=== PATIENT | male | born 1950 | race Caucasian/White ===

== ENCOUNTER 2018-04-01 16:19 | Outpatient (REF) | payer MEDICARE, MEDICAID, SELFPAY ==
[2018-04-01 21:27] LABS: ALT 103 U/L (12-78); AST 114 U/L (15-37); Albumin 3.7 g/dL (3.4-5.0); Alkaline Phosphatase 84 U/L (46-116); BUN 15 mg/dL (7-18); Bilirubin, Total 0.7 mg/dL (0.2-1.0); CREATININE 0.84 mg/dL (0.70-1.30); Calcium 8.6 mg/dL (8.5-10.1); Chloride 105 mmol/L (98-107); Glucose 100 mg/dL (70-100); Potassium 4.2 mmol/L (3.5-5.1); Sodium 144 mmol/L (136-145); Total Protein 6.7 g/dL (6.4-8.2)
[2018-04-03 08:49] LABS: PSA, Screening 3.6 ng/ml (0-4.5)
== END 2018-04-01 16:20 ==
LOC: NCHCN 16:19
PROVIDERS: PCP Nurse Practitioner Family; Visit Provider Nurse Practitioner Family
DX: R13.10 Dysphagia, unspecified (principal); E78.5 Hyperlipidemia, unspecified; G25.0 Essential tremor; F41.8 Other specified anxiety disorders; J98.4 Other disorders of lung; N20.0 Calculus of kidney; G62.9 Polyneuropathy, unspecified; Z12.5 Encounter for screening for malignant neoplasm of prostate; Z80.42 Family history of malignant neoplasm of prostate
CPT/HCPCS: 80053; 84153

== ENCOUNTER 2018-05-07 15:44 | Outpatient (REF) | payer MEDICARE, MEDICAID, SELFPAY ==
[2018-05-07 20:40] LABS: ALT 41 U/L (12-78); AST 26 U/L (15-37)
== END 2018-05-07 16:04 ==
LOC: NCHCN 15:44
PROVIDERS: PCP Nurse Practitioner Family; Visit Provider Nurse Practitioner Family
DX: R74.0 Nonspecific elevation of levels of transaminase and lactic acid dehydrogenase [LDH] (principal)
CPT/HCPCS: 84450; 84460

== ENCOUNTER → 2018-05-28 14:33 | Outpatient (BNVA) | payer MEDICARE, MEDICAID, SELFPAY | PROVIDERS: Visit Provider Psychiatry & Neurology Neurology | DX: G40.909 Epilepsy, unspecified, not intractable, without status epilepticus (principal); S06.9X9S Unspecified intracranial injury with loss of consciousness of unspecified duration, sequela; X58.XXXD Exposure to other specified factors, subsequent encounter; G25.0 Essential tremor; G62.1 Alcoholic polyneuropathy | CPT/HCPCS: 99214 ==

== ENCOUNTER 2018-05-29 14:36 | Outpatient (CLI) | payer MEDICARE, MEDICAID, SELFPAY ==
[2018-05-29 16:01] LABS: Hemoglobin A1C 5.5 % (4.5-6.2)
[2018-05-29 16:13] LABS: ESR 10 MM/HR (1-20)
[2018-05-29 16:38] LABS: TSH (W/Ref FT4) 1.68 uIU/mL (0.358-3.74); Vitamin B12 407 pg/mL (193-986)
[2018-05-31 11:32] LABS: Albumin 65.4 % (55.8-66.1); Total Protein 6.1 g/dl (6.3-8.2)
== END 2018-05-29 14:56 ==
PROVIDERS: PCP Nurse Practitioner Family; Visit Provider Psychiatry & Neurology Neurology
DX: R73.9 Hyperglycemia, unspecified (principal); G25.0 Essential tremor; G62.1 Alcoholic polyneuropathy
CPT/HCPCS: 36415; 84166; 85652; 82607; 83036; 84165; 84443

== ENCOUNTER 2018-06-25 15:39 | Outpatient (REF) | payer MEDICARE, MEDICAID, SELFPAY ==
[2018-06-25 20:55] LABS: ALT 36 U/L (12-78); AST 30 U/L (15-37); Anion Gap 9.5 mmol/L (3-11); BUN 22 mg/dL (7-18); CO2 29.5 mmol/L (21.0-32.0); CREATININE 1.21 mg/dL (0.70-1.30); Calcium 9.1 mg/dL (8.5-10.1); Chloride 103 mmol/L (98-107); Estimated GFR 59.82 (mL/min/1.73m2); Glucose 89 mg/dL (70-100); Potassium 4.1 mmol/L (3.5-5.1); Sodium 142 mmol/L (136-145)
== END 2018-06-25 15:59 ==
LOC: NCHCN 15:39
PROVIDERS: PCP Nurse Practitioner Family; Visit Provider Nurse Practitioner Family
DX: R74.0 Nonspecific elevation of levels of transaminase and lactic acid dehydrogenase [LDH] (principal); Z51.81 Encounter for therapeutic drug level monitoring
CPT/HCPCS: 80048; 84450; 84460

== ENCOUNTER 2018-08-27 13:16 | Outpatient (REF) | payer MEDICARE, MEDICAID, SELFPAY ==
[2018-08-27 14:12] LABS: ALT 73 U/L (12-78); AST 77 U/L (15-37); Albumin 3.6 g/dL (3.4-5.0); Alkaline Phosphatase 93 U/L (46-116); Anion Gap 8.7 mmol/L (3-11); BUN 19 mg/dL (7-18); Bilirubin, Total 0.5 mg/dL (0.2-1.0); CO2 31.3 mmol/L (21.0-32.0); CREATININE 1.08 mg/dL (0.70-1.30); Calcium 9.3 mg/dL (8.5-10.1); Chloride 104 mmol/L (98-107); Cholesterol 212 mg/dL (50-200); Glucose 102 mg/dL (70-100); HDL Cholesterol 92 mg/dL (40-60); LDL CHOLESTEROL 98 mg/dL (<100); Potassium 5.1 mmol/L (3.5-5.1); Sodium 144 mmol/L (136-145); Total Protein 6.9 g/dL (6.4-8.2); Triglyceride 80 mg/dL (30-150)
== END 2018-08-27 13:36 ==
LOC: NCHCN 13:16
PROVIDERS: PCP Nurse Practitioner Family; Visit Provider Nurse Practitioner Family
DX: E78.5 Hyperlipidemia, unspecified (principal)
CPT/HCPCS: 80053; 80061; 83721

== ENCOUNTER → 2018-09-02 12:56 | Outpatient (BNVA) | payer MEDICARE, SELFPAY | PROVIDERS: PCP Nurse Practitioner Family; Visit Provider Psychiatry & Neurology Neurology | DX: R73.9 Hyperglycemia, unspecified (principal); G62.1 Alcoholic polyneuropathy; G25.0 Essential tremor; G40.909 Epilepsy, unspecified, not intractable, without status epilepticus | CPT/HCPCS: 99214 ==

== ENCOUNTER 2018-10-03 16:31 | Outpatient (REF) | payer MEDICARE, MEDICAID, SELFPAY ==
[2018-10-03 21:59] LABS: ALT 113 U/L (12-78); AST 102 U/L (15-37)
[2018-10-04 10:02] LABS: CREATININE 1.19 mg/dL (0.70-1.30)
[2018-10-07 12:51] LABS: Hepatitis C Ab w Rflx HCV PCR Negative (NEGAT)
[2018-10-08 11:47] LABS: Hepatitis A Antibody IgM Negative (NEGAT); Hepatitis B Core Antibody Negative (NEGAT); Hepatitis B surface Ag Negative (NEGAT); Hepatitis C Ab w Rflx HCV PCR Negative (NEGAT)
== END 2018-10-03 16:51 ==
LOC: NCHCN 16:31
PROVIDERS: PCP Nurse Practitioner Family; Visit Provider Nurse Practitioner Family
DX: R74.0 Nonspecific elevation of levels of transaminase and lactic acid dehydrogenase [LDH] (principal); Z13.89 Encounter for screening for other disorder; J98.4 Other disorders of lung; G62.9 Polyneuropathy, unspecified; K00.9 Disorder of tooth development, unspecified; J30.9 Allergic rhinitis, unspecified; E78.5 Hyperlipidemia, unspecified; G89.29 Other chronic pain; Z11.59 Encounter for screening for other viral diseases
CPT/HCPCS: 86704; 86709; 86803; 87340; 82565; 84450; 84460

== ENCOUNTER 2018-10-10 00:28 | Outpatient (CLI) | payer MEDICARE, SELFPAY ==
[2018-10-10] MEDS: Omnipaque 350 MG/ML 100 ML BTL IJ (13:10)
--- NOTE | 2018-10-10 13:10 | DI.CT_ITS ---
SYMPTOMS/DIAGNOSIS: PULMONARY NODULE, J98.4 CT SCAN OF THE CHEST: Comparison is 07/06/17. The thyroid gland is grossly unremarkable. The thoracic aorta is intact and normal caliber. Mild atherosclerosis is present. The heart size is within normal limits. No significant pericardial effusion is seen. Coronary artery calcifications are present. No significant thoracic adenopathy is appreciated. No pleural effusion or pneumothorax is identified. Mild emphysematous changes are seen in the lungs. No focal consolidating infiltrates are seen. There are no pulmonary nodules visualized. The area seen on the prior examination may represent a vasculature. The tracheobronchial tree appears unremarkable. Degenerative changes are seen in the spine. IMPRESSION: 1. No pulmonary nodules. 2. Mild emphysematous changes in the lungs. 3. No acute pulmonary process.
[2018-10-10] MEDS: Normal Saline Flush 10 ML SYR IVP (13:11)
== END 2018-10-10 00:48 ==
PROVIDERS: PCP Nurse Practitioner Family; Visit Provider Nurse Practitioner Family
DX: J98.4 Other disorders of lung (principal); R91.1 Solitary pulmonary nodule
CPT/HCPCS: 71260; J3490

== ENCOUNTER 2018-12-31 13:20 | Outpatient (REF) | payer MEDICARE, SELFPAY ==
[2018-12-31 22:38] LABS: ALT 62 U/L (12-78); AST 43 U/L (15-37); Albumin 4.2 g/dL (3.4-5.0); Alkaline Phosphatase 76 U/L (46-116); Bilirubin, Direct 0.13 mg/dL (0.00-0.20); Bilirubin, Total 0.5 mg/dL (0.2-1.0); Total Protein 7.4 g/dL (6.4-8.2)
[2019-01-02 10:06] LABS: PSA, Screening 3.2 ng/ml (0-4.5)
== END 2018-12-31 13:40 ==
LOC: NCHCN 13:20
PROVIDERS: PCP Nurse Practitioner Family; Visit Provider Nurse Practitioner Family
DX: R74.0 Nonspecific elevation of levels of transaminase and lactic acid dehydrogenase [LDH] (principal); E78.5 Hyperlipidemia, unspecified; Z12.5 Encounter for screening for malignant neoplasm of prostate; Z80.42 Family history of malignant neoplasm of prostate; G25.0 Essential tremor; G62.9 Polyneuropathy, unspecified
CPT/HCPCS: 80076; 84153

== ENCOUNTER 2019-02-13 15:22 | Outpatient (REF) | payer MEDICARE, SELFPAY ==
--- NOTE | 2019-02-13 10:30 | SKI_PTH ---
PATIENT: Roderick Fernandez LOC: [facility] U#:[id number] AGE/SX: 69/M ROOM: RE02/13/[address]: Giuliana Monzon : 1950 BED: DIS: 02/13/2019 SPEC #: [id number] RECD: 02/14/19 12:43 STATUS: JOANNE REQ #: [id number] TON: 02/13/19 10:[address]: Giuliana Monzon DEPT: Surgical Specimen RECD BY: Annika Cloud ENTERED: 02/14/19 12:44 SP TYPE: DOROTHY AGUILERA DR: Nicolette Harris Tissues: 1 - SKIN BIOPSY(SHAVE/PUNCH) Procedures: SKIN LEVEL 4 Comments: [id number]
== END 2019-02-13 15:42 ==
LOC: NCHCN 15:22
PROVIDERS: PCP Nurse Practitioner Family; Visit Provider Nurse Practitioner Family
DX: L81.4 Other melanin hyperpigmentation (principal)
CPT/HCPCS: 88305

== ENCOUNTER 2019-09-25 02:52 | Outpatient (CLI) | payer MEDICARE, SELFPAY ==
--- NOTE | 2019-09-25 10:05 | PFT_ITS ---
PULMONARY FUNCTION TEST REPORT DATE OF SERVICE: September 25, 2019 REQUESTING PROVIDER: Nicolette Harris N.P. Spirometry shows mild obstructive airways disease with no significant bronchodilator response. Lung volumes show mild restriction. Diffusion capacity severely reduced, even when corrected to alveolar volume. Airways resistance normal. IMPRESSION: Mild obstructive airways disease with no significant bronchodilator response. This is combined with underlying mild restrictive lung disease. These two together result in severe diffusion defect. Clinical correlation and further workup for both entities is recommended. WONG/maria esther D/
[2019-09-25] MEDS: Albuterol HFA 18 GM 200 PUFF INH IH (10:52)
[2019-09-25] MEDS: Inhaler, Assist Device 1 EACH MC (10:52)
== END 2019-09-25 03:12 ==
PROVIDERS: PCP Nurse Practitioner Family; Visit Provider Nurse Practitioner Family
DX: J98.8 Other specified respiratory disorders (principal); J98.4 Other disorders of lung; Z87.891 Personal history of nicotine dependence; R06.02 Shortness of breath; R06.09 Other forms of dyspnea
CPT/HCPCS: 94060; 94726; 94729

== ENCOUNTER 2019-10-03 13:38 | Inpatient (IN) | payer MEDICARE, SELFPAY ==
[2019-10-03] VITALS (32 sets, daily range): BP systolic 116–158; BP diastolic 67–105; PULSE 72–153; RESP 12–25; TEMP 36.3–37.1; O2SAT 94–100
--- NOTE | 2019-10-03 13:47 | W.ED.GENAD ---
Discharge Plan Disposition Patient Disposition: [facility] INPATIENT Condition: Fair Discharge Details Chief Complaint: SOB Clinical Impression: Transaminitis, Dyspnea on exertion Admit Date/Time: 10/03/19 16:04 Admit Provider: Kaleb Medina Attending Provider: Kaleb Medina Primary Care Provider: Nicolette Harris ED Provider: Leslie Starr Discharge Data Discharge Date/Time-TO BE ENTERED AT DEPARTURE: 10/03/19 17:00 Medical Decision Making Patient is a pleasant 69-year-old male presenting today with chief complaint of shortness of breath. Past medical history significant for TBI, migraines, alcohol abuse, hyperlipidemia, CKD, anxiety, depression, chronic pain, pressure medic epilepsy, essential tremor, alcoholic peripheral neuropathy. He states that for the past 2 weeks he is noted increased shortness of breath particularly with exertion. States that even going up a flight of stairs can make him very winded and that he feels his heart pounding. He denies any chest pain. No recent travel. No personal familial history of clot or bleeding disorder. He denies any nausea, vomiting. He does report that he is lost a few pounds over the past week as he has had a diminished appetite. He denies any personal history of cancer but reports that his brother was diagnosed with prostate cancer. He reports that he has been obtaining his routine screening without any evidence showing concern for cancer. Patient discussed his current issues with his primary care provider and there was concern for PE and he was directed to the ED. patient reports that he quit smoking approximately 2 years ago but smoked from the age of 17. On exam, patient appears chronically unwell. He is cachectic, pale. Normal cardiac exam at this time. No lower extremity edema or calf tenderness. I do agree with primary care is concern for possible PE as the patient was notably tachycardic in the 140s when he first arrived. This did downtrend quickly with cessation of movement. His oxygen has been maintained at 100% on room air. Also consider possible neoplasm given the patient's long smoking history and current appearance. Plan for imaging of his chest. Patient had PFT testing on 09/25/2019. At that time spirometry showed mild obstructive airway disease with no significant bronchodilator response. Lung volumes showed mild restriction. Diffusing capacity severely reduced, we were corrected with alveolar volume. Airways resistance normal in appearance. Overall impression from food service tray attendant was mild obstructive airway disease with no significant bronchodilator response. This is combined with underlying mild restrictive lung disease. He has 2 together result in severe diffusion defect. Clinical correlation and further work-up for both entities is recommended. Labs reviewed. No leukocytosis. D-dimer is within age-adjusted normal. His gap is elevated at 19.6, BUN of 20, creatinine 1.4. His AST is 377 with an ALT of 242. Total bili 1.9. Initial troponin is less than 0.05. But patient has had some elevated liver enzymes historically, they have never been this high. He denies any history of hepatitis, have sent an acute hepatitis panel. With the patient's weight loss, smoking I am concerned for possible cancerous etiology and will change the imaging to include the abdomen with the notable transaminitis. CT was reviewed by radiologist with no acute findings. Patient was quite tachycardic, short of breath when he first came in he is got notable transaminitis as well as elevated anion gap. Patient is receiving 2L of fluids. Plan for admission. Acute hepatitis panel is pending. Will consult with hospitalist. Discussed case with Dr. Medina, he accepts patient to med/surg with plan for continued monitoring on tele, repeat troponin, further eval. HPI General Mode of arrival: ambulatory. Date/Time Provider Initiated Documentation: 10/03/19 13:47. Limitations to Documentation: no limitations. Information obtained by: patient and RN notes reviewed. History of Present Illness 69 year old M presents to the emergency department with the chief complaint of shortness of breath, described as moderate (exertional), Patient started experiencing this week(s) (2) and it has been constant (progressively worsening). Immobilization improves symptom(s), Movement worsens symptoms . Patient notes shortness of breath; denies chest pain, cough, diaphoresis, fever/chills, headaches, loss of appetite, nausea/vomiting, rash, syncope and weakness. Patient did receive the following treatments prior to arrival, none Related Data Home Medications Medication Instructions Recorded Confirmed gabapentin 100 mg PO TID tab-cap 01/27/16 10/03/19 lorazepam [Ativan] 1 mg PO Q 6 HRS PRN tab-cap 01/27/16 10/03/19 mirtazapine 15 mg PO HS tab-cap 01/27/16 10/03/19 aspirin [Aspirin Low-Strength] 81 mg PO DAILY 03/27/16 10/03/19 cholecalciferol (vitamin D3) 6,000 unit PO DAILY 06/12/16 10/03/19 omega-3 fatty acids [Fish Oil] 3,000 mg PO DAILY 06/12/16 10/03/19 vitamin B complex [B 1 ea PO DAILY 06/12/16 10/03/19 Complex-Vitamin B12] calcium carbonate [Calcium] 1 - 2 cap PO HS 04/04/17 10/03/19 propranolol 60 mg PO DAILY #90 tab-cap 06/19/17 10/03/19 Previous Rx's Medication Instructions Recorded propranolol 60 mg PO DAILY #90 tab-cap 06/19/17 Allergies Allergy/AdvReac Type Severity Reaction Status Date / Time acetaminophen [From Vicodin] AdvReac Intermediate SEVERE Unverified 05/28/18 14:56 CONSTIPATION hydrocodone bitartrate AdvReac Intermediate SEVERE Unverified 05/28/18 14:56 [From Vicodin] CONSTIPATION SEAFOOD Allergy Unknown Uncoded 10/03/19 13:52 Review of Systems Constitutional Constitutional: Reports as per HPI, Denies chills, Denies fever(s), Denies headache(s), Denies lethargy and Denies poor appetite Eyes Eyes: Denies change in vision ENT Ears, Nose, Mouth, and Throat: Denies dizziness and Denies headache(s) Cardiovascular Cardiovascular: Reports as per HPI, Denies chest pain, Denies chest pain at rest, Denies diaphoresis, Denies syncope, Reports rapid heart rate (when SOB with exertion), Denies pedal edema, Denies edema, Reports lightheadedness (when SOB), Denies radiating jaw, neck or arm pain, Denies palpitations, Reports dyspnea, Reports dyspnea on exertion and Denies orthopnea Respiratory Respiratory: Reports as per HPI, Denies chest congestion, Denies cough, Denies pain on inspiration, Denies pain with cough, Reports dyspnea, Reports dyspnea on exertion and Denies wheezing Gastrointestinal Gastrointestinal: Reports as per HPI, Denies abdominal pain, Denies diarrhea, Denies nausea and Denies vomiting Genitourinary Genitourinary: Denies system reviewed and no additional complaints, except as docu (denies change in urinary habits) Musculoskeletal Musculoskeletal: Reports as per HPI and Denies back pain Integumentary/Breasts Skin/Breast: Reports as per HPI and Denies rash Neurologic Neurologic: Reports as per HPI, Denies dizziness, Denies syncope and Denies headache(s) Endocrine Endocrine: Denies palpitations Allergic/Immunologic Allergic/Immunologic: Denies wheezing [facility] Medical History (Updated 10/04/19 @ 09:06 by PARKER Mays) Alcohol abuse (Resolved) sober 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) Anxiety and depression (Chronic) Calculus of left kidney (Resolved 03/20/17) Chronic kidney disease, stage 3 (Chronic) Chronic pain syndrome (Chronic) COPD (chronic obstructive pulmonary disease) (Chronic) Essential tremor (Chronic 04/10/16) Gross hematuria (Resolved 03/20/17) Hyperlipidemia (Chronic) Left ureteral stone (Resolved 03/27/17) Migraine headache without aura (Chronic) 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) Scoliosis (Chronic) Seizure disorder (Resolved) TBI (traumatic brain injury) (Chronic) Remote, multiple Umbilical hernia without obstruction or gangrene (Chronic) Vitamin D deficiency (Chronic) Surgical History Colonoscopy - MAC (05/19/16) Inguinal hernia (Acute) Family History Mother TIA (transient ischemic attack) Father Parkinson disease Stroke Social History (Updated 10/03/19 @ 18:19 by Kaleb Medina) Smoking/Tobacco Use Status: Current every day Alcohol Intake: current Alcohol Intake frequency: holidays/special occasions only Alcohol type: wine Drug use: Never Substance use type: does not use Household members: none Housing: apartment Do you feel safe at home: Yes Do you feel safe in your relationship?: Yes Additional Social history: Lives alone in second story apartment in [place], has a cat Currently working part-time at [employer] in [place] through [email or web address]. History of smoking, quit June 2018. No vaping. No other drug use including marijuana. Exam Const General: cooperative, not healthy appearing, comfortable, no acute distress, well developed and ill appearing acutely (pale, tachypnic) Nutritional Appearance: well nourished and cachectic Orientation: alert, awake and oriented x3 HENMT Head: normal to inspection Ears: hearing grossly normal bilaterally Mouth: moist mucous membranes Chest Chest: normal inspection of the chest, normal palpation of entire chest wall and no crepitus Resp Effort & Inspection: abnormal respiratory effort, not able to speak in complete sentences, no audible wheezes, no cough, labored, nasal flaring, no pursed lip breathing, no segmental paradox chest wall movement, no stridor, tachypneic, no tracheal deviation, no tripod positioning and uses accessory muscles Auscultation: clear to auscultation bilaterally, no rales, no rhonchi and no wheezes Cardio Rate: tachycardic Rhythm: regular rhythm Heart Sounds: S1 normal and S2 normal GI Inspection: normal to inspection, no edema and non-distended Palpation: soft, no hepatosplenomegaly, not firm, no guarding, not rigid and nontender Auscultation: normal bowel sounds Back/Spine/Pelvis Back: no CVA tenderness Thoracic/Lumbar Spine: thoracic and lumbar spine normal to inspection Skin General skin exam: no rashes or lesions noted Trauma: no lacerations or abrasions Neuro General: alert, awake and oriented x3 Cognition: normal cognition Speech: speech normal Gait: normal gait Extrem General: normal to inspection, normal capillary refill, no pedal edema, no calf tenderness and normal gait Psych Appearance: grossly normal and well kempt Mental Status: mental status grossly normal Speech and Movement: speech and movement normal
[2019-10-03] MEDS: Normal Saline 1,000 ML 1000 ML IV ×2 (13:59→15:25)
[2019-10-03 14:05] LABS: Abs Immature Grans 0.01 k/cumm (0.0-0.09); Absolute Basophil Count 0.04 k/cumm (0.0-0.2); Absolute Eosinophil Count 0.04 k/cumm (0.0-0.7); Absolute Lymphocyte Count 1.59 k/cumm (1.2-3.4); Absolute Monocyte Count 0.77 k/cumm (0.11-0.7); Basophils % 0.6; Eosinophils % 0.6; HCT 43.5 % (40.0-50.0); HGB 14.9 g/dL (13.5-17.5); Immature Grans % 0.2 %; Lymphocytes % 23.9; Mean Corp. HGB Concentration 34.3 g/dL (32.0-36.0); Mean Corpuscular Hemoglobin 38.5 pg (27.0-33.0); Mean Corpuscular Volume 112.4 fL (80-95); Monocytes % 11.6; Neutrophils % 63.1; Platelet Count 148 x1000/uL (130-400); RBC 3.87 m/cumm (4.50-6.00); RBC Distribution Width 13.4 % (11.8-14.1); White Blood Cell Count 6.65 k/cumm (4.4-10.8)
[2019-10-03 14:24] LABS: INR 1.1 (0.9-1.1); PTT Activated 24.1 sec (21.0-31.4); Prothrombin Time 11.4 sec (9.3-11.0)
[2019-10-03 14:39] LABS: D-Dimer 645 ng/mlFEU (<500)
[2019-10-03 14:42] LABS: ALT 242 U/L (16-63); AST 377 U/L (15-37); Albumin 3.8 g/dL (3.4-5.0); Alkaline Phosphatase 113 U/L (46-116); Anion Gap 19.6 mmol/L (3-11); BUN 20 mg/dL (7-18); Bilirubin, Total 1.9 mg/dL (0.2-1.0); CO2 21.4 mmol/L (21.0-32.0); CREATININE 1.41 mg/dL (0.70-1.30); Calcium 8.6 mg/dL (8.5-10.1); Chloride 98 mmol/L (98-107); Estimated GFR 49.99 (mL/min/1.73m2); Glucose 131 mg/dL (74-106); Magnesium 1.5 mg/dL (1.8-2.4); Sodium 139 mmol/L (136-145); TSH (W/Ref FT4) 1.26 uIU/mL (0.36-3.74)
[2019-10-03 14:44] LABS: Troponin I < 0.05 ng/Ml (<0.06)
--- NOTE | 2019-10-03 14:45 | DI.CT_ITS ---
EXAM: CT CHEST PE ABD PELVIS W CLINICAL HISTORY: SOB, TRANSAMINITIS. TECHNIQUE: Imaging Protocol: Axial computed tomography images with coronal and sagittal reformatted images were created and reviewed CONTRAST MATERIAL: Intravenous: Omnipaque 350 Contrast volume:61 mL Oral: No COMPARISON: ABD/PELVIS WO W CONTRAST from 03/27/2017 FINDINGS: CHEST: Thyroid: Unremarkable as visualized. Tracheobronchial tree: Patent where visualized. Mediastinum and Florencia: No dominant adenopathy or fluid collection. Pulmonary parenchyma: Bilateral apical scarring. Dependent atelectasis. No focal consolidating infi ltrates. Pleura: No effusion or pneumothorax. Lymph nodes: Within normal limits. Aorta: Thoracic portion non-dilated. No evidence of dissection. Atherosclerosis. Heart: Mild cardiomegaly. Mild coronary artery calcification. No evidence of right heart dysfunctio n or significant pericardial effusion. Bones: Degenerative changes. Pulmonary arteries: No evidence of a pulmonary embolus. ABDOMEN: Liver: Diffuse fatty infiltration. Hepatomegaly. No measurable mass. Gallbladder and biliary tract: No radiodense calculus or dilation. Pancreas: Normal density, no abnormal calcifications or inflammatory process. Spleen: Normal. Kidneys: Normal size, contour and axis. Nonobstructing 3 mm stone in the midpole of the left kidney. No masses seen. Adrenal glands: No masses seen. Aorta: Abdominal portion non-dilated. Atherosclerosis. Lymph nodes: Within normal limits. PELVIS: Bladder: Symmetric distention, no gross wall thickening. Bowel: No obstruction or bowel wall thickening. Colonic diverticulosis. No evidence of acute diverti culitis. Normal appendix is identified. Peritoneal cavity: No ascites, collection or mesenteric inflammatory response. Bones: Degenerative changes. Reproductive organs: Within normal limits. IMPRESSION: 1. No evidence of pulmonary embolus, thoracic aortic dissection or aneurysm. 2. No acute abdominal or pelvic process. 3. Mild cardiomegaly. Mild coronary artery calcification. 4. Hepatomegaly and hepatic steatosis. 5. Colonic diverticulosis. No evidence of acute diverticulitis. 6. Left nephrolithiasis. No obstructive uropathy. 7. These findings were discussed with the Emergency Department on the date of the examination. Incidental findings DATA REPOSITORY: All CT scans at this facility are submitted to the National Radiology Data Registry (NRDR) Dose Index Registry (DIR) with the [employer] (ACR). RADIATION OPTIMIZATION: All CT scans at this facility use at least one of these dose optimization te chniques: automated exposure control; mA and/or kV adjustment per patient size (includes targeted exa ms where dose is matched to clinical indication); or iterative reconstruction.
[2019-10-03 14:47] LABS: Diff Comment RBC Morph Reviewed; Macrocytosis 2+
[2019-10-03] MEDS: Omnipaque 350 MG/ML 100 ML BTL IJ (15:15)
[2019-10-03 16:40] LABS: ETHANOL BLOOD 4.5 mg/dL (<3)
[2019-10-03 16:48] LABS: Troponin I < 0.05 ng/Ml (<0.06)
--- NOTE | 2019-10-03 17:00 | PDOC.ERCMIN ---
- If Service Date Differs Date of service: 10/03/19 Time of Service: 17:00 Care Management Initial Assess REASON FOR HOSPITALIZATION:: Shortness of breath. PAST MEDICAL HISTORY/PAST SURGICAL HISTORY:: Medical/Surgical History: TBI (traumatic brain injury), migraine headache without aura, alcohol abuse (sober), vitamin D deficiency, scoliosis, hyperlipidemia, chronic kidney disease, stage 3, anxiety and depression, chronic pain syndrome, post traumatic epilepsy, left ureteral stone, gross hematuria, essential tremor, calculus of left kidney, alcoholic peripheral neuropathy, and umbilical hernia without obtruction or gangrene. PREVIOUS FUNCTIONAL STATUS/SOCIAL/FAMILY SUPPORTS:: Roderick lives alone with his cat, Shaheed, in a second floor apartment in [place]. 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 When not at work, he enjoys reading, going to the library and restaurants, and hiking. Roderick drives and is independent with his ADLs, though shares that lately he has struggled with taking the trash out due to weakness. CURRENT FUNCTIONAL STATUS:: Roderick is lying in bed when CM meets with him. He is pleasant and talkative. He hopes he will only be in the hospital for a day or two as his cat is home alone. He provides CM with the name and phone number of a friend who might be able to go to his apartment to feed the cat (James - [phone]). CM will continue to follow. ADVANCE DIRECTIVES:: None on file, but Roderick says he has one and either his PCP or neurology has a copy of it. Has patient been provided with information about the portal?: No Did the patient sign up for the portal?: No CODE STATUS:: Full Code INSURANCE COVERAGE / FINANCIAL ISSUES:: Medicare. CURRENT HOME/COMMUNITY SERVICES/EQUIPMENT:: Roderick uses a cane to ambulate. He is currently receiving employment services through [employer]. He denies any other community or home services. PRIMARY CARE PHYSICIAN:: Nicolette Harris ([facility]) POTENTIAL DISCHARGE NEEDS:: Follow-up appointment with PCP. PATIENT/FAMILY EDUCATION NEEDS:: Discharge plan, limitations, follow-up plan of care including Ask Me Three and self-management. ANTICIPATED BARRIERS TO DISCHARGE:: None. TRANSPORTATION:: RCT coordinated by CM when ready. PLAN:: Roderick will be discharged home when medically cleared by provider. Anticipate no new services at time of discharge. CM will coordinate transport via [facility] when ready. CM will continue to follow.
--- NOTE | 2019-10-03 18:12 | HPE_ITS ---
Date of service: 10/03/19 Time of Service: 18:12 Assessment and Plan Assessment and plan (1) Dyspnea on exertion: Status: Acute Assessment and plan: This appears to be acute progression or exacerbation of a subacute to chronic problem. Fortunately he is not hypoxic, though he is quite dyspneic with exertion. Initial assessment emergency room with reassuring EKG and troponin not consistent with acute ischemia. Given his risk factors and associated symptoms, we should rule him out with at least one more troponin. Will monitor on telemetry. Cardiomegaly on CT scan and history of alcoholism do raise concern for CHF. I have added a BNP to the next labs, though he does not appear to be overtly fluid overloaded. CT is not consistent with a pulmonary embolus. He does have a recent diagnosis of COPD, as well as restrictive lung disease. I think is most likely this presentation is a manifestation of his chronic lung disease. I will try treating with bronchodilators and prednisone. Imaging and presentation not consistent with infectious pneumonia, though he is at risk for atypical pneumonias as well given his alcohol use disorder. (2) Alcohol abuse: Status: Resolved Assessment and plan: Patient describes moderate alcohol use, though at his age 2 drinks a day even would carry excessive risk. His labs with elevated transaminases, high MCV, low magnesium I will suggest alcohol abuse. His current alcohol level is not excessive. Will monitor for withdrawal. CIWA protocol ordered. He does agree that he should stop drinking altogether and plans to do this upon discharge. We can offer therapy and medical treatment upon discharge. (3) Post traumatic epilepsy: Status: Chronic Assessment and plan: Patient describes a history of posttraumatic epilepsy, but has not had seizures recently. He is maintained on gabapentin, which is appears to be for this and for neuropathy. We will continue his outpatient medications. (4) Chronic kidney disease, stage 3: Status: Chronic Assessment and plan: Patient's creatinine is slightly above his baseline. CT of the kidneys did not show uropathy. Bladder scan was 440, which is slightly elevated, and will get a post void and watch his urine output. He may benefit from tamsulosin. He does not appear to be acutely dehydrated. Will monitor and assess further if this does not improve. (5) Transaminitis: Status: Acute Assessment and plan: Patient does have a history of chronic elevation of LFTs have gone up and down. Acute hepatitis panel was ordered, though this has been negative within the past year. He is not have known ongoing risk factors. The overall picture is very consistent with alcoholic hepatitis. I am concerned with developing cirrhosis with the elevated bilirubin, which is new. His albumin is reassuring, though his platelets are borderline low. He should likely be assessed for cirrhosis with liver elastography as an outpatient. (6) COPD (chronic obstructive pulmonary disease): Status: Chronic Assessment and plan: As above we will try to treat his COPD to see if it improves his dyspnea on exertion. Start with short acting bronchodilators, if he has some benefit he could be started on long-acting. (7) DVT prophylaxis: Status: Acute Assessment and plan: Lovenox (8) Discharge planning issues: Status: Acute Assessment and plan: Patient stable on medical floor. He is full code. History of Present Illness History of Present Illness Chief Complaint: Dyspnea on exertion Narrative: 69-year-old gentleman with history of obstructive and restrictive lung disease and alcohol abuse currently moderated by history who is presenting with progressive shortness of breath on exertion. Patient has had shortness of breath for months to years, but has been getting much worse of the past few weeks. Does have PFTs which were done September 25, but has not been started on respiratory medication. He presented for follow-up for his shortness of breath to his primary child care center administrator today who noted his dyspnea and tachycardia and referred him to the emergency room or concern for pulmonary embolus. Patient states he is comfortable at rest, but even walking around gets dyspneic. He lives on the second floor and has a very difficult time getting up his stairs for the past few weeks. He describes severe shortness of breath by the time he gets to the top associated with nausea, diaphoresis, lightheadedness, and heart racing. He denies chest pain or pressure. The symptoms do improve after collapsing on a chair for 20 minutes at the top of the stairs. He denies any recent upper respiratory symptoms such as cough or sore throat, though he states he does have some chronic congestion. He denies any triggers that are new to explain his increased shortness of breath. He states his downstairs neighbors are not sick and he does not know of any ventilation issues in his home or problems with heating system. He has not changed his medications recently. Patient does admit he has had a problem with alcohol in the past, but states he drinks only 2 glasses of wine a night currently. Review of Systems Narrative: General: No fevers or chills. He has had a good appetite, but does describe a 6 pound weight loss over the past several months. No increase in his headaches recently. No vision changes. No vertigo or balance changes. No focal weakness or new numbness. He does have chronic peripheral neuropathy dated alcohol. No cough, hemoptysis, or sputum production. No lower extremity edema or orthopnea. Does get heartburn. No vomiting. No diarrhea or constipation. No blood in stool or melena. No dysuria or change in urine flow or hematuria. Does have a history of kidney stone. No new joint pain or swelling. No new rashes or open wounds. No mood changes. 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) Anxiety and depression (Chronic) Calculus of left kidney (Resolved 03/20/17) Chronic kidney disease, stage 3 (Chronic) Chronic pain syndrome (Chronic) Essential tremor (Chronic 04/10/16) Gross hematuria (Resolved 03/20/17) Hyperlipidemia (Chronic) Left ureteral stone (Resolved 03/27/17) Migraine headache without aura (Chronic) 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) Scoliosis (Chronic) Seizure disorder (Resolved) TBI (traumatic brain injury) (Chronic) Remote, multiple Umbilical hernia without obstruction or gangrene (Chronic) Vitamin D deficiency (Chronic) Surgical History Colonoscopy - MAC (05/19/16) Inguinal hernia (Acute) Family History Mother TIA (transient ischemic attack) Father Parkinson disease Stroke Social History (Updated 10/03/19 @ 18:19 by Kaleb Medina) Smoking/Tobacco Use Status: Current every day Alcohol Intake: current Alcohol Intake frequency: holidays/special occasions only Alcohol type: wine Drug use: Never Substance use type: does not use Household members: none Housing: apartment Do you feel safe at home: Yes Do you feel safe in your relationship?: Yes Additional Social history: Lives alone in second story apartment in [facility], has a cat Currently working part-time at [employer] in [place] through [employer]. History of smoking, quit June 2018. No vaping. No other drug use including marijuana. Meds Home Medications and Allergies Home Medications Medication Instructions Recorded Confirmed Type gabapentin 100 mg PO TID tab-cap 01/27/16 10/03/19 History lorazepam [Ativan] 1 mg PO Q 6 HRS PRN tab-cap 01/27/16 10/03/19 History mirtazapine 15 mg PO HS tab-cap 01/27/16 10/03/19 History aspirin [Aspirin Low-Strength] 81 mg PO DAILY 03/27/16 10/03/19 History cholecalciferol (vitamin D3) 6,000 unit PO DAILY 06/12/16 10/03/19 History omega-3 fatty acids [Fish Oil] 3,000 mg PO DAILY 06/12/16 10/03/19 History vitamin B complex [B 1 ea PO DAILY 06/12/16 10/03/19 History Complex-Vitamin B12] calcium carbonate [Calcium] 1 - 2 cap PO HS 04/04/17 10/03/19 History propranolol 60 mg PO DAILY #90 tab-cap 06/19/17 10/03/19 Rx Allergies Allergy/AdvReac Type Severity Reaction Status Date / Time acetaminophen [From Vicodin] AdvReac Intermediate SEVERE Unverified 05/28/18 14:56 CONSTIPATION hydrocodone bitartrate AdvReac Intermediate SEVERE Unverified 05/28/18 14:56 [From Vicodin] CONSTIPATION SEAFOOD Allergy Unknown Uncoded 10/03/19 13:52 Exam Narrative Exam Narrative: General: Alert and oriented x3, sitting up comfortably in bed speaking in full sentences. Thin and somewhat pale. HEENT: Atraumatic. Conjunctive are clear with no icterus. Pupils equal round reactive to light with extraocular motion intact. No rhinorrhea. Mucous membranes are moist with oropharynx benign. Neck is supple with no masses or lymphadenopathy or thyromegaly. Lungs: Mildly diffusely diminished, but no rales or wheezes. Cardiovascular: Regular rate and rhythm no murmurs gallops or rubs. Abdomen: Active bowel sounds, soft, nontender nondistended with no organomegaly or other masses. Extremities: No cyanosis clubbing or edema. Nontender to palpation in the legs. No joint redness or swelling Skin: Dry, warm, no rashes or open wounds noted. Neurologic: Cranial nerves II through XII intact. Grossly normal coordination, normal movement in 4 extremities. No tremor at rest. Normal tone. Psychiatric: Normal mood and affect. Normal thought process. Results CT of the chest abdomen pelvis: No evidence of pulmonary embolus, thoracic aortic dissection, or aneurysm. No acute abdominal pelvic process. Mild cardiomegaly. Mild coronary artery calcification. Hepatomegaly and hepatic stenosis.: Diverticulosis without diverticulitis. Left nephrolithiasis without hydronephrosis. EKG: Per emergency physician read, no acute ischemia. Labs Result diagrams: 10/03/19 13:49 10/03/19 13:49 Labs: Laboratory Results - last 24 hr 10/03/19 10/03/19 10/03/19 13:49 13:49 13:49 WBC 6.65 RBC 3.87 L Hgb 14.9 Hct 43.5 MCV 112.4 H MCH 38.5 H MCHC 34.3 RDW 13.4 Plt Count 148 MPV 11.0 Immature Gran % 0.2 Neutrophils % 63.1 Lymphocytes % 23.9 Monocytes % 11.6 Eosinophils % 0.6 Basophils % 0.6 Absolute Neutrophils 4.20 Absolute Lymphocytes 1.59 Absolute Monocytes 0.77 H Absolute Eosinophils 0.04 Absolute Basophils 0.04 Differential Comment Rbc morph reviewed RBC Morphology See below Macrocytosis 2+ PT 11.4 H INR 1.1 APTT 24.1 D-Dimer 645 H Sodium 139 Potassium 4.0 Chloride 98 Carbon Dioxide 21.4 Anion Gap 19.6 H BUN 20 H Creatinine 1.41 H Estimated GFR/1.73 m2 49.99 Glucose 131 H Calcium 8.6 Magnesium 1.5 L Total Bilirubin 1.9 H AST 377 H ALT 242 H Alkaline Phosphatase 113 Troponin I < 0.05 Total Protein 7.0 Albumin 3.8 TSH 1.26 Ethyl Alcohol 10/03/19 10/03/19 16:25 16:26 WBC RBC Hgb Hct MCV MCH MCHC RDW Plt Count MPV Immature Gran % Neutrophils % Lymphocytes % Monocytes % Eosinophils % Basophils % Absolute Neutrophils Absolute Lymphocytes Absolute Monocytes Absolute Eosinophils Absolute Basophils Differential Comment RBC Morphology Macrocytosis PT INR APTT D-Dimer Sodium Potassium Chloride Carbon Dioxide Anion Gap BUN Creatinine Estimated GFR/1.73 m2 Glucose Calcium Magnesium Total Bilirubin AST ALT Alkaline Phosphatase Troponin I < 0.05 Total Protein Albumin TSH Ethyl Alcohol 4.5 Last Vital Signs Temp 37.1 C 10/03/19 17:16 Pulse 103 H 10/03/19 17:16 Resp 20 10/03/19 17:16 BP 145/94 H 10/03/19 17:16 Pulse Ox 100 10/03/19 17:16
[2019-10-03] MEDS: predniSONE 20 MG TAB 60 MG PO (18:50)
[2019-10-03] MEDS: Normal Saline Flush 10 ML SYR IVP (18:51)
[2019-10-03] MEDS: MAGNESIUM SULFATE 2 GM/50 ML BAG IVPB (18:57)
[2019-10-03] MEDS: Gabapentin 100 MG CAP PO (19:27)
[2019-10-03] MEDS: Enoxaparin 40 MG/0.4 ML SYR SC (19:27)
[2019-10-03 21:22] LABS: Troponin I < 0.05 ng/Ml (<0.06)
[2019-10-03] MEDS: Mirtazapine 15 MG TAB PO (21:45)
[2019-10-04] VITALS (14 sets, daily range): BP systolic 91–144; BP diastolic 60–87; PULSE 63–176; RESP 1–18; TEMP 35.6–37.2; O2SAT 94–100
[2019-10-04 06:47] LABS: ALT 191 U/L (16-63); AST 258 U/L (15-37); Albumin 2.8 g/dL (3.4-5.0); Alkaline Phosphatase 85 U/L (46-116); Anion Gap 6.1 mmol/L (3-11); BUN 10 mg/dL (7-18); Bilirubin, Total 0.8 mg/dL (0.2-1.0); CO2 27.9 mmol/L (21.0-32.0); CREATININE 0.92 mg/dL (0.70-1.30); Calcium 8.2 mg/dL (8.5-10.1); Chloride 104 mmol/L (98-107); Glucose 228 mg/dL (74-106); Magnesium 1.9 mg/dL (1.8-2.4); NT-proBNP 1009 pg/mL (<300); Potassium 3.8 mmol/L (3.5-5.1); Sodium 138 mmol/L (136-145); Total Protein 5.2 g/dL (6.4-8.2)
[2019-10-04] MEDS: Pantoprazole 40 MG TABCR PO (08:07)
[2019-10-04] MEDS: predniSONE 20 MG TAB 60 MG PO (08:07)
[2019-10-04] MEDS: Vitamins B Comp w/C TAB 1 TAB PO (08:08)
[2019-10-04] MEDS: Folic Acid 1 MG TAB PO (08:08)
[2019-10-04] MEDS: Gabapentin 100 MG CAP PO ×3 (08:08→20:05)
[2019-10-04] MEDS: Multivitamin TAB 1 TAB PO (08:08)
[2019-10-04] MEDS: Aspirin 81 MG CHEW PO (08:08)
[2019-10-04] MEDS: Propranolol 60 MG CAPCR PO (08:08)
[2019-10-04] MEDS: Thiamine 100 MG TAB PO (08:09)
--- NOTE | 2019-10-04 10:28 | PHARADMIT ---
Addendum entered by Gina Marvin 10/05/19 11:45: Pharmacy Note Subjective pt being worked up for tachycardia, transaminitis Objective FS 93, CIWA 0, HR 67, K 3.4, AST and ALT levels going down Assessment mirtazepine stopped, KCL bolus given Plan monitor lytes, FS, HR and med changes Original Note: Admission Pharmacy Clinical Review dyspnea,transaminitis Code Status Full Code Current Weight 61.689 kg Renally Cleared and Narrow Therapeutic Index Meds crcl ~67 ml/min QTc Value / Action Taken 457 BP Control, Fever 100/68 afebrile Electrolytes reviewed ok DVT Prophylaxis enoxaparin Opiate Usage / Scheduled Bowel Regimen Ordered no/prn Plt/SCr for Heparin / Enoxaparin 148/0.92 INR for Warfarin 1.1 H/H stable, WBC/Bands 14.9/43.5 wbc 6.65 Antibiotic appropriateness na Cultures and Sensitivities na Surgical ABX d/c within 24 hr na DM control / Insulin Dosing glucose 228, SS insulin aspart started Heart Failure (Check EF%) (DEBORAH's, B-Block, Diuretics) na IV to PO Switch all meds PO Home Meds Reviewed Home Meds Not Ordered cholecalciferol (vitamin D3) 6,000 unit PO DAILY omega-3 fatty acids [Fish Oil] 3,000 mg PO DAILY calcium carbonate [Calcium] 1 - 2 cap PO HS Comments
[2019-10-04 11:42] LABS: Creatine Kinase 54 U/L (39-308)
[2019-10-04] MEDS: Insulin Aspart 300 UNITS/3 ML PEN SC ×3 (12:01→21:41)
--- NOTE | 2019-10-04 12:30 | W.PM.PROGNOT ---
Date of Service Date of service: 10/04/19 Time of Service: 12:30 Assessment and Plan Assessment and plan (1) Tachycardia with greater than 160 beats per minute: Status: Acute Assessment and plan: Appears to be the trigger to patient feeling short of breath, dizzy, nauseated ?SVT. ?Autonomic dysfunction. TSH ok, but will check FT4. Continue to monitor on tele. Check echo. Check orthostatics. Hydrate IV. Will need cardiology consult. May require titration of beta ashutosh. (2) COPD (chronic obstructive pulmonary disease): Status: Chronic Assessment and plan: Clinically, not in acute exacerbation. Avoid albuterol - I ordered xopenex prn + scheduled atrovent. (3) Transaminitis: Status: Acute Assessment and plan: Likely due to alcoholic liver disease - but the patient also has a h/o seizure d/o, and given no elevated in alk phos, rhabdomyolysis needs to be ruled out. Check CPK. (4) Dyspnea on exertion: Status: Acute Assessment and plan: Appears to be a part of the same phenomenon as tachycardia - could be a symptom of his tachycardia. If continues to have symptoms after resolution of tachycardia, would consider ischemic workup. I do not think that his COPD is in acute exacerbation, but we will continue a short burst of steroids. (5) Alcohol abuse: Status: Acute Assessment and plan: The patient has been drinking for about 6 months. He is interested in AA post-discharge and would like to talkto care management about resources. For now, continue MVI, thiamine; check B12, folate. Monitor on CIWA for aclcohol withdrawal. Hydrate IV. (6) Discharge planning issues: Status: Acute Assessment and plan: Full code. Continues to require hospitalization. (7) DVT prophylaxis: Status: Acute Assessment and plan: Lovenox SC Subjective Subjective Interval history since last seen: Mr Fernandez states that he feels off. He states his mood is off but also he generally has been feeling quite weak. Every time he tries to get up, his heart rate has been going up to 160's-180's on telemetry. The patient does feel it and gets dizzy, short of breath, gets palpitations. At home, if he tries to get up a flight of stairs, he feels nauseated. This has been going on for 2 months, but much worse in the last 2 weeks. No chest pain. Endorses a dry cough. Endorses wheezing on exertion. His last drink as on . He drank 3 glasses of wine. His CIWA scores have been between 1 and 5. Exam Narrative Exam Narrative: General: Very pleasant middle-aged male who looks clinically dry, A&Ox3, mildly tremulous (his baseline) HEENT: EOMI, dry MM Heart: RRR, no m/r/g Lungs: CTAB Abdomen: soft, nontender, nondistended Extremities: no e/c/c BLE's - skin dry. Objective Objective Clinical Data: Abnormal lab results 10/03/19 10/03/19 10/03/19 Range/Units 13:49 13:49 13:49 RBC 3.87 L (4.50-6.00) m/cumm MCV 112.4 H (80-95) fL MCH 38.5 H (27.0-33.0) pg Absolute Monocytes 0.77 H (0.11-0.7) k/cumm PT 11.4 H (9.3-11.0) sec D-Dimer 645 H (<500) ng/mlFEU Anion Gap 19.6 H (3-11) mmol/L BUN 20 H (7-18) mg/dL Creatinine 1.41 H (0.70-1.30) mg/dL Glucose 131 H (74-106) mg/dL Calcium (8.5-10.1) mg/dL Magnesium 1.5 L (1.8-2.4) mg/dL Total Bilirubin 1.9 H (0.2-1.0) mg/dL AST 377 H (15-37) U/L ALT 242 H (16-63) U/L NT-Pro-B Natriuret Pep (<300) pg/mL Total Protein (6.4-8.2) g/dL Albumin (3.4-5.0) g/dL 10/04/19 Range/Units 06:13 RBC (4.50-6.00) m/cumm MCV (80-95) fL MCH (27.0-33.0) pg Absolute Monocytes (0.11-0.7) k/cumm PT (9.3-11.0) sec D-Dimer (<500) ng/mlFEU Anion Gap (3-11) mmol/L BUN (7-18) mg/dL Creatinine (0.70-1.30) mg/dL Glucose 228 H D (74-106) mg/dL Calcium 8.2 L (8.5-10.1) mg/dL Magnesium (1.8-2.4) mg/dL Total Bilirubin (0.2-1.0) mg/dL AST 258 H (15-37) U/L ALT 191 H (16-63) U/L NT-Pro-B Natriuret Pep 1009 H (<300) pg/mL Total Protein 5.2 L (6.4-8.2) g/dL Albumin 2.8 L (3.4-5.0) g/dL Vital Signs Temperature 36.9 C 10/04/19 07:24 Temperature Source Tympanic 10/04/19 07:24 Pulse 174 H 10/04/19 08:45 Pulse Rhythm Regular 10/04/19 08:15 Pulse 80 10/03/19 16:30 Respiratory Rate 18 10/04/19 07:24 Respiratory Effort Non-Labored 10/04/19 08:15 Respiratory Depth Normal 10/04/19 08:15 Respiratory Pattern Normal 10/04/19 08:15 Blood Pressure 100/68 10/04/19 07:24 Blood Pressure Mean 91 10/03/19 16:16 Pulse Oximetry 95 10/04/19 08:21 Oxygen Delivery Method Room Air 10/04/19 08:21 Oxygen Flow Rate 0 10/04/19 08:21 Pain Level 4 10/04/19 07:24 Intake & Output 10/03/19 10/04/19 10/04/19 23:59 11:59 23:59 Intake Total 2670 / 2670 360 / 360 Output Total 875 / 875 1225 / 1225 Balance 1795 / 1795 -865 / -865 Weight 61.689 kg Intake: IV 2009 Oral 660 / 660 360 / 360 Output: Urine 875 / 875 1225 / 1225 Other: Urine Color Yellow Yellow Urine Appearance Clear Clear Urine Odor Normal Normal Comment [phone] in three different places. Pt voided 725 ml, and postvoid bladder scannced of 35 ml. Stool Size Moderate Stool Characteristics Soft Formed Voiding Methods Urinal Urinal Laboratory Results WBC 6.65 k/cumm (4.4-10.8) 10/03/19 13:49 RBC 3.87 m/cumm (4.50-6.00) L 10/03/19 13:49 Hgb 14.9 g/dL (13.5-17.5) 10/03/19 13:49 Hct 43.5 % (40.0-50.0) 10/03/19 13:49 MCV 112.4 fL (80-95) H 10/03/19 13:49 MCH 38.5 pg (27.0-33.0) H 10/03/19 13:49 MCHC 34.3 g/dL (32.0-36.0) 10/03/19 13:49 RDW 13.4 % (11.8-14.1) 10/03/19 13:49 Plt Count 148 x1000/uL (130-400) 10/03/19 13:49 MPV 11.0 fL (8.0-11.0) 10/03/19 13:49 Immature Gran % 0.2 % 10/03/19 13:49 Neutrophils % 63.1 10/03/19 13:49 Lymphocytes % 23.9 10/03/19 13:49 Monocytes % 11.6 10/03/19 13:49 Eosinophils % 0.6 10/03/19 13:49 Basophils % 0.6 10/03/19 13:49 Absolute Neutrophils 4.20 k/cumm (1.2-6.7) 10/03/19 13:49 Absolute Lymphocytes 1.59 k/cumm (1.2-3.4) 10/03/19 13:49 Absolute Monocytes 0.77 k/cumm (0.11-0.7) H 10/03/19 13:49 Absolute Eosinophils 0.04 k/cumm (0.0-0.7) 10/03/19 13:49 Absolute Basophils 0.04 k/cumm (0.0-0.2) 10/03/19 13:49 Differential Comment Rbc morph reviewed 10/03/19 13:49 RBC Morphology See below 10/03/19 13:49 Macrocytosis 2+ 10/03/19 13:49 PT 11.4 sec (9.3-11.0) H 10/03/19 13:49 INR 1.1 (0.9-1.1) 10/03/19 13:49 APTT 24.1 sec (21.0-31.4) 10/03/19 13:49 D-Dimer 645 ng/mlFEU (<500) H 10/03/19 13:49 Sodium 138 mmol/L (136-145) 10/04/19 06:13 Potassium 3.8 mmol/L (3.5-5.1) 10/04/19 06:13 Chloride 104 mmol/L (98-107) 10/04/19 06:13 Carbon Dioxide 27.9 mmol/L (21.0-32.0) 10/04/19 06:13 Anion Gap 6.1 mmol/L (3-11) 10/04/19 06:13 BUN 10 mg/dL (7-18) D 10/04/19 06:13 Creatinine 0.92 mg/dL (0.70-1.30) 10/04/19 06:13 Estimated GFR/1.73 m2 >= 60.00 (mL/min/1.73m2) 10/04/19 06:13 Glucose 228 mg/dL (74-106) H D 10/04/19 06:13 Calcium 8.2 mg/dL (8.5-10.1) L 10/04/19 06:13 Magnesium 1.9 mg/dL (1.8-2.4) 10/04/19 06:13 Total Bilirubin 0.8 mg/dL (0.2-1.0) 10/04/19 06:13 AST 258 U/L (15-37) H 10/04/19 06:13 ALT 191 U/L (16-63) H 10/04/19 06:13 Alkaline Phosphatase 85 U/L (46-116) 10/04/19 06:13 Creatine Kinase 54 U/L (39-308) 10/04/19 06:13 Troponin I < 0.05 ng/Ml (<0.06) 10/03/19 20:45 NT-Pro-B Natriuret Pep 1009 pg/mL (<300) H 10/04/19 06:13 Total Protein 5.2 g/dL (6.4-8.2) L 10/04/19 06:13 Albumin 2.8 g/dL (3.4-5.0) L 10/04/19 06:13 TSH 1.26 uIU/mL (0.36-3.74) 10/03/19 13:49 Ethyl Alcohol 4.5 mg/dL (<3) 10/03/19 16:26 EKG (at rest): NSR, HR 71, RBBB
[2019-10-04 12:58] LABS: FREE T4 1.03 ng/dL (0.76-1.46)
[2019-10-04] MEDS: Ipratropium 0.5 MG/2.5 ML UPD VIAL UPD ×2 (13:33→17:40)
[2019-10-04] MEDS: Normal Saline 1,000 ML 100 ML IV (14:12)
--- NOTE | 2019-10-04 14:41 | PDOC.CMPRO ---
Care Management Progress Note S/O: Roderick was lying in bed when CM greeted him. He reported he had already attended to having his cat at home fed, by his friend, and was thankful for the support. He shared no concerns at this time. CM continues to follow. A: 69 year old male admitted to [facility] 10/03/19 for Dyspnea, transaminitis P: Roderick will be discharged home when medically cleared by provider. Anticipate no new services at time of discharge. CM will coordinate transport via [facility] when ready, per MD. CM continues to follow.
[2019-10-04] MEDS: Enoxaparin 40 MG/0.4 ML SYR SC (20:05)
[2019-10-04] MEDS: Mirtazapine 15 MG TAB PO (21:41)
[2019-10-05] VITALS (17 sets, daily range): BP systolic 89–134; BP diastolic 53–86; PULSE 61–100; RESP 1–19; TEMP 36.5–37; O2SAT 94–99
[2019-10-05] MEDS: Ipratropium 0.5 MG/2.5 ML UPD VIAL UPD ×4 (00:15→23:59)
[2019-10-05] MEDS: Normal Saline 1,000 ML 100 ML IV ×3 (00:15→20:42)
[2019-10-05 06:49] LABS: Abs Immature Grans 0.02 k/cumm (0.0-0.09); Absolute Basophil Count 0.01 k/cumm (0.0-0.2); Absolute Eosinophil Count 0.01 k/cumm (0.0-0.7); Absolute Lymphocyte Count 1.53 k/cumm (1.2-3.4); Absolute Monocyte Count 0.68 k/cumm (0.11-0.7); Absolute Neutrophil Count 4.17 k/cumm (1.2-6.7); Basophils % 0.2; Eosinophils % 0.2; HCT 34.6 % (40.0-50.0); HGB 11.7 g/dL (13.5-17.5); Immature Grans % 0.3 %; Lymphocytes % 23.8; Mean Corp. HGB Concentration 33.8 g/dL (32.0-36.0); Mean Corpuscular Volume 112.3 fL (80-95); Mean Platelet Volume 11.2 fL (8.0-11.0); Monocytes % 10.6; Neutrophils % 64.9; Platelet Count 114 x1000/uL (130-400); RBC 3.08 m/cumm (4.50-6.00); RBC Distribution Width 12.9 % (11.8-14.1); White Blood Cell Count 6.42 k/cumm (4.4-10.8)
[2019-10-05 07:01] LABS: Hemoglobin A1C 5.2 % (3.8-5.6)
[2019-10-05 07:05] LABS: ALT 151 U/L (16-63); AST 143 U/L (15-37); Albumin 2.7 g/dL (3.4-5.0); Alkaline Phosphatase 72 U/L (46-116); Anion Gap 7.7 mmol/L (3-11); BUN 7 mg/dL (7-18); Bilirubin, Direct 0.37 mg/dL (0.00-0.20); Bilirubin, Total 0.8 mg/dL (0.2-1.0); CO2 28.3 mmol/L (21.0-32.0); CREATININE 0.98 mg/dL (0.70-1.30); Chloride 109 mmol/L (98-107); Glucose 97 mg/dL (74-106); Potassium 3.4 mmol/L (3.5-5.1); Sodium 145 mmol/L (136-145)
[2019-10-05] MEDS: Vitamins B Comp w/C TAB 1 TAB PO (08:24)
[2019-10-05] MEDS: predniSONE 20 MG TAB 60 MG PO (08:24)
[2019-10-05] MEDS: Multivitamin TAB 1 TAB PO (08:24)
[2019-10-05] MEDS: Thiamine 100 MG TAB PO (08:24)
[2019-10-05] MEDS: Propranolol 60 MG CAPCR PO (08:24)
[2019-10-05] MEDS: Pantoprazole 40 MG TABCR PO (08:24)
[2019-10-05] MEDS: Folic Acid 1 MG TAB PO (08:25)
[2019-10-05] MEDS: Gabapentin 100 MG CAP PO ×3 (08:25→20:41)
[2019-10-05] MEDS: Aspirin 81 MG CHEW PO (08:25)
[2019-10-05 08:33] LABS: Folate 5.4 ng/mL (8.6-20.0); Magnesium 1.4 mg/dL (1.8-2.4); Vitamin B12 428 pg/mL (193-986)
[2019-10-05] MEDS: Normal Saline 1,000 ML 1000 ML IV (10:11)
[2019-10-05] MEDS: Magnesium Chloride 64 MG TABCR PO ×2 (10:12→20:42)
[2019-10-05] MEDS: Potassium Chloride 20 MEQ TABCR 40 MEQ PO (10:12)
[2019-10-05] MEDS: MAGNESIUM SULFATE 4 GM/100 ML BAG IVPB (10:21)
--- NOTE | 2019-10-05 13:33 | W.PM.PROGNOT ---
Date of Service Date of service: 10/05/19 Time of Service: 13:33 Assessment and Plan Assessment and plan (1) Tachycardia with greater than 160 beats per minute: Status: Resolved Assessment and plan: SVT in setting of orthostasis, dehydration, therapy with remeron, possible autonomic dysfunction due to EtOH. No further episodes since initiation of IVF. Continue to monitor on tele. Await echo. Continue to monitor orthostatics. Continue IV fluids. Await cardiology consult. Will not change dose of propranolol at this time. (2) COPD (chronic obstructive pulmonary disease): Status: Chronic Assessment and plan: Clinically, not in acute exacerbation. Start to taper prednisone. I am not sure it is truly helping. Continue xopenex prn + scheduled atrovent. (3) Transaminitis: Status: Acute Assessment and plan: Likely due to alcoholic liver disease. No true alcoholic hepatitis. Follow up as outpatient. (4) Dyspnea on exertion: Status: Acute Assessment and plan: Likel symptomatic SVT. COPD does not appear to be in acute exacerbation. Will finish a short steroid taper. Continue inhalers. Await echo. Will need ischemic workup - could be done as outpatient. (5) Alcohol abuse: Status: Acute Assessment and plan: CIWA scores of 0-1. The patient has been drinking for about 6 months. He is interested in AA post-discharge and would like to talkto care management about resources. For now, continue MVI, thiamine. Initiate B12 and folic acid repletion as both are low. Monitor on CIWA for aclcohol withdrawal. Hydrate IV. (6) Discharge planning issues: Status: Acute Assessment and plan: Full code. Possible discharge home tomorrow vs in 24 hours (7) DVT prophylaxis: Status: Acute Assessment and plan: Lovenox SC Subjective Subjective Interval history since last seen: Mr Fernandez states he feels a little bit weary. He did not get as short of breath today - but he did feel a little short of breath trying to get up from the toilet. He thinks that the inhalers are helping. He feels more capacity to take a deep breath today. He does not have inhalers at home. Denies dizziness, chest pain, nausea, palpitations. No episodes of SVT since 10 am yesterday. Orthostatic. States he only takes mirtazapine occasionally at home. Exam Narrative Exam Narrative: General: Very pleasant middle-aged male who looks more perky today, A&Ox3, tremor is less visible today HEENT: EOMI, MMM Heart: RRR, no m/r/g Lungs: CTAB Abdomen: soft, nontender, nondistended Extremities: no e/c/c BLE's - skin dry. Trace pedal pulse LLE, +1 pedal pulse RLE. Objective Objective Clinical Data: Abnormal lab results 10/05/19 10/05/19 10/05/19 Range/Units 06:20 06:20 06:20 RBC 3.08 L (4.50-6.00) m/cumm Hgb 11.7 L D (13.5-17.5) g/dL Hct 34.6 L D (40.0-50.0) % MCV 112.3 H (80-95) fL MCH 38.0 H (27.0-33.0) pg Plt Count 114 L (130-400) x1000/uL MPV 11.2 H (8.0-11.0) fL Potassium 3.4 L (3.5-5.1) mmol/L Chloride 109 H (98-107) mmol/L Calcium 8.0 L (8.5-10.1) mg/dL Magnesium 1.4 L (1.8-2.4) mg/dL Conjugated Bilirubin 0.37 H (0.00-0.20) mg/dL AST 143 H (15-37) U/L ALT 151 H (16-63) U/L Total Protein 5.0 L (6.4-8.2) g/dL Albumin 2.7 L (3.4-5.0) g/dL Folate 5.4 L (8.6-20.0) ng/mL Vital Signs Temperature 36.5 C 10/05/19 11:37 Temperature Source Tympanic 10/05/19 11:37 Pulse 67 10/05/19 11:37 Pulse Rhythm Regular 10/05/19 08:28 Pulse 80 10/03/19 16:30 Respiratory Rate 19 10/05/19 11:37 Respiratory Effort Non-Labored 10/05/19 08:28 Respiratory Depth Normal 10/05/19 08:28 Respiratory Pattern Normal 10/05/19 08:28 Blood Pressure 115/73 10/05/19 11:37 Blood Pressure Mean 91 10/03/19 16:16 Pulse Oximetry 97 10/05/19 11:37 Oxygen Delivery Method Room Air 10/05/19 11:37 Oxygen Flow Rate 0 10/05/19 11:37 Pain Level 0 10/05/19 11:37 Intake & Output 10/04/19 10/05/19 10/05/19 23:59 11:59 23:59 Intake Total 480 / 1570 3300 / 3300 Output Total 1450 / 2975 900 / 1500 600 / 1500 Balance -970 / -1405 2400 / 1800 -600 / 1800 Weight 59.2 kg Intake: IV 3000 / 3000 Oral 480 / 1570 300 / 300 Output: Urine 1450 / 2975 900 / 1500 600 / 1500 Other: Urine Color Straw Light Swetha Urine Appearance Clear Clear Urine Odor Normal Normal Comment bright yellow Stool Size Moderate Voiding Methods Toilet Urinal Urinal Laboratory Results WBC 6.42 k/cumm (4.4-10.8) 10/05/19 06:20 RBC 3.08 m/cumm (4.50-6.00) L 10/05/19 06:20 Hgb 11.7 g/dL (13.5-17.5) L D 10/05/19 06:20 Hct 34.6 % (40.0-50.0) L D 10/05/19 06:20 MCV 112.3 fL (80-95) H 10/05/19 06:20 MCH 38.0 pg (27.0-33.0) H 10/05/19 06:20 MCHC 33.8 g/dL (32.0-36.0) 10/05/19 06:20 RDW 12.9 % (11.8-14.1) 10/05/19 06:20 Plt Count 114 x1000/uL (130-400) L 10/05/19 06:20 MPV 11.2 fL (8.0-11.0) H 10/05/19 06:20 Immature Gran % 0.3 % 10/05/19 06:20 Neutrophils % 64.9 10/05/19 06:20 Lymphocytes % 23.8 10/05/19 06:20 Monocytes % 10.6 10/05/19 06:20 Eosinophils % 0.2 10/05/19 06:20 Basophils % 0.2 10/05/19 06:20 Absolute Neutrophils 4.17 k/cumm (1.2-6.7) 10/05/19 06:20 Absolute Lymphocytes 1.53 k/cumm (1.2-3.4) 10/05/19 06:20 Absolute Monocytes 0.68 k/cumm (0.11-0.7) 10/05/19 06:20 Absolute Eosinophils 0.01 k/cumm (0.0-0.7) 10/05/19 06:20 Absolute Basophils 0.01 k/cumm (0.0-0.2) 10/05/19 06:20 Differential Comment Rbc morph reviewed 10/03/19 13:49 RBC Morphology See below 10/03/19 13:49 Macrocytosis 2+ 10/03/19 13:49 PT 11.4 sec (9.3-11.0) H 10/03/19 13:49 INR 1.1 (0.9-1.1) 10/03/19 13:49 APTT 24.1 sec (21.0-31.4) 10/03/19 13:49 D-Dimer 645 ng/mlFEU (<500) H 10/03/19 13:49 Sodium 145 mmol/L (136-145) 10/05/19 06:20 Potassium 3.4 mmol/L (3.5-5.1) L 10/05/19 06:20 Chloride 109 mmol/L (98-107) H 10/05/19 06:20 Carbon Dioxide 28.3 mmol/L (21.0-32.0) 10/05/19 06:20 Anion Gap 7.7 mmol/L (3-11) 10/05/19 06:20 BUN 7 mg/dL (7-18) 10/05/19 06:20 Creatinine 0.98 mg/dL (0.70-1.30) 10/05/19 06:20 Estimated GFR/1.73 m2 >= 60.00 (mL/min/1.73m2) 10/05/19 06:20 Glucose 97 mg/dL (74-106) D 10/05/19 06:20 Hemoglobin A1c 5.2 % (3.8-5.6) 10/05/19 06:20 Calcium 8.0 mg/dL (8.5-10.1) L 10/05/19 06:20 Magnesium 1.4 mg/dL (1.8-2.4) L 10/05/19 06:20 Total Bilirubin 0.8 mg/dL (0.2-1.0) 10/05/19 06:20 Conjugated Bilirubin 0.37 mg/dL (0.00-0.20) H 10/05/19 06:20 AST 143 U/L (15-37) H 10/05/19 06:20 ALT 151 U/L (16-63) H 10/05/19 06:20 Alkaline Phosphatase 72 U/L (46-116) 10/05/19 06:20 Creatine Kinase 54 U/L (39-308) 10/04/19 06:13 Troponin I < 0.05 ng/Ml (<0.06) 10/03/19 20:45 NT-Pro-B Natriuret Pep 1009 pg/mL (<300) H 10/04/19 06:13 Total Protein 5.0 g/dL (6.4-8.2) L 10/05/19 06:20 Albumin 2.7 g/dL (3.4-5.0) L 10/05/19 06:20 Vitamin B12 428 pg/mL (193-986) 10/05/19 06:20 Folate 5.4 ng/mL (8.6-20.0) L 10/05/19 06:20 TSH 1.26 uIU/mL (0.36-3.74) 10/03/19 13:49 Free T4 1.03 ng/dL (0.76-1.46) 10/04/19 06:13 Ethyl Alcohol 4.5 mg/dL (<3) 10/03/19 16:26
[2019-10-05] MEDS: Cyanocobalamin 1000 MCG/ML VIAL IM/SC (14:19)
[2019-10-05] MEDS: Insulin Aspart 300 UNITS/3 ML PEN SC (17:47)
--- NOTE | 2019-10-05 19:05 | PDOC.CMPRO ---
- If Service Date Differs Date of service: 10/05/19 Time of Service: 19:05 Care Management Progress Note S/O: Roderick was sitting up in bed when CM met with him. He reported that he was feeling better today, and that per MD, he will stay tonight for more testing tomorrow. He is scheduled for an echo and Cardio has been consulted. He expressed concern regarding his insurance, as he reported that he no longer has KHARI, and has trouble affording his prescriptions. CM will send a referral to [facility] for these concerns. CM will continue to follow. A: 69 year old male admitted to [facility] 10/03/19 for Dyspnea, transaminitis P: Roderick will be discharged home when medically cleared by provider. Anticipate no new services at time of discharge. CM will coordinate transport via [facility] when ready, per MD. CM continues to follow.
[2019-10-05] MEDS: Enoxaparin 40 MG/0.4 ML SYR SC (20:41)
[2019-10-06] VITALS (15 sets, daily range): BP systolic 85–153; BP diastolic 58–86; PULSE 63–84; RESP 1–21; TEMP 36.5–37; O2SAT 93–99
[2019-10-06] MEDS: Ipratropium 0.5 MG/2.5 ML UPD VIAL UPD ×4 (05:57→23:30)
[2019-10-06] MEDS: Normal Saline 1,000 ML 100 ML IV ×2 (05:57→20:32)
[2019-10-06 06:45] LABS: Anion Gap 7.1 mmol/L (3-11); BUN 8 mg/dL (7-18); CO2 28.9 mmol/L (21.0-32.0); CREATININE 0.89 mg/dL (0.70-1.30); Calcium 7.8 mg/dL (8.5-10.1); Chloride 108 mmol/L (98-107); Glucose 92 mg/dL (74-106); Magnesium 1.8 mg/dL (1.8-2.4); Potassium 3.1 mmol/L (3.5-5.1); Sodium 144 mmol/L (136-145)
--- NOTE | 2019-10-06 07:30 | DI.US_ITS ---
APPROVED REPORT EXAM: Comprehensive 2D, Doppler, and color-flow Echocardiogram Patient Location: In-Patient Governor Assembler: Cleo Pollard RDCS (AE) Rhythm: NSR Indications: SVT vs. sinus tach with exertion Echo Enhancing Agent Comments: Normal LV chamber size and wall thickness No chamber enlargement No clinically significa t valvular disease Conclusion Normal left ventricular wall thickness and chamber size Estimated ejection fraction 60 to 65%. Wall motion is normal No chamber enlargement No clinically significant structural valvular disease Wall motion Left Ventricle The left ventricle is normal size. The left ventricular systolic function is normal. There is normal left ventricular wall thickness. There is normal LV segmental wall motion. The left ventricular diast olic function is normal. LVEF is estimated to be 60-65% Right Ventricle The right ventricle is normal size. The right ventricular systolic function appears normal. Atria The left atrium size is normal. The right atrium size is normal. Aortic Valve Aortic valve is trileaflet. There is no aortic valvular stenosis. Mild aortic regurgitation. Mitral Valve Mitral valve leaflets are mildly thickened. Mitral valve leaflets appear myxomatous. Trace to mild mi tral regurgitation. Tricuspid Valve The tricuspid valve leaflets are mildly thickened , but open well. There is mild tricuspid regurgitat ion. . Pulmonic Valve The pulmonary valve is normal in structure. There is trace physiologic pulmonic valvular regurgitatio n. Great Vessels The aortic root is top normal in size. The IVC appears small. Pericardium There is no pericardial effusion. 2D Dimensions IVSD d PLAX 0.87 cm M: 0.6-1.2 LV Vol A2C d MOD 37.2 mL LVPW d PLAX 0.76 cm M: 0.6 - 1.2 LV Vol A4C d MOD 69.3 mL LVID d PLAX 4.16 cm M: 4.2 - 5.8 LA vol/ BSA A2C s A-L 26.5 mL/m2 LVDs 2.90 cm M: 2.5 - 4.0 LA vol/ BSA A4C s A-L 25.7 mL/m2 Ao Root d 3.48 cm M: 3.1 - 3.7 LA Vol/ BSA Biplane s A-L 26.7 mL/m2 RVID Base (AP4) 3.49 cm (M/F) 2.5-4.1 LA Area A4C s MOD 15.84 cm2 RA Area A4C 17.24 cm2 LA Area A2C s MOD 15.75 cm2 RA Vol/ BSA A4C s A-L 29.3 mL/m2 LV EF A4C MOD 67.0 % Ao Asc Diam d 3.35 cm M: 2.6 - 3.4 LV EF A2C MOD 64.0 % LV EF Teichholz 57.0 % LV EF Biplane MOD 66.5 % LVEF (Barrios's) 66.47 % M: 52 - 72 LV Volume 41.78 mL M: 62 - 150 LV Volume Index 23.87 mL/m2 M: 34 - 74 LV Vol Biplane MOD 53.2 mL FS 29.55 % M-Mode TAPSE 1.71 cm (M/F) <1.7 LV Diastology MV E' medial 0.073 (>0.07 m/s) E/A Ratio 1.2 LV E/e MED 7.95 (<14) MV E Vmax 0.58 (0.4-1.3 m/s) MV E' lateral 0.081 (>0.1 m/s) MV A Vmax 0.50 (0.4-1.3 m/s) LV E/e LAT 7.15 (<14) MV E/A Ratio 1.08 MV E/E' medial 7.96 MV E/E' lateral 7.16 Aortic Valve LVOT Area 3.23 cm2 AoV Area Vmax 2.31 cm2 LVOT Vmax 0.74 m/s AoV Area/ BSA (Vmax) 1.31 cm2/m2 LVOT Mean Khris. 0.49 m/s LEISA Mean Khris. 2.05 cm2 LVOT Peak Grad 2.2 mmHg LEISA Mean Khris. Index 1.17 cm2/m2 LVOT Mean Grad 1.1 mmHg LVOT VTI 0.131 m LVOT Diam s 2.00 cm (M/F) 1.5-2.5 AoV Vmax 1.04 (0.5-1.3 m/s) Velocity Ratio 0.71 AoV Mean Khris. 0.77 m/s AoV Peak Grad 4.3 mmHg LVOT SV 42.47 mL AoV Mean Grad 2.6 (<5 mmHg) AoV VTI 0.219 (0.18-0.25 m) AoV Area VTI 1.94 (2.5-4.5 cm2) AoV Area/ BSA (VTI) 1.10 cm/m2 Mitral Valve MV DT 215 (160-240 msec) MV PHT 62 msec MV Area PHT 3.54 cm2 Pulmonary Valve PV Vmax 0.63 (0.5-1.5 m/s) RVOT Peak Gr. 0.82 mmHg PV Peak Grad 1.6 mmHg RVOT Mean Gr. 0.45 mmHg PV Mean Grad 1.2 mmHg RVOT VTI 0.105 m PV VTI 0.139 m RVOT Vmax 0.45 m/s SD ED Velocity 1.41 m/s SD ED Grad 7.9 mmHg Tricuspid Valve TR Peak Grad 25.1 mmHg TR Vmax 2.51 m/s
[2019-10-06] MEDS: Propranolol 60 MG CAPCR PO (09:09)
[2019-10-06] MEDS: predniSONE 20 MG TAB 40 MG PO (09:10)
[2019-10-06] MEDS: Vitamins B Comp w/C TAB 1 TAB PO (09:10)
[2019-10-06] MEDS: Thiamine 100 MG TAB PO (09:10)
[2019-10-06] MEDS: Magnesium Chloride 64 MG TABCR PO ×2 (09:10→20:32)
[2019-10-06] MEDS: Multivitamin TAB 1 TAB PO (09:11)
[2019-10-06] MEDS: Pantoprazole 40 MG TABCR PO (09:11)
[2019-10-06] MEDS: Folic Acid 1 MG TAB PO (09:11)
[2019-10-06] MEDS: Cyanocobalamin 500 MCG TAB 1000 MCG PO (09:11)
[2019-10-06] MEDS: Gabapentin 100 MG CAP PO ×3 (09:11→20:32)
[2019-10-06] MEDS: Aspirin 81 MG CHEW PO (09:11)
--- NOTE | 2019-10-06 10:04 | W.INDIABCONS ---
Date of service: 10/06/19 Time of Service: 10:04 Diabetes Inpatient Consult DESCRIPTION/ASSESSMENT: Appreciate diabetes consult for Mr. Fernandez who is hospitalized with COPD. During this hospitalization he has had some hyperglycemia requiring insulin correction at the sensitive level. He is on Prednisone here now at 40mg. A1c 5.3 indicting steroid induced hyperglycemia. BMI 18 INTERVENTION: No suggested intervention at this time. He will be seen by RDN for weight concern. PLAN: Will follow blood sugars and follow up if indicated. Time Spent in Nutritional Counseling and Treatment: 0 minutes face to face
[2019-10-06] MEDS: Normal Saline 1,000 ML 1000 ML IV (10:21)
[2019-10-06] MEDS: Potassium Chloride 20 MEQ TABCR 40 MEQ PO (10:21)
--- NOTE | 2019-10-06 10:25 | CHAPLAIN ---
Roderick was sitting up in a chair when I visited with him. He is [employer] and connected to the [facility] in [place]. 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 and [place], and was retired from the job in [place]. Roderick said he was raised [employer]regation and then found himself drawn to Eastern religions, especially [employer] Restorationism as a teenager. He said he is feeling better. A friend is caring for his cat, and Roderick seemed relieved about that.
[2019-10-06] MEDS: Levalbuterol 1.25 MG/3 ML UPD VIAL UPD (11:19)
[2019-10-06 11:38] LABS: Hepatitis A Antibody IgM Negative (Negative); Hepatitis B Core Antibody Negative (Negative); Hepatitis B surface Ag Negative (Negative); Hepatitis C Ab w Rflx HCV PCR Negative (Negative)
--- NOTE | 2019-10-06 13:22 | W.NUTCONSULT ---
Date of service: 10/06/19 Time of Service: 13:22 Nutritional Consult ASSESSMENT: 69 year old male admitted with COPD. PMH: transaminitis, ETOH abuse. Met with Roderick today and he reports that he has lost 15 lbs in last month (-11% weight ) along with progressive weakness. UBW: 144 lbs. He reports no change in eating habits, blood sugars well controlled (recent A1C= 5.2%) no difficulty with digestion/dentition. He does report that he has been having more difficulty eating due to his COPD and that he only eats twice daily. Diet recall indicates that he is not meeting nutrient needs at this time . Suspect weight loss due to eating <75% of nutrient and energy needs in last month, along with chronic illness (COPD). Estimated Needs: 2065 kcal (35 kcal/kg), 70 g protein (1.2 g pro/kg), 2L free fluid. Diet Recall: 1400 kcal, 45 g protein = meeting 67% of nutrient and protein needs. Vitamins/minerals being repleted. DM consult by CDE pending. NUTRITIONAL DIAGNOSIS: Moderate Malnutrition as evidenced by 11% weight loss in last 30 days, BMI <19 and inadequate energy intake for > 1 month per ADA/ASPEN clinical guidelines for diagnosis of malnutrition. INTERVENTION: Educated Roderick on need and ways to increase energy intake to regain his weight to baseline, he is not willing to eat breakfast at this time but he is willing to drink Ensure BID. Two meals daily, plus 2 ensure daily will meet 100% nutrient needs for regain weight to baseline. Recommended that when he discharged home that he should include ensure BID. MONITORING AND EVALUATION: weight, labs, po intake Time Spent in Nutritional Counseling and Treatment: 20 min spent face to face
[2019-10-06] MEDS: Fludrocortisone 0.1 MG TAB PO (15:06)
--- NOTE | 2019-10-06 15:51 | CMPROGNOTE_ITS ---
- If Service Date Differs Date of service: 10/06/19 Time of Service: 15:51 Care Management Progress Note S/O: Roderick was sitting up in a chair when CM met with him. He reported that he was feeling better. Roderick had an Echocardiogram today and will have a stress test tomorrow. He expressed concern regarding his insurance, as he reported that he no longer has KHARI, and has trouble affording his prescriptions. 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 CM sent a referral to [facility] and provided Roderick with a brochure outlining their contact information and hours. A: Roderick is a 69 year old male admitted to [facility] 10/03/19 for Dyspnea, transaminitis P: Roderick will be discharged home when medically cleared by provider. Anticipate no new services at time of discharge. CM will coordinate transport via [facility] when ready. CM will continue to follow and support patient and his discharge planning needs. .
--- NOTE | 2019-10-06 15:57 | W.PM.PROGNOT ---
Date of Service Date of service: 10/06/19 Time of Service: 15:57 Assessment and Plan Assessment and plan (1) Tachycardia with greater than 160 beats per minute: Status: Resolved Assessment and plan: SVT in setting of orthostasis, dehydration, therapy with remeron, possible autonomic dysfunction due to EtOH. Resolved with IVF. Continue current dose of beta ashutosh and monitoring on tele. (2) Orthostatic hypotension: Status: Acute Assessment and plan: On IVF but remains orthostatic. Remeron d/c'ed. Started on florinef today - reassess tomorrow. (3) COPD (chronic obstructive pulmonary disease): Status: Chronic Assessment and plan: Clinically, not in acute exacerbation. Continue steroid taper. Would benefit from pulmonary rehab as outpatient - arranging referral. (4) Transaminitis: Status: Acute Assessment and plan: Likely due to alcoholic liver disease. No true alcoholic hepatitis. Follow up as outpatient. (5) Dyspnea on exertion: Status: Acute Assessment and plan: Likel symptomatic SVT but also deconditioned and has severe COPD. Refer to pulmonary rehab on discharge. Will finish a short steroid taper. Continue inhalers. Ischemic w/u as outpatient. Echo ok. (6) Alcohol abuse: Status: Acute Assessment and plan: CIWA scores of 0-1. Not actively withdrawing. The patient has been drinking for about 6 months. He is interested in AA post-discharge and would like to talkto care management about resources. For now, continue MVI, thiamine, B12 and folic acid repletion as both are low. Monitor on CIWA for aclcohol withdrawal. Hydrate IV. (7) Dysphagia: Status: Acute Assessment and plan: Obtain swallow eval (8) Discharge planning issues: Status: Acute Assessment and plan: Full code. Plan for discharge home tomorrow (9) DVT prophylaxis: Status: Acute Assessment and plan: Lovenox SC Subjective Subjective Interval history since last seen: Mr Fernandez is feeling better today, though he got very short of breath walking in the hallway. He denies dizziness, chest pain, palpitations, nausea. Nursing observed patient having difficulty swallowing thin liquids and solids and feels the patient would benefit from a swallow eval. No SVT overnight. Remains quite orthostatic. Exam Narrative Exam Narrative: General: Very pleasant middle-aged male, comfortably sitting in bed, no respiratory distress, A&Ox3, resting tremlor HEENT: EOMI, MMM Heart: RRR, no m/r/g Lungs: CTAB Abdomen: soft, nontender, nondistended Extremities: no e/c/c BLE's - skin dry. Trace pedal pulse LLE, +1 pedal pulse RLE. Objective Objective Clinical Data: Abnormal lab results 10/06/19 Range/Units 05:57 Potassium 3.1 L (3.5-5.1) mmol/L Chloride 108 H (98-107) mmol/L Calcium 7.8 L (8.5-10.1) mg/dL Vital Signs Temperature 36.6 C 10/06/19 14:45 Temperature Source Tympanic 10/06/19 14:45 Pulse 70 10/06/19 14:45 Pulse Rhythm Regular 10/06/19 15:18 Pulse 74 10/05/19 13:41 Respiratory Rate 21 10/06/19 14:45 Respiratory Effort Non-Labored 10/06/19 15:18 Respiratory Depth Normal 10/06/19 15:18 Respiratory Pattern Normal 10/06/19 15:18 Blood Pressure 131/86 10/06/19 14:45 Blood Pressure Mean 91 10/03/19 16:16 Pulse Oximetry 97 10/06/19 14:45 Oxygen Delivery Method Room Air 10/06/19 14:45 Oxygen Flow Rate 0 10/06/19 14:45 Pain Level 0 10/06/19 14:45 Intake & Output 10/05/19 10/06/19 10/06/19 23:59 11:59 23:59 Intake Total 1480 / 4780 2165 / 2525 360 / 2525 Output Total 1800 / 2700 134 / 0 73 / 0 Balance -320 / 0 825 / 455 -370 / 455 Weight 59.3 kg Intake: IV 1140 / 4140 1925 / 1925 Oral 340 / 640 240 / 600 360 / 600 Output: Urine 1800 / 2700 134 / 0 730 / 2069 Other: Urine Color Yellow Yellow Pale Yellow Urine Appearance Clear Clear Clear Urine Odor Normal None None Comment bright yellow Stool Characteristics Soft Formed Voiding Methods Urinal Urinal Urinal Laboratory Results WBC 6.42 k/cumm (4.4-10.8) 10/05/19 06:20 RBC 3.08 m/cumm (4.50-6.00) L 10/05/19 06:20 Hgb 11.7 g/dL (13.5-17.5) L D 10/05/19 06:20 Hct 34.6 % (40.0-50.0) L D 10/05/19 06:20 MCV 112.3 fL (80-95) H 10/05/19 06:20 MCH 38.0 pg (27.0-33.0) H 10/05/19 06:20 MCHC 33.8 g/dL (32.0-36.0) 10/05/19 06:20 RDW 12.9 % (11.8-14.1) 10/05/19 06:20 Plt Count 114 x1000/uL (130-400) L 10/05/19 06:20 MPV 11.2 fL (8.0-11.0) H 10/05/19 06:20 Immature Gran % 0.3 % 10/05/19 06:20 Neutrophils % 64.9 10/05/19 06:20 Lymphocytes % 23.8 10/05/19 06:20 Monocytes % 10.6 10/05/19 06:20 Eosinophils % 0.2 10/05/19 06:20 Basophils % 0.2 10/05/19 06:20 Absolute Neutrophils 4.17 k/cumm (1.2-6.7) 10/05/19 06:20 Absolute Lymphocytes 1.53 k/cumm (1.2-3.4) 10/05/19 06:20 Absolute Monocytes 0.68 k/cumm (0.11-0.7) 10/05/19 06:20 Absolute Eosinophils 0.01 k/cumm (0.0-0.7) 10/05/19 06:20 Absolute Basophils 0.01 k/cumm (0.0-0.2) 10/05/19 06:20 Differential Comment Rbc morph reviewed 10/03/19 13:49 RBC Morphology See below 10/03/19 13:49 Macrocytosis 2+ 10/03/19 13:49 PT 11.4 sec (9.3-11.0) H 10/03/19 13:49 INR 1.1 (0.9-1.1) 10/03/19 13:49 APTT 24.1 sec (21.0-31.4) 10/03/19 13:49 D-Dimer 645 ng/mlFEU (<500) H 10/03/19 13:49 Sodium 144 mmol/L (136-145) 10/06/19 05:57 Potassium 3.1 mmol/L (3.5-5.1) L 10/06/19 05:57 Chloride 108 mmol/L (98-107) H 10/06/19 05:57 Carbon Dioxide 28.9 mmol/L (21.0-32.0) 10/06/19 05:57 Anion Gap 7.1 mmol/L (3-11) 10/06/19 05:57 BUN 8 mg/dL (7-18) 10/06/19 05:57 Creatinine 0.89 mg/dL (0.70-1.30) 10/06/19 05:57 Estimated GFR/1.73 m2 >= 60.00 (mL/min/1.73m2) 10/06/19 05:57 Glucose 92 mg/dL (74-106) 10/06/19 05:57 Hemoglobin A1c 5.2 % (3.8-5.6) 10/05/19 06:20 Calcium 7.8 mg/dL (8.5-10.1) L 10/06/19 05:57 Magnesium 1.8 mg/dL (1.8-2.4) 10/06/19 05:57 Total Bilirubin 0.8 mg/dL (0.2-1.0) 10/05/19 06:20 Conjugated Bilirubin 0.37 mg/dL (0.00-0.20) H 10/05/19 06:20 AST 143 U/L (15-37) H 10/05/19 06:20 ALT 151 U/L (16-63) H 10/05/19 06:20 Alkaline Phosphatase 72 U/L (46-116) 10/05/19 06:20 Creatine Kinase 54 U/L (39-308) 10/04/19 06:13 Troponin I < 0.05 ng/Ml (<0.06) 10/03/19 20:45 NT-Pro-B Natriuret Pep 1009 pg/mL (<300) H 10/04/19 06:13 Total Protein 5.0 g/dL (6.4-8.2) L 10/05/19 06:20 Albumin 2.7 g/dL (3.4-5.0) L 10/05/19 06:20 Vitamin B12 428 pg/mL (193-986) 10/05/19 06:20 Folate 5.4 ng/mL (8.6-20.0) L 10/05/19 06:20 TSH 1.26 uIU/mL (0.36-3.74) 10/03/19 13:49 Free T4 1.03 ng/dL (0.76-1.46) 10/04/19 06:13 Ethyl Alcohol 4.5 mg/dL (<3) 10/03/19 16:26
--- NOTE | 2019-10-06 17:16 | NUR.NOTE ---
Nursing Note: I had a conversation with Pamela from Speech this afternoon regarding patient and his risk. She had two areas that she wanted me to look at with dinner this evening. One , she wanted to be sure he was not desatting with dinner. I put an ear probe on the patient and monitored him while eating, the lowest he dropped with eating was 93% on room air. She also was concerned that he may be slouching forward while eating. This was found to be a [problem. Patient was given encouragement to sit back, and a pillow was placed be hind patient so as he could sit up straight while eating, this was found to be good and he was able to maintain good posture while eating.
[2019-10-06] MEDS: Enoxaparin 40 MG/0.4 ML SYR SC (20:32)
[2019-10-06] MEDS: Insulin Aspart 300 UNITS/3 ML PEN SC (21:08)
[2019-10-07] VITALS (16 sets, daily range): BP systolic 91–150; BP diastolic 62–85; PULSE 60–101; RESP 1–20; TEMP 36.3–37.3; O2SAT 93–100
[2019-10-07] MEDS: Ipratropium 0.5 MG/2.5 ML UPD VIAL UPD ×3 (05:52→17:52)
[2019-10-07] MEDS: Normal Saline 1,000 ML 100 ML IV ×2 (05:52→21:01)
[2019-10-07 07:41] LABS: BUN 10 mg/dL (7-18); CREATININE 0.87 mg/dL (0.70-1.30); Calcium 8.8 mg/dL (8.5-10.1); Chloride 105 mmol/L (98-107); Glucose 88 mg/dL (74-106); Magnesium 1.3 mg/dL (1.8-2.4); Sodium 143 mmol/L (136-145)
[2019-10-07 07:49] LABS: Potassium 2.9 mmol/L (3.5-5.1)
[2019-10-07 08:08] LABS: Calculated LDL 124 mg/dL (<100); Cholesterol 194 mg/dL (<200); HDL Cholesterol 46 mg/dL (40-60); Triglyceride 122 mg/dL (<150)
[2019-10-07] MEDS: MAGNESIUM SULFATE 4 GM/100 ML BAG IVPB (08:45)
[2019-10-07] MEDS: Magnesium Chloride 64 MG TABCR 128 MG PO ×2 (08:46→21:00)
[2019-10-07] MEDS: Vitamins B Comp w/C TAB 1 TAB PO (08:46)
[2019-10-07] MEDS: Potassium Chloride 20 MEQ TABCR 40 MEQ PO ×3 (08:46→21:01)
[2019-10-07] MEDS: Propranolol 60 MG CAPCR PO (08:46)
[2019-10-07] MEDS: Aspirin 81 MG CHEW PO (08:47)
[2019-10-07] MEDS: predniSONE 20 MG TAB 40 MG PO (08:47)
[2019-10-07] MEDS: Cyanocobalamin 500 MCG TAB 1000 MCG PO (08:47)
[2019-10-07] MEDS: Pantoprazole 40 MG TABCR PO (08:47)
[2019-10-07] MEDS: Fludrocortisone 0.1 MG TAB PO (08:48)
[2019-10-07] MEDS: Multivitamin TAB 1 TAB PO (08:48)
[2019-10-07] MEDS: Folic Acid 1 MG TAB PO (08:48)
[2019-10-07] MEDS: Thiamine 100 MG TAB PO (08:48)
[2019-10-07] MEDS: Gabapentin 100 MG CAP PO ×3 (08:48→21:00)
--- NOTE | 2019-10-07 10:04 | EVALE_ITS ---
Date of service: 10/07/19 Time of Service: 09:45 Speech Therapy Evaluation Note: Speech-Language/Swallowing Pathology Clinical Dysphagia Evaluation Medical Diagnosis: Orthostatis hypotension, COPD Therapy Diagnosis: Oral Dysphagia Current Level of Care: Medical Subjective: Pt was sitting up in the chair upon arrival and appeared well. He was pleasant and cooperative and demonstrated excellent insight into his current condition. Pertinent Medical/Swallowing History & Previous Level of Function: Per MD H & P: C Complaint: Dyspnea on exertion Narrative: 69-year-old gentleman with history of obstructive and restrictive lung disease and alcohol abuse currently moderated by history who is presenting with progressive shortness of breath on exertion. Patient has had shortness of breath for months to years, but has been getting much worse of the past few weeks. Does have PFTs which were done September 25, but has not been started on respiratory medication. He presented for follow-up for his shortness of breath to his primary intensive care nurse today who noted his dyspnea and tachycardia and referred him to the emergency room or concern for pulmonary embolus. Patient states he is comfortable at rest, but even walking around gets dyspneic. He lives on the second floor and has a very difficult time getting up his stairs for the past few weeks. He describes severe shortness of breath by the time he gets to the top associated with nausea, diaphoresis, lightheadedness, and heart racing. He denies chest pain or pressure. The symptoms do improve after collapsing on a chair for 20 minutes at the top of the stairs. He denies any recent upper respiratory symptoms such as cough or sore throat, though he states he does have some chronic congestion. He denies any triggers that are new to explain his increased shortness of breath. He states his downstairs neighbors are not sick and he does not know of any ventilation issues in his home or problems with heating system. He has not changed his medications recently. Patient does admit he has had a problem with alcohol in the past, but states he drinks only 2 glasses of wine a night currently. Pt does report a distant h/o dysphagia to this COMMERCIAL FINANCE ANALYST and states he has been seen for a swallow evaluation and instructed in small bites, slowing down. He reports he eats a regular texture diet but does avoid some hard foods due to dentition. Pt stating, This is not a new problem and I am fine. 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 He eats a regular texture diet and thin liquids at home. Precautions: Aspiration Barriers to Learning: None. Pt is alert and attention is WFL. Respiratory Function: Pt with h/o COPD. No SOB noted during evaluation today. 02 sats 99% throughout on room air. Supplemental Oxygen: None needed. Posture/Positioning: WFL up in regular chair. Pt instructed to continue to ensure proper/upright positioning during meals. ORAL MECHANISM EXAMINATION Dentition: Pt has upper and lower natural teeth, many missing. Oral Hygiene: WFL Oral Structures: WFL with the exception of dentition. Oral Function: WFL, mild lingual mandibular tremors. No functional impact on eating/swallowing noted. Strength: WFL Range of Motion: WFL Coordination: WFL Consistencies Tested: Thin via cup and straw, puree, mechanical soft, regular texture Self-Feeding/Level of Assistance: Pt independent with self feeding. No difficulties manipulating utensils or cups. Oral Phase: WFL. Pt verbalizing and demonstrating safe and appropriate eating behaviors including small bites, pacing rate of intake, thorough mastication, alternating liquids and solids every few bites of food, refraining from talking while eating. Pharyngeal Phase: WFL. Able to palpate hyo-larygneal elevation/excursion. Vocal quality clear post swallows. No pharyngeal residue suspected. Airway protections appears adequate. No overt s/s aspiration or other s/s pharyngeal dysphagia suspected at this time. Esophageal Phase: No concerns reported or documented. Medication Administration: Whole with water. Pt states he avoids taking too many medication at once. Pt/Caregiver/Staff Education: Results of swallow evaluation and recommendations. Assessment: Pt is a 69 year old male admitted to [facility] for increasing SOB and concern for possible PE which was negative. Pt was referred for a swallow evaluation to assess for dysphagia. Results of todays evaluation indicated oral and pharyngeal functioning WFL. Pt able to verbalize safe swallow strategies that he was previously instructed in. Pt was educated regarding normal versus abnormal swallow function and was instructed to f/u with his PCP if future concerns develop. At this time, no further COMMERCIAL FINANCE ANALYST services are indicated. Rehab Potential: N/A Short-Term Goals: N/A Long-Term Goals: N/A Pt Goal: To go home PLAN Discharge Plan: Discharge from COMMERCIAL FINANCE ANALYST services at this time. SWALLOWING RECOMMENDATIONS Solids: Regular Texture Liquids: Thin liquids Medication Administration: Whole. 2-3 pills at a time only. Level of Assistance/Supervision: Set up Strategies/Adaptations/AE: Small bites, pace rate of intake, complete mastication before swallowing, complete swallows in between bites, alternate liquids every few bites, refrain from talking while eating, out of bed to chair for all meals, upright 30 min post meals, check mouth at end of meal. Charge Code: Clinical Swallow Evaluation Time In: 9:45 AM Time Out: 10:35 AM Total Time: 50 minutes
--- NOTE | 2019-10-07 11:05 | IN_ITS ---
Date of service: 10/07/19 Time of Service: 11:05 PT Notes Visit Reasons: DYSPNEA, TRANSAMINITIS Physical Therapy Inpatient Initial Evaluation Date: 10/07/2019 Referring Doctor: Amber Blunt M.D. PT Orders: PT CONSULT: limited ability Precautions: Fall. Standard. Activity as tolerated. Patient Profile/Admitting Diagnosis: Pt is a 69-year-old male, with a history of COPD and TBI, that presented to the ER on 10/03/2019 for shortness of breath. He was admitted to the hospital with diagnoses of dyspnea on exertion, transaminitis, orthostatic hypotension, and dysphagia. 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 States there are about 14 steps to get to the second floor. Equipment Owned/DME: wooden cane Subjective: Pt reports that he has noticed that he often becomes short of breath when using the stairs to get to his second floor home. He does not have oxygen at home. Objective: General Observation: Telemonitor in place. IV line in RUE. Mental Status: alert and oriented Pain: 0/10 Vitals: SpO2 100% on room air at rest ROM: Right Upper Extremity: Shoulder Flexion WFL. Shoulder abduction WFL. Elbow flexion WFL. Wrist flexion WFL. Opening and closing of hand WFL. Left Upper Extremity: Shoulder Flexion WFL. Shoulder abduction WFL. Elbow flexion WFL. Wrist flexion WFL. Opening and closing of hand WFL. Right Lower Extremity: Hip flexion WFL. Hip abduction WFL. Knee flexion WFL. Ankle dorsiflexion WFL. Ankle plantarflexion WFL. Left Lower Extremity: Hip flexion WFL. Hip abduction WFL. Knee flexion WFL. Ankle dorsiflexion WFL. Ankle plantarflexion WFL. Strength: Right Upper Extremity: Shoulder flexors 5/5. Shoulder abductors 4+/5. Elbow flexors 5/5. Elbow extensors 5/5. Keyboard Instrument Tuner strong. Left Upper Extremity: Shoulder flexors 5/5. Shoulder abductors 4+/5. Elbow flexors 5/5. Elbow extensors 5/5. Keyboard Instrument Tuner strong. Right Lower Extremity: Hip flexors 4/5. Hip abductors 5/5. Knee flexors 4+/5. Knee extensors 4+/5. Ankle dorsiflexors 5/5. Ankle plantarflexors 5/5. Left Lower Extremity: Hip flexors 4/5. Hip abductors 5/5. Knee flexors 4+/5. Knee extensors 4+/5. Ankle dorsiflexors 5/5. Ankle plantarflexors 5/5. Sensation: Intact as to pain and pressure on bilateral lower extremities. Bed Mobility/Transfers: Rolling independent Supine to sit independent Sit to supine independent Sit to stand SBA Stand to sit SBA Bed to chair SBA Chair to bed SBA Gait: Pt was able to ambulate 30 feet + 120 feet x 2 + 30 feet, full weightbearing, initially using IV pole for assistance ambulating and used single-point cane for last 100 feet of ambulation. Supervision provided by PT and PT student. Reciprocal gait pattern with decreased step length and height. Wide base of support. SpO2 dropped to 83% on RA, and remained above 90% on 2 L/min via NC. Stairs: Pt was able to ascend and descend 6-inch steps x 14 and 3-inch steps x 21 with bilateral upper extremity support. No complaints of shortness of breath. SpO2 ranged from 89-96% on 2 L/min of O2 via nasal cannula. Supervision provided by PT and PT student. Balance: Static Sitting: Normal Dynamic Sitting: Normal Static Standing: Good Dynamic Standing: Fair Two-minute step test: 143 steps indicating inability to ambulate at a community ambulator pace. Four Stage Balance Test: Able to maintain narrow base of support and semi-tandem stance for greater than 10 seconds without lateral sway. He was able to maintain tandem stance without upper extremity support. Special Tests: Mobility Limitations Standardized Measure [facility] 6 clicks Basic Mobility Inpatient Short Form: Raw Score: 23 CMS Score: 11% deficit Informed Consent/Education: Patient instructed in purpose of PT consult and plan of care. Educated the patient on pacing and rest breaks when ambulating greater distances and negotiating stairs to conserve energy. Assessment: Pt is a 69-year-old male, with a history of COPD, that presented to the ER on 10/03/2019 for shortness of breath. He was admitted to the hospital with diagnoses of dyspnea on exertion, transaminitis, orthostatic hypotension, and dysphagia. Pt presented to physical therapy with impairment level findings and functional limitations as listed below. AM-PAC raw score of 23 with 11% deficit. He demonstrates decreased endurance and respiratory function through two minute walk test results indicating inability to ambulate the pace of a community ambulating individual and desaturation to 83% with ambulation on room air. He presents as an increased fall risk as demonstrated by inability to maintain four stage balance test and unsteady gait without use of an assistive device. Pt would continue to benefit from skilled physical therapy at this time. Patient presents with clinical signs and symptoms consistent with current/admitting diagnoses that have resulted to mobility limitations, gait instability, and generalized weakness as demonstrated by the following impairment level findings: 1. Decreased strength to B LE major muscle groups 2. Impaired standing balance 3. Impaired activity tolerance 4. Impaired respiratory function Impairments are contributing to the following functional limitations: 1. Dependent bed mobility skills 2. Increased dependence with transfers 3. Inability to safely ambulate without assistive device and physical assistance 4. Increase completion time for mobility ADL performance 5. Increased fall risk Patient is assessed as a [id number] moderate complexity based on the following: History: Pt presented to physical therapy with impairment level findings and functional limitations as listed below. AM-PAC raw score of 23 with 11% deficit. Examination: Demonstrable impairment in strength, balance, and range of motion with underlying impairments and functional limitations as documented above Presentation: Evolving Decision Makin moderate complexity Goals: Goals X1 week 1. Sit-Stand independent 2. Stand-Sit independent 3. Bed-Chair independent 4. Chair-Bed independent 5. Independent gait on level surface with use of least restrictive device for at least 300 feet without report of pain nor dyspnea 6. Independent with home exercise program 7. Good static and dynamic standing balance/tolerance Plan of Care/Treatment Plan: 1-2x/day, 7 days/week x 1 week. Plan of care has been reviewed with the MANAGER CREDIT RISK providing the service under Physical Therapy direction. Initiate Physical Therapy intervention for strengthening, bed mobility, transfers, gait, stairs, balance training, use of assistive device. DISCHARGE RECOMMENDATIONS: Discharge to home with home health physical therapy for improved smooth transition to home. Patient will benefit from the use of a single point cane for all mobility ADL performance. TREATMENT CODE/TIME: 57579 x 30 minutes, 70438 x10 beginning at 11:09 A.M. Thank you very much for this referral. Tommie Carbajal, SPT Doctor of Physical Therapy Student [facility] Supervision provided by Marie Nicole PT, DPT, CLT [facility] [place], [place]
[2019-10-07] MEDS: Levalbuterol 1.25 MG/3 ML UPD VIAL UPD (13:10)
--- NOTE | 2019-10-07 15:37 | PT.INTREAT ---
Date of service: 10/07/19 Time of Service: 15:37 PT Notes Visit Reasons: DYSPNEA, TRANSAMINITIS 10/07/2019 SUBJECTIVE: Pt states he feels pretty good with no pain complaints. No complaints of SOB throughout treatment. OBJECTIVE: Seated in chair. Agreeable to PT treatment. RT present during treatment. TRANSFERS Sit to stand: I Stand to sit: I GAIT Device: SPC Weight bearing: Full Assist: S Distance: 400' Deviation: on room air Vitals: See RT note for details. Pt remains in the high 90's with his Sa02 without complaints of SOB. ASSESSMENT: Tolerates level gait without LOB or fatigue. He has good techniques using the SPC and he has one at home. PLAN: Continue per POC. Treatment time: Leatha Lockhart PTA
[2019-10-07] MEDS: Insulin Aspart 300 UNITS/3 ML PEN SC ×2 (16:52→21:01)
--- NOTE | 2019-10-07 17:25 | PDOC.CMPRO ---
- If Service Date Differs Date of service: 10/07/19 Time of Service: 17:25 Care Management Progress Note S/O: Roderick was sitting up in a chair when CM met with him. He has been working with physical therapy and is improving with ambulation. Roderick expressed disappointment with not being able to go home today. He stated that he misses his cat and he is getting concerned about finances. He states he has no money. Roderick has been given information about [facility] and plans to follow up upon discharge. A: Roderick is a 69 year old male admitted to [facility] 10/03/19 for Dyspnea, transaminitis P: Roderick will be discharged home when medically cleared by provider. Anticipate he will reach out for additional community supports. CM will coordinate transport via [facility] when ready. CM will continue to follow and support patient and his discharge planning needs. .
--- NOTE | 2019-10-07 17:44 | W.PM.PROGNOT ---
Date of Service Date of service: 10/07/19 Time of Service: 16:15 Assessment and Plan Assessment and plan (1) Tachycardia with greater than 160 beats per minute: Status: Resolved Assessment and plan: SVT in setting of orthostasis, dehydration, therapy with remeron, possible autonomic dysfunction due to EtOH. Resolved with IVF. Continue current dose of beta ashutosh and monitoring on tele. On discharge, would benefit from a 30 day event monitor. (2) Orthostatic hypotension: Status: Acute Assessment and plan: On florinef and IVF. Less orthostatic today. Feels better. On IVF but remains orthostatic. Remeron d/c'ed. At this point, even if remains orthostatic at this level, I think he is safe for discharge home. (3) COPD (chronic obstructive pulmonary disease): Status: Chronic Assessment and plan: Clinically, not in acute exacerbation. Continue steroid taper. Would benefit from pulmonary rehab as outpatient - referral completed. (4) Transaminitis: Status: Acute Assessment and plan: Likely due to alcoholic liver disease. No true alcoholic hepatitis. Follow up as outpatient. (5) Dyspnea on exertion: Status: Acute Assessment and plan: Likel symptomatic SVT but also deconditioned and has severe COPD. Refer to pulmonary rehab on discharge. Will finish a short steroid taper. Continue inhalers. Ischemic w/u as outpatient. Echo ok. (6) Alcohol abuse: Status: Acute Assessment and plan: Monitored on CIWA. Not actively withdrawing. The patient has been drinking for about 6 months. He is interested in AA post-discharge and would like to talkto care management about resources. For now, continue MVI, thiamine, B12 and folic acid repletion as both are low. Monitor on CIWA for aclcohol withdrawal. Hydrate IV. (7) Dysphagia: Status: Acute Assessment and plan: Evaluated by speech therapy. Recommended regular solids with thin liquids and swallowing strategies. (8) Hypokalemia: Status: Acute Assessment and plan: Replete (9) Hypomagnesemia: Status: Acute Assessment and plan: Replete (10) Discharge planning issues: Status: Acute Assessment and plan: Full code. Plan for discharge home tomorrow (11) DVT prophylaxis: Status: Acute Assessment and plan: Lovenox SC Subjective Subjective Interval history since last seen: Mr Fernandez feels much better today. His endurance with exercise has improved. No SVT. No dizziness, chest pain, and his shortness of breath is getting better. No n/v. Exam Narrative Exam Narrative: General: Very pleasant middle-aged male, comfortably sitting in bed, no respiratory distress, A&Ox3, resting tremor, looks overall better HEENT: EOMI, MMM Heart: RRR, no m/r/g Lungs: CTAB Abdomen: soft, nontender, nondistended Extremities: no e/c/c BLE's - skin dry. Trace pedal pulse LLE, +1 pedal pulse RLE. Objective Objective Clinical Data: Abnormal lab results 10/07/19 Range/Units 06:45 Potassium 2.9 L* (3.5-5.1) mmol/L Magnesium 1.3 L (1.8-2.4) mg/dL LDL Cholesterol, Calc 124 H (<100) mg/dL Vital Signs Temperature 36.3 C L 10/07/19 16:09 Temperature Source Tympanic 10/07/19 16:09 Pulse 60 10/07/19 16:09 Pulse Rhythm Regular 10/07/19 17:06 Pulse 74 10/05/19 13:41 Respiratory Rate 18 10/07/19 16:09 Respiratory Effort Non-Labored 10/07/19 17:06 Respiratory Depth Normal 10/07/19 17:06 Respiratory Pattern Normal 10/07/19 17:06 Blood Pressure 104/69 10/07/19 16:09 Blood Pressure Mean 91 10/03/19 16:16 Pulse Oximetry 99 10/07/19 16:09 Oxygen Delivery Method Room Air 10/07/19 16:09 Oxygen Flow Rate 0 10/07/19 16:09 Pain Level 0 10/07/19 16:09 Intake & Output 10/06/19 10/07/19 10/07/19 23:59 11:59 23:59 Intake Total 1840 / 4005 1053.333 / 1503.333 450 / 1503.333 Output Total 1430 / 2770 1700 / 1700 Balance 410 / 1235 -646.667 / -196.667 450 / -196.667 Weight 60 kg Intake: IV 1000 / 2925 933.333 / 933.333 Oral 840 / 1080 120 / 570 450 / 570 Output: Urine 1430 / 2770 1700 / 1700 Other: Urine Color Pale Yellow Urine Appearance Clear Clear Clear Urine Odor None Normal Voiding Methods Urinal Urinal Laboratory Results WBC 6.42 k/cumm (4.4-10.8) 10/05/19 06:20 RBC 3.08 m/cumm (4.50-6.00) L 10/05/19 06:20 Hgb 11.7 g/dL (13.5-17.5) L D 10/05/19 06:20 Hct 34.6 % (40.0-50.0) L D 10/05/19 06:20 MCV 112.3 fL (80-95) H 10/05/19 06:20 MCH 38.0 pg (27.0-33.0) H 10/05/19 06:20 MCHC 33.8 g/dL (32.0-36.0) 10/05/19 06:20 RDW 12.9 % (11.8-14.1) 10/05/19 06:20 Plt Count 114 x1000/uL (130-400) L 10/05/19 06:20 MPV 11.2 fL (8.0-11.0) H 10/05/19 06:20 Immature Gran % 0.3 % 10/05/19 06:20 Neutrophils % 64.9 10/05/19 06:20 Lymphocytes % 23.8 10/05/19 06:20 Monocytes % 10.6 10/05/19 06:20 Eosinophils % 0.2 10/05/19 06:20 Basophils % 0.2 10/05/19 06:20 Absolute Neutrophils 4.17 k/cumm (1.2-6.7) 10/05/19 06:20 Absolute Lymphocytes 1.53 k/cumm (1.2-3.4) 10/05/19 06:20 Absolute Monocytes 0.68 k/cumm (0.11-0.7) 10/05/19 06:20 Absolute Eosinophils 0.01 k/cumm (0.0-0.7) 10/05/19 06:20 Absolute Basophils 0.01 k/cumm (0.0-0.2) 10/05/19 06:20 Differential Comment Rbc morph reviewed 10/03/19 13:49 RBC Morphology See below 10/03/19 13:49 Macrocytosis 2+ 10/03/19 13:49 PT 11.4 sec (9.3-11.0) H 10/03/19 13:49 INR 1.1 (0.9-1.1) 10/03/19 13:49 APTT 24.1 sec (21.0-31.4) 10/03/19 13:49 D-Dimer 645 ng/mlFEU (<500) H 10/03/19 13:49 Sodium 143 mmol/L (136-145) 10/07/19 06:45 Potassium 2.9 mmol/L (3.5-5.1) L* 10/07/19 06:45 Chloride 105 mmol/L (98-107) 10/07/19 06:45 Carbon Dioxide 28.0 mmol/L (21.0-32.0) 10/07/19 06:45 Anion Gap 10.0 mmol/L (3-11) 10/07/19 06:45 BUN 10 mg/dL (7-18) 10/07/19 06:45 Creatinine 0.87 mg/dL (0.70-1.30) 10/07/19 06:45 Estimated GFR/1.73 m2 >= 60.00 (mL/min/1.73m2) 10/07/19 06:45 Glucose 88 mg/dL (74-106) 10/07/19 06:45 Hemoglobin A1c 5.2 % (3.8-5.6) 10/05/19 06:20 Calcium 8.8 mg/dL (8.5-10.1) 10/07/19 06:45 Magnesium 1.3 mg/dL (1.8-2.4) L 10/07/19 06:45 Total Bilirubin 0.8 mg/dL (0.2-1.0) 10/05/19 06:20 Conjugated Bilirubin 0.37 mg/dL (0.00-0.20) H 10/05/19 06:20 AST 143 U/L (15-37) H 10/05/19 06:20 ALT 151 U/L (16-63) H 10/05/19 06:20 Alkaline Phosphatase 72 U/L (46-116) 10/05/19 06:20 Creatine Kinase 54 U/L (39-308) 10/04/19 06:13 Troponin I < 0.05 ng/Ml (<0.06) 10/03/19 20:45 NT-Pro-B Natriuret Pep 1009 pg/mL (<300) H 10/04/19 06:13 Total Protein 5.0 g/dL (6.4-8.2) L 10/05/19 06:20 Albumin 2.7 g/dL (3.4-5.0) L 10/05/19 06:20 Triglycerides 122 mg/dL (<150) 10/07/19 06:45 Total Cholesterol 194 mg/dL (<200) 10/07/19 06:45 LDL Cholesterol, Calc 124 mg/dL (<100) H 10/07/19 06:45 HDL Cholesterol 46 mg/dL (40-60) 10/07/19 06:45 Vitamin B12 428 pg/mL (193-986) 10/05/19 06:20 Folate 5.4 ng/mL (8.6-20.0) L 10/05/19 06:20 TSH 1.26 uIU/mL (0.36-3.74) 10/03/19 13:49 Free T4 1.03 ng/dL (0.76-1.46) 10/04/19 06:13 Ethyl Alcohol 4.5 mg/dL (<3) 10/03/19 16:26 Hepatitis A IgM Ab Negative (Negative) 10/03/19 13:49 Hep Bs Antigen Negative (Negative) 10/03/19 13:49 Hep B Core Total Ab Negative (Negative) 10/03/19 13:49 Hepatitis C Antibody Negative (Negative) 10/03/19 13:49
[2019-10-07] MEDS: Enoxaparin 40 MG/0.4 ML SYR SC (21:00)
[2019-10-08] VITALS (7 sets, daily range): BP systolic 117–129; BP diastolic 76–86; PULSE 61–98; RESP 1–22; TEMP 36.7–36.9; O2SAT 96–99
[2019-10-08] MEDS: Ipratropium 0.5 MG/2.5 ML UPD VIAL UPD ×2 (06:38→12:54)
[2019-10-08 07:59] LABS: HCT 32.6 % (40.0-50.0); HGB 10.9 g/dL (13.5-17.5); Mean Corp. HGB Concentration 33.4 g/dL (32.0-36.0); Mean Corpuscular Hemoglobin 37.5 pg (27.0-33.0); Mean Platelet Volume 11.4 fL (8.0-11.0); Platelet Count 132 x1000/uL (130-400); RBC 2.91 m/cumm (4.50-6.00); RBC Distribution Width 13.2 % (11.8-14.1); White Blood Cell Count 5.87 k/cumm (4.4-10.8)
[2019-10-08 08:15] LABS: Anion Gap 8.2 mmol/L (3-11); BUN 13 mg/dL (7-18); CO2 25.8 mmol/L (21.0-32.0); CREATININE 0.98 mg/dL (0.70-1.30); Calcium 8.2 mg/dL (8.5-10.1); Chloride 110 mmol/L (98-107); Glucose 93 mg/dL (74-106); Magnesium 1.6 mg/dL (1.8-2.4); Potassium 3.8 mmol/L (3.5-5.1); Sodium 144 mmol/L (136-145)
[2019-10-08] MEDS: Cyanocobalamin 500 MCG TAB 1000 MCG PO (09:31)
[2019-10-08] MEDS: Pantoprazole 40 MG TABCR PO (09:32)
[2019-10-08] MEDS: predniSONE 20 MG TAB PO (09:32)
[2019-10-08] MEDS: Folic Acid 1 MG TAB PO (09:32)
[2019-10-08] MEDS: Aspirin 81 MG CHEW PO (09:32)
[2019-10-08] MEDS: Multivitamin TAB 1 TAB PO (09:32)
[2019-10-08] MEDS: Thiamine 100 MG TAB PO (09:33)
[2019-10-08] MEDS: Fludrocortisone 0.1 MG TAB PO (09:33)
[2019-10-08] MEDS: Magnesium Chloride 64 MG TABCR 128 MG PO (09:33)
[2019-10-08] MEDS: Vitamins B Comp w/C TAB 1 TAB PO (09:34)
[2019-10-08] MEDS: Propranolol 60 MG CAPCR PO (09:34)
[2019-10-08] MEDS: Gabapentin 100 MG CAP PO ×2 (09:34→13:22)
[2019-10-08] MEDS: MAGNESIUM SULFATE 4 GM/100 ML BAG IVPB (10:45)
--- NOTE | 2019-10-08 12:07 | PT.INTREAT ---
Date of service: 10/08/19 Time of Service: 12:08 PT Notes Visit Reasons: DYSPNEA, TRANSAMINITIS 10/08/2019 SUBJECTIVE: Roderick stating he is doing well today. He feels good when he is up and moving around. He is hopeful to go home today. OBJECTIVE: Pt seated in his chair. Agreeable to PT treatment. TRANSFERS Sit to stand: I Stand to sit: I GAIT Device: SPC Weight bearing: Full Assist: S Distance: 250'+400' Deviation: Room air STAIRS: Clinic stairs up and back 6x with 1-2 rails, Supervision only. VITALS: RA throughout 98% rest, 96% with exertion. ASSESSMENT: Pt completes all activities today without being SOB. He manages well utilizing SPC. No LOB or difficulty completing stairs. PLAN: Continue per POC. Treatment time: 20' [id number] Leatha Lockhart, RADHA
--- NOTE | 2019-10-08 14:32 | DSE_ITS ---
Date of service: 10/08/19 Time of Service: 14:33 DS: Diagnosis Discharge Diagnosis (1) Tachycardia with greater than 160 beats per minute: Status: Resolved (2) Orthostatic hypotension: Status: Acute (3) COPD (chronic obstructive pulmonary disease): Status: Chronic (4) Transaminitis: Status: Acute Asessment and Plan: Alcoholic liver disease (5) Dyspnea on exertion: Status: Acute (6) Alcohol abuse: Status: Acute (7) Dysphagia: Status: Chronic (8) Hypokalemia: Status: Acute (9) Hypomagnesemia: Status: Acute (10) B12 deficiency: Status: Acute (11) Folic acid deficiency: Status: Acute (12) Autonomic dysfunction: Status: Acute Discharge Plan Disposition Patient Disposition: HOME Condition: Improving Discharge Details Chief Complaint: SOB Clinical Impression: Transaminitis, Dyspnea on exertion Reason For Visit: DYSPNEA, TRANSAMINITIS Admit Date/Time: 10/05/19 08:45 Admit Provider: Kaleb Medina Attending Provider: Kaleb Medina Primary Care Provider: Nicolette Harris ED [facility] Hospital Course: Mr Fernandez is a 69 year old male with PMHx of COPD, not oxygen dependent, as well as h/o seizure d/o post TBI, alcohol abuse with peripheral neuropathy and essential tremor on propranolol, who was admitted to [facility] hospitalist service on 10/03/2019 after presenting complaining of shortness of breath on exertion. The patient was found to repeatedly go into SVT vs sinus tachycardia with HR up to 180's with just getting up from the bed. This resolved with aggressive IV hydration and continuation of outpatient dose of propranolol. The patient was found to be quite orthostatic, however, and for this reason his mirtazapine was stopped. He remained orthostatic and symptomatic with aggressive IV hydration and was initiated on florinef with significant improvement of symptoms. He worked with PT and his exercise capacity improved to the point of being able to return home on 10/08/2019. Importantly, he would benefit from a cardiac event recorder on discharge. He is instructed to drink plenty of water every day. His electrolytes (K, magnesium) had to be repeatedly repleted intravenously and orally and will need to be monitored as outpatient. He was seen by cardiology who agreed with above treatment for his SVT vs sinus tachycardia. He may benefit from a stress test as outpatient. Finally, his COPD may have been a contributor to his shortness of breath, though he was not in clear acute exacerbation on this admission. He finished a steroid taper while here. He would benefit from outpatient pulmonary rehab, to which he was referred prior to discharge. He did not withdraw from alcohol on this admission. He will follow up with AA on discharge as he is interested in staying quit. He is medically ready for discharge home today. Care for patient as well as completion of his discharge summary on day of discharge took 45 minutes. Home Meds and New Rx's Prescriptions: New multivitamin [Multiple Vitamins] Tablet 1 tab PO DAILY Qty: 30 RF: 0 folic acid 1 mg Tablet 1 mg PO DAILY Qty: 30 RF: 0 fludrocortisone 0.1 mg Tablet 0.1 mg PO DAILY Qty: 30 RF: 0 magnesium chloride [Mag 64] 64 mg Tablet,Delayed Release (Dr/Ec) 128 mg PO BID Qty: 120 RF: 0 thiamine mononitrate (vit B1) [Vitamin B-1 (mononitrate)] 100 mg Tablet 100 mg PO DAILY Qty: 30 RF: 0 cyanocobalamin (vitamin B-12) 1,000 mcg capsule 1,000 mcg PO DAILY Qty: 30 RF: 0 levalbuterol tartrate [Xopenex HFA] 45 mcg/actuation HFA aerosol inhaler 2 inh IH Q6H PRN PRN (Reason: shortness of breath or wheezing) Qty: 15 RF: 0 Continued gabapentin 100 MG capsule 100 mg PO TID RF: 0 lorazepam [Ativan] 1 MG tablet 1 mg PO Q 6 HRS PRNRF: 0 vitamin B complex [B Complex-Vitamin B12] 1 EACH tablet 1 ea PO DAILY RF: 0 Fish Oil 500 MG capsule 3,000 mg PO DAILY RF: 0 cholecalciferol (vitamin D3) 2,000 UNIT tablet 6,000 unit PO DAILY RF: 0 propranolol 60 MG capsule,extended release 24 hr 60 mg PO DAILY Qty: 90 RF: 3 aspirin [Aspirin Low-Strength] 81 MG tablet,chewable 81 mg PO DAILY RF: 0 calcium carbonate [Calcium 500] 500 MG tablet 1 - 2 cap PO HS RF: 0 Discontinued mirtazapine 15 MG tablet,disintegrating 15 mg PO HS RF: 0 Discharge Instructions Instructions: Fludrocortisone Acetate (By mouth), Supraventricular Tachycardia (DC), Dehydration (DC), COPD (Chronic Obstructive Pulmonary Disease) (DC), Hypotension (DC) Additional Instructions: Return to the hospital with any fever, bleeding, chest pain, or shortness of breath. Follow up with your PCP in 1-2 weeks. Stand Alone Forms: Nursing Discharge Form Referrals: Nicolette Harris [Primary Care Provider] - 10/17/19 11:20 am Activity:: Activity as Tolerated Equipment/Supplies:: cardiac event recorder Diet:: As Tolerated Discharge Orders Discharge Orders: Discharge Order (Routine); Ordered 10/08/19 Ordered By: Amber Blunt Other Ambulatory Orders: Cardiac Event Recorder (Outpt) (ONCE) Timeframe: 20191009 Facility: [facility] - Location: Respiratory Therapy Ordered By: Amber Blunt DS: Summary Status at Discharge Functional status at discharge: independent ambulation Overall status at discharge: patient is back to baseline Mental Status: mental status grossly normal Speech and Movement: speech and movement normal Mood: congruent mood Affect: normal affect Exam Narrative Exam Narrative: General: Very pleasant middle-aged male, comfortably sitting in bed, no respiratory distress, A&Ox3, resting tremor, looks overall better HEENT: EOMI, MMM Heart: RRR, no m/r/g Lungs: CTAB Abdomen: soft, nontender, nondistended Extremities: no e/c/c BLE's - skin dry. Trace pedal pulse LLE, +1 pedal pulse RLE. Psych Mental Status: mental status grossly normal Speech and Movement: speech and movement normal Mood: congruent mood Affect: normal affect DS: Data Vitals/I&O Vitals and I&O: Vital Signs Temperature 36.7 C 10/08/19 11:08 Temperature Source Tympanic 10/08/19 11:08 Pulse 64 10/08/19 12:54 Pulse Rhythm Regular 10/08/19 11:01 Pulse 74 10/05/19 13:41 Respiratory Rate 16 10/08/19 12:54 Respiratory Effort Non-Labored 10/08/19 11:01 Respiratory Depth Normal 10/08/19 11:01 Respiratory Pattern Normal 10/08/19 11:01 Blood Pressure 117/79 10/08/19 11:08 Blood Pressure Mean 91 10/03/19 16:16 Pulse Oximetry 99 10/08/19 12:54 Oxygen Delivery Method Room Air 10/08/19 12:54 Oxygen Flow Rate 0 10/08/19 12:54 Pain Level 0 10/08/19 11:08 Intake & Output 10/07/19 10/08/19 10/08/19 23:59 11:59 23:59 Intake Total 1930 / 2983.333 720 / 960 240 / 960 Output Total 600 / 2300 1800 / 1800 Balance 1330 / 683.333 -1080 / -840 240 / -840 Weight 60.9 kg Intake: IV 1000 / 1933.333 0 / 0 Oral 930 / 1050 720 / 960 240 / 960 Output: Urine 600 / 2300 1800 / 1800 Other: Urine Color Yellow Yellow Urine Appearance Clear Clear Urine Odor None Normal Stool Size Large Stool Characteristics Soft Formed Voiding Methods Urinal Toilet Data Completed and Pending Completed studies during hospitalization [Text1]: CTA chest/abdomen/pelvis 10/03/2019: 1. No evidence of pulmonary embolus, thoracic aortic dissection or aneurysm. 2. No acute abdominal or pelvic process. 3. Mild cardiomegaly. Mild coronary artery calcification. 4. Hepatomegaly and hepatic steatosis. 5. Colonic diverticulosis. No evidence of acute diverticulitis. 6. Left nephrolithiasis. No obstructive uropathy. Echo 10/06/2019: Normal left ventricular wall thickness and chamber size Estimated ejection fraction 60 to 65%. Wall motion is normal No chamber enlargement No clinically significant structural valvular disease Labs on day of discharge: Labs from last 24 hours 10/08/19 10/08/19 06:55 06:55 WBC 5.87 RBC 2.91 L Hgb 10.9 L Hct 32.6 L MCV 112.0 H MCH 37.5 H MCHC 33.4 RDW 13.2 Plt Count 132 MPV 11.4 H Sodium 144 Potassium 3.8 D Chloride 110 H Carbon Dioxide 25.8 Anion Gap 8.2 BUN 13 Creatinine 0.98 Estimated GFR/1.73 m2 >= 60.00 Glucose 93 Calcium 8.2 L Magnesium 1.6 L [facility] Medical History (Updated 10/08/19 @ 14:48 by Amber Blunt MD) Alcohol abuse (Acute) sober 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) Anxiety and depression (Chronic) Calculus of left kidney (Resolved 03/20/17) Chronic kidney disease, stage 3 (Chronic) Chronic pain syndrome (Chronic) COPD (chronic obstructive pulmonary disease) (Chronic) Essential tremor (Chronic 04/10/16) Gross hematuria (Resolved 03/20/17) Hyperlipidemia (Chronic) Left ureteral stone (Resolved 03/27/17) Migraine headache without aura (Chronic) 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) Scoliosis (Chronic) Seizure disorder (Resolved) TBI (traumatic brain injury) (Chronic) Remote, multiple Umbilical hernia without obstruction or gangrene (Chronic) Vitamin D deficiency (Chronic) Surgical History Colonoscopy - MAC (05/19/16) Inguinal hernia (Acute) Family History Mother TIA (transient ischemic attack) Father Parkinson disease Stroke Social History (Updated 10/03/19 @ 18:19 by Kaleb Medina) Smoking/Tobacco Use Status: Current every day Alcohol Intake: current Alcohol Intake frequency: holidays/special occasions only Alcohol type: wine Drug use: Never Substance use type: does not use Household members: none Housing: apartment Do you feel safe at home: Yes Do you feel safe in your relationship?: Yes Additional Social history: Lives alone in second story apartment in [place], has a cat Currently working part-time at [employer] in [place] through [employer]. History of smoking, quit June 2018. No vaping. No other drug use including marijuana.
--- NOTE | 2019-10-08 19:15 | PDOC.CMDIS ---
- If Service Date Differs Date of service: 10/08/19 Time of Service: 19:15 LACE Index Scoring Tool - Questions: Length of Stay (in days): 4 - 6 Acuity (Admit via E.D.?): Yes E.D. Visits: 1 - Answers: Total Score: 8 Risk of Readmission: Low Risk Care Management Discharge Reason for Hospitalization: Shortness of breath. Discharge Plan: Roderick is being discharged home today he will follow up with his primary care at [facility] on 10/17/19. [facility] will follow up over the phone with patient to confirm he was able to obtain the medication after discharge. Roderick will not need any additional servcies at time of discharge. Patient/Family Education Needs: Discharged education, limitations and follow up plan of care including ask me three and self management. Services Needed at Discharge: Transportation
--- NOTE | 2019-10-09 09:36 | PT.INDS ---
Date of service: 10/09/19 Time of Service: 09:36 PT Notes Visit Reasons: DYSPNEA, TRANSAMINITIS Inpatient Physical Therapy Discharge Summary Dates: 10/09/2019 Dates of Service: 10/07/2019 through 10/09/2019 This is a clinical summary of care provided on the duration of dates listed above. No charge was made in the completion of this documentation. Referring Doctor: mAber Blunt M.D. PT Orders: PT CONSULT: limited ability Precautions: Fall. Standard. Activity as tolerated. Patient Profile/Admitting Diagnosis: Pt is a 69-year-old male, with a history of COPD and TBI, that presented to the ER on 10/03/2019 for shortness of breath. He was admitted to the hospital with diagnoses of dyspnea on exertion, transaminitis, orthostatic hypotension, and dysphagia. 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 States there are about 14 steps to get to the second floor. Equipment Owned/DME: wooden cane Subjective: NT. See LOGISTICS PLANNING ENGINEER notes on 10/08/2019 Objective: General Observation: NT. See LOGISTICS PLANNING ENGINEER notes on 10/08/2019 Mental Status:NT. See LOGISTICS PLANNING ENGINEER notes on 10/08/2019 Pain: NT. See LOGISTICS PLANNING ENGINEER notes on 10/08/2019. Vitals: NT. See most recent LOGISTICS PLANNING ENGINEER notes. ROM: Right Upper Extremity: Shoulder Flexion WFL. Shoulder abduction WFL. Elbow flexion WFL. Wrist flexion WFL. Opening and closing of hand WFL. Left Upper Extremity: Shoulder Flexion WFL. Shoulder abduction WFL. Elbow flexion WFL. Wrist flexion WFL. Opening and closing of hand WFL. Right Lower Extremity: Hip flexion WFL. Hip abduction WFL. Knee flexion WFL. Ankle dorsiflexion WFL. Ankle plantarflexion WFL. Left Lower Extremity: Hip flexion WFL. Hip abduction WFL. Knee flexion WFL. Ankle dorsiflexion WFL. Ankle plantarflexion WFL. Strength: Right Upper Extremity: Shoulder flexors 5/5. Shoulder abductors 4+/5. Elbow flexors 5/5. Elbow extensors 5/5. Meter Tester Primary strong. Left Upper Extremity: Shoulder flexors 5/5. Shoulder abductors 4+/5. Elbow flexors 5/5. Elbow extensors 5/5. Meter Tester Primary strong. Right Lower Extremity: Hip flexors 4/5. Hip abductors 5/5. Knee flexors 4+/5. Knee extensors 4+/5. Ankle dorsiflexors 5/5. Ankle plantarflexors 5/5. Left Lower Extremity: Hip flexors 4/5. Hip abductors 5/5. Knee flexors 4+/5. Knee extensors 4+/5. Ankle dorsiflexors 5/5. Ankle plantarflexors 5/5. Sensation: Intact as to pain and pressure on bilateral lower extremities. Bed Mobility/Transfers: Rolling independent Supine to sit independent Sit to supine independent Sit to stand independent Stand to sit independent Bed to chair independent Chair to bed independent Gait: Pt was able to ambulate to 50 feet +400 feet on room air, full weight bearing. Reciprocal gait pattern with decreased step length and height. Wide base of support. Stairs: Pt was able to ascend and descend 6-inch steps x 12 and 3-inch steps x 18 with bilateral upper extremity support. 96% on RA, no SOB. Balance: Static Sitting: Normal Dynamic Sitting: Normal Static Standing: Normal Dynamic Standing: Good Assessment: Pt is a 69-year-old male, with a history of COPD, that presented to the ER on 10/03/2019 for shortness of breath. He was admitted to the hospital with diagnoses of dyspnea on exertion, transaminitis, orthostatic hypotension, and dysphagia. Pt presented to physical therapy with impairment level findings and functional limitations as listed below. AM-PAC raw score of 23 with 11% deficit. He demonstrates decreased endurance and respiratory function through two minute walk test results indicating inability to ambulate the pace of a community ambulating individual and desaturation to 83% with ambulation on room air. He presents as an increased fall risk as demonstrated by inability to maintain four stage balance test and unsteady gait without use of an assistive device. Patient demonstrated significant improvement during this episode of care. Goals: Goals X1 week 1. Sit-Stand independent MET 2. Stand-Sit independent MET 3. Bed-Chair independent MET 4. Chair-Bed independent MET 5. Independent gait on level surface with use of least restrictive device for at least 300 feet without report of pain nor dyspnea NOT MET 6. Independent with home exercise program MET 7. Good static and dynamic standing balance/tolerance MET DISCHARGE RECOMMENDATIONS: Discharge to home with home health physical therapy for improved smooth transition to home. TREATMENT CODE/TIME: NC. Thank you very much for this referral. Marie Nicole PT, DPT, CLT [facility] [place], [place]
--- NOTE | 2019-11-17 08:59 | W.CARDEVENT ---
Date of service: 11/17/19 Time of Service: 08:59 Cardiac Event Recorder Cardiac Event Note: This was a 30-day event monitor reportedly ordered for indication of tachycardia. Predominant rhythm was sinus with occasional atrial premature beats and sinus arrhythmia. There were no significant ventricular dysrhythmias. There was no supraventricular tachycardia or atrial fibrillation. There were no pauses or significant bradycardia
== END 2019-10-08 16:45 | disposition home or self-care (01) | DRG 310 ==
LOC: ER 16:45 → MS 17:07
PROVIDERS: Admitting Provider Family Medicine; Emergency Provider Physician Assistant; PCP Nurse Practitioner Family; Visit Provider Internal Medicine
DX: R00.0 Tachycardia, unspecified (principal); R06.09 Other forms of dyspnea; R74.0 Nonspecific elevation of levels of transaminase and lactic acid dehydrogenase [LDH]; I95.1 Orthostatic hypotension; J44.9 Chronic obstructive pulmonary disease, unspecified; J98.8 Other specified respiratory disorders; K70.9 Alcoholic liver disease, unspecified; F10.20 Alcohol dependence, uncomplicated; N18.3 Chronic kidney disease, stage 3 (moderate); R13.10 Dysphagia, unspecified; E87.6 Hypokalemia; E83.42 Hypomagnesemia; E53.8 Deficiency of other specified B group vitamins; Z73.89 Other problems related to life management difficulty; G31.2 Degeneration of nervous system due to alcohol; G62.1 Alcoholic polyneuropathy; G25.0 Essential tremor; G40.909 Epilepsy, unspecified, not intractable, without status epilepticus; Z87.820 Personal history of traumatic brain injury; I08.3 Combined rheumatic disorders of mitral, aortic and tricuspid valves; Z71.3 Dietary counseling and surveillance
CPT/HCPCS: 36415; 71275; 74177; 80048; 80053; 80061; 80076; 82550; 85027; 86704; 86709; 86803; 87340; 92610; 93005; 93270; 93306; 94618; 96360; 96361; 97162; 97530; 99219; 99232; 99239; 99285; J1650; 80320; 82607; 82746; 83036; 83735; 83880; 84439; 84443; 84484; 85025; 85379; 85610; 85730; 93010; 94640; 99225; G0378; J3420; J3475; J3490; J7512; J7614; J7644

== ENCOUNTER → 2019-10-06 07:48 | Outpatient (BNVA) | payer MEDICARE, SELFPAY | PROVIDERS: PCP Nurse Practitioner Family; Referring Provider Nurse Practitioner Family; Visit Provider Internal Medicine Cardiovascular Disease | DX: R69 Illness, unspecified (principal) | CPT/HCPCS: 99202 ==

== ENCOUNTER 2019-10-13 17:36 | Outpatient (RCR) | payer MEDICARE, SELFPAY | END 2019-10-18 23:59 | disposition home or self-care (01) | LOC: PRC 17:36 | PROVIDERS: PCP Nurse Practitioner Family; Visit Provider Family Medicine | DX: Z51.89 Encounter for other specified aftercare (principal) ==

== ENCOUNTER 2019-10-14 02:02 | Outpatient (CLI) | payer MEDICARE, SELFPAY ==
--- NOTE | 2019-10-14 | DI.CTLCSR_ITS ---
EXAM: CT CHEST LUNG CANCER SCREEN CLINICAL HISTORY: FORMER SMOKER, Z87.891, EMPHYSEMA, J43.9 TECHNIQUE: Chest CT was performed utilizing low-dose lung cancer screening protocol. COMPARISON: CT chest w from 10/10/2018 FINDINGS: Images obtained through the upper abdomen show unremarkable appearance of visualized portions of live r, spleen, pancreas, adrenals, and kidneys. No mediastinal or hilar adenopathy. No pleural effusion seen. Note is made of coronary artery calci fication. Tracheobronchial tree appears intact. Mild central lobular emphysematous changes noted. Mild bilate ral apical subpleural scarring noted, unchanged from prior CT of 10/10/2018. Tiny calcified pulmonary nodules are present bilaterally. No noncalcified pulmonary nodule seen. IMPRESSION: Negative low-dose lung cancer screening CT. Category 1, continue annual screening with LDCT in 12 mo nths. Lung RADS Cat 1 - Negative: No nodules and definitely benign nodules
== END 2019-10-14 02:22 ==
PROVIDERS: PCP Nurse Practitioner Family; Visit Provider Nurse Practitioner Family
DX: Z12.2 Encounter for screening for malignant neoplasm of respiratory organs (principal); Z87.891 Personal history of nicotine dependence; J43.9 Emphysema, unspecified; R91.8 Other nonspecific abnormal finding of lung field
CPT/HCPCS: G0297

== ENCOUNTER 2019-10-15 10:44 | Outpatient (CLI) | payer MEDICARE, SELFPAY ==
[2019-10-15 11:44] LABS: Anion Gap 9.1 mmol/L (3-11); BUN 10 mg/dL (7-18); CO2 26.9 mmol/L (21.0-32.0); CREATININE 0.86 mg/dL (0.70-1.30); Calcium 8.9 mg/dL (8.5-10.1); Chloride 110 mmol/L (98-107); Glucose 118 mg/dL (74-106); Magnesium 1.9 mg/dL (1.8-2.4); Potassium 3.9 mmol/L (3.5-5.1); Sodium 146 mmol/L (136-145)
== END 2019-10-15 11:04 ==
PROVIDERS: PCP Nurse Practitioner Family; Visit Provider Internal Medicine
DX: E83.42 Hypomagnesemia (principal); E87.6 Hypokalemia
CPT/HCPCS: 36415; 80048; 83735

== ENCOUNTER → 2019-11-04 08:18 | Outpatient (BNVA) | payer MEDICARE, SELFPAY | PROVIDERS: PCP Nurse Practitioner Family; Referring Provider Nurse Practitioner Family; Visit Provider Psychiatry & Neurology Neurology | DX: G25.0 Essential tremor (principal); G40.909 Epilepsy, unspecified, not intractable, without status epilepticus; S06.9X9S Unspecified intracranial injury with loss of consciousness of unspecified duration, sequela; G62.1 Alcoholic polyneuropathy; I10 Essential (primary) hypertension | CPT/HCPCS: 99442 ==

== ENCOUNTER 2019-11-13 09:57 | Outpatient (REF) | payer MEDICARE, SELFPAY ==
[2019-11-13 21:04] LABS: Anion Gap 6.6 mmol/L (3-11); BUN 11 mg/dL (7-18); CO2 31.4 mmol/L (21.0-32.0); CREATININE 1.06 mg/dL (0.70-1.30); Calcium 9.9 mg/dL (8.5-10.1); Chloride 107 mmol/L (98-107); Glucose 104 mg/dL (74-106); Magnesium 1.9 mg/dL (1.8-2.4); Potassium 4.7 mmol/L (3.5-5.1); Sodium 145 mmol/L (136-145)
== END 2019-11-13 10:17 ==
LOC: NCHCN 09:57
PROVIDERS: PCP Nurse Practitioner Family; Visit Provider Internal Medicine
DX: N18.3 Chronic kidney disease, stage 3 (moderate) (principal); R74.0 Nonspecific elevation of levels of transaminase and lactic acid dehydrogenase [LDH]; R53.83 Other fatigue; I95.1 Orthostatic hypotension; J44.9 Chronic obstructive pulmonary disease, unspecified; Z86.79 Personal history of other diseases of the circulatory system; R56.9 Unspecified convulsions
CPT/HCPCS: 80048; 82533; 82024; 83735

== ENCOUNTER 2019-11-14 11:12 | Outpatient (CLI) | payer MEDICARE, SELFPAY ==
[2019-11-17 15:08] LABS: Adrenocorticotropic Hormone, P 27 pg/mL
== END 2019-11-14 11:32 ==
PROVIDERS: Internal Medicine; PCP Nurse Practitioner Family; Visit Provider Nurse Practitioner Family
DX: N18.3 Chronic kidney disease, stage 3 (moderate) (principal); R53.83 Other fatigue; R74.0 Nonspecific elevation of levels of transaminase and lactic acid dehydrogenase [LDH]; I95.1 Orthostatic hypotension; J44.9 Chronic obstructive pulmonary disease, unspecified
CPT/HCPCS: 36415; 82024

== ENCOUNTER 2019-11-17 08:59 | Outpatient (CLI) | payer MEDICARE, SELFPAY | END 2019-11-17 09:19 | PROVIDERS: PCP Nurse Practitioner Family; Visit Provider Internal Medicine Cardiovascular Disease | DX: R00.0 Tachycardia, unspecified (principal); I49.1 Atrial premature depolarization | CPT/HCPCS: 93228 ==

== ENCOUNTER 2020-01-06 14:03 | Outpatient (REF) | payer MEDICARE, SELFPAY ==
[2020-01-06 20:45] LABS: ALT 30 U/L (16-63); AST 19 U/L (15-37); Albumin 3.8 g/dL (3.4-5.0); Alkaline Phosphatase 74 U/L (46-116); Anion Gap 7.1 mmol/L (3-11); BUN 11 mg/dL (7-18); Bilirubin, Total 0.5 mg/dL (0.2-1.0); CO2 30.9 mmol/L (21.0-32.0); CREATININE 1.04 mg/dL (0.70-1.30); Calcium 9.7 mg/dL (8.5-10.1); Calculated LDL 216 mg/dL (<100); Chloride 102 mmol/L (98-107); Cholesterol 291 mg/dL (<200); Glucose 94 mg/dL (74-106); HDL Cholesterol 53 mg/dL (40-60); Magnesium 1.6 mg/dL (1.8-2.4); Potassium 3.9 mmol/L (3.5-5.1); Sodium 140 mmol/L (136-145); Total Protein 6.3 g/dL (6.4-8.2); Triglyceride 113 mg/dL (<150); Vitamin B12 673 pg/mL (193-986)
[2020-01-08 10:26] LABS: PSA, Screening 1.4 ng/mL (0.0-4.5)
== END 2020-01-06 14:23 ==
LOC: NCHCN 14:03
PROVIDERS: PCP Nurse Practitioner Family; Visit Provider Nurse Practitioner Family
DX: R60.0 Localized edema (principal); I95.1 Orthostatic hypotension; J45.40 Moderate persistent asthma, uncomplicated; R74.0 Nonspecific elevation of levels of transaminase and lactic acid dehydrogenase [LDH]; G89.29 Other chronic pain; N18.3 Chronic kidney disease, stage 3 (moderate); J98.4 Other disorders of lung; K30 Functional dyspepsia; Z12.5 Encounter for screening for malignant neoplasm of prostate; E78.89 Other lipoprotein metabolism disorders
CPT/HCPCS: 80053; 80061; 84153; 82607; 83735

== ENCOUNTER 2020-01-14 01:17 | Outpatient (CLI) | payer MEDICARE, SELFPAY ==
--- NOTE | 2020-01-14 08:25 | DI.US_ITS ---
EXAM: US ABDOMEN CLINICAL HISTORY: ELEVATED TRANSAMINASES, R74.0 TECHNIQUE: Ultrasound performed using standard protocol. COMPARISON: CT CT CHEST PE ABD PELVIS W from 10/03/2019 FINDINGS: The liver is mildly enlarged and shows increased echogenicity consistent with fatty infiltration. S evere fatty infiltration was observed on previous CT. No focal liver lesions or biliary dilatation i s seen. The gallbladder is unremarkable, without evidence of stones or wall thickening. The pancrea s, spleen and right kidney are unremarkable. There is question of a tiny stone seen at the upper aaron e the left kidney. This is visible on the previous CT. There is no evidence of hydronephrosis. The re is no ascites. The aorta is normal in diameter. IMPRESSION: Mild fatty infiltration of the liver. DATA REPOSITORY:
== END 2020-01-14 01:37 ==
PROVIDERS: PCP Nurse Practitioner Family; Visit Provider Nurse Practitioner Family
DX: R74.0 Nonspecific elevation of levels of transaminase and lactic acid dehydrogenase [LDH] (principal); K76.0 Fatty (change of) liver, not elsewhere classified; R16.0 Hepatomegaly, not elsewhere classified
CPT/HCPCS: 76700

== ENCOUNTER 2020-02-17 14:58 | Outpatient (REF) | payer MEDICARE, SELFPAY ==
[2020-02-17 20:57] LABS: HCT 43.5 % (40.0-50.0); HGB 14.7 g/dL (13.5-17.5); Mean Corp. HGB Concentration 33.8 g/dL (32.0-36.0); Mean Corpuscular Hemoglobin 31.4 pg (27.0-33.0); Mean Corpuscular Volume 92.9 fL (80-95); Mean Platelet Volume 12.9 fL (8.0-11.0); Platelet Count 195 x1000/uL (130-400); RBC 4.68 m/cumm (4.50-6.00); RBC Distribution Width 13.2 % (11.8-14.1); White Blood Cell Count 7.99 k/cumm (4.4-10.8)
[2020-02-17 21:16] LABS: ALT 28 U/L (16-63); AST 20 U/L (15-37); Albumin 3.9 g/dL (3.4-5.0); Alkaline Phosphatase 71 U/L (46-116); Anion Gap 8.9 mmol/L (3-11); BUN 12 mg/dL (7-18); Bilirubin, Total 0.4 mg/dL (0.2-1.0); CO2 28.1 mmol/L (21.0-32.0); CREATININE 0.99 mg/dL (0.70-1.30); Calcium 9.7 mg/dL (8.5-10.1); Chloride 104 mmol/L (98-107); Glucose 93 mg/dL (74-106); Magnesium 1.9 mg/dL (1.8-2.4); Potassium 4.1 mmol/L (3.5-5.1); Sodium 141 mmol/L (136-145); Total Protein 6.6 g/dL (6.4-8.2)
[2020-02-19 09:16] LABS: HBs Antibody, Quant 5.7 mIU/mL (See Note); Hepatitis B Surface Ab Negative (See Note)
[2020-02-19 09:25] LABS: Hepatitis B Surface Ag Negative (Negative)
[2020-02-19 10:14] LABS: Hepatitis C Ab w Rflx HCV PCR Negative (Negative)
[2020-02-19 10:30] LABS: Hep A Total Ab w Rflx IgM Positive (Negative)
[2020-02-21 06:38] LABS: Hep A Antibody IgM Negative (Negative)
== END 2020-02-17 15:18 ==
LOC: NCHCN 14:58
PROVIDERS: PCP Nurse Practitioner Family; Visit Provider Nurse Practitioner Family
DX: K76.0 Fatty (change of) liver, not elsewhere classified (principal); R74.0 Nonspecific elevation of levels of transaminase and lactic acid dehydrogenase [LDH]; E83.42 Hypomagnesemia; N18.3 Chronic kidney disease, stage 3 (moderate); R60.0 Localized edema; I95.1 Orthostatic hypotension; J43.9 Emphysema, unspecified; K30 Functional dyspepsia; Z11.59 Encounter for screening for other viral diseases; Z01.84 Encounter for antibody response examination
CPT/HCPCS: 80053; 85027; 86706; 86709; 86803; 87340; 83735; 86704

== ENCOUNTER 2020-03-12 10:18 | Emergency (ER) | payer MEDICARE, SELFPAY ==
[2020-03-12 10:23] VITALS: BP 139/107; PULSE 70; RESP 18; TEMP 36.7; O2SAT 99
--- NOTE | 2020-03-12 10:23 | ED.GENADUL_ITS ---
Discharge Plan Disposition Patient Disposition: HOME Condition: Improving Discharge Details Chief Complaint: Cellulitis Clinical Impression: Cellulitis of hand, right Primary Care Provider: Nicolette Harris ED Provider: Leandro Perez Home Meds and New Rx's Prescriptions: Continued propranolol 60 mg capsule,extended release 24 hr 60 mg PO DAILY Qty: 90 RF: 3 gabapentin 100 MG capsule 100 mg PO TID RF: 0 lorazepam [Ativan] 1 MG tablet 1 mg PO Q 6 HRS PRNRF: 0 vitamin B complex [B Complex-Vitamin B12] 1 EACH tablet 1 ea PO DAILY RF: 0 Fish Oil 500 MG capsule 3,000 mg PO DAILY RF: 0 cholecalciferol (vitamin D3) 2,000 UNIT tablet 6,000 unit PO DAILY RF: 0 aspirin [Aspirin Low-Strength] 81 MG tablet,chewable 81 mg PO DAILY RF: 0 multivitamin [Multiple Vitamins] Tablet 1 tab PO DAILY Qty: 30 RF: 0 folic acid 1 mg Tablet 1 mg PO DAILY Qty: 30 RF: 0 fludrocortisone 0.1 mg Tablet 0.1 mg PO DAILY Qty: 30 RF: 0 magnesium chloride [Mag 64] 64 mg Tablet,Delayed Release (Dr/Ec) 128 mg PO BID Qty: 120 RF: 0 thiamine mononitrate (vit B1) [Vitamin B-1 (mononitrate)] 100 mg Tablet 100 mg PO DAILY Qty: 30 RF: 0 cyanocobalamin (vitamin B-12) 1,000 mcg capsule 1,000 mcg PO DAILY Qty: 30 RF: 0 levalbuterol tartrate [Xopenex HFA] 45 mcg/actuation HFA aerosol inhaler 2 inh IH Q6H PRN PRN (Reason: shortness of breath or wheezing) Qty: 15 RF: 0 calcium carbonate [Calcium 500] 500 MG tablet 1 - 2 cap PO HS RF: 0 azithromycin 250 mg Tablet 250 mg PO DIRECTED RF: 0 amoxicillin-pot clavulanate 875-125 mg Tablet 875 tab PO DAILY RF: 0 Discharge Instructions Instructions: Cellulitis (ED) Additional Instructions: Please continue your previously prescribed antibiotics. The next dose of Augmentin will be this evening. Elevate the hand above the level of the heart as much as possible, using the sling as needed for comfort. May continue to apply cool compress to area to reduce swelling. We will ask care management to arrange an outpatient follow-up for you in primary care clinic in approximate 1 week's time. Return to the ER for increasing redness, swelling, systemic chills or a fever, or any other acute concern. Medical Decision Making 70-year-old male referred from clinic. Scratched by domestic cat on right hand Sunday. Noticed developing erythema and pain, started on azithromycin and Augmentin Sunday. Concern for minimal progress and referred today. He is afebrile but slightly hypertensive. He has a history of hypertension, a history of 40+ years of smoking but quit 2 years ago. Labs obtained with white blood cell count 10, hematocrit 38, platelets 170. Chemistries reassuring. CRP is 9.5. At approximately 6 hours from last dose of Augmentin, patient was given dose of Unasyn. Do not appreciate that he has significant lymphadenitis and therefore do not feel this is true cat scratch disease but rather cat scratch/bite related cellulitis. We will have the patient continue to elevate and he is given a sling to use for comfort. He will finish the previously prescribed azithromycin and continue the entire course of Augmentin. Discussed with him anticipated further 2 to 3 days before significant improvement. He is to return if it is worse or develops a fever. We will ask transitions rn care coordinator to arrange an outpatient follow-up in primary care clinic for him in approximate 1 week's time. Lab Data Lab results reviewed: Yes I reviewed the patient's lab results. Labs: Laboratory Results - last 24 hr 03/12/20 03/12/20 10:45 10:45 WBC 10.18 RBC 4.10 L Hgb 13.0 L Hct 38.5 L MCV 93.9 MCH 31.7 MCHC 33.8 RDW 13.4 Plt Count 170 MPV 11.3 H Immature Gran % 0.3 Neutrophils % 67.7 Lymphocytes % 19.1 Monocytes % 8.9 Eosinophils % 3.7 Basophils % 0.3 Absolute Neutrophils 6.89 H Absolute Lymphocytes 1.94 Absolute Monocytes 0.91 H Absolute Eosinophils 0.38 Absolute Basophils 0.03 Sodium 140 Potassium 3.9 Chloride 105 Carbon Dioxide 25.8 Anion Gap 9.2 BUN 16 Creatinine 1.07 Estimated GFR/1.73 m2 >= 60.00 Glucose 107 H Calcium 9.0 C-Reactive Protein 9.58 H HPI General Mode of arrival: ambulatory . Date/Time Provider Initiated Documentation: 03/12/20 10:21 . Limitations to Documentation: no limitations . Information obtained by: patient . History of Present Illness 70 year old M presents to the emergency department with the chief complaint of R hand pain and swelling after had bite, described as moderate, Quality is described as dull and constant, and is localized to the right and upper extremity. Patient started experiencing this day(s) and it has been constant. No relieving factors improve symptom(s), No exacerbating factors reported . Patient notes denies fever/chills. Patient did receive the following treatments prior to arrival, other (on abx) Related Data Home Medications Medication Instructions Recorded Confirmed gabapentin 100 mg PO TID tab-cap 01/27/16 03/12/20 lorazepam [Ativan] 1 mg PO Q 6 HRS PRN tab-cap 01/27/16 03/12/20 aspirin [Aspirin Low-Strength] 81 mg PO DAILY 03/27/16 03/12/20 Fish Oil 3,000 mg PO DAILY 06/12/16 03/12/20 cholecalciferol (vitamin D3) 6,000 unit PO DAILY 06/12/16 03/12/20 vitamin B complex [B 1 ea PO DAILY 06/12/16 03/12/20 Complex-Vitamin B12] calcium carbonate [Calcium 500] 1 - 2 cap PO HS 04/04/17 03/12/20 cyanocobalamin (vitamin B-12) 1,000 mcg PO DAILY #30 cap 10/08/19 03/12/20 fludrocortisone 0.1 mg PO DAILY #30 tab 10/08/19 03/12/20 folic acid 1 mg PO DAILY #30 tab 10/08/19 03/12/20 levalbuterol tartrate [Xopenex HFA] 2 inh IH Q6H PRN PRN #15 gm 10/08/19 03/12/20 magnesium chloride [Mag 64] 128 mg PO BID #120 tab 10/08/19 03/12/20 multivitamin [Multiple Vitamins] 1 tab PO DAILY #30 tab 10/08/19 03/12/20 thiamine mononitrate (vit B1) 100 mg PO DAILY #30 tab 10/08/19 03/12/20 [Vitamin B-1 (mononitrate)] propranolol 60 mg capsule,24 60 mg PO DAILY #90 tab-cap 11/04/19 03/12/20 hr,extended release amoxicillin-pot clavulanate 875 tab PO DAILY 03/12/20 03/12/20 azithromycin 250 mg PO DIRECTED 03/12/20 03/12/20 Previous Rx's Medication Instructions Recorded cyanocobalamin (vitamin B-12) 1,000 mcg PO DAILY #30 cap 10/08/19 fludrocortisone 0.1 mg PO DAILY #30 tab 10/08/19 folic acid 1 mg PO DAILY #30 tab 10/08/19 levalbuterol tartrate [Xopenex HFA] 2 inh IH Q6H PRN PRN #15 gm 10/08/19 magnesium chloride [Mag 64] 128 mg PO BID #120 tab 10/08/19 multivitamin [Multiple Vitamins] 1 tab PO DAILY #30 tab 10/08/19 thiamine mononitrate (vit B1) 100 mg PO DAILY #30 tab 10/08/19 [Vitamin B-1 (mononitrate)] propranolol 60 mg capsule,24 60 mg PO DAILY #90 tab-cap 11/04/19 hr,extended release Allergies Allergy/AdvReac Type Severity Reaction Status Date / Time clams Allergy Unknown Unverified 03/12/20 10:28 mussels Allergy Unknown Unverified 03/12/20 10:28 acetaminophen [From Vicodin] AdvReac Intermediate SEVERE Unverified 03/12/20 10:28 CONSTIPATION hydrocodone bitartrate AdvReac Intermediate SEVERE Unverified 03/12/20 10:28 [From Vicodin] CONSTIPATION SEAFOOD Allergy Unknown Uncoded 03/12/20 10:28 General SOMMER: 3 Review of Systems Narrative: 6 systems reviewed and otherwise negative [facility] Medical History Alcohol abuse (Acute) sober 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) Anxiety and depression (Chronic) Calculus of left kidney (Resolved 03/20/17) Chronic kidney disease, stage 3 (Chronic) Chronic pain syndrome (Chronic) COPD (chronic obstructive pulmonary disease) (Chronic) Essential tremor (Chronic 04/10/16) Gross hematuria (Resolved 03/20/17) Hyperlipidemia (Chronic) Left ureteral stone (Resolved 03/27/17) Migraine headache without aura (Chronic) 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) Scoliosis (Chronic) Seizure disorder (Resolved) TBI (traumatic brain injury) (Chronic) Remote, multiple Umbilical hernia without obstruction or gangrene (Chronic) Vitamin D deficiency (Chronic) Family History Mother TIA (transient ischemic attack) Father Parkinson disease Stroke Social History Smoking/Tobacco Use Status: Former Tobacco Use Alcohol Intake: current Alcohol Intake frequency: holidays/special occasions only Alcohol type: wine Drug use: Never Substance use type: does not use Household members: none Housing: apartment Do you feel safe at home: Yes Do you feel safe in your relationship?: Yes Additional Social history: Lives alone in second story apartment in [facility], has a cat Currently working part-time at [employer] in [place] through [employer]. History of smoking, quit June 2018. No vaping. No other drug use including marijuana. Exam Narrative Exam Narrative: GEN: awake, alert, oriented 3. Pleasant, well groomed, interactive. HEAD: Normocephalic, atraumatic ENT: Mucous membranes moist, oropharynx unremarkable, External ear exam unremarkable EYES: PERRL, EOMI NECK: Full ROM, no SOLOMON, no menigismus CHEST/RESP: Nontender, clear to auscultation bilateral, no wheeze/rhonchi/rales CARDIOVASCULAR: RRR, no murmur appreciated on my exam. 2+ Rad pulse bilateral ABDOMEN: Soft, nontender, no mass. +Bowel sounds EXT: Full ROM, the right hand is edematous with overlying erythema. Is tender to the touch but he has full range of motion both active and passive in flexion and extension. Sensation intact. Capillary fill less than 2 seconds. Neuro: Grossly normal neurologic exam, conversant, interactive. Psych: Speech fluent, thoughts congruent, affect normal Course Lab/Test Results Lab/Test Results: 03/12/20 10:21 Blood Blood Culture - Pending 03/12/20 10:21 Blood Blood Culture - Pending
[2020-03-12 11:03] LABS: Abs Immature Grans 0.03 k/cumm (0.0-0.09); Absolute Basophil Count 0.03 k/cumm (0.0-0.2); Absolute Eosinophil Count 0.38 k/cumm (0.0-0.7); Absolute Lymphocyte Count 1.94 k/cumm (1.2-3.4); Absolute Monocyte Count 0.91 k/cumm (0.11-0.7); Absolute Neutrophil Count 6.89 k/cumm (1.2-6.7); Basophils % 0.3; Eosinophils % 3.7; HCT 38.5 % (40.0-50.0); Immature Grans % 0.3 %; Lymphocytes % 19.1; Mean Corp. HGB Concentration 33.8 g/dL (32.0-36.0); Mean Corpuscular Hemoglobin 31.7 pg (27.0-33.0); Mean Corpuscular Volume 93.9 fL (80-95); Mean Platelet Volume 11.3 fL (8.0-11.0); Monocytes % 8.9; Neutrophils % 67.7; Platelet Count 170 x1000/uL (130-400); RBC Distribution Width 13.4 % (11.8-14.1); White Blood Cell Count 10.18 k/cumm (4.4-10.8)
[2020-03-12 11:11] LABS: Anion Gap 9.2 mmol/L (3-11); BUN 16 mg/dL (7-18); C-Reactive Protein 9.58 mg/dL (0.0-0.3); CO2 25.8 mmol/L (21.0-32.0); CREATININE 1.07 mg/dL (0.70-1.30); Chloride 105 mmol/L (98-107); Glucose 107 mg/dL (74-106); Potassium 3.9 mmol/L (3.5-5.1); Sodium 140 mmol/L (136-145)
--- NOTE | 2020-03-12 11:14 | DI.RAD_ITS ---
EXAM: XR HAND RT COMPLETE CLINICAL HISTORY: swelling, pain after cat bite. TECHNIQUE: 2D digital imaging was performed. COMPARISON: No exams were available for comparison FINDINGS: BONES: No acute fracture is present. No bony destructive lesion is seen. JOINTS: No dislocation present. SOFT TISSUE: Normal. No radiopaque foreign body. IMPRESSION: Unremarkable radiographs of the right hand. DATA REPOSITORY: RADIATION DOSE DELIVERED:
--- NOTE | 2020-03-12 12:12 | NUR.NOTE ---
Nursing Note: Referral sent to PCP to FU
[2020-03-12] MEDS: AMPICILLIN/SULBACTAM 1.5 GM in Normal Saline 50 ML IVPB (12:13)
[2020-03-12 12:35] VITALS: BP 119/63; PULSE 60; RESP 19; TEMP 36.6; O2SAT 97
== END 2020-03-12 12:57 | disposition home or self-care (01) ==
PROVIDERS: Emergency Provider Emergency Medicine; PCP Nurse Practitioner Family
DX: S60.511A Abrasion of right hand, initial encounter (principal); L03.113 Cellulitis of right upper limb; W55.03XA Scratched by cat, initial encounter; I12.9 Hypertensive chronic kidney disease with stage 1 through stage 4 chronic kidney disease, or unspecified chronic kidney disease; N18.3 Chronic kidney disease, stage 3 (moderate)
CPT/HCPCS: 36415; 80048; 87040; 96365; 99284; 73130; 85025; 86140; J0295; L3650

== ENCOUNTER 2020-03-24 13:12 | Outpatient (CLI) | payer MEDICARE, SELFPAY ==
--- NOTE | 2020-03-24 13:21 | DI.RAD_ITS ---
EXAM: XR SHOULDER LT COMPLETE 2+V CLINICAL HISTORY: left shoulderpain TECHNIQUE: COMPARISON: CR XR SHOULDER RT COMPLETE 2+V from 03/24/2020 FINDINGS: Two views were obtained. There appears to be mild narrowing of cartilaginous joint space of glenohum eral joint. Mild marginal osteophyte formation of the glenoid noted. Probable mild hypertrophic changes of the AC joint noted as well. No other significant findings. IMPRESSION: Mild DJD glenohumeral and acromioclavicular joints
--- NOTE | 2020-03-24 13:22 | DI.RAD_ITS ---
EXAM: XR SHOULDER RT COMPLETE 2+V CLINICAL HISTORY: right shoulder pain TECHNIQUE: COMPARISON: No exams were available for comparison FINDINGS: Two views were obtained. There are mild hypertrophic degenerative changes at the acromioclavicular j oint. There appears to be mild narrowing of the cartilaginous joint space of the glenohumeral joint with slight marginal osteophyte formation of the glenoid. No other significant bony or softTissue ab normality seen. IMPRESSION: Mild degenerative changes of acromioclavicular and glenohumeral joints.
== END 2020-03-24 13:32 ==
PROVIDERS: PCP Nurse Practitioner Family; Referring Provider Nurse Practitioner Family; Visit Provider Student in an Organized Health Care Education/Training Program
DX: M19.011 Primary osteoarthritis, right shoulder (principal); M25.511 Pain in right shoulder; M25.512 Pain in left shoulder; M19.012 Primary osteoarthritis, left shoulder; M75.41 Impingement syndrome of right shoulder; M75.42 Impingement syndrome of left shoulder; M75.51 Bursitis of right shoulder; M75.52 Bursitis of left shoulder; M75.22 Bicipital tendinitis, left shoulder; J44.9 Chronic obstructive pulmonary disease, unspecified; Z87.891 Personal history of nicotine dependence
CPT/HCPCS: 99204; 99215; 73030

== ENCOUNTER → 2020-05-06 09:58 | Outpatient (BNVA) | payer MEDICARE, SELFPAY | PROVIDERS: PCP Nurse Practitioner Family; Referring Provider Nurse Practitioner Family; Visit Provider Psychiatry & Neurology Neurology | DX: G40.909 Epilepsy, unspecified, not intractable, without status epilepticus (principal); S06.9X9S Unspecified intracranial injury with loss of consciousness of unspecified duration, sequela; G25.0 Essential tremor; G62.1 Alcoholic polyneuropathy; I10 Essential (primary) hypertension; R41.3 Other amnesia; J44.9 Chronic obstructive pulmonary disease, unspecified | CPT/HCPCS: 99214 ==

== ENCOUNTER 2020-08-06 19:14 | Outpatient (REF) | payer MEDICARE, SELFPAY ==
[2020-08-06 22:24] LABS: Calculated LDL 119 mg/dL (<100); Cholesterol 215 mg/dL (<200); HDL Cholesterol 76 mg/dL (40-60); Magnesium 1.9 mg/dL (1.8-2.4); Triglyceride 100 mg/dL (<150)
[2020-08-09 17:51] LABS: COVID-19 RT-PCR UVMMC Result Negative (Negative)
== END 2020-08-06 19:34 ==
LOC: NCHCN 19:14
PROVIDERS: PCP Nurse Practitioner Family; Visit Provider Nurse Practitioner Family
DX: E83.42 Hypomagnesemia (principal); E78.5 Hyperlipidemia, unspecified; F41.8 Other specified anxiety disorders; G62.9 Polyneuropathy, unspecified; K76.0 Fatty (change of) liver, not elsewhere classified; Z11.59 Encounter for screening for other viral diseases
CPT/HCPCS: 80061; U0003; 83036; 83735

== ENCOUNTER 2020-09-27 14:45 | Outpatient (REF) | payer OTHER, SELFPAY ==
[2020-09-27 22:24] LABS: ALT 180 U/L (16-63); AST 154 U/L (15-37); Alkaline Phosphatase 88 U/L (46-116); Anion Gap 9.8 mmol/L (3-11); BUN 13 mg/dL (7-18); Bilirubin, Total 0.7 mg/dL (0.2-1.0); CO2 30.2 mmol/L (21.0-32.0); CREATININE 0.9 mg/dL (0.70-1.30); Calcium 9.8 mg/dL (8.5-10.1); Calculated LDL 89 mg/dL (<100); Chloride 105 mmol/L (98-107); Cholesterol 198 mg/dL (<200); Glucose 103 mg/dL (74-106); HDL Cholesterol 98 mg/dL (40-60); Potassium 5.1 mmol/L (3.5-5.1); Sodium 145 mmol/L (136-145); Triglyceride 55 mg/dL (<150)
== END 2020-09-27 14:46 | disposition home or self-care (01) ==
LOC: NCHCN 14:45
PROVIDERS: PCP Nurse Practitioner Family; Visit Provider Nurse Practitioner Family
DX: E83.42 Hypomagnesemia (principal); E78.5 Hyperlipidemia, unspecified; Z00.00 Encounter for general adult medical examination without abnormal findings
CPT/HCPCS: 80053; 80061

== ENCOUNTER 2020-10-18 01:52 | Outpatient (CLI) | payer OTHER, SELFPAY ==
--- NOTE | 2020-10-18 12:53 | DI.CTLCSR_ITS ---
EXAM: CT CHEST LUNG CANCER SCREEN CLINICAL HISTORY: SCREENING FOR LUNG CA,FORMER SMOKER, Z87.891,PULMONARY NODULE, J98.4 TECHNIQUE: Imaging Protocol: Axial computed tomography images with coronal and sagittal reformatted images were created and reviewed COMPARISON: CT CT CHEST LUNG CANCER SCREEN from 10/14/2019 FINDINGS: Tracheobronchial tree: Patent where visualized. Pulmonary parenchyma: No consolidation or dominant measurable mass. Mild centrilobular emphysematous changes. There are findings of prior granulomatous disease. Lung Nodules: No noncalcified pulmonary nodules. Mediastinum and Florencia: No dominant adenopathy or fluid collection. Pleura: No effusion or pneumothorax. Mild pleural scarring bilaterally. Heart: The heart is not dilated. Coronary artery calcifications are present. No pericardial effusion . Aorta: Thoracic aorta non-dilated.Atherosclerosis. Upper abdomen: There is diffuse decreased attenuation of the liver consistent with fatty infiltratio n. Soft Tissues: Bilateral gynecomastia. Bones: Within normal limits. IMPRESSION: No pulmonary nodules. Lung RADS Cat 1 - Negative: No nodules and definitely benign nodules Lung-RADS 1.0 CATEGORIES: Category 0 - Prior chest CT exam(s) being located for comparison. Category 1 - Annual screening in 12 months. No nodules or definitely benign nodules. Category 2 - Annual screening in 12 months. Benign appearance. Nodules with low likelihood of becomin g active cancer. Category 3 - 6-month follow-up. Probably benign. Short-term follow-up suggested. Nodules with low lik elihood of becoming active cancer. Category 4A - 3-month follow-up and CT/PET if >8 mm in size. Suspicious finding. Findings which requi re additional testing. Category 4B - Findings which require additional testing and tissue sampling. Suspicious finding. C Added to Any of the Above - History of prior lung cancer screening. S Added to Any of the Above - Significant unexpected other finding. RADIATION DOSE DELIVERED: 82.74mGy.cm Total DLP 82.74mGy.cm Total DLP 1.84mGy CTDIvol DATA REPOSITORY: All CT scans at this facility are submitted to the National Radiology Data Registry (NRDR) Dose Index Registry (DIR) with the [employer] ([employer]). RADIATION OPTIMIZATION: All CT scans at this facility use at least one of these dose optimization te chniques: automated exposure control; mA and/or kV adjustment per patient size (includes targeted exa ms where dose is matched to clinical indication); or iterative reconstruction.
== END 2020-10-18 02:12 ==
PROVIDERS: PCP Nurse Practitioner Family; Visit Provider Nurse Practitioner Family
DX: Z87.891 Personal history of nicotine dependence (principal)
CPT/HCPCS: 71271

== ENCOUNTER → 2020-11-04 11:30 | Outpatient (BNVA) | payer OTHER, SELFPAY | PROVIDERS: PCP Nurse Practitioner Family; Visit Provider Psychiatry & Neurology Neurology | DX: G25.0 Essential tremor (principal); G40.909 Epilepsy, unspecified, not intractable, without status epilepticus; S06.9X9S Unspecified intracranial injury with loss of consciousness of unspecified duration, sequela; G62.1 Alcoholic polyneuropathy; R41.3 Other amnesia | CPT/HCPCS: 99214 ==

== ENCOUNTER 2020-12-27 15:47 | Outpatient (REF) | payer OTHER, SELFPAY ==
[2020-12-27 21:39] LABS: ALT 307 U/L (16-63); AST 319 U/L (15-37); Albumin 3.8 g/dL (3.4-5.0); Alkaline Phosphatase 89 U/L (46-116); BUN 14 mg/dL (7-18); Bilirubin, Total 1.2 mg/dL (0.2-1.0); CREATININE 0.9 mg/dL (0.70-1.30); Calcium 9.3 mg/dL (8.5-10.1); Calculated LDL 131 mg/dL (<100); Chloride 103 mmol/L (98-107); Cholesterol 209 mg/dL (<200); Glucose 95 mg/dL (74-106); HDL Cholesterol 64 mg/dL (40-60); Potassium 4.2 mmol/L (3.5-5.1); Sodium 142 mmol/L (136-145); Total Protein 6.4 g/dL (6.4-8.2); Triglyceride 72 mg/dL (<150); Vitamin B12 1504 pg/mL (193-986)
[2020-12-28 17:50] LABS: PSA, Screening 3.9 ng/mL (0.0-4.5)
== END 2020-12-27 15:48 | disposition home or self-care (01) ==
LOC: NCHCN 15:47
PROVIDERS: PCP Nurse Practitioner Family; Visit Provider Nurse Practitioner Family
DX: E83.42 Hypomagnesemia (principal); R60.0 Localized edema; J43.9 Emphysema, unspecified; K76.0 Fatty (change of) liver, not elsewhere classified; G25.0 Essential tremor; K30 Functional dyspepsia; Z12.5 Encounter for screening for malignant neoplasm of prostate; Z86.39 Personal history of other endocrine, nutritional and metabolic disease
CPT/HCPCS: 80053; 80061; 84153; 82607; 83735

== ENCOUNTER 2021-04-18 15:51 | Inpatient (IN) | payer OTHER, SELFPAY ==
[2021-04-18] VITALS (49 sets, daily range): BP systolic 86–131; BP diastolic 53–94; PULSE 91–110; RESP 14–30; TEMP 35.5–37.8; O2SAT 93–97
[2021-04-18 16:21] LABS: Abs Immature Grans 1.13 10^3/uL (0.0-0.06); HCT 38.9 % (40.0-50.0); HGB 13.4 g/dL (13.5-17.5); MCHC 34.4 % (32.0-36.0); MCV 104.6 fL (80-95); MPV 12.1 fL (8.0-11.0); Nucleated RBC 0 %; RBC 3.72 10^6/uL (4.36-5.78); RDW 13.9 % (11.8-14.1); RDW-SD 54.1 fL; WBC 16.43 10^3/uL (4.4-10.8)
[2021-04-18] MEDS: Lactated Ringers 500 ML 1000 ML IV (16:24)
[2021-04-18 16:25] LABS: Lactate 3.5 mmol/L (0.6-1.4)
[2021-04-18 16:32] LABS: Source Nasal/Nares
[2021-04-18 16:39] LABS: Platelet Count 101 10^3/uL (130-400)
[2021-04-18 16:40] LABS: Absolute Lymphocyte Count 0.66 10^3/uL (1.2-3.4); Absolute Monocyte Count 0.66 10^3/uL (0.1-0.8); Absolute Neutrophil Count 14.95 10^3/uL (1.2-6.7); Bands % 7; Diff Comment Manual Differential; Macrocytosis 1+; Metamyelocytes % 1; Polychromasia Present
[2021-04-18 16:49] LABS: ALT 139 U/L (16-63); AST 330 U/L (15-37); Albumin 3.4 g/dL (3.4-5.0); Alkaline Phosphatase 77 U/L (46-116); Anion Gap 12.6 mmol/L (3-11); BUN 29 mg/dL (7-18); Bilirubin, Total 1.5 mg/dL (0.2-1.0); CO2 22.4 mmol/L (21.0-32.0); CREATININE 1.6 mg/dL (0.70-1.30); Chloride 100 mmol/L (98-107); Estimated GFR 42.95 (mL/min/1.73m2); Glucose 127 mg/dL (74-106); Potassium 4.3 mmol/L (3.5-5.1); Sodium 135 mmol/L (136-145); Total Protein 6.9 g/dL (6.4-8.2)
--- NOTE | 2021-04-18 17:00 | DI.RAD_ITS ---
Exam(s) XR WRIST RT COMPLETE EXAM: XR WRIST RT COMPLETE CLINICAL HISTORY: pain. TECHNIQUE: 2D digital imaging was performed. COMPARISON: No exams were available for comparison FINDINGS: BONES: No acute fracture is present. No bony destructive lesion is seen. JOINTS: The carpal bones are normally aligned. SOFT TISSUE: There is soft tissue swelling on the dorsum of the wrist. IMPRESSION: 1. No acute fracture or dislocation. 2. Soft tissue swelling on the dorsum of the wrist. DATA REPOSITORY: RADIATION DOSE DELIVERED:
--- NOTE | 2021-04-18 17:00 | DI.RAD_ITS ---
Exam(s) XR PORTABLE CHEST AP EXAM: XR PORTABLE CHEST AP CLINICAL HISTORY: fever TECHNIQUE: 2D digital imaging was performed. COMPARISON: CT CT CHEST LUNG CANCER SCREEN from 10/18/[address] CHEST LUNG CANCER SCREEN from 10/18/2020 FINDINGS: MEDIASTINUM: Normal. HEART: Normal. PULMONARY VASCULATURE: Normal. LUNGS: The lungs appear hyperinflated which can be seen with underlying COPD. No focal consolidating infiltrates. PLEURAL SPACE: No pleural effusion or pneumothorax. BONE:Within normal limits for the patient's age. OTHER FINDINGS:Normal. IMPRESSION: No acute pulmonary findings. DATA REPOSITORY: RADIATION DOSE DELIVERED:
--- NOTE | 2021-04-18 17:09 | ED.GENADUL_ITS ---
Discharge Plan Disposition Patient Disposition: [facility]IENT Condition: Improving Discharge Details Clinical Impression: Sepsis, Cat scratch of hand Admit Date/Time: 04/18/21 19:22 Admit Provider: Priyank Killian Attending Provider: Priyank Killian Primary Care Provider: Nicolette Harris ED Provider: Kt Ruiz Discharge Data Discharge Date/Time-TO BE ENTERED AT DEPARTURE: 04/18/21 20:30 Medical Decision Making 1716??71-year-old male with multiple medical problems here with generalized weakness progressive over the past couple days, recent chills, febrile per EMS, tachycardic and hypotensive. Patient has erythema of the dorsal right hand and forearm with a small area of fluctuance dorsal hand. Patient has had recent cat scratch to right hand and forearm. Consider cat scratch disease although I do not appreciate any significant lymphadenopathy it may be early in course. I am worried of potential for neurologic involvement given confusion and generalized weakness. Patient is septic. I will give 2 L of crystalloid and reassess. Plan to initiate treatment with rifampin PO and doxycycline IV to cover Bartonella henselae with potential neurologic involvement. Symptoms may also be related to fever and sepsis secondary to typical cellulitis. I will initiate treatment for typical cellulitis with cefazolin 2 g IV. Initial labs reviewed and lactate is significantly elevated at 3.5 with leukocytosis of 16,000. Patient also has elevated LFTs which appear to be elevated in the past. I will send acute hepatitis panel. Consider other etiologies for sepsis including urinary source and pneumonia. Will obtain urinalysis and chest x-ray. 1821 --I attempted incision and drainage of fluctuant area dorsal right hand. Small 2 mm incision made and was able to express significant amount of serosanguineous fluid. No purulent drainage. Consider lymph node? Patient reassessed after IV fluid hydration and is now hemodynamically stable. Patient appropriate for medical floor. Plan to admit for continued IV ant ibiotics. I spoke with Dr. Killian, discussed ED presentation course including diagnostics, who will admit the patient. HPI General Mode of arrival: EMS . Date/Time Provider Initiated Documentation: 04/18/21 16:08 . Limitations to Documentation: no limitations . Information obtained by: patient and EMS . HPI Narrative: 71-year-old male with multiple medical problems including history of COPD, hypercholesterolemia, renal stone, seizure disorder, chronic kidney disease, anxiety, depression, presents with chief complaint of weakness. Patient notes generalized weakness affecting his lower extremities and upper extremities that started a couple days ago and has persisted and progressed without modifiers. Weakness is severe. Constant. Patient notes he has had some intermittent chills at night over the past couple days. He also notes some redness and swelling right wrist and forearm. Patient notes cat shots including rabies are up-to-date. He states that he was scratched by his indoor pet cat on his right forearm about a week ago. Patient denies cough. Denies abdominal pain. Denies headache or neck stiffness. Denies urinary symptoms. EMS notes that patient was febrile with temp of 102. Patient states he has been scratched by his cat in the remote past and had similar infection of the forearm that required antibiotic treatment. Patient states that infection resolved with treatment. Related Data Home Medications Medication Instructions Recorded Confirmed aspirin [Aspirin Low-Strength] 81 mg PO DAILY 03/27/16 05/01/21 Fish Oil 3,000 mg PO DAILY 06/12/16 05/01/21 cholecalciferol (vitamin D3) 6,000 unit PO DAILY 06/12/16 05/01/21 vitamin B complex [B 1 ea PO DAILY 06/12/16 05/01/21 Complex-Vitamin B12] calcium carbonate [Calcium 500] 1 - 2 cap PO HS 04/04/17 05/01/21 cyanocobalamin (vitamin B-12) 1,000 mcg PO DAILY #30 cap 10/08/19 05/01/21 levalbuterol tartrate [Xopenex HFA] 2 inh IH Q6H PRN PRN #15 gm 10/08/19 05/01/21 multivitamin [Multiple Vitamins] 1 tab PO DAILY #30 tab 10/08/19 05/01/21 gabapentin 100 mg capsule 300 mg PO TID tab-cap 03/24/20 05/01/21 melatonin 3 mg capsule 3 mg PO HS PRN 11/04/20 05/01/21 propranolol 60 mg capsule,24 60 mg PO DAILY #90 tab-cap 11/04/20 05/01/21 hr,extended release magnesium chloride [Mag 64] 128 mg PO DAILY 04/18/21 05/01/21 omeprazole 20 mg PO QPM 04/18/21 05/01/21 Incruse Ellipta 1 inh INHALATION DAILY 04/19/21 05/01/21 amoxicillin-pot clavulanate 1 tab PO BID #20 tab 04/24/21 05/01/21 [Augmentin] Previous Rx's Medication Instructions Recorded cyanocobalamin (vitamin B-12) 1,000 mcg PO DAILY #30 cap 10/08/19 levalbuterol tartrate [Xopenex HFA] 2 inh IH Q6H PRN PRN #15 gm 10/08/19 multivitamin [Multiple Vitamins] 1 tab PO DAILY #30 tab 10/08/19 propranolol 60 mg capsule,24 60 mg PO DAILY #90 tab-cap 11/04/20 hr,extended release amoxicillin-pot clavulanate 1 tab PO BID #20 tab 04/24/21 [Augmentin] Allergies Allergy/AdvReac Type Severity Reaction Status Date / Time clams Allergy Unknown Verified 04/27/21 13:59 mussels Allergy Unknown Verified 04/27/21 13:59 acetaminophen [From Vicodin] AdvReac Intermediate SEVERE Verified 04/27/21 13:59 CONSTIPATION hydrocodone bitartrate AdvReac Intermediate SEVERE Verified 04/27/21 13:59 [From Vicodin] CONSTIPATION SEAFOOD Allergy Unknown Uncoded 04/27/21 13:59 General Stated Complaint: Fever SOMMER: 2 Review of Systems All systems reviewed & are unremarkable except as noted in HPI and below Constitutional Constitutional: Reports as per HPI Gastrointestinal Gastrointestinal: Denies abdominal pain [facility] Medical History (Updated 05/01/21 @ 20:36 by PARKER Lara) Alcohol abuse sober 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 (04/10/16) Anxiety and depression Calculus of left kidney (03/20/17) Chronic kidney disease, stage 3 Chronic pain syndrome COPD (chronic obstructive pulmonary disease) Essential tremor (04/10/16) Gross hematuria (03/20/17) Hyperlipidemia Left ureteral stone (03/27/17) Migraine headache without aura 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) Scoliosis Seizure disorder TBI (traumatic brain injury) Remote, multiple Umbilical hernia without obstruction or gangrene Vitamin D deficiency Surgical History Colonoscopy - MAC (05/19/16) Inguinal hernia Family History Mother TIA (transient ischemic attack) Father Parkinson disease Stroke Social History Smoking/Tobacco Use Status: Former Tobacco Use Smoking risk assessment performed?: Yes Alcohol Intake: current Alcohol Intake frequency: holidays/special occasions only Alcohol type: wine Drug use: Never Substance use type: does not use Household members: none Housing: apartment Pets and animals: Yes Pets and animals: cat(s) Current gender identity: male Do you feel safe at home: Yes Do you feel safe in your relationship?: Yes Additional Social history: Lives alone in second story apartment in [place], has a cat Currently working part-time at [employer] in [place] through [employer]. History of smoking, quit June 2018. No vaping. No other drug use including marijuana. Exam Const General: cooperative and no acute distress HENMT Head: normocephalic and atraumatic Mouth: moist mucous membranes Eyes Conjunctivae: normal conjunctivae Sclera: normal sclerae Neck Neck: trachea midline and supple Resp Auscultation: clear to auscultation bilaterally, no rales, no rhonchi and no wheezes Cardio Rate: tachycardic Rhythm: regular rhythm Heart Sounds: no murmurs GI Palpation: soft, not firm, no guarding, no masses, not rigid and nontender Skin General skin exam: fluctuance (Mild dorsal hand) Rashes: rashes noted (Erythema right forearm and dorsal wrist and hand) Neuro General: patient alert, patient awake, patient oriented x3 and tone normal Extrem General: no edema Other: No axillary lymphadenopathy Psych Appearance: grossly normal Mental Status: mental status grossly normal Speech and Movement: speech and movement normal Course Vital Signs Vital signs: Vital Signs Temperature 37.1 C 04/18/21 16:00 Pulse 105 H 04/18/21 16:00 Respiratory Rate 19 04/18/21 16:00 Blood Pressure 89/61 L 04/18/21 16:00 Pulse Oximetry 94 04/18/21 16:00 Temperature 37.1 C 04/18/21 16:00 Temperature Source Oral 04/18/21 16:00 Pulse 98 H 04/18/21 17:00 Pulse 97 H 04/18/21 17:01 Respiratory Rate 25 H 04/18/21 17:01 Respiratory Effort Non-Labored 04/18/21 16:07 Blood Pressure 103/65 04/18/21 17:00 Blood Pressure Mean 73 04/18/21 17:00 Blood Pressure Position Sitting 04/18/21 16:00 Pulse Oximetry 94 04/18/21 16:00 Oxygen Delivery Method Room Air 04/18/21 16:00 Oxygen Flow Rate 0 04/18/21 16:00 Pain Level 0 04/18/21 16:00 Lab/Test Results Lab/Test Results: 04/18/21 16:20 Blood Blood Culture - Pending 04/18/21 16:00 Blood Blood Culture - Pending Laboratory Tests Range/Units 04/18/21 04/18/21 04/18/21 16:00 16:00 16:00 WBC (4.4-10.8) 10^3/uL 16.43 H RBC (4.36-5.78) 10^6/uL 3.72 L Hgb (13.5-17.5) g/dL 13.4 L Hct (40.0-50.0) % 38.9 L MCV (80-95) fL 104.6 H MCH (27.0-33.0) pg 36.0 H MCHC (32.0-36.0) % 34.4 RDW (11.8-14.1) % 13.9 Plt Count (130-400) 10^3/uL 101 L MPV (8.0-11.0) fL 12.1 H Immature Gran % See Differential Neutrophils % 84.0 Band Neutrophils % 7 Lymphocytes % 4.0 Monocytes % 4.0 Eosinophils % 0.0 Basophils % 0.0 Metamyelocytes % 1 Nucleated RBC % % 0 Absolute Neutrophils (1.2-6.7) 10^3/uL 14.95 H Absolute Lymphocytes (1.2-3.4) 10^3/uL 0.66 L Absolute Monocytes (0.1-0.8) 10^3/uL 0.66 Absolute Eosinophils (0.0-0.7) 10^3/uL 0.00 Absolute Basophils (0.0-0.2) 10^3/uL 0.00 RBC Morphology See Below Polychromasia Present Macrocytosis 1+ VBG Lactate (0.6-1.4) mmol/L 3.5 H* Sodium (136-145) mmol/L 135 L Potassium (3.5-5.1) mmol/L 4.3 Chloride (98-107) mmol/L 100 Carbon Dioxide (21.0-32.0) mmol/L 22.4 Anion Gap (3-11) mmol/L 12.6 H BUN (7-18) mg/dL 29 H Creatinine (0.70-1.30) mg/dL 1.6 H Estimated GFR/1.73 m2 (mL/min/1.73m2) 42.95 Glucose (74-106) mg/dL 127 H Calcium (8.5-10.1) mg/dL 9.0 Total Bilirubin (0.2-1.0) mg/dL 1.5 H AST (15-37) U/L 330 H ALT (16-63) U/L 139 H Alkaline Phosphatase (46-116) U/L 77 Total Protein (6.4-8.2) g/dL 6.9 Albumin (3.4-5.0) g/dL 3.4 COVID-19 Source Range/Units 04/18/21 16:22 WBC (4.4-10.8) 10^3/uL RBC (4.36-5.78) 10^6/uL Hgb (13.5-17.5) g/dL Hct (40.0-50.0) % MCV (80-95) fL MCH (27.0-33.0) pg MCHC (32.0-36.0) % RDW (11.8-14.1) % Plt Count (130-400) 10^3/uL MPV (8.0-11.0) fL Immature Gran % Neutrophils % Band Neutrophils % Lymphocytes % Monocytes % Eosinophils % Basophils % Metamyelocytes % Nucleated RBC % % Absolute Neutrophils (1.2-6.7) 10^3/uL Absolute Lymphocytes (1.2-3.4) 10^3/uL Absolute Monocytes (0.1-0.8) 10^3/uL Absolute Eosinophils (0.0-0.7) 10^3/uL Absolute Basophils (0.0-0.2) 10^3/uL RBC Morphology Polychromasia Macrocytosis VBG Lactate (0.6-1.4) mmol/L Sodium (136-145) mmol/L Potassium (3.5-5.1) mmol/L Chloride (98-107) mmol/L Carbon Dioxide (21.0-32.0) mmol/L Anion Gap (3-11) mmol/L BUN (7-18) mg/dL Creatinine (0.70-1.30) mg/dL Estimated GFR/1.73 m2 (mL/min/1.73m2) Glucose (74-106) mg/dL Calcium (8.5-10.1) mg/dL Total Bilirubin (0.2-1.0) mg/dL AST (15-37) U/L ALT (16-63) U/L Alkaline Phosphatase (46-116) U/L Total Protein (6.4-8.2) g/dL Albumin (3.4-5.0) g/dL COVID-19 Source Nasal/Nares Procedures Abscess I/D Site: Hand Side (if applicable): Right Local Anesthetic: Lidocaine 1% and With Epi Amount of anesthesia used (mL): 2 Technique: Incised with #11 Blade Amount of fluid expressed (mL): 1 Irrigation: Yes Packing used?: None Complications: Other (none)
[2021-04-18] MEDS: ceFAZolin 2 GM/50 ML BAG IVPB (17:20)
[2021-04-18 17:23] LABS: COVID-19 PCR Negative (Negative)
[2021-04-18] MEDS: Lactated Ringers 1,000 ML 1000 ML IV (17:23)
[2021-04-18] MEDS: rifAMPin 300 MG CAP PO (17:23)
--- NOTE | 2021-04-18 17:42 | DI.VRAD_ITS ---
PROCEDURE INFORMATION: Exam: XR Right Wrist Exam date and time: 04/18/2021 5:07 PM Age: 71 years old Clinical indication: Pain; Wrist; Right TECHNIQUE: Imaging protocol: XR Right wrist. Views: 3 or more views. COMPARISON: No relevant prior studies available. FINDINGS: Bones/joints: There is no evidence of acute fracture. There is no evidence of joint malalignment or dislocation. Old fracture of the 5th metacarpal. Soft tissues: There are no soft tissue masses or fluid collections. Dorsal soft tissue swelling. IMPRESSION: 1. No evidence of acute fracture. 2. No evidence of acute dislocation. 3. Dorsal soft tissue swelling. Dictated and Authenticated by: German Lira MD. Ordering:SANAM Meraz MD
--- NOTE | 2021-04-18 17:45 | DI.VRAD_ITS ---
PROCEDURE INFORMATION: Exam: XR Chest Exam date and time: 04/18/2021 5:07 PM Age: 71 years old Clinical indication: Fever TECHNIQUE: Imaging protocol: XR of the chest. Views: 1 view. COMPARISON: CT CHEST LUNG CANCER SCREEN 10/18/2020 12:51 PM FINDINGS: Lungs: The lungs are hyperinflated, consistent with underlying small airways disease. Atelectatic changes noted within both lung bases. Pleural spaces: Unremarkable. No pleural effusion. No pneumothorax. Heart/Mediastinum: Unremarkable. No cardiomegaly. Bones/joints: The thoracic spine demonstrates mild degenerative changes at multiple levels. IMPRESSION: 1. The lungs are hyperinflated, consistent with underlying small airways disease. 2. Atelectatic changes noted within both lung bases. Dictated and Authenticated by: German Lira MD. Ordering:SANAM Meraz MD
[2021-04-18] MEDS: DOXYCYCLINE 100 MG in Normal Saline 100 ML IVPB (17:53)
--- NOTE | 2021-04-18 18:57 | W.PM.HP.N ---
Date of service: 04/18/21 Time of Service: 18:58 Assessment and Plan Assessment and plan (1) Infected hand: Status: Acute Assessment and plan: Infection. Unclear if this is simple cellulitis with constitutional symptoms or atypical cat scratch disease. Agree with plan to treat for both, with Azithromycin/Rifampin and additional coverage with Ancef. Also unclear if the weakness and gait disturbance is a nonspecific manifestation of infection or some atypical REGULATORY LEAD manifestation of cat scratch illness (I think this is not likely but at present cannot be entirely excluded. Consideration was given to possible LP but after review with ER it was felt we could follow clinically at this point since patient appeared to be improving with simple hydration). Also possible has an element of alcoholic cerebellar ataxia but we will need to see whether this resolves. 1. ID: continue abx as above 2. Alcohol: CIWA, banana bag, trend TAs 3. Thrombocytopenia: EtOH vs infection. Trend 4. Azotemia: trend, IVF 5. Gait: PT History of Present Illness History of Present Illness Chief Complaint: weakness Narrative: 71 male with h/o alcohol abuse, here with 1-2 days of generalized weakness, arthralgias and feverish. Coming on after cat scratch on right hand. Per ER EMS noted fever. Here in ER initial findings of note for hypotension (80s/sys) and tachycardia (low 100s); after 2 L IVF BP stabilized 110s. No fever.Patient also was initially somewhat confused but states that has resolved and he is now at baseline. Other findings of note for resting tremor -- has dx of essential tremor -- white count 16, TAs 100-300 (approx baseline), platelet 110,. Pustular type swelling noted dorsum right hand, I&D yielded small amount serous-sanguinous fluid, no pus. COVID negative. Patient given doses Zithromax, Rifampin and Ancef and admitted for further management. Patient states he has been drinking 2-3 glasses of wine recently. 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) Scoliosis Seizure disorder TBI (traumatic brain injury) Remote, multiple Umbilical hernia without obstruction or gangrene Vitamin D deficiency Surgical History Colonoscopy - MAC (05/19/16) Inguinal hernia Family History Mother TIA (transient ischemic attack) Father Parkinson disease Stroke Social History Smoking/Tobacco Use Status: Former Tobacco Use Smoking risk assessment performed?: Yes Alcohol Intake: current Alcohol Intake frequency: holidays/special occasions only Alcohol type: wine Drug use: Never Substance use type: does not use Household members: none Housing: apartment Pets and animals: Yes Pets and animals: cat(s) Current gender identity: male Do you feel safe at home: Yes Do you feel safe in your relationship?: Yes Additional Social history: Lives alone in second story apartment in [place], has a cat Currently working part-time at [employer], operated by [employer] in [place] through [employer]. History of smoking, quit June 2018. No vaping. No other drug use including marijuana. Meds Allergies and Home Medications Allergies Allergy/AdvReac Type Severity Reaction Status Date / Time clams Allergy Unknown Verified 04/18/21 16:04 mussels Allergy Unknown Verified 04/18/21 16:04 acetaminophen [From Vicodin] AdvReac Intermediate SEVERE Verified 04/18/21 16:04 CONSTIPATION hydrocodone bitartrate AdvReac Intermediate SEVERE Verified 04/18/21 16:04 [From Vicodin] CONSTIPATION SEAFOOD Allergy Unknown Uncoded 04/18/21 16:04 Home Medications Medication Instructions Recorded Confirmed Type lorazepam [Ativan] 1 mg PO Q 6 HRS PRN tab-cap 01/27/16 04/18/21 History aspirin [Aspirin Low-Strength] 81 mg PO DAILY 03/27/16 04/18/21 History Fish Oil 3,000 mg PO DAILY 06/12/16 04/18/21 History cholecalciferol (vitamin D3) 6,000 unit PO DAILY 06/12/16 04/18/21 History vitamin B complex [B 1 ea PO DAILY 06/12/16 04/18/21 History Complex-Vitamin B12] calcium carbonate [Calcium 500] 1 - 2 cap PO HS 04/04/17 04/18/21 History cyanocobalamin (vitamin B-12) 1,000 mcg PO DAILY #30 cap 10/08/19 04/18/21 Rx levalbuterol tartrate [Xopenex HFA] 2 inh IH Q6H PRN PRN #15 gm 10/08/19 04/18/21 Rx multivitamin [Multiple Vitamins] 1 tab PO DAILY #30 tab 10/08/19 04/18/21 Rx gabapentin 100 mg capsule 300 mg PO TID tab-cap 03/24/20 04/18/21 History melatonin 3 mg capsule 3 mg PO HS PRN 11/04/20 04/18/21 History propranolol 60 mg capsule,24 60 mg PO DAILY #90 tab-cap 11/04/20 04/18/21 Rx hr,extended release magnesium chloride [Mag 64] 128 mg PO DAILY 04/18/21 04/18/21 History omeprazole 20 mg PO QPM 04/18/21 04/18/21 History Exam Narrative Exam Narrative: 117/76, 91, 37.1, 24, 94% RA. HEENT atraumatic; neck supple; lungs fine basilar rales; heart RRR w/o MRG; abdomen soft and NT w/o HSM; extremiteis w/o pedal edema, RUE shows recent I&D incision over ssoft swelling dorsum hand and faint erythema and warmth extending up forearm to elbow; no lympadenopathy; neuro Ox3, lucid, resting tremor, strength 5/5, resting tremore UEs, FTN c/w resting tremor, no dysmetria per se, HTS WNL, gait very unsteady trying to stand, Romberg negative Results Labs Result diagrams: 04/18/21 16:00 04/18/21 16:00 Labs: Laboratory Results - last 24 hr 04/18/21 04/18/21 04/18/21 16:00 16:00 16:00 WBC 16.43 H RBC 3.72 L Hgb 13.4 L Hct 38.9 L MCV 104.6 H MCH 36.0 H MCHC 34.4 RDW 13.9 Plt Count 101 L MPV 12.1 H Immature Gran % See Differential Neutrophils % 84.0 Band Neutrophils % 7 Lymphocytes % 4.0 Monocytes % 4.0 Eosinophils % 0.0 Basophils % 0.0 Metamyelocytes % 1 Nucleated RBC % 0 Absolute Neutrophils 14.95 H Absolute Lymphocytes 0.66 L Absolute Monocytes 0.66 Absolute Eosinophils 0.00 Absolute Basophils 0.00 RBC Morphology See Below Polychromasia Present Macrocytosis 1+ VBG Lactate 3.5 H* Sodium 135 L Potassium 4.3 Chloride 100 Carbon Dioxide 22.4 Anion Gap 12.6 H BUN 29 H Creatinine 1.6 H Estimated GFR/1.73 m2 42.95 Glucose 127 H Calcium 9.0 Total Bilirubin 1.5 H AST 330 H ALT 139 H Alkaline Phosphatase 77 Total Protein 6.9 Albumin 3.4 COVID-19 Source SARS-CoV-2 (PCR) 04/18/21 16:22 WBC RBC Hgb Hct MCV MCH MCHC RDW Plt Count MPV Immature Gran % Neutrophils % Band Neutrophils % Lymphocytes % Monocytes % Eosinophils % Basophils % Metamyelocytes % Nucleated RBC % Absolute Neutrophils Absolute Lymphocytes Absolute Monocytes Absolute Eosinophils Absolute Basophils RBC Morphology Polychromasia Macrocytosis VBG Lactate Sodium Potassium Chloride Carbon Dioxide Anion Gap BUN Creatinine Estimated GFR/1.73 m2 Glucose Calcium Total Bilirubin AST ALT Alkaline Phosphatase Total Protein Albumin COVID-19 Source Nasal/Nares SARS-CoV-2 (PCR) Negative Last Vital Signs Temp 37.1 C 04/18/21 16:00 Pulse 92 H 04/18/21 18:00 Resp 24 04/18/21 18:10 BP 117/76 04/18/21 18:00 Pulse Ox 94 04/18/21 16:00
[2021-04-18 20:35] LABS: Bilirubin Negative (Negative); Blood Moderate (Negative); Clarity Clear (Clear); Glucose Negative (Negative); Ketones 15 mg/dL (Negative); Leukocyte Esterase Trace (Negative); Nitrite Negative (Negative); Specific Gravity 1.015 (1.005-1.025); Urobilinogen 0.2 EU/dL (Up TO 0.2)
[2021-04-18 20:42] LABS: Epithelial Cells Few HPF (Negative)
[2021-04-18 20:43] LABS: Bacteria Moderate HPF (Negative); C & S Indicated? Yes; Casts Negative LPF (Negative); Crystals Negative HPF (Negative); Mucus Negative (Negative)
[2021-04-18] MEDS: Omeprazole 20 MG CAPCR PO (22:21)
[2021-04-18] MEDS: Gabapentin 100 MG CAP 300 MG PO (22:21)
[2021-04-18] MEDS: Ibuprofen 400 MG TAB PO (22:21)
[2021-04-18] MEDS: Rifaximin 550 MG TAB 275 MG PO (22:22)
[2021-04-18] MEDS: MAGNESIUM SULFATE 8.12 MEQ, MULTIVITAMIN 10 ML, THIAMINE 100 MG, FOLIC ACID 1 MG in Nor... 168.867 MG IV (22:23)
[2021-04-18] MEDS: LORazepam 1 MG TAB PO/SL (22:30)
[2021-04-19] MEDS: Normal Saline 1,000 ML 80 ML IV ×2 (02:30→18:08)
[2021-04-19 07:30] LABS: HCT 33.2 % (40.0-50.0); HGB 11.1 g/dL (13.5-17.5); MCH 35.7 pg (27.0-33.0); MCHC 33.4 % (32.0-36.0); MCV 106.8 fL (80-95); MPV 12.3 fL (8.0-11.0); RDW 14.1 % (11.8-14.1); RDW-SD 55.1 fL
[2021-04-19] MEDS: Rifaximin 550 MG TAB 275 MG PO ×2 (07:36→20:15)
[2021-04-19] MEDS: Gabapentin 100 MG CAP 300 MG PO ×3 (07:37→20:15)
[2021-04-19] MEDS: Cyanocobalamin 500 MCG TAB 1000 MCG PO (07:49)
[2021-04-19] MEDS: Aspirin 81 MG CHEW PO (07:49)
[2021-04-19] MEDS: Multivitamin TAB 1 TAB PO (07:49)
[2021-04-19] MEDS: Vitamins B Comp w/C TAB 1 TAB PO (07:49)
[2021-04-19] MEDS: Azithromycin 250 MG TAB PO (07:49)
[2021-04-19] MEDS: Magnesium Chloride 64 MG TABCR 128 MG PO (07:49)
[2021-04-19 07:51] LABS: Platelet Count 77 10^3/uL (130-400); RBC 3.11 10^6/uL (4.36-5.78)
[2021-04-19] MEDS: Propranolol 60 MG CAPCR PO (09:18)
[2021-04-19] MEDS: Ibuprofen 400 MG TAB PO (09:18)
[2021-04-19 09:23] LABS: ALT 98 U/L (16-63); AST 200 U/L (15-37); Anion Gap 10.9 mmol/L (3-11); BUN 19 mg/dL (7-18); CO2 24.1 mmol/L (21.0-32.0); Calcium 8.1 mg/dL (8.5-10.1); Chloride 107 mmol/L (98-107); Glucose 189 mg/dL (74-106); Potassium 3.4 mmol/L (3.5-5.1); Sodium 142 mmol/L (136-145)
[2021-04-19 09:24] LABS: CREATININE 1.1 mg/dL (0.70-1.30)
[2021-04-19 09:39] LABS: Lactate 2.3 mmol/L (0.6-1.4)
[2021-04-19] MEDS: ceFAZolin 1 GM/50 ML BAG IVPB ×2 (10:42→18:00)
[2021-04-19 11:18] LABS: C-Reactive Protein > 25.00 mg/dL (0.0-0.3)
[2021-04-19 11:45] LABS: Procalcitonin 20.9 ng/mL
--- NOTE | 2021-04-19 11:57 | INITIAL_ITS ---
- If Service Date Differs Date of service: 04/19/21 Time of Service: 11:57 Care Management Initial Assess REASON FOR HOSPITALIZATION:: Hand Infection PAST MEDICAL HISTORY/PAST SURGICAL HISTORY:: Medical History. Alcohol abuse. sober. Alcoholic peripheral neuropathy. Alcoholic peripheral neuropathy (04/10/16). Anxiety and depression. Calculus of left kidney (03/20/17). Chronic kidney disease, stage 3. Chronic pain syndrome. COPD (chronic obstruct gus pulmonary disease). Essential tremor (04/10/16). Gross hematuria (03/20/17). Hyperlipidemia. Left ureteral stone (03/27/17). Migraine headache without aura. 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 Scoliosis. Seizure disorder. TBI (traumatic brain injury). Remote, multiple. Umbilical hernia without obstruction or gangrene. Vitamin D deficiency. Surgical History. Colonoscopy - MAC (05/19/16). Inguinal hernia PREVIOUS FUNCTIONAL STATUS/SOCIAL/FAMILY SUPPORTS:: Roderick lives in an apartment on the second floor in [place]. 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 He is independent at baseline. CURRENT FUNCTIONAL STATUS:: Roderick was sitting up in his chair when CM met with him. He reported that he is feeling ok today, and per MD, he will remain until his blood cultures are returned. He is currently on IV abx, awaiting sensitivities to determine his antibiotic course. He has an Ortho consult pending. He expressed concern with the cost of this visit. CM verified that he has MCR, a commercial replacement policy, as well as 100% financial assistance. CM will continue to follow. ADVANCE DIRECTIVES:: None on file. CM will offer forms. Has patient been provided with info about the portal/API?: Yes Did the patient sign up for the portal?: Yes CODE STATUS:: Full Code INSURANCE COVERAGE / FINANCIAL ISSUES:: MCR/ [employer] (MCR replacement)/ [employer] 100% CURRENT HOME/COMMUNITY SERVICES/EQUIPMENT:: No known services. Roderick has a wooden cane that he uses for ambulation. PRIMARY CARE PHYSICIAN:: Nicolette Harris POTENTIAL DISCHARGE NEEDS:: Evaluations for further needs, follow up appointments. PATIENT/FAMILY EDUCATION NEEDS:: Review discharge instructions regarding activity levels and medications, discussion of self care needs including ask me three. ANTICIPATED BARRIERS TO DISCHARGE:: None identified. TRANSPORTATION:: Via private vehicle by a friend. PLAN:: Anticipate Roderick will return home when medically cleared. He will be transported home via private vehicle by family vs RCT. He will follow up with his PCP and discharge plan of care. CM will continue to follow.
[2021-04-19 13:03] LABS: Lactate 1.4 mmol/L (0.6-1.4)
--- NOTE | 2021-04-19 13:46 | CHAPLAIN ---
Roderick was up in his chair when I visited. He was pleasant and easily engaged in a conversation. He is [employer], and has worked at the [employer], [employer] [facility] in [place] in the past, as well as at [employer] in [place], [place] and [employer]. His friend, Janet Rand, the events administrative assistant of [employer], will be in to visit Roderick this afternoon. They have been friends for several years, and worked together at different [employer].
[2021-04-19 14:26] LABS: Magnesium 2.1 mg/dL (1.8-2.4)
[2021-04-19] MEDS: Potassium Chloride 20 MEQ TABCR 40 MEQ PO (14:54)
[2021-04-19 15:40] VITALS: BP 119/78; PULSE 77; RESP 17; TEMP 36.9; O2SAT 98
--- NOTE | 2021-04-19 18:02 | W.PM.PROGNOT ---
Date of Service Date of service: 04/19/21 Time of Service: 18:02 Assessment and Plan Assessment and plan (1) Sepsis: Status: Acute Assessment and plan: Due to infected hand. Await blood cultures. Continue empiric rifampin/azithromycin for possible cat scratch as well as cefazolin for cellulitis of R hand. Consult orthopedics (not available until tomorrow morning). Monitor procalcitonin, CRP. Ok to d/c IVF. (2) Cat scratch of hand: Status: Acute Assessment and plan: As above (3) Cellulitis of hand, right: Status: Acute Assessment and plan: As above (4) Toxic metabolic encephalopathy: Status: Resolved Assessment and plan: LIkely due to above, and more pronounced due to h/o TBI. Await blood cultures. Mental status normalized. (5) Alcohol abuse: Status: Chronic Assessment and plan: monitor for alcohol withdrawal. Provide vitamins. (6) DVT prophylaxis: Status: Acute Assessment and plan: TEDS/SCDS. Hold chemical DVT ppx due to possibilty of OR tomorrow (7) Discharge planning issues: Status: Acute Assessment and plan: Full code Continues to require hospitalization Subjective Subjective Interval history since last seen: Mr Fernandez states he feels a little bit better. He is not as wobbly and is thinking more clearly. He had questions about medications he received here which I answered which were very appropriate. He states he does not have any numbness or tingling in his hand. He does not have full range of motion in his wrist. He does think he is getting a little bit better. He states this has happened to him before and he ended up being a patient in the hospital for two weeks. He is not sure if he had bacteremia at that time. Exam Narrative Exam Narrative: General: Very pleasant elderly male who appears slightly tremulous, A&Ox3, asks appropriate questions HEENT: EOMI, MMM Heart: RRR, no m/r/g Lungs: CTAB Abdomen: soft, nontender, nondistended Extremities: dorsal surface of R hand/wrist dressed - c/d/i; there does still appear to be some edema in the hand/wrist. There is no obvious erythema. Able to move all fingers. Sensation intact. Able to palpate pulse. Decreased wrist flexion. Objective Last Vital Signs Temp 36.9 C 04/19/21 15:40 Pulse 77 08/31/21 15:40 Resp 17 04/19/21 15:40 BP 119/78 04/19/21 15:40 Pulse Ox 98 04/19/21 15:40 Laboratory Results - last 24 hr 04/18/21 04/19/21 04/19/21 20:20 06:49 06:49 WBC 8.50 D RBC 3.11 L Hgb 11.1 L D Hct 33.2 L MCV 106.8 H MCH 35.7 H MCHC 33.4 RDW 14.1 Plt Count 77 L MPV 12.3 H VBG Lactate Sodium Cancelled Potassium Cancelled Chloride Cancelled Carbon Dioxide Cancelled Anion Gap Cancelled BUN Cancelled Creatinine Cancelled Estimated GFR/1.73 m2 Cancelled Glucose Cancelled Calcium Cancelled Magnesium AST Cancelled ALT Cancelled C-Reactive Protein Procalcitonin Urine Color Yellow Urine Clarity Clear Urine pH 6.0 Ur Specific [place] 1.015 Urine Protein Negative Urine Ketones 15 H Urine Blood Moderate H Urine Nitrite Negative Urine Bilirubin Negative Urine Urobilinogen 0.2 Ur Leukocyte Esterase Trace H Urine RBC 5-10 H Urine WBC 5-10 Ur Epithelial Cells Few Urine Crystals Negative Urine Bacteria Moderate Urine Casts Negative Urine Mucus Negative Ur Culture Indicated? Yes Urine Glucose Negative 04/19/21 04/19/21 04/19/21 08:56 09:30 09:30 WBC RBC Hgb Hct MCV MCH MCHC RDW Plt Count MPV VBG Lactate 2.3 H* Sodium 142 Potassium 3.4 L Chloride 107 Carbon Dioxide 24.1 Anion Gap 10.9 BUN 19 H D Creatinine 1.1 D Estimated GFR/1.73 m2 >= 60.00 Glucose 189 H Calcium 8.1 L Magnesium 2.1 AST 200 H ALT 98 H C-Reactive Protein Procalcitonin Urine Color Urine Clarity Urine pH Ur Specific [place] Urine Protein Urine Ketones Urine Blood Urine Nitrite Urine Bilirubin Urine Urobilinogen Ur Leukocyte Esterase Urine RBC Urine WBC Ur Epithelial Cells Urine Crystals Urine Bacteria Urine Casts Urine Mucus Ur Culture Indicated? Urine Glucose 04/19/21 04/19/21 04/19/21 09:51 09:51 12:45 WBC RBC Hgb Hct MCV MCH MCHC RDW Plt Count MPV VBG Lactate 1.4 Sodium Potassium Chloride Carbon Dioxide Anion Gap BUN Creatinine Estimated GFR/1.73 m2 Glucose Calcium Magnesium AST ALT C-Reactive Protein > 25.00 H Procalcitonin 20.9 Urine Color Urine Clarity Urine pH Ur Specific [place] Urine Protein Urine Ketones Urine Blood Urine Nitrite Urine Bilirubin Urine Urobilinogen Ur Leukocyte Esterase Urine RBC Urine WBC Ur Epithelial Cells Urine Crystals Urine Bacteria Urine Casts Urine Mucus Ur Culture Indicated? Urine Glucose
[2021-04-19] MEDS: Umeclidinium 7 CAP INHALER 1 CAP IH (18:36)
[2021-04-19 19:53] VITALS: BP 117/75; PULSE 84; RESP 20; TEMP 36.9; O2SAT 98
[2021-04-19 20:06] VITALS: BP 117/75; PULSE 84; RESP 20; TEMP 36.9; O2SAT 98
[2021-04-19] MEDS: Omeprazole 20 MG CAPCR PO (20:15)
[2021-04-19 23:42] VITALS: BP 139/78; PULSE 94; RESP 17; TEMP 38.7; O2SAT 94
[2021-04-20] VITALS (7 sets, daily range): BP systolic 117–139; BP diastolic 74–83; PULSE 70–77; RESP 16–17; TEMP 36.4–38.8; O2SAT 95–97
[2021-04-20] MEDS: Ibuprofen 400 MG TAB PO ×2 (00:04→19:53)
[2021-04-20] MEDS: Lactated Ringers 1,000 ML 125 ML IV ×2 (00:04→17:43)
[2021-04-20] MEDS: LORazepam 1 MG TAB PO/SL (00:06)
[2021-04-20] MEDS: ceFAZolin 1 GM/50 ML BAG IVPB ×3 (02:05→18:23)
[2021-04-20 07:23] LABS: Abs Immature Grans 0.05 10^3/uL (0.0-0.06); Absolute Basophil Count 0.02 10^3/uL (0.0-0.2); Absolute Eosinophil Count 0.08 10^3/uL (0.0-0.7); Absolute Lymphocyte Count 1.27 10^3/uL (1.2-3.4); Absolute Monocyte Count 0.67 10^3/uL (0.1-0.8); Absolute Neutrophil Count 4.93 10^3/uL (1.2-6.7); Basophils % 0.3; Eosinophils % 1.1; HCT 35.4 % (40.0-50.0); HGB 11.7 g/dL (13.5-17.5); Immature Grans % 0.7; Lymphocytes % 18.1; MCHC 33.1 % (32.0-36.0); MPV 12.3 fL (8.0-11.0); Monocytes % 9.5; Neutrophils % 70.3; Nucleated RBC 0 %; RBC 3.34 10^6/uL (4.36-5.78); RDW 13.5 % (11.8-14.1); RDW-SD 52.8 fL; WBC 7.02 10^3/uL (4.4-10.8)
[2021-04-20 07:37] LABS: Diff Comment Diff Reviewed; Macrocytosis 2+; Platelet Count 95 10^3/uL (130-400)
[2021-04-20 07:38] LABS: Polychromasia Present
[2021-04-20 07:42] LABS: Magnesium 1.7 mg/dL (1.8-2.4)
[2021-04-20 07:45] LABS: BUN 13 mg/dL (7-18); C-Reactive Protein 16.81 mg/dL (0.0-0.3); CREATININE 0.9 mg/dL (0.70-1.30); Calcium 8.2 mg/dL (8.5-10.1); Chloride 109 mmol/L (98-107); Glucose 99 mg/dL (74-106); Potassium 3.3 mmol/L (3.5-5.1); Sodium 143 mmol/L (136-145)
[2021-04-20] MEDS: Cyanocobalamin 500 MCG TAB 1000 MCG PO (07:48)
[2021-04-20] MEDS: Thiamine 100 MG TAB PO (07:48)
[2021-04-20] MEDS: Magnesium Chloride 64 MG TABCR 128 MG PO ×2 (07:49→19:37)
[2021-04-20] MEDS: Rifaximin 550 MG TAB 275 MG PO ×2 (07:49→19:44)
[2021-04-20] MEDS: Aspirin 81 MG CHEW PO (07:50)
[2021-04-20] MEDS: Multivitamin TAB 1 TAB PO (07:51)
[2021-04-20] MEDS: Azithromycin 250 MG TAB PO (07:51)
[2021-04-20] MEDS: Gabapentin 100 MG CAP 300 MG PO ×3 (07:51→19:36)
[2021-04-20] MEDS: Propranolol 60 MG CAPCR PO (07:51)
[2021-04-20] MEDS: Vitamins B Comp w/C TAB 1 TAB PO (07:51)
[2021-04-20] MEDS: Potassium Chloride 20 MEQ TABCR 40 MEQ PO (09:41)
--- NOTE | 2021-04-20 10:36 | CMPROGNOTE_ITS ---
- If Service Date Differs Date of service: 04/20/21 Time of Service: 10:36 Care Management Progress Note S/O: Roderick was sitting up in his bed when CM met with him. He reported that he is frustrated about not being able to eat or drink, while awaiting for the Ortho consult today. CM discussed this with him, stating that if a procedure needs to happen today, they may not be able to complete it if he was to eat or drink prior to the procedure. CM asked the RN CC if a time could be identified for this consult, as the patient reported that he may become increasingly agitated if he is not able to eat/drink. The Ortho consult happened shortly after, and per report, surgical intervention is not necessary at this time. Per report, he is responding to the antibiotic therapy. CM will continue to follow. A: Roderick is a 71 year old male admitted to [facility] on 04/18/21 with a hand infection. P: Anticipate Roderick will return home when medically cleared. He will be transported home via private vehicle by family vs [facility]. He will follow up with his PCP and discharge plan of care. CM will continue to follow.
[2021-04-20 11:45] LABS: Hepatitis A Antibody IgM Negative (Negative); Hepatitis B Core Antibody Negative (Negative); Hepatitis B surface Ag Negative (Negative); Hepatitis C Ab w Rflx HCV PCR Negative (Negative)
--- NOTE | 2021-04-20 12:42 | OCONE_ITS ---
Date of service: 04/20/21 History of Present Illness History of Present Illness Chief Complaint: R hand swelling Narrative: Roderick is a 71-year-old male who complains of pain and swelling in his right hand after a scratch that he sustained from his cat approximately 1 week ago. He came to the emergency room where he was treated for sepsis and other neurological issues, however he continues to have swelling and pain on the dorsum of his right hand. He also has an inability to fully extend his index and middle fingers. He states that this is not significantly improved since he started antibiotics. He denies significant erythema or streaking previously. Assessment and Plan Assessment and plan (1) Cat scratch of hand: Status: Acute Assessment and plan: Roderick a very superficial abrasion/scratch on his dorsum of the right hand which is not directly over the extensor tendons of his index or middle finger. The swelling appears to be diffuse and not contained in a cyst/abscess. There is also no erythema around the abrasion or streaking up his arm. It is unlikely that these tendons are compromised with this injury or the physical exam findings. Inflammatory markers are improving with antibiotic treatment. Likely, the function of his hand should improve as the swelling of his hand improves over time. The wound can be managed with general would care and no surgical intervention appears to be necessary at this time. 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) Scoliosis Seizure disorder TBI (traumatic brain injury) Remote, multiple Umbilical hernia without obstruction or gangrene Vitamin D deficiency Surgical History Colonoscopy - MAC (05/19/16) Inguinal hernia Family History Mother TIA (transient ischemic attack) Father Parkinson disease Stroke Social History Smoking/Tobacco Use Status: Former Tobacco Use Smoking risk assessment performed?: Yes Alcohol Intake: current Alcohol Intake frequency: holidays/special occasions only Alcohol type: wine Drug use: Never Substance use type: does not use Household members: none Housing: apartment Pets and animals: Yes Pets and animals: cat(s) Current gender identity: male Do you feel safe at home: Yes Do you feel safe in your relationship?: Yes Additional Social history: Lives alone in second story apartment in [place], has a cat Currently working part-time at [employer], [place], operated by [employer] in [place] through [employer]. History of smoking, quit June 2018. No vaping. No other drug use including marijuana. Exam Const General: cooperative and no acute distress Orientation: alert and awake Resp Effort & Inspection: normal respiratory effort Cardio Pulses: radial pulses present on the right Extrem Other: Exam of the right hand today shows that there is a very superficial abrasion on the dorsum of his right hand in the area of the fourth metacarpal. There is also swelling throughout the dorsum of the hand. The dorsum of the hand does not appear significantly painful to palpation. Passive range of motion of all of his fingers is full without significant pain. He is unable to demonstrate full extension of either his index or his middle fingers. Palpation of his flexor tendons at the wrist reveal that while he is trying to extend his index and middle fingers, his flexor tendons are vani. No erythema around the abrasion. No streaking up the arm. Radial pulses present. Active motion of the wrist is nonirritable. Results Last Vital Signs Temp 98.6 F 04/20/21 08:46 Pulse 70 04/20/21 08:46 Resp 17 04/20/21 08:46 BP 138/74 04/20/21 08:46 Pulse Ox 95 04/20/21 10:30 Labs Result diagrams: 04/20/21 06:27 04/20/21 06:27 Labs: Laboratory Results - last 24 hr 04/18/21 04/19/21 04/19/21 16:20 09:30 12:45 WBC RBC Hgb Hct MCV MCH MCHC RDW Plt Count MPV Immature Gran % Neutrophils % Lymphocytes % Monocytes % Eosinophils % Basophils % Nucleated RBC % Absolute Neutrophils Absolute Lymphocytes Absolute Monocytes Absolute Eosinophils Absolute Basophils RBC Morphology Polychromasia Macrocytosis VBG Lactate 1.4 Sodium Potassium Chloride Carbon Dioxide Anion Gap BUN Creatinine Estimated GFR/1.73 m2 Glucose Calcium Magnesium 2.1 C-Reactive Protein Hepatitis A IgM Ab Negative Hep Bs Antigen Negative Hep B Core Total Ab Negative Hepatitis C Antibody Negative 04/20/21 04/20/21 04/20/21 06:27 06:27 06:27 WBC 7.02 RBC 3.34 L Hgb 11.7 L Hct 35.4 L MCV 106.0 H MCH 35.0 H MCHC 33.1 RDW 13.5 Plt Count 95 L MPV 12.3 H Immature Gran % 0.7 Neutrophils % 70.3 Lymphocytes % 18.1 Monocytes % 9.5 Eosinophils % 1.1 Basophils % 0.3 Nucleated RBC % 0 Absolute Neutrophils 4.93 Absolute Lymphocytes 1.27 Absolute Monocytes 0.67 Absolute Eosinophils 0.08 Absolute Basophils 0.02 RBC Morphology See Below Polychromasia Present Macrocytosis 2+ VBG Lactate Sodium 143 Potassium 3.3 L Chloride 109 H Carbon Dioxide 25.0 Anion Gap 9.0 BUN 13 D Creatinine 0.9 Estimated GFR/1.73 m2 >= 60.00 Glucose 99 D Calcium 8.2 L Magnesium 1.7 L C-Reactive Protein 16.81 H Hepatitis A IgM Ab Hep Bs Antigen Hep B Core Total Ab Hepatitis C Antibody
--- NOTE | 2021-04-20 12:45 | PHA.REVIEW ---
Pharmacy Admission Review - Admission Clinical Review (Last Reviewed 04/18/21 @ 19:07 by Priyank Killian MD) Discharge planning issues (Acute) DVT prophylaxis (Acute) Cellulitis of hand, right (Acute) Infected hand (Acute) Sepsis (Acute) Cat scratch of hand (Acute) clams Allergy (Unknown, Verified 04/18/21 16:04) mussels Allergy (Unknown, Verified 04/18/21 16:04) acetaminophen [From Vicodin] Adverse Reaction (Intermediate, Verified 04/18/21 16:04) SEVERE CONSTIPATION hydrocodone bitartrate [From Vicodin] Adverse Reaction (Intermediate, Verified 04/18/21 16:04) SEVERE CONSTIPATION SEAFOOD Allergy (Unknown, Uncoded 04/18/21 16:04) Resuscitation Status Full Code Height 6 ft Weight 71.7 kg - Renal Dosing Renal Dosing: BUN 13 mg/dL (7-18) D 04/20/21 06:27 Creatinine 0.9 mg/dL (0.70-1.30) 04/20/21 06:27 Medications needing adjustments: Reviewed (Crcl ~77 mL/min current meds okay.) - Anticoagulation Anticoagulation: Hgb 11.7 g/dL (13.5-17.5) L 04/20/21 06:27 Hct 35.4 % (40.0-50.0) L 04/20/21 06:27 Plt Count 95 10^3/uL (130-400) L 04/20/21 06:27 Creatinine 0.9 mg/dL (0.70-1.30) 04/20/21 06:27 DVT Prophylaxis: Reviewed (low platelets, TEDs and SCDs ordered.) Therapeutic Anticoagulation: N/A - Opiate Usage Evaluate Pain Scale/Pains Meds: N/A - Relevant Labs Sodium 143 mmol/L (136-145) 04/20/21 06:27 Potassium 3.3 mmol/L (3.5-5.1) L 04/20/21 06:27 Chloride 109 mmol/L (98-107) H 04/20/21 06:27 Magnesium 1.7 mg/dL (1.8-2.4) L 04/20/21 06:27 C-Reactive Protein 16.81 mg/dL (0.0-0.3) H 04/20/21 06:27 Electrolytes, C-Reactive P, ESR: Reviewed (potassium and magnesium replacement ordered) - DM Control DM Control: Glucose 99 mg/dL (74-106) D 04/20/21 06:27 Insulin Dosing: N/A - Heart Failure/MS EF%, DEBORAH's, B-Blockers, Diuretics: N/A - BP Control BP Control: Blood Pressure 138/74 If elevated: N/A - Qtc Review If Elevated: N/A - IV to PO Switch IV Medications: Reviewed - Home Meds Home Med List reviewed: Reviewed (Propranolol may diminish the bronchodilatory effects of levalbuterol; recommended to avoid the use of non-selective betablockers with beta2-agonists.) Relevent Home Meds Not ordered & why?: calcium carbonate, cholecalciferol, fish oil, levalbuterol (PRN) - Current meds Current Medication Order Review: Reviewed - Comments Comments/Follow Ups: Watch VS, mag, K+, plts, for culture results and for med changes. Antibiotic Activity - Pharmacy Antibiotic Review Pharmacy Antibiotic Activity: C/S review (Blood and wound cultures no growth at 24 hours, urine culture growing gram positive mora. Cefazolin, rifampin, and azithromycin continue (day 3 starts this evening).)
[2021-04-20] MEDS: Umeclidinium 7 CAP INHALER 1 CAP IH (14:47)
--- NOTE | 2021-04-20 18:29 | W.PM.PROGNOT ---
Date of Service Date of service: 04/20/21 Time of Service: 18:29 Assessment and Plan Assessment and plan (1) Sepsis: Status: Acute Assessment and plan: Due to infected hand. Blood and wound cultures are negative. Continue empiric rifampin/azithromycin for possible cat scratch as well as cefazolin for cellulitis of R hand. No intervention planned by orthopedics at this time. Monitor procalcitonin, CRP. D/c IVF. C/s OT. (2) Cat scratch of hand: Status: Acute Assessment and plan: As above (3) Cellulitis of hand, right: Status: Acute Assessment and plan: As above (4) Toxic metabolic encephalopathy: Status: Resolved Assessment and plan: LIkely due to above, and more pronounced due to h/o TBI. Mental status normalized. (5) Alcohol abuse: Status: Chronic Assessment and plan: monitor for alcohol withdrawal. Provide vitamins. (6) DVT prophylaxis: Status: Acute Assessment and plan: TEDS/SCDS. Resume DVT ppx (7) Discharge planning issues: Status: Acute Assessment and plan: Full code Continues to require hospitalization C/s PT/OT Subjective Subjective Interval history since last seen: Mr Fernandez states that he is not sure his hand is getting better. Today he is noticing that his right 2nd and 3rd digits have been locking up when he tries to extend the fingers after flexion. He also complains of urinary and fecal urgency. This started since arrival to the hospital. Denies saddle anesthesia. States his entire back hurts, there is no focal tenderness, and he thinks it is from laying in the bed. He would like to walk with physical therapy. Denies dizziness, chest pain, shortness of breath, nausea. Last BM today - not constipated. Exam Narrative Exam Narrative: General: Very pleasant elderly male, tremulous, A&Ox3, very alert, again very much participates in guiding his care HEENT: EOMI, MMM Heart: RRR, no m/r/g Lungs: CTAB Abdomen: soft, nontender, nondistended Extremities: dorsal surface of R hand/wrist dressed - c/d/i; there unchanged edema and mild erytehma of the dorsum of the hand/wrist. Able to move all fingers, but digits 2 and 3 do get stuck on extension. Sensation intact. Able to palpate pulse. Decreased wrist flexion. Objective Last Vital Signs Temp 37.7 C H 04/20/21 15:46 Pulse 77 04/20/21 15:46 Resp 16 04/20/21 15:46 BP 139/83 04/20/21 15:46 Pulse Ox 97 04/20/21 15:46 Laboratory Results - last 24 hr 04/18/21 04/20/21 04/20/21 16:20 06:27 06:27 WBC RBC Hgb Hct MCV MCH MCHC RDW Plt Count MPV Immature Gran % Neutrophils % Lymphocytes % Monocytes % Eosinophils % Basophils % Nucleated RBC % Absolute Neutrophils Absolute Lymphocytes Absolute Monocytes Absolute Eosinophils Absolute Basophils RBC Morphology Polychromasia Macrocytosis Sodium 143 Potassium 3.3 L Chloride 109 H Carbon Dioxide 25.0 Anion Gap 9.0 BUN 13 D Creatinine 0.9 Estimated GFR/1.73 m2 >= 60.00 Glucose 99 D Calcium 8.2 L Magnesium 1.7 L C-Reactive Protein 16.81 H Hepatitis A IgM Ab Negative Hep Bs Antigen Negative Hep B Core Total Ab Negative Hepatitis C Antibody Negative 04/20/21 06:27 WBC 7.02 RBC 3.34 L Hgb 11.7 L Hct 35.4 L MCV 106.0 H MCH 35.0 H MCHC 33.1 RDW 13.5 Plt Count 95 L MPV 12.3 H Immature Gran % 0.7 Neutrophils % 70.3 Lymphocytes % 18.1 Monocytes % 9.5 Eosinophils % 1.1 Basophils % 0.3 Nucleated RBC % 0 Absolute Neutrophils 4.93 Absolute Lymphocytes 1.27 Absolute Monocytes 0.67 Absolute Eosinophils 0.08 Absolute Basophils 0.02 RBC Morphology See Below Polychromasia Present Macrocytosis 2+ Sodium Potassium Chloride Carbon Dioxide Anion Gap BUN Creatinine Estimated GFR/1.73 m2 Glucose Calcium Magnesium C-Reactive Protein Hepatitis A IgM Ab Hep Bs Antigen Hep B Core Total Ab Hepatitis C Antibody
[2021-04-20] MEDS: Omeprazole 20 MG CAPCR PO (19:38)
[2021-04-21] MEDS: ceFAZolin 1 GM/50 ML BAG IVPB ×2 (02:45→10:30)
[2021-04-21 06:54] LABS: Abs Immature Grans 0.11 10^3/uL (0.0-0.06); Absolute Basophil Count 0.05 10^3/uL (0.0-0.2); Absolute Eosinophil Count 0.19 10^3/uL (0.0-0.7); Absolute Lymphocyte Count 1.22 10^3/uL (1.2-3.4); Absolute Monocyte Count 0.89 10^3/uL (0.1-0.8); Absolute Neutrophil Count 4.38 10^3/uL (1.2-6.7); Basophils % 0.7; Eosinophils % 2.8; HGB 12.5 g/dL (13.5-17.5); Immature Grans % 1.6; Lymphocytes % 17.8; MCH 35.2 pg (27.0-33.0); MCHC 33.8 % (32.0-36.0); MCV 104.2 fL (80-95); MPV 11.8 fL (8.0-11.0); Neutrophils % 64.1; Nucleated RBC 0 %; Platelet Count 122 10^3/uL (130-400); RBC 3.55 10^6/uL (4.36-5.78); RDW 13.2 % (11.8-14.1); RDW-SD 51.4 fL; WBC 6.84 10^3/uL (4.4-10.8)
[2021-04-21 06:58] LABS: Magnesium 1.4 mg/dL (1.8-2.4)
[2021-04-21 06:59] LABS: Anion Gap 11.4 mmol/L (3-11); BUN 12 mg/dL (7-18); CO2 23.6 mmol/L (21.0-32.0); CREATININE 0.8 mg/dL (0.70-1.30); Calcium 8.5 mg/dL (8.5-10.1); Chloride 106 mmol/L (98-107); Glucose 100 mg/dL (74-106); Potassium 3.6 mmol/L (3.5-5.1); Sodium 141 mmol/L (136-145)
[2021-04-21] MEDS: Rifaximin 550 MG TAB 275 MG PO (07:54)
[2021-04-21] MEDS: Propranolol 60 MG CAPCR PO (07:54)
[2021-04-21] MEDS: Azithromycin 250 MG TAB PO (07:54)
[2021-04-21] MEDS: Vitamins B Comp w/C TAB 1 TAB PO (07:55)
[2021-04-21] MEDS: Cyanocobalamin 500 MCG TAB 1000 MCG PO (07:55)
[2021-04-21] MEDS: Multivitamin TAB 1 TAB PO (07:55)
[2021-04-21] MEDS: Magnesium Chloride 64 MG TABCR 128 MG PO ×2 (07:55→21:12)
[2021-04-21] MEDS: Thiamine 100 MG TAB PO (07:56)
[2021-04-21] MEDS: Gabapentin 100 MG CAP 300 MG PO ×3 (07:56→21:13)
[2021-04-21] MEDS: Aspirin 81 MG CHEW PO (07:56)
[2021-04-21] MEDS: Umeclidinium 7 CAP INHALER 1 CAP IH (08:49)
--- NOTE | 2021-04-21 09:06 | OT.INIE ---
Occupational Therapy Notes Inpatient Occupational Therapy Evaluation Date: 04/21/21 Referring Doctor:Amber Blunt MD OT Orders: Non urgent Precautions: Fall, standard, Full PATIENT PROFILE/ADMITTING DIAGNOSIS: Pt is a 71 year old male who was admitted through the ED for the following dx including alcohol abuse, cellulitis of (R) hand, toxic metabolic encephalopathy, sepsis, cat scratch to (R) hand, memory changes, tendinitis of long head of the biceps brachii (L) shoulder, rotator cuff tear, (B) shoulder bursitis, impingement syndrome of (B shoulders, orthostatic hypertension, autonomic dysfunctiona, dysphagia, tachycardia, COPD, alcoholic peripheral neuropathy. He was seen today for assessment of his ADLs/IADL routines and assessment of his (R) hand with limited mobility and use. 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 He states that prior to his cat scratch that he is (I) in his ADL/IADL routines. He lives in an apartment and notes that he works at the [employer] [place] in [facility]. SUBJECTIVE: Pt was sitting in bed when OT arrived, he is alert and oriented. 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 TOILETING NT EATING sitting in bed, needs (A) With opening packaging due to decreased functional use of his (R) hand, (I) with food to mouth with (L) UE. OT provided pt with exercises for his (R) hand to increase his digit control and overall functional use of his hand with his ADL/IADL routines. Written and illustrated handout provided and pt verbalized understanding to this. BALANCE: Static sitting Normal Dynamic Sitting Normal SPECIAL TESTS: Daily Activity Limitations Standardized Measure [facility] AM -PAC ?6 clicks? Daily Activity Inpatient Short Form: Raw score: 21 Standardized score: 44.27 CMS score: 32.79% INFORMED CONSENT/EDUCATION: Pt instructed in purpose of OT Consult and plan of care. ASSESSMENT: Patient is a 71-year-old male referred to occupational therapy services with diagnosis of alcohol abuse, cellulitis of (R) hand, toxic metabolic encephalopathy, sepsis, cat scratch to (R) hand, memory changes, tendinitis of long head of the biceps brachii (L) shoulder, rotator cuff tear, (B) shoulder bursitis, impingement syndrome of (B shoulders, orthostatic hypertension, autonomic dysfunctiona, dysphagia, tachycardia, COPD, alcoholic peripheral neuropathy. Patient presents with clinical signs and symptoms consistent with dx, as demonstrated by the following impairment level findings/functional limitations: Impairments in ADL/IADL and leisure activities, decreased (R) hand motion for gross and fine motor control, decreased strength, decreased digit ROM, decreased LE dressing, inability to hold heavy objects in (R) hand at this time. AMPAC score 21 Patient is assessed as a Moderate 71674 complexity based on the following: History: see above Examination: see functional activities as noted above Presentation: evolving Decision Making: AMPAC score 21, CMS 32.79% GOALS Goals x1 week 1. Transfers (I) 2. Dressing sitting in chair (I) 3. Bathing standing at sink (I) 4. Toileting on toilet (I) 5. Eating (I) PLAN OF CARE/TREATMENT PLAN: 1x/day, 5 days/ week x 1week Initiate Occupational Therapy Services for bathing, dressing, grooming, toileting, eating, transfer training. DISCHARGE RECOMMENDATIONS OT recommends outpatient services for his (R) hand for conservative restorative measures to increase his functional use of his (R) UE, HH OT for assessment of ADLs in the home setting. OT did not assess pts gait or functional mobility, pending PT consult if pt is unable to perform functional mobility pt may require short term stay at SNF. OT will continue to assess. TREATMENT TIME/MINUTES/CODES [id number], [id number], 25 minutes (08:25) Nell Britt OTR/[facility]
[2021-04-21 10:41] VITALS: BP 144/91; PULSE 83; RESP 14; TEMP 36.9; O2SAT 96
[2021-04-21] MEDS: MAGNESIUM SULFATE 4 GM/100 ML BAG IVPB (11:20)
[2021-04-21 15:25] VITALS: O2SAT 96
--- NOTE | 2021-04-21 16:05 | W.PM.PROGNOT ---
Date of Service Date of service: 04/21/21 Time of Service: 16:05 Assessment and Plan Assessment and plan (1) Sepsis: Status: Acute Assessment and plan: Due to infected hand in setting of a cat scratch. Blood and wound cultures are negative. Continue empiric rifampin/azithromycin for possible cat scratch as well as cefazolin for cellulitis of R hand. Consider imaging - discussing this with ortho. If no further intervention/imaging, would talk to ID. Continue OT. (2) Cat scratch of hand: Status: Acute Assessment and plan: As above (3) Cellulitis of hand, right: Status: Acute Assessment and plan: As above (4) Toxic metabolic encephalopathy: Status: Resolved Assessment and plan: LIkely due to above, and more pronounced due to h/o TBI. Mental status normalized. (5) Alcohol abuse: Status: Chronic Assessment and plan: monitor for alcohol withdrawal. Provide vitamins. (6) DVT prophylaxis: Status: Acute Assessment and plan: TEDS/SCDS. Resume DVT ppx (7) Discharge planning issues: Status: Acute Assessment and plan: Full code Continues to require hospitalization PT/OT on board Subjective Subjective Interval history since last seen: Feels overall better - no dizziness, chest pain, shortness of breath, nausea. However, the right hand's ROM and swelling are still not better, per patient. Exam Narrative Exam Narrative: General: Very pleasant elderly male, looks overall better than yesterday, A&Ox3 HEENT: EOMI, MMM Heart: RRR, no m/r/g Lungs: CTAB Abdomen: soft, nontender, nondistended Extremities: dorsal surface of R hand/wrist dressed - c/d/i; overall, I think there is slight improvement in the flexion of the wrist, but I do see persistent swelling on the dorsum of the hand; digits 2 and 3 lock up on extenson. Objective Last Vital Signs Temp 36.9 C 04/21/21 10:41 Pulse 83 04/21/21 10:41 Resp 14 04/21/21 10:41 BP 144/91 H 04/21/21 10:41 Pulse Ox 96 04/21/21 15:25 Laboratory Results - last 24 hr 04/21/21 04/21/21 04/21/21 06:30 06:30 06:30 WBC 6.84 RBC 3.55 L Hgb 12.5 L Hct 37.0 L MCV 104.2 H MCH 35.2 H MCHC 33.8 RDW 13.2 Plt Count 122 L MPV 11.8 H Immature Gran % 1.6 Neutrophils % 64.1 Lymphocytes % 17.8 Monocytes % 13.0 Eosinophils % 2.8 Basophils % 0.7 Nucleated RBC % 0 Absolute Neutrophils 4.38 Absolute Lymphocytes 1.22 Absolute Monocytes 0.89 H Absolute Eosinophils 0.19 Absolute Basophils 0.05 Sodium 141 Potassium 3.6 Chloride 106 Carbon Dioxide 23.6 Anion Gap 11.4 H BUN 12 Creatinine 0.8 Estimated GFR/1.73 m2 >= 60.00 Glucose 100 Calcium 8.5 Magnesium 1.4 L
[2021-04-21 16:52] VITALS: BP 119/81; PULSE 83; RESP 16; TEMP 36.7; O2SAT 98
[2021-04-21] MEDS: AMPICILLIN/SULBACTAM 3 GM in Normal Saline 100 ML IVPB (18:00)
[2021-04-21] MEDS: Omeprazole 20 MG CAPCR PO (21:13)
[2021-04-22 00:15] VITALS: BP 123/80; PULSE 97; RESP 18; TEMP 36.8; O2SAT 93
[2021-04-22] MEDS: AMPICILLIN/SULBACTAM 3 GM in Normal Saline 100 ML IVPB ×4 (00:48→18:23)
[2021-04-22 07:19] LABS: Anion Gap 8.1 mmol/L (3-11); BUN 17 mg/dL (7-18); C-Reactive Protein 6.57 mg/dL (0.0-0.3); CO2 25.9 mmol/L (21.0-32.0); CREATININE 1.1 mg/dL (0.70-1.30); Calcium 8.1 mg/dL (8.5-10.1); Chloride 108 mmol/L (98-107); Glucose 109 mg/dL (74-106); Potassium 3.6 mmol/L (3.5-5.1); Sodium 142 mmol/L (136-145)
[2021-04-22 07:32] VITALS: BP 139/89; PULSE 86; RESP 17; TEMP 37.2; O2SAT 94
[2021-04-22 07:45] LABS: Procalcitonin 4.3 ng/mL
[2021-04-22] MEDS: Umeclidinium 7 CAP INHALER 1 CAP IH (07:56)
[2021-04-22] MEDS: Vitamins B Comp w/C TAB 1 TAB PO (08:25)
[2021-04-22] MEDS: Aspirin 81 MG CHEW PO (08:25)
[2021-04-22] MEDS: Multivitamin TAB 1 TAB PO (08:26)
[2021-04-22] MEDS: Thiamine 100 MG TAB PO (08:26)
[2021-04-22] MEDS: Propranolol 60 MG CAPCR PO (08:26)
[2021-04-22] MEDS: Cyanocobalamin 500 MCG TAB 1000 MCG PO (08:26)
[2021-04-22] MEDS: Gabapentin 100 MG CAP 300 MG PO ×3 (08:26→19:56)
[2021-04-22] MEDS: Magnesium Chloride 64 MG TABCR 128 MG PO ×2 (08:26→19:56)
--- NOTE | 2021-04-22 09:13 | PT.INIE ---
Date of service: 04/22/21 Time of Service: 09:13 PT Notes Visit Reasons: Hand Infection Physical Therapy Inpatient Initial Evaluation Date: 04/22/2021 Referring Doctor: Amber Blunt M.D. PT Orders: PT CONSULT: Limited ability Precautions: Fall. Standard. Activity as tolerated. Patient Profile/Admitting Diagnosis: Roderick is a 71-year-old male, with a history of COPD and TBI who presented to the ED on 04/18/2021 for s generalized weakness, recent chills, and fever. Roderick is diagnosed with sepsis, cellulitis of right hand due to cat scratch, toxic metabolic encephalopathy, and EtOH abuse. 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 Independent with all aspects of ADLs prior to admission. Does not use any assistive device. Still drives. Equipment Owned/DME: Wooden cane Subjective: Roderick indicates that he and his cat likes to tussle a lot and he gets scratches here and there from it but no prevailing issues. However, last week's tussle resulted to his symptoms as his cat's paws may have not been clean. He fell on his knees on Sunday outside the [employer] and his friends drove him back to his home. However, they felt the need to call EMS as he was getting so weak. Today, he feels that the pain has started to decrease and his control over the muscles of his fingers are beginning to come back Objective: General Observation: Wound dressing over cat scratch on R hand. Areas of abrasion in B knees and elbow. Edema to R hand and forearm. Mental Status: Alert and oriented as to person, place, time, and purpose. Able to pay attention, focus, and respond appropriately. Pain: 4/10 in R hand with movement ROM: Right Upper Extremity: Shoulder Flexion WFL. Shoulder abduction WFL. Elbow flexion WFL. Wrist flexion WFL. lacks the last 25% of active wrist and finger extension. Left Upper Extremity: Shoulder Flexion WFL. Shoulder abduction WFL. Elbow flexion WFL. Wrist flexion WFL. Opening and closing of hand WFL. Right Lower Extremity: Hip flexion WFL. Hip abduction WFL. Knee flexion WFL. Ankle dorsiflexion WFL. Ankle plantarflexion WFL. Left Lower Extremity: Hip flexion WFL. Hip abduction WFL. Knee flexion WFL. Ankle dorsiflexion WFL. Ankle plantarflexion WFL. Strength: Right Upper Extremity: Shoulder flexors 5/5. Shoulder abductors 4+/5. Elbow flexors 5/5. Elbow extensors 5/5. Wrist extensors 3-/5. Finger extensors 3-/5. Crm Administrator weaker than L but remains functional. Left Upper Extremity: Shoulder flexors 5/5. Shoulder abductors 4+/5. Elbow flexors 5/5. Elbow extensors 5/5. Crm Administrator strong. Right Lower Extremity: Hip flexors 4/5. Hip abductors 4/5. Knee flexors 4+/5. Knee extensors 4/5. Ankle dorsiflexors 5/5. Ankle plantarflexors 5/5. Left Lower Extremity: Hip flexors 4/5. Hip abductors 4/5. Knee flexors 4+/5. Knee extensors 4/5. Ankle dorsiflexors 5/5. Ankle plantarflexors 5/5. Sensation: Intact as to pain and pressure on bilateral lower extremities. Bed Mobility/Transfers: Rolling independent Supine to sit independent Sit to supine independent Sit to stand independent Stand to sit independent Bed to chair independent Chair to bed independent Gait: Patient tolerated level surface ambulation of up to 500 feet using no assistive device with full weight bearing and supervision. Negative path deviation. No LOB. Mild shortness of breath activity. Alem typically slower than prior to admission Balance: Static Sitting: Normal Dynamic Sitting: Normal Static Standing: Normal Dynamic Standing: Fair Special Tests: Mobility Limitations Standardized Measure [facility] AM-PAC 6 clicks Basic Mobility Inpatient Short Form: Raw Score: 24 CMS Score: 0 % deficit Informed Consent/Education: Patient was instructed in purpose of PT consult and plan of care. Educated the patient on pacing and rest breaks when ambulating greater distances and negotiating stairs to conserve energy. Assessment: Roderick is a 71-year-old male, with a history of COPD and TBI who presented to the ED on 04/18/2021 for s generalized weakness, recent chills, and fever. Roderick is diagnosed with sepsis, cellulitis of right hand due to cat scratch, toxic metabolic encephalopathy, and EtOH abuse. Roderick is at near baseline with mobility ADL performance is willing to work with physical therapy to increase stability of gait and undergo progressive strengthening while on admission. Patient may benefit from manual lymphatic drainage to address persistent swelling in the right wrist and forearm once cleared by hospitalist. Patient presents with clinical signs and symptoms consistent with current/admitting diagnoses that have resulted to mobility limitations, gait instability, and generalized weakness as demonstrated by the following impairment level findings: 1. Decreased strength to right wrist extensors and IP extensors 2. Impaired standing balance 3. Impaired activity tolerance 4. Swelling in right hand and forearm Impairments are contributing to the following functional limitations: 1. Inability to safely ambulate without assistive device and physical assistance 2. Increase completion time for mobility ADL performance 3. Increased risk for skin injury and reinfection in right upper extremity Patient is assessed as a 02517 moderate complexity based on the following: History: Pt presented to physical therapy with impairment level findings and functional limitations as listed above Examination: Demonstrable impairment in strength, balance, and range of motion with underlying impairments and functional limitations as documented above Presentation: Evolving Decision Makin moderate complexity Goals: Goals X1 week 1. Independent gait on level surface with use of least restrictive device for at least 300 feet without report of pain nor dyspnea 2. Independent with home exercise program 3. Good static and dynamic standing balance/tolerance 4. Decreased L UE swelling with manual lymphatic drainage once cleared by hospitalist for said procedure Plan of Care/Treatment Plan: 1-2x/day, 7 days/week x 1 week. Plan of care has been reviewed with the PARKING METER COLLECTOR providing the service under Physical Therapy direction. Initiate Physical Therapy intervention for strengthening, bed mobility, transfers, gait, stairs, balance training, use of assistive device. DISCHARGE RECOMMENDATIONS: Discharge to home when medically cleared by hospitalist. May benefit from manual lymphatic drainage to as an outpatient to minimize persistent right UE swelling and prevent skin injury as well as reinfection. TREATMENT CODE/TIME: 82075 x 15 minutes, 84046 x 14 beginning at 9:13 A.M. Thank you for the opportunity to participate in the care of this patient. Marie Nicole PT, DPT, CLT [facility] [place], [place]
--- NOTE | 2021-04-22 09:56 | OTTR_ITS ---
Date of service: 04/22/21 Time of Service: 07:25 Occupational Therapy Notes Occupational Therapy Inpatient Treatment Note Date: 04/22/21 PRECAUTIONS: Fall, standard, Full SUBJECTIVE: Pt states that he is doing ok, he notes that his hand is sore but he thinks that the exercises are helping him. OBJECTIVE: PAIN:c/o pain in the dorsal hand. Manual Therapy [id number]: OT performed PROM to pts wrist and digits. 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 AP mobs performed to MP, IP, DIP joints. ASSESSMENT/PLAN: Continue to work with pt on his hand mobility including wrist and digits. TREATMENT CODES/TIME: 45965, 15 minutes (07:25) KEANU [facility]
[2021-04-22 10:03] VITALS: O2SAT 95
--- NOTE | 2021-04-22 10:28 | PDOC.CMPRO ---
- If Service Date Differs Date of service: 04/22/21 Time of Service: 10:28 Care Management Progress Note S/O: Roderick was sitting up in his chair when CM met with him. He reported that he was told that he would have an MRI, but he wasn't told when. CM discussed this with the MD, who reported that he is no longer going to have an MRI, based on the Ortho consult, and instead, his antibiotic was changed. Roderick asked CM for a pen and paper, which CM provided. Per report, Roderick will likely remain acute over the weekend. CM will continue to follow. A: Roderick is a 71 year old male admitted to [facility] on 04/18/21 with a hand infection. P: Anticipate Roderick will return home when medically cleared. He will be transported home via private vehicle by family vs [facility]. He will follow up with his PCP and discharge plan of care. CM will continue to follow.
[2021-04-22 15:42] VITALS: BP 117/79; PULSE 75; RESP 17; TEMP 36.7; O2SAT 98
--- NOTE | 2021-04-22 15:55 | PT.INTREAT ---
Date of service: 04/22/21 Time of Service: 10:40 PT Notes Visit Reasons: Hand Infection Inpatient Physical Therapy Treatment Note [facility] Date: 04/22/2021 PRECAUTIONS: Fall SUBJECTIVE: Roderick is pleasant and agreeable to participating in PT. He states that he is unsteady at baseline, and that he feels he is close to his baseline level of function. OBJECTIVE: PAIN: Patient c/o pain in R hand BED MOBILITY/TRANSFERS Sit-stand: I Stand-sit: I Bed-chair: I Chair-bed: I GAIT Assistive Device: No AD Weight bearing: Full Assist: S Distance: 300' Deviation: Wide LENNOX, decreased B knee flexion, shoes on THEREX: Patient was instructed in a static balance retraining program, as per flow sheet, which he tolerated well. STAIRS: Up/down 9x4 and 6x6 using B rails and a step-over pattern independently. ASSESSMENT: Patient demonstrates independence with transfers and short distance ambulation. He was able to tolerate the addition of neuro re-education activities. PLAN: Continue with global strengthening and conditioning for improved mobility and activity tolerance. TREATMENT CODE/TIME: 25 minutes; 57555 , 80616 (10:40)
--- NOTE | 2021-04-22 18:43 | PGE_ITS ---
Date of Service Date of service: 04/22/21 Time of Service: 18:43 Assessment and Plan Assessment and plan (1) Sepsis: Status: Acute Assessment and plan: Due to infected hand in setting of a cat scratch. Blood and wound cultures are negative. Case discussed with Dr Ariza of [facility] yesterday ([place]) who recommended initiation on unasyn in place of the triple antibiotics. Continue unasyn (day 2). Discussed case with Dr Griggs - no indication for repeat imaging. Continue OT. (2) Cat scratch of hand: Status: Acute Assessment and plan: As above (3) Cellulitis of hand, right: Status: Acute Assessment and plan: As above (4) Toxic metabolic encephalopathy: Status: Resolved Assessment and plan: Likely due to above, and more pronounced due to h/o TBI. Mental status normalized. (5) Alcohol abuse: Status: Chronic Assessment and plan: D/c CIWA - no evidence of alcohol withdrawal. Provide vitamins. (6) DVT prophylaxis: Status: Acute Assessment and plan: TEDS/SCDS. Resume DVT ppx (7) Discharge planning issues: Status: Acute Assessment and plan: Full code Continues to require hospitalization PT/OT on board Subjective Subjective Interval history since last seen: Mr Fernandez states he is feeling a little bit better. He is just getting impatient. He tried writing today and had difficulty. He has more mobility in his hand. He noticed less swelling, redness, and warmth over the wrist today. His 2nd and 3rd digits on the right hand are still getting stuck on extension and he cannot cross them. Overall, he feels better. He is working with PT and OT. He denies dizziness, chest pain, shortness of breath, nausea. Exam Narrative Exam Narrative: General: Very pleasant elderly male, looks better, A&Ox3 HEENT: EOMI, MMM Heart: RRR, no m/r/g Lungs: CTAB Abdomen: soft, nontender, nondistended Extremities: dorsal surface of R hand/wrist dressed - c/d/i; kess swelling/erythema/warmth over the wrist and hand. Better ROM of wrist and fingers. 2nd and 3rd digits still get suck on extension. Objective Last Vital Signs Temp 36.7 C 04/22/21 15:42 Pulse 75 04/22/21 15:42 Resp 17 04/22/21 15:42 BP 117/79 04/22/21 15:42 Pulse Ox 98 04/22/21 15:42 Laboratory Results - last 24 hr 04/22/21 04/22/21 04/22/21 06:30 06:30 06:30 Sodium 142 Potassium 3.6 Chloride 108 H Carbon Dioxide 25.9 Anion Gap 8.1 BUN 17 Creatinine 1.1 Estimated GFR/1.73 m2 >= 60.00 Glucose 109 H Calcium 8.1 L Magnesium 2.0 C-Reactive Protein 6.57 H Procalcitonin 4.3
[2021-04-22] MEDS: Omeprazole 20 MG CAPCR PO (19:56)
[2021-04-22] MEDS: Enoxaparin 40 MG/0.4 ML SYR SC (19:57)
[2021-04-22] MEDS: Normal Saline Flush 10 ML SYR IVP (19:57)
[2021-04-23 00:06] VITALS: BP 118/79; PULSE 75; RESP 18; TEMP 36.7; O2SAT 98
[2021-04-23] MEDS: AMPICILLIN/SULBACTAM 3 GM in Normal Saline 100 ML IVPB ×4 (00:36→17:58)
[2021-04-23] MEDS: Normal Saline Flush 10 ML SYR IVP ×3 (00:37→20:51)
[2021-04-23] MEDS: Normal Saline 500 ML 30 ML IV (06:45)
[2021-04-23 07:08] LABS: Abs Immature Grans 0.22 10^3/uL (0.0-0.06); Absolute Basophil Count 0.08 10^3/uL (0.0-0.2); Absolute Eosinophil Count 0.37 10^3/uL (0.0-0.7); Absolute Lymphocyte Count 1.34 10^3/uL (1.2-3.4); Absolute Monocyte Count 0.77 10^3/uL (0.1-0.8); Absolute Neutrophil Count 2.82 10^3/uL (1.2-6.7); Basophils % 1.4; Eosinophils % 6.6; HCT 36.5 % (40.0-50.0); HGB 12.4 g/dL (13.5-17.5); Immature Grans % 3.9; Lymphocytes % 23.9; MCV 106.1 fL (80-95); MPV 11.3 fL (8.0-11.0); Monocytes % 13.8; Neutrophils % 50.4; Nucleated RBC 0 %; Platelet Count 171 10^3/uL (130-400); RBC 3.44 10^6/uL (4.36-5.78); RDW 13.5 % (11.8-14.1); RDW-SD 53.7 fL
[2021-04-23 07:19] LABS: Anion Gap 5.9 mmol/L (3-11); BUN 16 mg/dL (7-18); C-Reactive Protein 3.44 mg/dL (0.0-0.3); CO2 26.1 mmol/L (21.0-32.0); CREATININE 0.8 mg/dL (0.70-1.30); Calcium 8.1 mg/dL (8.5-10.1); Chloride 111 mmol/L (98-107); Glucose 114 mg/dL (74-106); Potassium 3.8 mmol/L (3.5-5.1); Sodium 143 mmol/L (136-145)
[2021-04-23 07:35] VITALS: BP 129/78; PULSE 77; RESP 16; TEMP 36.9; O2SAT 95
[2021-04-23] MEDS: Gabapentin 100 MG CAP 300 MG PO ×3 (07:37→20:50)
[2021-04-23] MEDS: Thiamine 100 MG TAB PO (07:37)
[2021-04-23] MEDS: Magnesium Chloride 64 MG TABCR 128 MG PO ×2 (07:37→20:50)
[2021-04-23] MEDS: Vitamins B Comp w/C TAB 1 TAB PO (07:38)
[2021-04-23] MEDS: Cyanocobalamin 500 MCG TAB 1000 MCG PO (07:38)
[2021-04-23] MEDS: Propranolol 60 MG CAPCR PO (07:38)
[2021-04-23] MEDS: Multivitamin TAB 1 TAB PO (07:38)
[2021-04-23] MEDS: Aspirin 81 MG CHEW PO (07:38)
[2021-04-23] MEDS: Umeclidinium 7 CAP INHALER 1 CAP IH (08:59)
--- NOTE | 2021-04-23 10:30 | PT.INTREAT ---
Date of service: 04/23/21 Time of Service: 09:18 PT Notes Visit Reasons: Hand Infection Inpatient Physical Therapy Treatment Note [facility] Date: 04/23/2021 PRECAUTIONS: Activity as tolerated SUBJECTIVE: Roderick is pleasant and agreeable to participating in PT. He states that he has been transferring and ambulating within his room, well, OBJECTIVE: PAIN: No c/o pain BED MOBILITY/TRANSFERS Supine-sit: I Sit-supine: I Sit-stand: I Stand-sit: I Bed-chair: I Chair-bed: I GAIT Assistive Device:No AD Weight bearing: Full Assist: I Distance: 10 minutes Deviation: Wide LENNOX, decreased B knee flexion ASSESSMENT: Patient tolerated session well, demonstrating independence with ambulation. Following discussion with his primary nurse for today, Skylar, patient is cleared for independent ambulation without assistive device in the hallways. PLAN: Continue global conditioning, as needed. TREATMENT CODE/TIME: 13 minutes; 75612 (09:18)
[2021-04-23] MEDS: Ibuprofen 400 MG TAB PO (10:44)
--- NOTE | 2021-04-23 14:49 | PGE_ITS ---
Date of Service Date of service: 04/23/21 Time of Service: 14:49 Assessment and Plan Assessment and plan (1) Sepsis: Status: Acute Assessment and plan: Due to infected hand in setting of a cat scratch. Blood and wound cultures are negative. Case was discussed by Dr. Blunt with Dr Ariza of [facility] ([place]) on who recommended initiation on unasyn in place of the triple antibiotics. Continue unasyn (day 3). Dr. Blunt discussed case with Dr Griggs - no indication for repeat imaging. Continue OT. Qualifiers: Sepsis type: sepsis due to unspecified organism Sepsis acute organ dysfunction status: without acute organ dysfunction Qualified Code(s): A41.9 - Sepsis, unspecified organism (2) Cat scratch of hand: Status: Acute Assessment and plan: As above Qualifiers: Encounter type: initial encounter Laterality: right Qualified Code(s): S60.511A - Abrasion of right hand, initial encounter; W55.03XA - Scratched by cat, initial encounter (3) Cellulitis of hand, right: Status: Acute Assessment and plan: As above (4) Toxic metabolic encephalopathy: Status: Resolved Assessment and plan: Likely due to above, and more pronounced due to h/o TBI. Mental status normalized. (5) Alcohol abuse: Status: Chronic Assessment and plan: D/c CIWA - no evidence of alcohol withdrawal. Provide vitamins. (6) DVT prophylaxis: Status: Acute Assessment and plan: TEDS/SCDS. Resume DVT ppx (7) Discharge planning issues: Status: Acute Assessment and plan: Full code Continues to require hospitalization PT/OT on board Subjective Subjective Interval history since last seen: Patient has improved ROM of his right hand/wrist. He is afebrile and no pain. His blood cultures from the ER on 04/18 showed no growth. No additional cultures were taken on this admission. xray of the wrist was unremarkable w/ respect to the bones/wrist but showed soft tissue swelling. His inflammatory markers are improving ( WBC 5600, CRP 3.44). I will repeat his blood tests tomorrow. He remains on Unasyn but I think that he could be changed to Augmentin. I will keep the Unasyn going for one more day. He says that his symptoms began one week ago w/ redness and swelling of the right hand/wrist. I told him that he might go home tomorrow and he indicated that he preferred Sunday d/t ride arrangements. I informed him that the decision to treat as inpatient versus outpatient is based on whether or not he is improved enough to complete oral antibiotics as an outpatient. Exam Narrative Exam Narrative: Male patient sitting up in his chair watching a video on his tablet. Alert and oriented x 3 dorsum right hand w/ minimal area of induration (2 to 3 cm in size) and minimal pinkness; nontender to touch w/ normal ROM of his wrist Objective Last Vital Signs Temp 36.9 C 04/23/21 07:35 Pulse 77 04/23/21 07:35 Resp 16 04/23/21 07:35 BP 129/78 04/23/21 07:35 Pulse Ox 95 04/23/21 07:35 Laboratory Results - last 24 hr 04/23/21 04/23/21 06:30 06:30 WBC 5.60 RBC 3.44 L Hgb 12.4 L Hct 36.5 L MCV 106.1 H MCH 36.0 H MCHC 34.0 RDW 13.5 Plt Count 171 MPV 11.3 H Immature Gran % 3.9 Neutrophils % 50.4 Lymphocytes % 23.9 Monocytes % 13.8 Eosinophils % 6.6 Basophils % 1.4 Nucleated RBC % 0 Absolute Neutrophils 2.82 Absolute Lymphocytes 1.34 Absolute Monocytes 0.77 Absolute Eosinophils 0.37 Absolute Basophils 0.08 Sodium 143 Potassium 3.8 Chloride 111 H Carbon Dioxide 26.1 Anion Gap 5.9 BUN 16 Creatinine 0.8 Estimated GFR/1.73 m2 >= 60.00 Glucose 114 H Calcium 8.1 L C-Reactive Protein 3.44 H
[2021-04-23 15:39] VITALS: BP 131/85; PULSE 69; RESP 17; TEMP 36.6; O2SAT 98
[2021-04-23] MEDS: Omeprazole 20 MG CAPCR PO (20:50)
[2021-04-23] MEDS: Enoxaparin 40 MG/0.4 ML SYR SC (20:50)
[2021-04-23 23:15] VITALS: BP 141/94; PULSE 78; RESP 18; TEMP 36.8; O2SAT 96
[2021-04-24] MEDS: AMPICILLIN/SULBACTAM 3 GM in Normal Saline 100 ML IVPB ×3 (00:23→11:29)
[2021-04-24] MEDS: Normal Saline Flush 10 ML SYR IVP (05:49)
[2021-04-24 07:36] LABS: Absolute Basophil Count 0.07 10^3/uL (0.0-0.2); Absolute Lymphocyte Count 1.41 10^3/uL (1.2-3.4); Absolute Monocyte Count 0.66 10^3/uL (0.1-0.8); Absolute Neutrophil Count 2.59 10^3/uL (1.2-6.7); Basophils % 1.3; Eosinophils % 7.5; HCT 37.9 % (40.0-50.0); HGB 12.6 g/dL (13.5-17.5); Immature Grans % 3.8; Lymphocytes % 26.5; MCH 35.1 pg (27.0-33.0); MCHC 33.2 % (32.0-36.0); MCV 105.6 fL (80-95); MPV 11.4 fL (8.0-11.0); Monocytes % 12.4; Neutrophils % 48.5; Nucleated RBC 0 %; Platelet Count 218 10^3/uL (130-400); RBC 3.59 10^6/uL (4.36-5.78); RDW 13.5 % (11.8-14.1); RDW-SD 53.7 fL; WBC 5.33 10^3/uL (4.4-10.8)
[2021-04-24 07:48] LABS: C-Reactive Protein 2.49 mg/dL (0.0-0.3)
[2021-04-24] MEDS: Cyanocobalamin 500 MCG TAB 1000 MCG PO (08:19)
[2021-04-24] MEDS: Aspirin 81 MG CHEW PO (08:19)
[2021-04-24] MEDS: Gabapentin 100 MG CAP 300 MG PO ×2 (08:19→13:48)
[2021-04-24] MEDS: Vitamins B Comp w/C TAB 1 TAB PO (08:19)
[2021-04-24] MEDS: Thiamine 100 MG TAB PO (08:19)
[2021-04-24] MEDS: Multivitamin TAB 1 TAB PO (08:19)
[2021-04-24] MEDS: Propranolol 60 MG CAPCR PO (08:19)
[2021-04-24] MEDS: Magnesium Chloride 64 MG TABCR 128 MG PO (08:19)
[2021-04-24] MEDS: Umeclidinium 7 CAP INHALER 1 CAP IH (08:39)
[2021-04-24 08:46] VITALS: BP 129/82; PULSE 70; RESP 16; TEMP 36.9; O2SAT 93
[2021-04-24] MEDS: Ibuprofen 400 MG TAB PO (09:00)
[2021-04-24] MEDS: Normal Saline 500 ML 100 ML IV (11:28)
--- NOTE | 2021-04-24 13:00 | CMDISCH_ITS ---
- If Service Date Differs Date of service: 04/24/21 Time of Service: 13:00 LACE Index Scoring Tool - Questions: Length of Stay (in days): 4 - 6 Acuity (Admit via E.D.?): Yes Comorbidities: Chronic Pulmonary Disease, Liver or Renal Disease E.D. Visits: 1 - Answers: Total Score: 13 Risk of Readmission: High Risk Care Management Discharge Reason for Hospitalization: Hand Infection Discharge Plan: Roderick will return home with no new services. He will be t ransported home via RCT coordinated by CM. He will follow up with his PCP and discharge plan of care. Patient/Family Education Needs: Review discharge instructions regarding activity levels and medications, discussion of self care needs including ask me three.
--- NOTE | 2021-04-24 15:41 | PGE_ITS ---
Date of Service Date of service: 04/24/21 Time of Service: 15:41 Assessment and Plan Assessment and plan (1) Cat scratch of hand: Status: Acute Assessment and plan: improving. Patient was treated w/ Unasyn per Dr. Blunt's discussion w/ I.D. last week, however at this point patient has made sufficient recovery that he can complete antibiotic therapy as outpatient w/ Augmentin 875 mg bid x 10 days. Qualifiers: Encounter type: initial encounter Laterality: right Qualified Code(s): S60.511A - Abrasion of right hand, initial encounter; W55.03XA - Scratched by cat, initial encounter (2) Cellulitis of hand, right: Status: Acute Assessment and plan: As above (3) Alcohol abuse: Status: Chronic Assessment and plan: D/c CIWA - no evidence of alcohol withdrawal. Provide vitamins. (4) Discharge planning issues: Status: Resolved Assessment and plan: Full code discharge home today. has set up for ride at 5 pm w/ RCT Subjective Subjective Interval history since last seen: Patient is continues to do well. No fevers. No limitation in his ROM of his right wrist. No pain. His inflammatory markers continue to do well. WBC have normalized since 04/19 and his CRP is down to 2.49. He has had Unasyn since 04/21. He had two doses today. At this point he can go on Augmentin for another 10 days and this would complete a full two week course. He has a follow up w/ Dr. Harris in [facility] for Thursday 04/26. I explained to him to take Augmentin w/ a meal twice a day. To watch for severe diarrhea or nausea and vomiting but Augmentin is usually well tolerated w/ a meal. Exam Narrative Exam Narrative: Male patient sitting up in his chair watching a video on his tablet. Alert and oriented x 3 dorsum right hand w/ minimal area of induration (2 to 3 cm in size) and minimal pinkness; nontender to touch w/ normal ROM of his wrist Extrem Hand/finger images: 1. small residual area of pinkness, no induration no tenderness Objective Last Vital Signs Temp 36.9 C 04/24/21 08:46 Pulse 70 04/24/21 08:46 Resp 16 04/24/21 08:46 BP 129/82 04/24/21 08:46 Pulse Ox 93 04/24/21 08:46 Laboratory Results - last 24 hr 04/24/21 04/24/21 06:45 06:45 WBC 5.33 RBC 3.59 L Hgb 12.6 L Hct 37.9 L MCV 105.6 H MCH 35.1 H MCHC 33.2 RDW 13.5 Plt Count 218 MPV 11.4 H Immature Gran % 3.8 Neutrophils % 48.5 Lymphocytes % 26.5 Monocytes % 12.4 Eosinophils % 7.5 Basophils % 1.3 Nucleated RBC % 0 Absolute Neutrophils 2.59 Absolute Lymphocytes 1.41 Absolute Monocytes 0.66 Absolute Eosinophils 0.40 Absolute Basophils 0.07 C-Reactive Protein 2.49 H
[2021-04-24 15:47] VITALS: BP 153/89; PULSE 65; RESP 16; TEMP 37; O2SAT 99
--- NOTE | 2021-04-24 15:49 | W.PM.DS.N ---
Date of service: 04/24/21 Time of Service: 15:50 DS: Diagnosis Discharge Diagnosis (1) Sepsis: Status: Resolved (2) Toxic metabolic encephalopathy: Status: Resolved (3) Cat scratch of hand: Status: Acute (4) Cellulitis of hand, right: Status: Acute (5) Alcohol abuse: Status: Chronic (6) Discharge planning issues: Status: Resolved Asessment and Plan: discharge home w/ follow up w/ Dr. Harris next week on Thursday 04/26 Discharge Plan Disposition Patient Disposition: HOME Condition: Improving Discharge Details Reason For Visit: Hand Infection Admit Date/Time: 04/18/21 19:22 Admit Provider: Priyank Killian Attending Provider: Priyank Killian Primary Care Provider: Nicolette Harris Hospital Course Hospital Course: 71-year-old male with a history of alcohol abuse, and complaining of 1 to 2 days of generalized weakness, arthralgias, fevers. Reportedly had a recent cat scratch on his right hand. EMS noted him to have a fever. Temperature was not recorded in the hospital record. In the ER he was afebrile but mildly hypotensive with systolic pressure in the 80s and tachycardic heart rate in the low 100s. He was given 2 L IV fluids with stabilization of his blood pressure. He was mildly confused. White cell count was noted to be elevated at 16,000. He was noted to have pustular type swelling of the dorsum of his right hand. Incision drain was obtained and showed serosanguineous fluid but no pus. Nasopharyngeal swab for COVID-19 was negative. He was given a dose of Zithromax and rifampin and Ancef and admitted to the hospital for further treatment. He was monitored for alcohol withdrawal but never went through acute withdrawal.Orthopedic service was consulted because of the patient's complaints of his hand being stiff and unable to fully extend his hand open. Ortho felt that the skin infection over the dorsum was likely cellulitis and not involving the tendons of the right hand and that once the swelling of the soft tissues resolved he would regain function of his hand and they did not recommend any surgical debridement nor any exploration of the hand. The hospitalist consulted I.D. at [facility], who recommended dc ancef, azithromycin and rifampin and treating w/ Unasyn. The patient was on ancef, rifampin and azithromycin from admission 04/18 through 04/21 and was on Unasyn from 04/22 to 04/24. His swelling resolved and he had regained normal ROM of his right hand at the time of discharge. He will be sent home on 10 days of Augmentin. Home Meds and New Rx's Prescriptions: New amoxicillin-pot clavulanate [Augmentin] 875-125 mg tablet 1 tab PO BID Qty: 20 RF: 0 Continued melatonin 3 mg capsule 3 mg PO HS PRNRF: 0 propranolol 60 mg capsule,extended release 24 hr 60 mg PO DAILY Qty: 90 RF: 3 vitamin B complex [B Complex-Vitamin B12] 1 EACH tablet 1 ea PO DAILY RF: 0 Fish Oil 500 MG capsule 3,000 mg PO DAILY RF: 0 cholecalciferol (vitamin D3) 2,000 UNIT tablet 6,000 unit PO DAILY RF: 0 gabapentin 100 mg capsule 300 mg PO TID RF: 0 aspirin [Aspirin Low-Strength] 81 MG tablet,chewable 81 mg PO DAILY RF: 0 multivitamin [Multiple Vitamins] Tablet 1 tab PO DAILY Qty: 30 RF: 0 cyanocobalamin (vitamin B-12) 1,000 mcg capsule 1,000 mcg PO DAILY Qty: 30 RF: 0 levalbuterol tartrate [Xopenex HFA] 45 mcg/actuation HFA aerosol inhaler 2 inh IH Q6H PRN PRN (Reason: shortness of breath or wheezing) Qty: 15 RF: 0 omeprazole 20 mg capsule,delayed release(DR/EC) 20 mg PO QPM RF: 0 magnesium chloride [Mag 64] 64 mg tablet,delayed release (DR/EC) 128 mg PO DAILY RF: 0 Incruse Ellipta 62.5 mcg/actuation blister with device 1 inh INHALATION DAILY RF: 0 calcium carbonate [Calcium 500] 500 MG tablet 1 - 2 cap PO HS RF: 0 Discharge Instructions Instructions: Cellulitis (DC) Stand Alone Forms: Nursing Discharge Form Referrals: Nicolette Harris [Primary Care Provider] - 04/26/21 (keep your scheduled appointment) Stanton Griggs MD [ [facility] STAFF PHYSICIAN] - 04/27/21 2:00 pm Activity:: Activity as Tolerated Equipment/Supplies:: No Equipment Needed Diet:: Normal Diet Discharge Orders Discharge Orders: Discharge Order (Routine); Ordered 04/24/21 Ordered By: Laureano Ferguson Discharge Data Discharge Date/Time-TO BE ENTERED AT DEPARTURE: 04/24/21 17:11 DS: Summary Time Spent with Patient providing and/or coordinating discharge services: Less than 30 minutes Status at Discharge Functional status at discharge: independent ambulation Overall status at discharge: patient is progressing back to baseline Mental Status: mental status grossly normal Speech and Movement: speech and movement normal Mood: congruent mood Affect: normal affect Exam Narrative Exam Narrative: Male patient sitting up in his chair watching a video on his tablet. Alert and oriented x 3 dorsum right hand w/ minimal area of induration (2 to 3 cm in size) and minimal pinkness; nontender to touch w/ normal ROM of his wrist Psych Mental Status: mental status grossly normal Speech and Movement: speech and movement normal Mood: congruent mood Affect: normal affect DS: Data Vitals/I&O Vitals and I&O: Vital Signs Temperature 37 C 04/24/21 15:47 Temperature Source Tympanic 04/24/21 15:47 Pulse 65 04/24/21 15:47 Pulse Rhythm Regular 04/24/21 07:17 Pulse 105 H 04/18/21 20:20 Respiratory Rate 16 04/24/21 15:47 Respiratory Effort Non-Labored 04/24/21 07:17 Respiratory Depth Normal 04/24/21 07:17 Respiratory Pattern Normal 04/24/21 07:17 Blood Pressure 153/89 H 04/24/21 15:47 Blood Pressure Mean 78 04/18/21 20:19 Blood Pressure Position Sitting 04/18/21 16:00 Pulse Oximetry 99 04/24/21 15:47 Oxygen Delivery Method Room Air 04/24/21 15:47 Oxygen Flow Rate 0 04/24/21 15:47 Pain Level 0 04/24/21 15:47 Comment 04/24/21 11:04 Intake & Output 04/23/21 04/24/21 04/24/21 23:59 11:59 23:59 Intake Total 1075 / 2225.5 1046.167 / 1576.167 530 / 1576.167 Output Total 200 / 300 100 / 300 Balance 1075 / 1625.5 846.167 / 1276.167 430 / 1276.167 Intake: IV 285 / 495.5 366.167 / 416.167 50 / 416.167 Oral 790 / 1730 680 / 1160 480 / 1160 Output: Urine 200 / 300 100 / 300 Other: Urine Color Yellow Yellow Urine Appearance Clear Clear Urine Odor Normal Normal Comment Per pt. report, void x1 in the toilet. Per pt. report, void x1 in the toilet. Void x1 in the urinal. Voiding Methods Toilet Toilet Urinal Data Completed and Pending Labs on day of discharge: Labs from last 24 hours 04/24/21 04/24/21 06:45 06:45 WBC 5.33 RBC 3.59 L Hgb 12.6 L Hct 37.9 L MCV 105.6 H MCH 35.1 H MCHC 33.2 RDW 13.5 Plt Count 218 MPV 11.4 H Immature Gran % 3.8 Neutrophils % 48.5 Lymphocytes % 26.5 Monocytes % 12.4 Eosinophils % 7.5 Basophils % 1.3 Nucleated RBC % 0 Absolute Neutrophils 2.59 Absolute Lymphocytes 1.41 Absolute Monocytes 0.66 Absolute Eosinophils 0.40 Absolute Basophils 0.07 C-Reactive Protein 2.49 H [facility] Medical History Alcohol abuse sober 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 (04/10/16) Anxiety and depression Calculus of left kidney (03/20/17) Chronic kidney disease, stage 3 Chronic pain syndrome COPD (chronic obstructive pulmonary disease) Essential tremor (04/10/16) Gross hematuria (03/20/17) Hyperlipidemia Left ureteral stone (03/27/17) Migraine headache without aura 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) Scoliosis Seizure disorder TBI (traumatic brain injury) Remote, multiple Umbilical hernia without obstruction or gangrene Vitamin D deficiency Surgical History Colonoscopy - MAC (05/19/16) Inguinal hernia Family History Mother TIA (transient ischemic attack) Father Parkinson disease Stroke Social History Smoking/Tobacco Use Status: Former Tobacco Use Smoking risk assessment performed?: Yes Alcohol Intake: current Alcohol Intake frequency: holidays/special occasions only Alcohol type: wine Drug use: Never Substance use type: does not use Household members: none Housing: apartment Pets and animals: Yes Pets and animals: cat(s) Current gender identity: male Do you feel safe at home: Yes Do you feel safe in your relationship?: Yes Additional Social history: Lives alone in second story apartment in [place], has a cat Currently working part-time at [employer] in [place] through [employer]. History of smoking, quit June 2018. No vaping. No other drug use including marijuana.
--- NOTE | 2021-04-26 07:37 | OTDS_ITS ---
Date of service: 04/26/21 Time of Service: 07:37 Occupational Therapy Notes Occupational Therapy Inpatient Discharge Summary Date: 04/26/21 for 04/24/21 Discharge Dates of Service: 04/21/21-04/22/21 Referring Doctor:Amber Blunt MD OT Orders: Non urgent Precautions: Fall, standard, Full PATIENT PROFILE/ADMITTING DIAGNOSIS: Pt is a 71 year old male who was admitted through the ED for the following dx including alcohol abuse, cellulitis of (R) hand, toxic metabolic encephalopathy, sepsis, cat scratch to (R) hand, memory changes, tendinitis of long head of the biceps brachii (L) shoulder, rotator cuff tear, (B) shoulder bursitis, impingement syndrome of (B shoulders, orthostatic hypertension, autonomic dysfunctiona, dysphagia, tachycardia, COPD, alcoholic peripheral neuropathy. 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 He states that prior to his cat scratch that he is (I) in his ADL/IADL routines. He lives in an apartment and notes that he works at the [employer] in [facility]. SUBJECTIVE: NT OBJECTIVE: ROM: RUE AROM WFL L UE AROM WFL STRENGTH: RUE decreased seniour insight manager strength, otherwise 4-/5 throughout LUE 4/5 throughout FUNCTIONAL MOBILITY/ADLS: Transfers with FWW BATHING sitting in bed Bathing UE (I) face and (B) UE DRESSING (I) [facility] gown, min (A) donning (B) socks TOILETING (I) EATING sitting in bed, (I) With opening packaging due to decreased functional use of his (R) hand, (I) with food to mouth with (L) UE. OT provided pt with exercises for his (R) hand to increase his digit control and overall functional use of his hand with his ADL/IADL routines. Written and illustrated handout provided and pt verbalized understanding to this. Pt was consistent and compliant with his ROM and was able to regain full use of his (R) hand. BALANCE: Static sitting Normal Dynamic Sitting Normal ASSESSMENT: Patient is a 71-year-old male referred to occupational therapy services with diagnosis of alcohol abuse, cellulitis of (R) hand, toxic metabolic encephalopathy, sepsis, cat scratch to (R) hand, memory changes, tendinitis of long head of the biceps brachii (L) shoulder, rotator cuff tear, (B) shoulder bursitis, impingement syndrome of (B shoulders, orthostatic hypertension, autonomic dysfunctiona, dysphagia, tachycardia, COPD, alcoholic peripheral neuropathy. Pt was seen for 2 skilled OT sessions, he was able to re- gain functional use of his (R) hand and perform his ADLs/IADLs (I). He was compliant with his exercises and required vc throughout to not over do and becom e too sore. Pt was discharged home on 04/24/21. GOALS- Met 1. Transfers (I) 2. Dressing sitting in chair (I) 3. Bathing standing at sink (I) 4. Toileting on toilet (I) 5. Eating (I) PLAN OF CARE/TREATMENT PLAN: Discharge from skilled OT services. DISCHARGE RECOMMENDATIONS OT recommends outpatient services for his (R) hand for conservative restorative measures to increase his functional use of his (R) UE, HH OT for assessment of ADLs in the home setting. OT did not assess pts gait or functional mobility, pending PT consult if pt is unable to perform functional mobility pt may require short term stay at SNF. OT will continue to assess. TREATMENT TIME/MINUTES/CODES N/A Nell Britt OTR/L [facility]
--- NOTE | 2021-04-26 19:30 | PT.INDS ---
Date of service: 04/26/21 PT Notes Visit Reasons: Hand Infection Physical Therapy Inpatient Discharge Summary Date: 04/26/2021 Dates of Service: 04/22/2021 through 04/23/2021 This is a clinical summary of care provided for the duration of dates listed above. No charge was made in the completion of this documentation. Referring Doctor: Amber Blunt M.D. PT Orders: PT CONSULT: Limited ability Precautions: Fall. Standard. Activity as tolerated. Patient Profile/Admitting Diagnosis: Roderick is a 71-year-old male, with a history of COPD and TBI who presented to the ED on 04/18/2021 for s generalized weakness, recent chills, and fever. Roderick is diagnosed with sepsis, cellulitis of right hand due to cat scratch, toxic metabolic encephalopathy, and EtOH abuse. 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 Independent with all aspects of ADLs prior to admission. Does not use any assistive device. Still drives. Equipment Owned/DME: Wooden cane Subjective: NT. See most recent MOLD SWABBER notes. This week Objective: General Observation: NT. See most recent MOLD SWABBER notes. Mental Status: NT. See most recent MOLD SWABBER notes. Pain: NT. See most recent MOLD SWABBER notes. ROM: Right Upper Extremity: Shoulder Flexion WFL. Shoulder abduction WFL. Elbow flexion WFL. Wrist flexion WFL. lacks the last 25% of active wrist and finger extension. Left Upper Extremity: Shoulder Flexion WFL. Shoulder abduction WFL. Elbow flexion WFL. Wrist flexion WFL. Opening and closing of hand WFL. Right Lower Extremity: Hip flexion WFL. Hip abduction WFL. Knee flexion WFL. Ankle dorsiflexion WFL. Ankle plantarflexion WFL. Left Lower Extremity: Hip flexion WFL. Hip abduction WFL. Knee flexion WFL. Ankle dorsiflexion WFL. Ankle plantarflexion WFL. Strength: Right Upper Extremity: Shoulder flexors 5/5. Shoulder abductors 4+/5. Elbow flexors 5/5. Elbow extensors 5/5. Wrist extensors 3-/5. Finger extensors 3-/5. Marble Cleaner weaker than L but remains functional. Left Upper Extremity: Shoulder flexors 5/5. Shoulder abductors 4+/5. Elbow flexors 5/5. Elbow extensors 5/5. Marble Cleaner strong. Right Lower Extremity: Hip flexors 4/5. Hip abductors 4/5. Knee flexors 4+/5. Knee extensors 4/5. Ankle dorsiflexors 5/5. Ankle plantarflexors 5/5. Left Lower Extremity: Hip flexors 4/5. Hip abductors 4/5. Knee flexors 4+/5. Knee extensors 4/5. Ankle dorsiflexors 5/5. Ankle plantarflexors 5/5. Sensation: Intact as to pain and pressure on bilateral lower extremities. Bed Mobility/Transfers: Rolling independent Supine to sit independent Sit to supine independent Sit to stand independent Stand to sit independent Bed to chair independent Chair to bed independent Gait: Patient tolerated level surface ambulation of up to 500 feet using no assistive device with full weight bearing and supervision. Negative path deviation. No LOB. Mild shortness of breath activity. Alem typically slower than prior to admission Balance: Static Sitting: Normal Dynamic Sitting: Normal Static Standing: Normal Dynamic Standing: Fair Assessment: Patient has demonstrated improved functional mobility level during this episode of care. Goals: Goals X1 week 1. Independent gait on level surface with use of least restrictive device for at least 300 feet without report of pain nor dyspnea MET 2. Independent with home exercise program MET 3. Good static and dynamic standing balance/tolerance MET 4. Decreased L UE swelling with manual lymphatic drainage once cleared by hospitalist for said procedure MET DISCHARGE RECOMMENDATIONS: Discharge to home when medically cleared by hospitalist. May benefit from manual lymphatic drainage to as an outpatient to minimize persistent right UE swelling and prevent skin injury as well as reinfection. TREATMENT CODE/TIME: NC Thank you for the opportunity to participate in the care of this patient. Marie Nicole PT, DPT, CLT [facility] [place], [place]
== END 2021-04-24 17:11 | disposition home or self-care (01) | DRG 871 ==
LOC: ER 19:48 → MS 20:45
PROVIDERS: Internal Medicine; Admitting Provider General Practice; Emergency Provider Student in an Organized Health Care Education/Training Program; PCP Nurse Practitioner Family; Visit Provider General Practice
DX: A41.9 Sepsis, unspecified organism (principal); G92 Toxic encephalopathy; L03.113 Cellulitis of right upper limb; R56.1 Post traumatic seizures; Z20.822 Contact with and (suspected) exposure to COVID-19; G62.1 Alcoholic polyneuropathy; F10.11 Alcohol abuse, in remission; N18.30 Chronic kidney disease, stage 3 unspecified; F41.8 Other specified anxiety disorders; J44.9 Chronic obstructive pulmonary disease, unspecified; E78.5 Hyperlipidemia, unspecified; G25.0 Essential tremor; E55.9 Vitamin D deficiency, unspecified; Z87.820 Personal history of traumatic brain injury; Z87.891 Personal history of nicotine dependence; D69.6 Thrombocytopenia, unspecified; R79.89 Other specified abnormal findings of blood chemistry
CPT/HCPCS: 10060; 36415; 80048; 80053; 84145; 85027; 86704; 86709; 86803; 87040; 87340; 87635; 94640; 96361; 96365; 96367; 97140; 97162; 97166; 97530; 99222; 99285; J1650; 71045; 73110; 81003; 81015; 83605; 83735; 84450; 84460; 85025; 86140; 87070; 87086; 87205; 99231; 99232; 99233; 99238; J0295; J0690; J3475; J3490

== ENCOUNTER 2021-04-26 15:50 | Outpatient (REF) | payer OTHER, SELFPAY ==
[2021-04-26 20:58] LABS: ALT 260 U/L (16-63); AST 177 U/L (15-37); Albumin 3.5 g/dL (3.4-5.0); Alkaline Phosphatase 88 U/L (46-116); Anion Gap 7.8 mmol/L (3-11); BUN 21 mg/dL (7-18); Bilirubin, Total 0.7 mg/dL (0.2-1.0); CO2 28.2 mmol/L (21.0-32.0); CREATININE 1.1 mg/dL (0.70-1.30); Calcium 9.8 mg/dL (8.5-10.1); Chloride 105 mmol/L (98-107); Glucose 88 mg/dL (74-106); Sodium 141 mmol/L (136-145); Total Protein 6.7 g/dL (6.4-8.2)
== END 2021-04-26 15:51 | disposition home or self-care (01) ==
LOC: NCHCN 15:50
PROVIDERS: PCP Nurse Practitioner Family; Visit Provider Nurse Practitioner Family
DX: I10 Essential (primary) hypertension (principal); K76.0 Fatty (change of) liver, not elsewhere classified; R74.01 Elevation of levels of liver transaminase levels
CPT/HCPCS: 80053

== ENCOUNTER → 2021-04-27 13:52 | Outpatient (BNVA) | payer OTHER, SELFPAY | PROVIDERS: PCP Nurse Practitioner Family; Referring Provider Nurse Practitioner Family | DX: L03.113 Cellulitis of right upper limb (principal); G56.31 Lesion of radial nerve, right upper limb | CPT/HCPCS: 99213 ==

== ENCOUNTER → 2021-05-05 10:08 | Outpatient (BNVA) | payer OTHER, SELFPAY | PROVIDERS: PCP Nurse Practitioner Family; Visit Provider Psychiatry & Neurology Neurology | DX: G25.0 Essential tremor (principal); G56.31 Lesion of radial nerve, right upper limb; G40.909 Epilepsy, unspecified, not intractable, without status epilepticus; S06.9X9S Unspecified intracranial injury with loss of consciousness of unspecified duration, sequela; G62.1 Alcoholic polyneuropathy; R41.3 Other amnesia | CPT/HCPCS: 99215 ==

== ENCOUNTER → 2021-05-30 00:37 | Outpatient (CLI) | payer OTHER, SELFPAY ==
--- NOTE | 2021-05-30 | DI.US_ITS ---
Exam(s) US ABDOMEN EXAM: US ABDOMEN INDICATION: FATTY LIVER DISEASE,K76.0,ELEVATED TRANSAMINASES,R74.0 COMPARISON: CT CT CHEST PE ABD PELVIS W from 10/03/[address] CHEST PE ABD PELVIS W from 10/03/2019 US US ABDOMEN from 01/14/2020 TECHNIQUE: Ultrasound abdomen performed using standard protocol FINDINGS: Abdominal ultrasound was performed according to the usual protocol. The liver is at the upper limits of normal in size. There is increased echogenicity of the liver in a diffuse pattern consistent with hepatic steatosis. Prior CT of September 2019 did show hepatic stea tosis. There is no evidence of cholelithiasis or biliary dilatation. No gallbladder wall thickening or peric holecystic fluid collection. Portal venous flow is hepatopetal. Pancreas appears intact as visualized. Spleen is unremarkable in appearance with no focal lesion. Kidneys are normal in size and shape. No renal mass, hydronephrosis, or nephrolithiasis. Abdominal aorta and IVC are of normal diameter. IMPRESSION: Findings consistent with hepatic steatosis as previously noted on CT. No evidence of cholelithiasis.
== END ==
PROVIDERS: PCP Nurse Practitioner Family; Visit Provider Nurse Practitioner Family
DX: R74.01 Elevation of levels of liver transaminase levels (principal); K76.0 Fatty (change of) liver, not elsewhere classified
CPT/HCPCS: 76700

== ENCOUNTER → 2021-06-21 09:54 | Outpatient (BNVA) | payer OTHER, SELFPAY | PROVIDERS: PCP Nurse Practitioner Family; Referring Provider Nurse Practitioner Family; Visit Provider Psychiatry & Neurology Neurology | DX: G40.909 Epilepsy, unspecified, not intractable, without status epilepticus (principal); S06.9X9S Unspecified intracranial injury with loss of consciousness of unspecified duration, sequela; G62.1 Alcoholic polyneuropathy; R41.3 Other amnesia; G56.31 Lesion of radial nerve, right upper limb; G56.01 Carpal tunnel syndrome, right upper limb | CPT/HCPCS: 95885; 95909 ==

== ENCOUNTER 2021-08-22 12:35 | Outpatient (REF) | payer OTHER, SELFPAY ==
[2021-08-22 21:09] LABS: ALT 68 U/L (16-63); AST 48 U/L (15-37); Albumin 3.7 g/dL (3.4-5.0); Alkaline Phosphatase 73 U/L (46-116); Bilirubin, Total 0.5 mg/dL (0.2-1.0); Calculated LDL 163 mg/dL (<100); Cholesterol 244 mg/dL (<200); HDL Cholesterol 51 mg/dL (40-60); Total Protein 6.5 g/dL (6.4-8.2); Triglyceride 153 mg/dL (<150)
[2021-08-22 21:20] LABS: Bilirubin, Direct 0.1 mg/dL (0.0-0.2)
== END 2021-08-22 12:36 | disposition home or self-care (01) ==
LOC: NCHCN 12:35
PROVIDERS: PCP Nurse Practitioner Family; Visit Provider Nurse Practitioner Family
DX: E78.5 Hyperlipidemia, unspecified (principal); I10 Essential (primary) hypertension; R74.01 Elevation of levels of liver transaminase levels; E83.42 Hypomagnesemia; K76.0 Fatty (change of) liver, not elsewhere classified
CPT/HCPCS: 80061; 80076

== ENCOUNTER → 2021-10-31 12:59 | Outpatient (BNVA) | payer OTHER, SELFPAY | PROVIDERS: PCP Nurse Practitioner Family; Referring Provider Nurse Practitioner Family; Visit Provider Psychiatry & Neurology Neurology | DX: G40.89 Other seizures (principal); Z87.820 Personal history of traumatic brain injury; G25.0 Essential tremor; G62.1 Alcoholic polyneuropathy; R41.3 Other amnesia; G56.01 Carpal tunnel syndrome, right upper limb | CPT/HCPCS: 99214 ==

== ENCOUNTER → 2022-03-28 02:26 | Outpatient (CLI) | payer OTHER, SELFPAY ==
--- NOTE | 2022-03-28 08:45 | DI.US_ITS ---
Exam(s) US AAA SCREENING EXAM: US AAA SCREENING CLINICAL HISTORY: CARDIOVASCULAR SCREENING, Z13.6 COMPARISON: No exams were available for comparison FINDINGS: Abdominal Aorta: Proximal: 2.8 cm Mid: 2.0 cm Distal: 1.6 cm Iliacs: Right: 1.1 cm Left: 1.0 cm IMPRESSION: No evidence of abdominal aortic aneurysm. DATA REPOSITORY:
--- NOTE | 2022-03-28 09:15 | DI.CTLCSR_ITS ---
Exam(s) CT CHEST LUNG CANCER SCREEN EXAM: CT CHEST LUNG CANCER SCREEN CLINICAL HISTORY: FORMER SMOKER, Z87.891; EMPHYSEMA, J43.9; RESTRICIVE LUNG DISEASE,J45.40 TECHNIQUE: Imaging Protocol: Axial computed tomography images with coronal and sagittal reformatted images were created and reviewed. Low dose screening protocol. COMPARISON: CT CT CHEST LUNG CANCER SCREEN from 10/18/2020 CR,XR XR PORTABLE CHEST AP from 04/18/2021 FINDINGS: Tracheobronchial tree: No bronchiectasis or mucus plugging.. Mediastinum and Florencia: No dominant adenopathy or fluid collection. Pulmonary parenchyma: Mild bilateral apical scarring. No consolidation or dominant measurable mass. Mild emphysematous changes upper lobes.. Lung Nodules: Scattered tiny calcified nodules.. Pleura: Mild calcified pleural plaques lung apices, right greater than left. No effusion. No pneumot horax. Heart: The heart is not dilated. coronary artery calcifications are seen. Aorta: Thoracic aorta non-dilated. Mild calcification Upper abdomen: Non-obstructing stone upper pole left kidney. Bones: Unremarkable for age. Soft Tissues: Mild bilateral gynecomastia. IMPRESSION: No suspicious pulmonary nodules. Lung RADS Cat 1 - Negative: No nodules and definitely benign nodules Lung-RADS 1.0 CATEGORIES: Category 0 - Prior chest CT exam(s) being located for comparison. Category 1 - Annual screening in 12 months. No nodules or definitely benign nodules. Category 2 - Annual screening in 12 months. Benign appearance. Nodules with low likelihood of becomin g active cancer. Category 3 - 6-month follow-up. Probably benign. Short-term follow-up suggested. Nodules with low lik elihood of becoming active cancer. Category 4A - 3-month follow-up and CT/PET if >8 mm in size. Suspicious finding. Findings which requi re additional testing. Category 4B - Findings which require additional testing and tissue sampling. Category 4X - Category 3 or 4 nodules with additional features or imaging findings that increases the suspicion of malignancy. Modifier S- Potentially clinically significant findings (non lung cancer) RADIATION DOSE DELIVERED: 81.53mGy.cm Total DLP 1.84mGy CTDIvol DATA REPOSITORY: All CT scans at this facility are submitted to the National Radiology Data Registry (NRDR) Dose Index Registry (DIR) with the [employer] (ACR). RADIATION OPTIMIZATION: All CT scans at this facility use at least one of these dose optimization te chniques: automated exposure control; mA and/or kV adjustment per patient size (includes targeted exa ms where dose is matched to clinical indication); or iterative reconstruction.
== END ==
PROVIDERS: PCP Nurse Practitioner Family; Visit Provider Nurse Practitioner Family
DX: Z87.891 Personal history of nicotine dependence (principal); Z12.2 Encounter for screening for malignant neoplasm of respiratory organs
CPT/HCPCS: 71271; 76706

== ENCOUNTER 2022-06-26 12:34 | Outpatient (REF) | payer OTHER, SELFPAY ==
[2022-06-26 15:54] LABS: Abs Immature Grans 0.02 10^3/uL (0.0-0.06); Absolute Basophil Count 0.07 10^3/uL (0.0-0.2); Absolute Eosinophil Count 0.29 10^3/uL (0.0-0.7); Absolute Lymphocyte Count 1.21 10^3/uL (1.2-3.4); Absolute Monocyte Count 0.84 10^3/uL (0.1-0.8); Absolute Neutrophil Count 4.14 10^3/uL (1.2-6.7); Basophils % 1.1; Eosinophils % 4.4; HCT 45.8 % (40.0-50.0); HGB 15.5 g/dL (13.5-17.5); Immature Grans % 0.3; Lymphocytes % 18.4; MCHC 33.8 % (32.0-36.0); MCV 106 fL (80-95); MPV 12.8 fL (8.0-11.0); Monocytes % 12.8; Platelet Count 154 10^3/uL (130-400); RBC 4.31 10^6/uL (4.36-5.78); RDW 12.7 % (11.8-14.1); RDW-SD 50.2 fL; WBC 6.57 10^3/uL (4.4-10.8)
[2022-06-26 16:13] LABS: Hemoglobin A1C 5.5 % (<5.7)
[2022-06-26 17:02] LABS: Diff Comment RBC Morph Reviewed; Macrocytosis 1+
[2022-06-26 19:50] LABS: ALT 204 U/L (16-63); AST 184 U/L (15-37); Alkaline Phosphatase 100 U/L (46-116); Anion Gap 11.3 mmol/L (3-11); BUN 18 mg/dL (7-18); Bilirubin, Total 1.5 mg/dL (0.2-1.0); CO2 28.7 mmol/L (21.0-32.0); CREATININE 1.1 mg/dL (0.70-1.30); Calcium 9.8 mg/dL (8.5-10.1); Calculated LDL 140 mg/dL (<100); Chloride 105 mmol/L (98-107); Cholesterol 221 mg/dL (<200); Estimated GFR 71.77 (mL/min/1.73m2); Glucose 136 mg/dL (74-106); HDL Cholesterol 57 mg/dL (40-60); Magnesium 1.8 mg/dL (1.8-2.4); Potassium 5.2 mmol/L (3.5-5.1); Sodium 145 mmol/L (136-145); TSH (W/Ref FT4) 2.16 uIU/mL (0.36-3.74); Total Protein 6.9 g/dL (6.4-8.2); Triglyceride 123 mg/dL (<150); Vitamin B12 1216 pg/mL (193-986)
[2022-06-26 19:51] LABS: Folate > 20.0 ng/mL (8.6-20.0)
[2022-06-26 22:24] LABS: PSA, Screening 3.8 ng/mL (<=6.5)
== END 2022-06-26 12:35 | disposition home or self-care (01) ==
LOC: NCHCN 12:34
PROVIDERS: PCP Nurse Practitioner Family; Visit Provider Nurse Practitioner Family
DX: Z00.00 Encounter for general adult medical examination without abnormal findings (principal); I10 Essential (primary) hypertension; E55.9 Vitamin D deficiency, unspecified; R74.01 Elevation of levels of liver transaminase levels; E83.42 Hypomagnesemia; K76.0 Fatty (change of) liver, not elsewhere classified; E78.5 Hyperlipidemia, unspecified
CPT/HCPCS: 80053; 80061; 82306; 84153; 82607; 82746; 83036; 83735; 84443; 85025

== ENCOUNTER 2022-12-18 01:18 | Outpatient (CLI) | payer OTHER, SELFPAY ==
--- NOTE | 2022-12-18 | DI.US_ITS ---
Exam(s) US ABDOMEN LIMITED EXAM: US ABDOMEN LIMITED CLINICAL HISTORY: FATTY LIVER DISEASE,K76.0 TECHNIQUE: Ultrasound abdomen performed using standard protocol. COMPARISON: CT CT CHEST PE ABD PELVIS W from 10/03/2019 US US ABDOMEN from 05/30/2021 FINDINGS: ABDOMINAL AORTA AND IVC: Visualized portions normal caliber. PANCREAS: Normal where visualized. LIVER: There is fatty infiltration of the liver. The liver measures 22 cm long. Hepatopedal flow in the Portal Vein. GALLBLADDER:No evidence of cholelithiasis. No evidence of wall thickening. No pericholecystic fluid i dentified. BILIARY SYSTEM: Common bile duct measures < 7 mm. No intrahepatic biliary ductal dilation. GRUBER'S SIGN: Negative. KIDNEYS: Kidneys are symmetric in size. There is a 3 mm echogenic focus in the left kidney. This is consistent with nephrolithiasis. A stone was seen on the CT scan of the abdomen from 10/03/2019. No e vidence of hydronephrosis. No renal mass or cyst identified. SPLEEN: Not enlarged. ASCITES: None seen. IMPRESSION: 1. Fatty liver and hepatomegaly. 2. Left nephrolithiasis. No hydronephrosis. DATA REPOSITORY:
== END 2022-12-18 01:38 ==
LOC: DI 01:21
PROVIDERS: PCP Nurse Practitioner Family; Visit Provider Nurse Practitioner Family
DX: K76.0 Fatty (change of) liver, not elsewhere classified (principal); F10.10 Alcohol abuse, uncomplicated
CPT/HCPCS: 76705

== ENCOUNTER → 2022-12-19 10:04 | Outpatient (BNVA) | payer OTHER, SELFPAY | PROVIDERS: PCP Nurse Practitioner Family; Visit Provider Psychiatry & Neurology Neurology | DX: G40.909 Epilepsy, unspecified, not intractable, without status epilepticus (principal); Z87.820 Personal history of traumatic brain injury; G62.1 Alcoholic polyneuropathy; R41.3 Other amnesia; G56.31 Lesion of radial nerve, right upper limb; G56.01 Carpal tunnel syndrome, right upper limb | CPT/HCPCS: 99214 ==

== ENCOUNTER 2023-03-02 15:18 | Outpatient (REF) | payer OTHER, SELFPAY ==
[2023-03-02 21:51] LABS: Bilirubin Small (Negative); Blood Negative (Negative); Clarity Clear (Clear); Glucose Negative (Negative); Ketones 15 mg/dL (Negative); Leukocyte Esterase Negative (Negative); Nitrite Negative (Negative); pH 7.5 (5-8)
[2023-03-02 22:02] LABS: Bacteria Rare HPF (Negative); C & S Indicated? No; Casts Negative LPF (Negative); Crystals Negative HPF (Negative); Epithelial Cells Rare HPF (Negative); Mucus Trace (Negative); RBC Negative HPF (0-2); WBC Negative HPF (0-5)
== END 2023-03-02 15:19 | disposition home or self-care (01) ==
LOC: NCHCN 15:18
PROVIDERS: PCP Nurse Practitioner Family; Visit Provider Nurse Practitioner Family
DX: I10 Essential (primary) hypertension (principal); R82.998 Other abnormal findings in urine; N18.30 Chronic kidney disease, stage 3 unspecified
CPT/HCPCS: 81003; 81015

== ENCOUNTER 2023-03-08 02:35 | Outpatient (CLI) | payer OTHER, SELFPAY ==
[2023-03-08 11:46] LABS: Abs Immature Grans 0.02 10^3/uL (0.0-0.06); Absolute Basophil Count 0.07 10^3/uL (0.0-0.2); Absolute Eosinophil Count 0.22 10^3/uL (0.0-0.7); Absolute Lymphocyte Count 1.47 10^3/uL (1.2-3.4); Absolute Monocyte Count 0.56 10^3/uL (0.1-0.8); Absolute Neutrophil Count 5.39 10^3/uL (1.2-6.7); Basophils % 0.9; Eosinophils % 2.8; HCT 42.3 % (40.0-50.0); HGB 14.7 g/dL (13.5-17.5); Immature Grans % 0.3; MCHC 34.8 % (32.0-36.0); MCV 109 fL (80-95); MPV 11.7 fL (8.0-11.0); Monocytes % 7.2; Neutrophils % 69.8; Platelet Count 142 10^3/uL (130-400); RBC 3.87 10^6/uL (4.36-5.78); RDW 12.4 % (11.8-14.1); RDW-SD 49.9 fL; WBC 7.73 10^3/uL (4.4-10.8)
[2023-03-08 12:01] LABS: Bilirubin Small (Negative); Blood Negative (Negative); Clarity Clear (Clear); Glucose Negative (Negative); Ketones Negative (Negative); Leukocyte Esterase Negative (Negative); Nitrite Negative (Negative); Urobilinogen 0.2 mg/dL (Up to 0.2); pH 8.5 (5-8)
[2023-03-08 12:08] LABS: Diff Comment RBC Morph Reviewed; Macrocytosis 2+
[2023-03-08 12:17] LABS: Bacteria Negative HPF (Negative); C & S Indicated? No; Crystals Negative HPF (Negative); Epithelial Cells Rare HPF (Negative); Mucus Trace (Negative); RBC 0-2 HPF (0-2); WBC Negative HPF (0-5)
[2023-03-08 12:34] LABS: Iron 190 ug/dL (65-175); Total Iron Binding Capacity 225 ug/dL (250-450); Transferrin Sat 84 % (20-55)
[2023-03-08 12:56] LABS: ALT 107 U/L (16-63); AST 178 U/L (15-37); Albumin 3.4 g/dL (3.4-5.0); Alkaline Phosphatase 132 U/L (46-116); Anion Gap 8.3 mmol/L (3-11); BUN 9 mg/dL (7-18); Bilirubin, Total 1.2 mg/dL (0.2-1.0); CO2 29.7 mmol/L (21.0-32.0); CREATININE 0.9 mg/dL (0.70-1.30); Calcium 9.1 mg/dL (8.5-10.1); Calculated LDL 175 mg/dL (<100); Chloride 104 mmol/L (98-107); Cholesterol 239 mg/dL (<200); Estimated GFR 90.74 (mL/min/1.73m2); Glucose 124 mg/dL (74-106); HDL Cholesterol 39 mg/dL (40-60); Magnesium 1.5 mg/dL (1.8-2.4); Potassium 4.3 mmol/L (3.5-5.1); Sodium 142 mmol/L (136-145); Total Protein 6.9 g/dL (6.4-8.2); Triglyceride 127 mg/dL (<150); Vitamin B12 650 pg/mL (193-986)
[2023-03-08 13:00] LABS: Ferritin 1476 ng/mL (26-388); Folate > 20.0 ng/mL (8.6-20.0)
[2023-03-08 13:04] LABS: Vitamin D 25 Total 102.1 ng/mL (30-100)
[2023-03-08 20:52] LABS: PSA, Screening 2.8 ng/mL (<=6.5)
[2023-03-14 10:14] LABS: Thiamine (Vitamin B1), WB 296 nmol/L (70-180)
== END 2023-03-08 02:36 | disposition home or self-care (01) ==
LOC: LBO 02:35
PROVIDERS: PCP Nurse Practitioner Family; Visit Provider Nurse Practitioner Family
DX: I10 Essential (primary) hypertension (principal); K30 Functional dyspepsia; E55.9 Vitamin D deficiency, unspecified; K76.0 Fatty (change of) liver, not elsewhere classified; Z12.5 Encounter for screening for malignant neoplasm of prostate; Z80.42 Family history of malignant neoplasm of prostate; J43.9 Emphysema, unspecified; G25.9 Extrapyramidal and movement disorder, unspecified; R79.89 Other specified abnormal findings of blood chemistry; R82.998 Other abnormal findings in urine
CPT/HCPCS: 36415; 80053; 80061; 82306; 84153; 81003; 81015; 82607; 82728; 82746; 83540; 83550; 83735; 84425; 85025

== ENCOUNTER 2023-03-19 02:40 | Outpatient (CLI) | payer OTHER, SELFPAY ==
[2023-03-22 11:27] LABS: Result Summary NEGATIVE; Specimen WB Whole Blood
== END 2023-03-19 02:41 | disposition home or self-care (01) ==
PROVIDERS: PCP Nurse Practitioner Family; Visit Provider Nurse Practitioner Family
DX: D75.89 Other specified diseases of blood and blood-forming organs (principal); R78.89 Finding of other specified substances, not normally found in blood; K76.0 Fatty (change of) liver, not elsewhere classified; R74.01 Elevation of levels of liver transaminase levels; R79.89 Other specified abnormal findings of blood chemistry; Z83.2 Family history of diseases of the blood and blood-forming organs and certain disorders involving the immune mechanism; E83.118 Other hemochromatosis
CPT/HCPCS: 36415; 81256

== ENCOUNTER 2023-03-22 01:13 | Outpatient (CLI) | payer OTHER, SELFPAY ==
--- NOTE | 2023-03-22 | DI.US_ITS ---
Exam(s) US ABDOMEN EXAM: US ABDOMEN CLINICAL HISTORY: MACROCYTOSIS D75.89 ELEVATED FERRITIN R78.89 FATTY LIVER K76.0 R74.0 TECHNIQUE: Ultrasound abdomen performed using standard protocol. COMPARISON: CT CT CHEST PE ABD PELVIS W from 10/03/2019 US US ABDOMEN LIMITED from 12/18/2022 FINDINGS: LIVER: Enlarged. Measured at 23 cm in length. Increased echogenicity consistent with moderate hepat ic steatosis. No focal liver lesions are seen.. GALLBLADDER: No evidence of cholelithiasis. No evidence of wall thickening. No pericholecystic fluid identified. GRUBER'S SIGN: Negative. BILIARY SYSTEM: No intrahepatic or extrahepatic biliary ductal dilation. KIDNEYS: Kidneys are symmetric in size. A non obstructing calcification is again noted in the upper p ole of the left kidney, measured at 6 millimeters on today's exam. It was measured at 3 millimeters on the prior exam. The apparent increase in size likely due to measurement error. The size appears visually similar. No evidence of hydronephrosis. No renal mass or cyst identified. PANCREAS: Normal where visualized. SPLEEN: Not enlarged. ABDOMINAL AORTA AND IVC: Visualized portions normal caliber. ASCITES: None seen. IMPRESSION: Stable appearance of hepatic steatosis. No focal liver lesion or biliary dilatation. Stable left le ft upper pole renal calculus. DATA REPOSITORY:
== END 2023-03-22 01:33 ==
PROVIDERS: PCP Nurse Practitioner Family; Visit Provider Nurse Practitioner Family
DX: K76.0 Fatty (change of) liver, not elsewhere classified (principal)
CPT/HCPCS: 76700

== ENCOUNTER → 2023-04-03 00:57 | Outpatient (CLI) | payer OTHER, SELFPAY ==
--- NOTE | 2023-04-03 10:55 | DI.CTLCSR_ITS ---
Exam(s) CT CHEST LUNG CANCER SCREEN EXAM: CT CHEST LUNG CANCER SCREEN CLINICAL HISTORY: FORMER SMOKER, Z87.891 TECHNIQUE: Imaging Protocol: Axial computed tomography images with coronal and sagittal reformatted images were created and reviewed. Low dose screening protocol. COMPARISON: CT CT CHEST LUNG CANCER SCREEN from 03/28/2022 FINDINGS: Tracheobronchial tree: No bronchiectasis or mucus plugging.. Mediastinum and Florencia: No dominant adenopathy or fluid collection. Pulmonary parenchyma: No consolidation or dominant measurable mass. Mild emphysematous changes. Mild bilateral apical scarring Lung Nodules: No suspicious nodules. Scattered tiny calcified nodules. Pleura: No effusion. No pneumothorax. Calcified pleural plaques in the upper lobes. Heart: The heart is not dilated. Moderate coronary artery calcifications are seen. Aorta: Thoracic aorta non-dilated. Mild atherosclerotic changes. Upper abdomen: Non-obstructing stone upper pole left kidney. Bones: Unremarkable for age. Soft Tissues: Unremarkable. IMPRESSION: No suspicious pulmonary nodules. Lung RADS Cat 1 - Negative: No nodules and definitely benign nodules Lung-RADS 1.0 CATEGORIES: Category 0 - Prior chest CT exam(s) being located for comparison. Category 1 - Annual screening in 12 months. No nodules or definitely benign nodules. Category 2 - Annual screening in 12 months. Benign appearance. Nodules with low likelihood of becomin g active cancer. Category 3 - 6-month follow-up. Probably benign. Short-term follow-up suggested. Nodules with low lik elihood of becoming active cancer. Category 4A - 3-month follow-up and CT/PET if >8 mm in size. Suspicious finding. Findings which requi re additional testing. Category 4B - Findings which require additional testing and tissue sampling. Category 4X - Category 3 or 4 nodules with additional features or imaging findings that increases the suspicion of malignancy. Modifier S- Potentially clinically significant findings (non lung cancer) RADIATION DOSE DELIVERED: 78.13mGy.cm Total DLP DATA REPOSITORY: All CT scans at this facility are submitted to the National Radiology Data Registry (NRDR) Dose Index Registry (DIR) with the [employer] (ACR). RADIATION OPTIMIZATION: All CT scans at this facility use at least one of these dose optimization te chniques: automated exposure control; mA and/or kV adjustment per patient size (includes targeted exa ms where dose is matched to clinical indication); or iterative reconstruction.
== END ==
PROVIDERS: PCP Nurse Practitioner Family; Visit Provider Nurse Practitioner Family
DX: Z87.891 Personal history of nicotine dependence (principal); Z12.2 Encounter for screening for malignant neoplasm of respiratory organs
CPT/HCPCS: 71271

== ENCOUNTER 2023-06-04 17:00 | Outpatient (REF) | payer OTHER, SELFPAY ==
[2023-06-04 16:16] LABS: Abs Immature Grans 0.01 10^3/uL (0.0-0.06); Absolute Basophil Count 0.06 10^3/uL (0.0-0.2); Absolute Lymphocyte Count 1.62 10^3/uL (1.2-3.4); Absolute Monocyte Count 0.66 10^3/uL (0.1-0.8); Absolute Neutrophil Count 4.03 10^3/uL (1.2-6.7); Basophils % 0.9; HCT 45.8 % (40.0-50.0); HGB 15.2 g/dL (13.5-17.5); Immature Grans % 0.2; Lymphocytes % 24.6; MCHC 33.2 % (32.0-36.0); MCV 103 fL (80-95); MPV 12.4 fL (8.0-11.0); Neutrophils % 61.3; Platelet Count 140 10^3/uL (130-400); RBC 4.47 10^6/uL (4.36-5.78); RDW 14.1 % (11.8-14.1); RDW-SD 52.9 fL; WBC 6.58 10^3/uL (4.4-10.8)
[2023-06-04 16:22] LABS: Magnesium 1.9 mg/dL (1.8-2.4)
[2023-06-04 17:18] LABS: Vitamin D 25 Total 91.7 ng/mL (30-100)
== END 2023-06-04 17:01 | disposition home or self-care (01) ==
LOC: NCHCN 17:00
PROVIDERS: PCP Nurse Practitioner Family; Visit Provider Nurse Practitioner Family
DX: D75.89 Other specified diseases of blood and blood-forming organs (principal); K76.0 Fatty (change of) liver, not elsewhere classified; I10 Essential (primary) hypertension; E83.42 Hypomagnesemia; J44.9 Chronic obstructive pulmonary disease, unspecified; K30 Functional dyspepsia; J30.9 Allergic rhinitis, unspecified; F41.8 Other specified anxiety disorders
CPT/HCPCS: 82306; 83735; 85025

== ENCOUNTER 2023-11-17 19:02 | Inpatient (IN) | payer OTHER, SELFPAY ==
[2023-11-17] VITALS (32 sets, daily range): BP systolic 79–98; BP diastolic 56–73; PULSE 71–93; RESP 17–27; TEMP 36–36.8; O2SAT 88–100
--- NOTE | 2023-11-17 19:00 | DI.CT_ITS ---
Exam(s) CT HEAD WO EXAM: CT HEAD WO CLINICAL HISTORY: Fall, Confusion. TECHNIQUE: Imaging Protocol: Axial computed tomography images with coronal and sagittal reformatted images were created and reviewed COMPARISON: No exams were available for comparison FINDINGS: Ventricles and Extra axial spaces: Normal in size and morphology for the patient's age. Hemorrhage: None. Cerebral parenchyma: Areas of decreased attenuation in the white matter consistent with chronic micro vascular ischemic disease. No mass effect or evidence of an acute territorial infarct is seen. Midline shift: None. Brainstem/Cerebellum: Normal. Calvarium: Normal. Visualized Paranasal sinuses/Mastoids: Clear. Soft Tissues: Unremarkable. IMPRESSION: No acute intracranial process. RADIATION DOSE DELIVERED: Total DLP DATA REPOSITORY: All CT scans at this facility are submitted to the National Radiology Data Registry (NRDR) Dose Index Registry (DIR) with the [employer] (ACR). RADIATION OPTIMIZATION: All CT scans at this facility use at least one of these dose optimization te chniques: automated exposure control; mA and/or kV adjustment per patient size (includes targeted exa ms where dose is matched to clinical indication); or iterative reconstruction.
--- NOTE | 2023-11-17 19:00 | DI.CT_ITS ---
Exam(s) CT CHEST/ABD/PEL W EXAM: CT CHEST/ABD/PEL W CLINICAL HISTORY: Jaundiced, Fall, Abdominal distention TECHNIQUE: Imaging Protocol: Axial computed tomography images with coronal and sagittal reformatted images were created and reviewed CONTRAST MATERIAL: Intravenous: Omnipaque 350 contrast volume:100 mL Oral: No COMPARISON: CT CT CHEST PE ABD PELVIS W from 10/03/[address] CHEST LUNG CANCER SCREEN from 04/03/2023 FINDINGS: The examination is limited due to patient motion artifact. CHEST: Tracheobronchial tree: Patent where visualized. Pulmonary parenchyma: There are small bilateral pleural effusions and subjacent infiltrates. Biapica l scarring is present. Visualized thyroid gland: Unremarkable. Mediastinum and Florencia: No dominant adenopathy or fluid collection. The esophagus is unremarkable. Pleura: There are calcified pleural plaques. No pneumothorax. Heart: The heart is not dilated. Coronary artery calcification is present. No pericardial effusion. Pulmonary arteries: Due to the timing of the bolus, peripheral pulmonary artery evaluation is limited for pulmonary embolism. No large central pulmonary embolus is seen. Aorta: Thoracic aorta non-dilated. No evidence of dissection. Atherosclerotic calcification is prese nt. Lymph nodes: Within normal limits. Soft tissues: Unremarkable. Bones:Within normal limits for the patient's age. ABDOMEN: Liver: The liver has a nodular contour consistent with hepatic cirrhosis. There is heterogeneous enh ancement. The liver measures 22 cm long. There are varices seen in the upper abdomen with gastroeso phageal varices present. Portal, Superior Mesenteric, and Splenic Veins: Unremarkable. Gallbladder and Biliary Tract: The gallbladder is distended. There is sludge layering in the gallbla dder. No stones are seen. There is no extrahepatic biliary ductal dilatation. Pancreas: There is atrophy of the pancreas. No definite pancreatic mass is seen. Spleen: Normal. Adrenals: No masses seen. Kidneys: Normal size, contour and axis. Left nephrolithiasis. No obstructive uropathy. No masses se en. Abdominal Aorta: Abdominal portion non-dilated. Atherosclerotic calcification is present. Bowel: There is diverticulosis of the colon without evidence of acute diverticulitis. There is no ev idence of suspicious bowel wall thickening or obstruction. There is colonic wall thickening seen dif fusely which likely is secondary to chronic liver disease. There is fluid seen within the small jam l and colon which can be seen with a diarrheal illness. The stomach is incompletely distended limiti ng evaluation. There is no evidence of appendicitis. Peritoneal Cavity: There is a large amount of abdominal pelvic ascites. No free air. Lymph Nodes: Within normal limits. Bones: Within normal limits for the patient's age. Soft Tissues: There is a fat and fluid containing right inguinal hernia. PELVIS: Bladder: The urinary bladder is incompletely distended. No gross abnormalities identified. Reproductive Organs: Unremarkable as visualized. Lymph Nodes: Within normal limits. Bones: Within normal limits. IMPRESSION: 1. Small bilateral pleural effusions and subjacent infiltrates which may represent atelectasis or pne umonia. 2. Findings of cirrhosis and findings suggestive of portal venous hypertension. Varices, ascites and colonic wall thickening which are probably sequelae of chronic liver disease. 3. Gallbladder wall distension with with gallbladder sludge. No stones or biliary ductal dilatation. 4. Fluid seen throughout the bowel which can be seen with a diarrheal illness/enterocolitis. 5. There is heterogeneous enhancement of the liver. This may be due to hepatic cirrhosis. There are s everal small areas of hypodensity in the liver. MRI should be considered to exclude hepatic masses. N o definite pancreatic mass is seen on this examination. RADIATION DOSE DELIVERED: Total DLP DATA REPOSITORY: All CT scans at this facility are submitted to the National Radiology Data Registry (NRDR) Dose Index Registry (DIR) with the [employer] (ACR). RADIATION OPTIMIZATION: All CT scans at this facility use at least one of these dose optimization te chniques: automated exposure control; mA and/or kV adjustment per patient size (includes targeted exa ms where dose is matched to clinical indication); or iterative reconstruction.
--- NOTE | 2023-11-17 19:00 | RT.EKG_ITS ---
APPROVED REPORT Exam: Resting ECG Reason for Exam: Weakness Patient Location: E HR:75 bpm ECG Measurements Heart Rate 75 AXIS DE 144 P 46 QRSd 133 QRS 64 QT 431 T 13 QTc 483 Conclusion Sinus rhythm 75 RBBB
--- NOTE | 2023-11-17 19:10 | ED.GENADUL_ITS ---
Discharge Plan Disposition Patient Disposition: Admit to [facility] Condition: Stable Discharge Details Clinical Impression: Jaundice, Encephalopathy, hepatic Primary Care Provider: Nicolette Harris ED Provider: Daniela Zambrano Home Meds and New Rx's Prescriptions: No Action melatonin 3 mg capsule 3 mg PO HS PRN cholecalciferol (vitamin D3) 25 mcg (1,000 unit) capsule 25 mcg PO TID propranolol 60 mg capsule,extended release 24 hr 60 mg PO DAILY Qty: 90 3RF gabapentin 100 mg capsule 300 mg PO TID Fish Oil 500 mg capsule 1,000 mg PO .COMPLEX Rx Instructions: 1,000 mg PO three times a week; multivitamin [Multiple Vitamins] Tablet 1 tab PO DAILY Qty: 30 0RF levalbuterol tartrate [Xopenex HFA] 45 mcg/actuation HFA aerosol inhaler 2 inh IH Q6H PRN PRN (Reason: shortness of breath or wheezing) Qty: 15 0RF Hold Instructions: Home Medication placed on hold at Doctor's office omeprazole 20 mg capsule,delayed release(DR/EC) 20 mg PO QPM Mag 64 64 mg tablet,delayed release (DR/EC) 128 mg PO DAILY HPI General Mode of arrival: EMS . Date/Time Provider Initiated Documentation: 11/17/23 19:08 . Limitations to Documentation: altered mental status . Information obtained by: patient, EMS, RN notes reviewed and old records reviewed . HPI Narrative: 73-year-old male presents to the ER via EMS with chief complaint of fall, disorientation earlier today around 10:30 AM. Neighbors called 9 1 after patient fell. Patient reports that he remembers going to the grocery store and coming inside the front door and feeling that something was not right. He reports that he woke up on the floor. He does appear jaundiced, he does have a distended abdomen. He is a chronic alcoholic and endorses have a glass of wine earlier today. He is otherwise cachectic, awake and alert and conversive. He denies any pain at this time. Does have dry mucous membranes. No obvious significant signs of trauma noted. Related Data Home Medications Medication Instructions Recorded Confirmed levalbuterol tartrate 45 2 inh inhalation Q6H PRN PRN 10/08/19 11/17/23 mcg/actuation aerosol inhaler shortness of breath or wheezing (Xopenex HFA) #15 grams multivitamin (Multiple Vitamins 1 tab PO DAILY #30 tabs 10/08/19 11/17/23 tablet) gabapentin 100 mg capsule 300 mg PO TID 03/24/20 11/17/23 melatonin 3 mg capsule 3 mg PO HS PRN 11/04/20 11/17/23 magnesium chloride 64 mg 128 mg PO DAILY 04/18/21 11/17/23 (magnesium chloride) tablet,delayed release (Mag 64) omeprazole 20 mg capsule,delayed 20 mg PO QPM 04/18/21 11/17/23 release cholecalciferol (vitamin D3) 25 25 mcg PO TID 05/05/21 11/17/23 mcg (1,000 unit) capsule omega-3 fatty acids 500 mg capsule 1,000 mg PO .COMPLEX 05/05/21 11/17/23 (Fish Oil) propranolol 60 mg capsule,24 60 mg PO DAILY #90 tab-caps 12/19/22 11/17/23 hr,extended release Previous Rx's Medication Instructions Recorded levalbuterol tartrate 45 2 inh inhalation Q6H PRN PRN 10/08/19 mcg/actuation aerosol inhaler shortness of breath or wheezing (Xopenex HFA) #15 grams multivitamin (Multiple Vitamins 1 tab PO DAILY #30 tabs 10/08/19 tablet) propranolol 60 mg capsule,24 60 mg PO DAILY #90 tab-caps 12/19/22 hr,extended release Allergies Allergy/AdvReac Type Severity Reaction Status Date / Time clams Allergy Unknown Verified 12/19/22 10:09 mussels Allergy Unknown Verified 12/19/22 10:09 acetaminophen [From Vicodin] AdvReac Intermediate SEVERE Verified 12/19/22 10:09 CONSTIPATION hydrocodone bitartrate AdvReac Intermediate SEVERE Verified 12/19/22 10:09 [From Vicodin] CONSTIPATION SEAFOOD Allergy Unknown Uncoded 12/19/22 10:09 General SOMMER: 2 Review of Systems All systems reviewed & are unremarkable except as noted in HPI and below Constitutional Constitutional: Reports frequent falls, Reports lethargy and Reports weakness Gastrointestinal Gastrointestinal: Reports bloating Integumentary/Breasts Skin/Breast: Reports jaundice Neurologic Neurologic: Reports confusion, Reports frequent falls and Reports weakness Psychiatric Psychiatric: Reports confusion Exam Narrative Exam Narrative: Constitutional: Alert and oriented x3. Appears stated age. Thin body habitus. Patient jaundiced, appears chronically frail and ill. Disheveled Head: Normocephalic, no trauma. Eyes: Pupils PERRL, Red reflex noted, EOM's intact. Eyelids symmetrical without lesions, discharge, or swelling. ENT: Bilateral TM's WNL, External ear normal to inspection, no mastoid TTP, swelling, or erythema, Nasal turbinates WNL, no nasal discharge. Normal dentition, Posterior pharynx WNL, no exudate. Chest: RRR, Normal S1, S2, distal pulses intact. Resp: Lungs diminished to auscultation bilaterally, Abdomen: Distended, Musculoskeletal: Normal gait, 5/5 strength to all four extremities. Skin: No suspicious rashes or lesions. Capillary refill less than 2 sec. dry, jaundice. Neurologic: Cranial nerves II-XII intact. Alert and oriented x 3. Motor: No deficits noted. Sensory: Intact bilaterally all 4 extremities. Reflexes: DTR's intact bilaterally.. Hematologic/Lymphatic: No ecchymosis, no lymphadenopathy. Medical Decision Making 73-year-old male presents to the ER via EMS with chief complaint of fall, disorientation earlier today around 10:30 AM. Neighbors called 9 1 after patient fell. Patient reports that he remembers going to the grocery store and coming inside the front door and feeling that something was not right. He reports that he woke up on the floor. He does appear jaundiced, he does have a distended abdomen. He is a chronic alcoholic and endorses have a glass of wine earlier today. He is otherwise cachectic, awake and alert and conversive. He denies any pain at this time. Does have dry mucous membranes. No obvious significant signs of trauma noted. On exam patient does appear jaundiced, dry, acute on chronic illness with a distended abdomen. I do suspect alcoholic cirrhosis and possible sepsis. He does have a white count and elevated lactic acid. Patient has elevated white blood cell count of 17.67, lactate initially 3.7, sodium 135 potassium 3.4 BUN 24 creatinine 1.1, magnesium 1.7, bilirubin total 5.7 AST 194 ALT 93 alk phos 205 ammonia level 45 initial troponin within normal limits, albumin 2.5, urinalysis is pending at this time, ethyl alcohol level 61.5, hepatitis panel pending. Ammonia level 45 will consider giving lactulose. On patient reevaluation he is sitting up in bed on his phone, he is conversive and is requesting food, blood pressure is 95/55 which is appropriate for his body weight. Pending CT result. 2203: Spoke with Dr. Moura who agrees to accept patient for admission, he will put orders in. Patient transported up to the floor, This text was generated using [employer] dictation system, please disregard any oddities of phrase or misspellings. Medical Records Medical records reviewed: Yes I reviewed the patient's medical records. Imaging Data Radiologic Study: Imaging: CT Scan Radiologist's impression: Age: 73 years old Clinical indication: Other: Fall, confusion TECHNIQUE: Imaging protocol: Computed tomography of the head without contrast. COMPARISON: No relevant prior studies available. FINDINGS: Brain: There is mild age related parenchymal atrophy with prominence of the cortical sulci. Periventricular and deep white matter hypodensities are consistent with sequela of chronic microvascular ischemic disease. No midline shift or herniation. No acute intra cranial hemorrhage. Cerebral ventricles: No ventriculomegaly. Paranasal sinuses: Imaged paranasal sinuses appropriately aerated without air-fluid levels. Mastoid air cells: No mastoid effusion. Bones/joints: No displaced or depressed skull fracture. Soft tissues: No focal soft tissue abnormality. IMPRESSION: No acute intracranial finding. Thank you for allowing us to participate in the care of your patient. Dictated and Authenticated by: Dioni Giron MD Radiologic Study #2: Imaging: CT Scan Radiologist's impression: FINDINGS: Thyroid: Thyroid gland partially excluded from view but grossly unremarkable through its visualized portion. Lungs: Mild dependent atelectasis. Pleural spaces: Small bilateral pleural effusions. No pneumothorax. Heart: Normal-sized heart. Lymph nodes: No pathologically enlarged mediastinal or hilar lymph nodes. Vasculature: No thoracic aortic aneurysm or dissection. Exam not tailored to evaluate the pulmonary arterial vasculature. Within the limits of the exam, no large central pulmonary embolism demonstrated in the pulmonary trunk or main pulmonary arteries. Distal paraesophageal varices. Bones/joints: No acute fracture seen among the bones of the chest. Soft tissues: No gross soft tissue mass or fluid collection seen in the chest wall. IMPRESSION: 1. Small bilateral pleural effusions. BEST, JEIMY Preliminary Radiology Report Page 2 of 3 2. No acute visceral or bony injury seen in the chest. CT Chest Abd Pelvis IMPRESSION: 1. No acute visceral or bony injury seen in the abdomen or pelvis. 2. Cirrhotic liver morphology. 3. Moderate-large amount of ascites. 4. Marked gallbladder distension. Clinical correlation is recommended to assess the possibility of acute cholecystitis. No calcified gallstones. Common bile duct top-normal in caliber measuring 7 mm. 5. Extensive varices, as described, with a pparent portosystemic shunting to the left renal vein suggesting portal venous hypertension. 6. Extensive colonic wall thickening, as described. Colonic wall thickening is commonly seen in the setting of chronic liver disease as a result of mesenteric venous congestion and/or hyperproteinemia. Colitis, submucosal fatty deposition, and an artifactual appearance created by underdistention can also produce colonic wall thickening. 7. Fluid throughout the small bowel and colon suggesting diarrhea. Thank you for allowing us to participate in the care of your patient. Dictated and Authenticated by: Cheo Andino MD Lab Data Lab results reviewed: Yes I reviewed the patient's lab results. Labs: Laboratory Tests Range/Units 11/17/23 19:15 WBC (4.4-10.8) 10^3/uL 17.67 H RBC (4.36-5.78) 10^6/uL 3.73 L Hgb (13.5-17.5) g/dL 14.2 Hct (40.0-50.0) % 41.4 MCV (80-95) fL 111 H MCH (27.0-33.0) pg 38.1 H MCHC (32.0-36.0) % 34.3 RDW (11.8-14.1) % 13.5 Plt Count (130-400) 10^3/uL 233 MPV (8.0-11.0) fL 12.2 H Immature Gran % 0.0 Neutrophils % 82.0 Lymphocytes % 10.0 Monocytes % 7.0 Eosinophils % 1.0 Basophils % 0.0 Nucleated RBC % (0.0-0.3) % 0.0 Absolute Neutrophils (1.2-6.7) 10^3/uL 14.49 H Absolute Lymphocytes (1.2-3.4) 10^3/uL 1.77 Absolute Monocytes (0.1-0.8) 10^3/uL 1.24 H Absolute Eosinophils (0.0-0.7) 10^3/uL 0.18 Absolute Basophils (0.0-0.2) 10^3/uL 0.00 RBC Morphology See Below Macrocytosis 2+ VBG Lactate (0.6-1.4) mmol/L 3.7 H* Sodium (136-145) mmol/L 135 L Potassium (3.5-5.1) mmol/L 3.4 L Chloride (98-107) mmol/L 98 Carbon Dioxide (21.0-32.0) mmol/L 23.1 Anion Gap (3-11) mmol/L 13.9 H BUN (7-18) mg/dL 24 H Creatinine (0.70-1.30) mg/dL 1.1 Est GFR (CKD-EPI 2020) (mL/min/1.73m2) 71.32 Glucose (74-106) mg/dL 91 Calcium (8.5-10.1) mg/dL 8.4 L Magnesium (1.8-2.4) mg/dL 1.7 L Total Bilirubin (0.2-1.0) mg/dL 5.7 H AST (15-37) U/L 194 H ALT (16-63) U/L 93 H Alkaline Phosphatase (46-116) U/L 205 H Ammonia (11-32) umol/L 45 H Troponin I (< or =60) ng/L < 50 Total Protein (6.4-8.2) g/dL 6.2 L Albumin (3.4-5.0) g/dL 2.5 L Ethyl Alcohol (<10) mg/dL 61.5 H Quality:SDOH Health Related Social Needs: No Data to Display PFSH All Active Problems (Updated 11/17/23 @ 22:28 by Priyank Wood) Leukocytosis (leucocytosis) (Acute) Hyponatremia (Acute) Encephalopathy, hepatic (Acute) Jaundice (Acute) Carpal tunnel syndrome of right wrist (Acute) Right radial nerve palsy (Acute) Alcohol abuse (Chronic) Cellulitis of hand, right (Acute) Infected hand (Acute) Cat scratch of hand (Acute) Memory change (Acute) Tendinitis of long head of biceps brachii of left shoulder (Acute) Rotator cuff tear (Acute) Bilateral shoulder bursitis (Acute) Impingement syndrome of both shoulders (Acute) Orthostatic hypertension (Acute) Autonomic dysfunction (Acute) Folic acid deficiency (Acute) B12 deficiency (Acute) Hypomagnesemia (Acute) Hypokalemia (Acute) Dysphagia (Chronic) Orthostatic hypotension (Acute) Discharge planning issues (Acute) DVT prophylaxis (Acute) COPD (chronic obstructive pulmonary disease) (Chronic) Transaminitis (Acute) Dyspnea on exertion (Acute) TBI (traumatic brain injury) (Chronic) Remote, multiple Migraine headache without aura (Chronic) Alcohol abuse (Acute) sober Vitamin D deficiency (Chronic) Scoliosis (Chronic) Hyperlipidemia (Chronic) Chronic kidney disease, stage 3 (Chronic) Anxiety and depression (Chronic) Chronic pain syndrome (Chronic) 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) Essential tremor (Chronic 04/10/16) 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) Umbilical hernia without obstruction or gangrene (Chronic) Medical History (Updated 11/17/23 @ 22:28 by Priyank Wood) Seizure disorder Alcoholic peripheral neuropathy Surgical History Inguinal hernia Colonoscopy - MAC (05/19/16) Family History Mother TIA (transient ischemic attack) Father Parkinson disease Stroke Social History Smoking/Tobacco Use Status: Former Tobacco Use Smoking risk assessment performed?: Yes Alcohol Intake: current Alcohol Intake frequency: holidays/special occasions only Alcohol type: wine Drug use: Never Substance use type: does not use Household members: none Housing: apartment Pets and animals: Yes Pets and animals: cat(s) Current gender identity: male Do you feel safe at home: Yes Do you feel safe in your relationship?: Yes Additional Social history: Lives alone in second [address] apartment in [place], has a cat Currently working part-time at [employer] in [place] through [employer]. History of smoking, quit June 2018. No vaping. No other drug use including marijuana.
[2023-11-17 19:28] LABS: Lactate 3.7 mmol/L (0.6-1.4)
[2023-11-17 19:33] LABS: Abs Immature Grans 0.07 10^3/uL (0.0-0.06); HCT 41.4 % (40.0-50.0); HGB 14.2 g/dL (13.5-17.5); MCH 38.1 pg (27.0-33.0); MCHC 34.3 % (32.0-36.0); MCV 111 fL (80-95); MPV 12.2 fL (8.0-11.0); Platelet Count 233 10^3/uL (130-400); RBC 3.73 10^6/uL (4.36-5.78); RDW 13.5 % (11.8-14.1); RDW-SD 56.3 fL; WBC 17.67 10^3/uL (4.4-10.8)
[2023-11-17 19:41] LABS: Ammonia 45 umol/L (11-32)
[2023-11-17 19:45] LABS: Absolute Eosinophil Count 0.18 10^3/uL (0.0-0.7)
[2023-11-17 19:46] LABS: Absolute Lymphocyte Count 1.77 10^3/uL (1.2-3.4); Absolute Monocyte Count 1.24 10^3/uL (0.1-0.8); Absolute Neutrophil Count 14.49 10^3/uL (1.2-6.7)
[2023-11-17 19:47] LABS: Diff Comment Manual Differential; Macrocytosis 2+
[2023-11-17 19:50] LABS: ALT 93 U/L (16-63); AST 194 U/L (15-37); Albumin 2.5 g/dL (3.4-5.0); Alkaline Phosphatase 205 U/L (46-116); Anion Gap 13.9 mmol/L (3-11); BUN 24 mg/dL (7-18); Bilirubin, Total 5.7 mg/dL (0.2-1.0); CO2 23.1 mmol/L (21.0-32.0); CREATININE 1.1 mg/dL (0.70-1.30); Calcium 8.4 mg/dL (8.5-10.1); Chloride 98 mmol/L (98-107); ETHANOL BLOOD 61.5 mg/dL (<10); Estimated GFR 71.32 (mL/min/1.73m2); Glucose 91 mg/dL (74-106); Magnesium 1.7 mg/dL (1.8-2.4); Potassium 3.4 mmol/L (3.5-5.1); Sodium 135 mmol/L (136-145); Total Protein 6.2 g/dL (6.4-8.2); Troponin I < 50 ng/L (< or =60)
[2023-11-17] MEDS: MAGNESIUM SULFATE 1 GM/100 ML BAG IVPB (20:01)
[2023-11-17] MEDS: Normal Saline - Diluent 50 ML VIAL IJ (20:03)
[2023-11-17] MEDS: Omnipaque 350 MG/ML 100 ML BTL IJ (20:04)
[2023-11-17] MEDS: Normal Saline 500 ML IV (20:04)
[2023-11-17] MEDS: Normal Saline 1,000 ML 250 ML IV (20:29)
--- NOTE | 2023-11-17 21:03 | DI.VRAD_ITS ---
PROCEDURE INFORMATION: Exam: CT Head Without Contrast Exam date and time: 11/17/2023 8:10 PM Age: 73 years old Clinical indication: Other: Fall, confusion TECHNIQUE: Imaging protocol: Computed tomography of the head without contrast. COMPARISON: No relevant prior studies available. FINDINGS: Brain: There is mild age related parenchymal atrophy with prominence of the cortical sulci. Periventricular and deep white matter hypodensities are consistent with sequela of chronic microvascular ischemic disease. No midline shift or herniation. No acute intracranial hemorrhage. Cerebral ventricles: No ventriculomegaly. Paranasal sinuses: Imaged paranasal sinuses appropriately aerated without air-fluid levels. Mastoid air cells: No mastoid effusion. Bones/joints: No displaced or depressed skull fracture. Soft tissues: No focal soft tissue abnormality. IMPRESSION: No acute intracranial finding. Dictated and Authenticated by: Dioni Giron MD. Ordering:GABRIELA Suarez MD
--- NOTE | 2023-11-17 21:26 | DI.VRAD_ITS ---
PROCEDURE INFORMATION: Exam: CT Chest With Contrast; Diagnostic Exam date and time: 11/17/2023 8:14 PM Age: 73 years old Clinical indication: Other: Jaundiced, fall, abdominal distention TECHNIQUE: Imaging protocol: Diagnostic computed tomography of the chest with contrast. 3D rendering (Not supervised by radiologist): MIP and/or 3D reconstructed images were created by the technologist. Contrast material: OMNIPAQUE; Contrast volume: 100 ml; Contrast route: INTRAVENOUS (IV); COMPARISON: CT CHEST LUNG CANCER SCREEN 04/03/2023 10:53 AM FINDINGS: Thyroid: Thyroid gland partially excluded from view but grossly unremarkable through its visualized portion. Lungs: Mild dependent atelectasis. Pleural spaces: Small bilateral pleural effusions. No pneumothorax. Heart: Normal-sized heart. Lymph nodes: No pathologically enlarged mediastinal or hilar lymph nodes. Vasculature: No thoracic aortic aneurysm or dissection. Exam not tailored to evaluate the pulmonary arterial vasculature. Within the limits of the exam, no large central pulmonary embolism demonstrated in the pulmonary trunk or main pulmonary arteries. Distal paraesophageal varices. Bones/joints: No acute fracture seen among the bones of the chest. Soft tissues: No gross soft tissue mass or fluid collection seen in the chest wall. IMPRESSION: 1. Small bilateral pleural effusions. 2. No acute visceral or bony injury seen in the chest. PROCEDURE INFORMATION: Exam: CT Abdomen And Pelvis With Contrast Exam date and time: 11/17/2023 8:14 PM Age: 73 years old Clinical indication: Other: Jaundiced, fall, abdominal distention TECHNIQUE: Imaging protocol: Computed tomography of the abdomen and pelvis with contrast. 3D rendering (Not supervised by radiologist): MIP and/or 3D reconstructed images were created by the technologist. Contrast material: OMNIPAQUE; Contrast volume: 100 ml; Contrast route: INTRAVENOUS (IV); COMPARISON: CT CHEST LUNG CANCER SCREEN 04/03/2023 10:53 AM FINDINGS: Liver: Small liver. Nodular hepatic contour with an appearance characteristic of hepatic cirrhosis. Heterogeneous hepatic attenuation, nonspecific. Gallbladder and bile ducts: Marked gallbladder distension. No gallbladder wall thickening. No calcified gallstones. Common bile duct top-normal in caliber measuring 7 mm. No intrahepatic biliary dilatation. Pancreas: Mild atrophy of the pancreas. Spleen: Normal appearing spleen. Adrenal glands: Normal appearing adrenal glands. Kidneys and ureters: Normal appearing kidneys. No hydronephrosis. No obstructing ureteral stones. Stomach and bowel: No oral contrast. Stomach partially decompressed. No small bowel dilatation to suggest obstruction. Colon completely evacuated of formed fecal material. Fluid throughout the colon in keeping with diarrhea. Mural thickening through the cecum, ascending colon, distal transverse colon, and descending colon. No evidence of focal acute diverticulitis. Prominent of the perirectal veins suggesting hemorrhoids. Appendix: Appendix not identified, obscured if present. Correlation with surgical history recommended. Intraperitoneal space: Moderate-large amount of ascites. No free air. Vasculature: Normal caliber abdominal aorta. Diffuse engorgement of the mesenteric venous structures. Varices in the gastrohepatic ligament, adjacent to the distal esophagus, along the gastroepiploic arcade, and at the splenic hilum. Enlarged perirectal veins in keeping with hemorrhoids. Recanalization of the umbilical vein with associated varices subjacent to and within the abdominal wall. Apparent portosystemic shunting to the left renal vein. Elevated portal venous pressure/portal venous hypertension suggested. Lymph nodes: No pathologically enlarged mesenteric, retroperitoneal, or pelvic sidewall lymph nodes. Urinary bladder: Normal appearing urinary bladder. Reproductive: Normal-appearing prostate gland and seminal vesicles. Bones/joints: No acute fracture seen among the bones of the abdomen or pelvis. Soft tissues: Tiny fat and fluid containing ventral hernia at the umbilicus. Moderate-sized fat and fluid containing right inguinal region hernia. IMPRESSION: 1. No acute visceral or bony injury seen in the abdomen or pelvis. 2. Cirrhotic liver morphology. 3. Moderate-large amount of ascites. 4. Marked gallbladder distension. Clinical correlation is recommended to assess the possibility of acute cholecystitis. No calcified gallstones. Common bile duct top-normal in caliber measuring 7 mm. 5. Extensive varices, as described, with apparent portosystemic shunting to the left renal vein suggesting portal venous hypertension. 6. Extensive colonic wall thickening, as described. Colonic wall thickening is commonly seen in the setting of chronic liver disease as a result of mesenteric venous congestion and/or hyperproteinemia. Colitis, submucosal fatty deposition, and an artifactual appearance created by underdistention can also produce colonic wall thickening. 7. Fluid throughout the small bowel and colon suggesting diarrhea. Dictated and Authenticated by: Cheo Andino MD. Ordering:GABRIELA Suarez MD
[2023-11-17 21:50] LABS: Bilirubin Moderate (Negative); Blood Negative (Negative); Clarity Clear (Clear); Glucose Negative (Negative); Ketones 15 mg/dL (Negative); Leukocyte Esterase Negative (Negative); Nitrite Negative (Negative); pH 5.5 (5-8)
[2023-11-17 22:11] LABS: Lactate 2.7 mmol/L (0.6-1.4)
--- NOTE | 2023-11-17 22:15 | W.PM.HP.N ---
Date of service: 11/17/23 Time of Service: 22:15 Assessment and Plan Assessment and plan (1) Encephalopathy, hepatic: Start date: 11/17/23 Status: Acute Assessment and plan: This is a 73-year-old gentleman presenting with altered mental status drinking wine daily and having what appears to be chronic alcoholic cirrhosis with significant ascites. He has elevated ammonia level and will be started on lactulose. Further evaluation of his cirrhosis and increased pressures over his abdomen need to be evaluated during his hospital stay with patient to have ultrasound and possible paracentesis to evaluate for spontaneous peritonitis though patient does not appear toxic at this time. He did have a low blood pressure and this does raise a question of early sepsis syndrome especially with low blood pressure. He appears to be responding to IV fluids which will be bolused for blood pressure control. He is nontoxic-appearing. It appears he has no knowledge of his advanced cirrhosis with ascites. He was on propranolol but he states this is for blood pressure. (2) Alcoholic cirrhosis of liver with ascites: Status: Chronic Assessment and plan: Patient appears to have advanced disease with continued alcohol use. Advised cessation of alcohol. Further evaluation and follow-up with gastroenterology. Consider paracentesis with question of infection. (3) Alcohol abuse: Status: Chronic Assessment and plan: Daily alcohol use with wine though patient states she is drinking only several glasses. Watch for alcohol withdrawal. Patient will be placed on CIWA protocol with benzodiazepines. (4) Hypokalemia: Start date: 11/17/23 Status: Acute Assessment and plan: Repletion and follow-up labs adjusting supplement. (5) Hyponatremia: Start date: 11/17/23 Status: Acute Assessment and plan: IV normal saline for hypotension and for sodium replacement. This may be a consequence of chronic alcohol use. (6) Leukocytosis (leucocytosis): Start date: 11/17/23 Status: Acute Assessment and plan: Fairly significant increase in WBC at 18,000. Zosyn for now with consideration of paracentesis and further evaluation as indicated. Continue IV fluid resuscitation. Qualifiers: Leukocytosis type: other Qualified Code(s): D72.828 - Other elevated white blood cell count (7) Lactic acidosis: Start date: 11/17/23 Status: Acute Assessment and plan: Follow-up lab with IV fluid resuscitation. History of Present Illness History of Present Illness Chief Complaint: Altered mental with fall at home Narrative: This is a 73-year-old male patient lives alone and was returning from the grocery store when he had a fall with noted to be confused by the neighbors who called 911 after he fell at the entrance to his home. He remembers going to the grocery store and come inside the front door of his home feeling that something was not right. He woke up on the floor of his home and the neighbors did find down and confused prompting the 70 call for help. He does drink wine though with decreased amount from previous intake and has a distended abdomen which he states is a beer belly. He has knowledge of alcoholic cirrhosis or ascites though is on propranolol which he states is for blood pressure. In the ED the patient was evaluated and found to have elevated liver function test with elevated bilirubin and appeared jaundiced. He also had a significant increase in WBC and near 18,000 and elevated lactate at 3.7 with mild hyponatremia. He was without significantly elevated. His ammonia level was elevated and this may have been causing some of his confusion. He has no history of hepatic encephalopathy. He is not knowledgeable about his probable advanced liver disease by lab and imaging. As stated he does continue to drink wine daily. He has some mild abdominal discomfort and was significant ascites on imaging he was started on Zosyn though he did not appear to have spontaneous peritonitis. Further lab testing and possible paracentesis will be performed if available. Patient had no other complaints. He was more alert at the time I interviewed him. He is a full code. Review of Systems Narrative: 13 point review of systems positive for diarrhea 1 week ago which is stopped, otherwise unrevealing or stable. Patient denies any peripheral edema though his abdomen has been growing in size. [facility] All Active Problems (Updated 11/18/23 @ 10:32 by Priyank Wood) Alcoholic cirrhosis of liver with ascites (Chronic) Pulmonary infiltrates (Acute) Biliary sludge (Acute) Ascites (Acute) Alcoholic cirrhosis (Acute) Lactic acidosis (Acute) Leukocytosis (leucocytosis) (Acute) Hyponatremia (Acute) Encephalopathy, hepatic (Acute) Jaundice (Acute) Carpal tunnel syndrome of right wrist (Acute) Right radial nerve palsy (Acute) Alcohol abuse (Chronic) Cellulitis of hand, right (Acute) Infected hand (Acute) Cat scratch of hand (Acute) Memory change (Acute) Tendinitis of long head of biceps brachii of left shoulder (Acute) Rotator cuff tear (Acute) Bilateral shoulder bursitis (Acute) Impingement syndrome of both shoulders (Acute) Orthostatic hypertension (Acute) Autonomic dysfunction (Acute) Folic acid deficiency (Acute) B12 deficiency (Acute) Hypomagnesemia (Acute) Hypokalemia (Acute) Dysphagia (Chronic) Orthostatic hypotension (Acute) Discharge planning issues (Acute) DVT prophylaxis (Acute) COPD (chronic obstructive pulmonary disease) (Chronic) Transaminitis (Acute) Dyspnea on exertion (Acute) TBI (traumatic brain injury) (Chronic) Remote, multiple Migraine headache without aura (Chronic) Alcohol abuse (Acute) sober Vitamin D deficiency (Chronic) Scoliosis (Chronic) Hyperlipidemia (Chronic) Chronic kidney disease, stage 3 (Chronic) Anxiety and depression (Chronic) Chronic pain syndrome (Chronic) 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) Essential tremor (Chronic 04/10/16) 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) Umbilical hernia without obstruction or gangrene (Chronic) Medical History (Updated 11/18/23 @ 10:32 by Priyank Wood) Seizure disorder Alcoholic peripheral neuropathy Surgical History Inguinal hernia Colonoscopy - MAC (05/19/16) Family History Mother TIA (transient ischemic attack) Father Parkinson disease Stroke Social History Smoking/Tobacco Use Status: Former Tobacco Use Smoking risk assessment performed?: Yes Alcohol Intake: current Alcohol Intake frequency: holidays/special occasions only Alcohol type: wine Drug use: Never Substance use type: does not use Household members: none Housing: apartment Pets and animals: Yes Pets and animals: cat(s) Current gender identity: male Do you feel safe at home: Yes Do you feel safe in your relationship?: Yes Additional Social history: Lives alone in second story apartment in [place], has a cat Currently working part-time at [employer] in [place] through [employer]. History of smoking, quit June 2018. No vaping. No other drug use including marijuana. Meds Allergies and Home Medications Allergies Allergy/AdvReac Type Severity Reaction Status Date / Time clams Allergy Unknown Verified 12/19/22 10:09 mussels Allergy Unknown Verified 12/19/22 10:09 acetaminophen [From Vicodin] AdvReac Intermediate SEVERE Verified 12/19/22 10:09 CONSTIPATION hydrocodone bitartrate AdvReac Intermediate SEVERE Verified 12/19/22 10:09 [From Vicodin] CONSTIPATION SEAFOOD Allergy Unknown Uncoded 12/19/22 10:09 Home Medications Medication Instructions Recorded Confirmed Type levalbuterol tartrate 45 2 inh inhalation Q6H PRN PRN 10/08/19 11/17/23 Rx mcg/actuation aerosol inhaler shortness of breath or wheezing (Xopenex HFA) #15 grams multivitamin (Multiple Vitamins 1 tab PO DAILY #30 tabs 10/08/19 11/17/23 Rx tablet) gabapentin 100 mg capsule 300 mg PO TID 03/24/20 11/17/23 History melatonin 3 mg capsule 3 mg PO HS PRN 11/04/20 11/17/23 History magnesium chloride 64 mg 128 mg PO DAILY 04/18/21 11/17/23 History (magnesium chloride) tablet,delayed release (Mag 64) omeprazole 20 mg capsule,delayed 20 mg PO QPM 04/18/21 11/17/23 History release cholecalciferol (vitamin D3) 25 25 mcg PO TID 05/05/21 11/17/23 History mcg (1,000 unit) capsule omega-3 fatty acids 500 mg capsule 1,000 mg PO .COMPLEX 05/05/21 11/17/23 History (Fish Oil) propranolol 60 mg capsule,24 60 mg PO DAILY #90 tab-caps 12/19/22 11/17/23 Rx hr,extended release Exam Narrative Exam Narrative: General: Patient appears appropriate for age, very thin with a protuberant abdomen. He is in no acute distress. Alert and oriented x 3. HEENT: Normocephalic, eyes with icteric sclera, extraocular movement intact and pupils equal and react to light symmetrically. Oropharynx with slightly dry mucosa. Neck: Supple without JVD. Back: Normal posture without CVA tenderness. Lungs: Bronchovesicular breath sounds with fair aeration and no focalizing rales or rhonchi. No expiratory wheeze. Heart: Regular rhythm with occasional extrasystole, normal rate. No murmurs gallops appreciated. Abdomen: Protuberant with positive fluid wave, nontender with no guarding or rebound. No palpable hepatosplenomegaly. Bowel sounds positive all quadrants. Genitalia/rectal: Exam deferred. Extremities: No clubbing, cyanosis or pitting edema. Muscle wasting diffusely. Fair cap refill. Skin: Jaundice, warm and dry. Neuro: Cranial nerves II through XII gross intact, no focal motor deficits no tremor. Psych: Slightly euphoric affect, normal mood. No abnormal thought processes. Remote and recent memory grossly intact. Results Imaging Imaging Studies: Exam: CT Chest With Contrast; Diagnostic Exam date and time: 11/17/2023 8:14 PM Age: 73 years old Clinical indication: Other: Jaundiced, fall, abdominal distention COMPARISON: CT CHEST LUNG CANCER SCREEN 04/03/2023 10:53 AM FINDINGS: Thyroid: Thyroid gland partially excluded from view but grossly unremarkable through its visualized portion. Lungs: Mild dependent atelectasis. Pleural spaces: Small bilateral pleural effusions. No pneumothorax. Heart: Normal-sized heart. Lymph nodes: No pathologically enlarged mediastinal or hilar lymph nodes. Vasculature: No thoracic aortic aneurysm or dissection. Exam not tailored to evaluate the pulmonary arterial vasculature. Within the limits of the exam, no large central pulmonary embolism demonstrated in the pulmonary trunk or main pulmonary arteries. Distal paraesophageal varices. Bones/joints: No acute fracture seen among the bones of the chest. Soft tissues: No gross soft tissue mass or fluid collection seen in the chest wall. IMPRESSION: 1. Small bilateral pleural effusions. 2. No acute visceral or bony injury seen in the chest. PROCEDURE INFORMATION: Exam: CT Abdomen And Pelvis With Contrast Exam date and time: 11/17/2023 8:14 PM Age: 73 years old Clinical indication: Other: Jaundiced, fall, abdominal distention COMPARISON: CT CHEST LUNG CANCER SCREEN 04/03/2023 10:53 AM FINDINGS: Liver: Small liver. Nodular hepatic contour with an appearance characteristic of hepatic cirrhosis. Heterogeneous hepatic attenuation, nonspecific. Gallbladder and bile ducts: Marked gallbladder distension. No gallbladder wall thickening. No calcified gallstones. Common bile duct top-normal in caliber measuring 7 mm. No intrahepatic biliary dilatation. Pancreas: Mild atrophy of the pancreas. Spleen: Normal appearing spleen. Adrenal glands: Normal appearing adrenal glands. Kidneys and ureters: Normal appearing kidneys. No hydronephrosis. No obstructing ureteral stones. Stomach and bowel: No oral contrast. Stomach partially decompressed. No small bowel dilatation to suggest obstruction. Colon completely evacuated of formed fecal material. Fluid throughout the colon in keeping with diarrhea. Mural thickening through the cecum, ascending colon, distal transverse colon, and descending colon. No evidence of focal acute diverticulitis. Prominent of the perirectal veins suggesting hemorrhoids. Appendix: Appendix not identified, obscured if present. Correlation with surgical history recommended. Intraperitoneal space: Moderate-large amount of ascites. No free air. Vasculature: Normal caliber abdominal aorta. Diffuse engorgement of the mesenteric venous structures. Varices in the gastrohepatic ligament, adjacent to the distal esophagus, along the gastroepiploic arcade, and at the splenic hilum. Enlarged perirectal veins in keeping with hemorrhoids. Recanalization of the umbilical vein with associated varices subjacent to and within the abdominal wall. Apparent portosystemic shunting to the left renal vein. Elevated portal venous pressure/portal venous hypertension suggested. Lymph nodes: No pathologically enlarged mesenteric, retroperitoneal, or pelvic sidewall lymph nodes. Urinary bladder: Normal appearing urinary bladder. Reproductive: Normal-appearing prostate gland and seminal vesicles. Bones/joints: No acute fracture seen among the bones of the abdomen or pelvis. Soft tissues: Tiny fat and fluid containing ventral hernia at the umbilicus. Moderate-sized fat and fluid containing right inguinal region hernia. IMPRESSION: 1. No acute visceral or bony injury seen in the abdomen or pelvis. 2. Cirrhotic liver morphology. 3. Moderate-large amount of ascites. 4. Marked gallbladder distension. Clinical correlation is recommended to assess the possibility of acute cholecystitis. No calcified gallstones. Common bile duct top-normal in caliber measuring 7 mm. 5. Extensive varices, as described, with apparent portosystemic shunting to the left renal vein suggesting portal venous hypertension. 6. Extensive colonic wall thickening, as described. Colonic wall thickening is commonly seen in the setting of chronic liver disease as a result of mesenteric venous congestion and/or hyperproteinemia. Colitis, submucosal fatty deposition, and an artifactual appearance created by underdistention can also produce colonic wall thickening. 7. Fluid throughout the small bowel and colon suggesting diarrhea. Exam: CT Head Without Contrast Exam date and time: 11/17/2023 8:10 PM Age: 73 years old Clinical indication: Other: Fall, confusion COMPARISON: No relevant prior studies available. FINDINGS: Brain: There is mild age related parenchymal atrophy with prominence of the cortical sulci. Periventricular and deep white matter hypodensities are consistent with sequela of chronic microvascular ischemic disease. No midline shift or herniation. No acute intracranial hemorrhage. Cerebral ventricles: No ventriculomegaly. Paranasal sinuses: Imaged paranasal sinuses appropriately aerated without air-fluid levels. Mastoid air cells: No mastoid effusion. Bones/joints: No displaced or depressed skull fracture. Soft tissues: No focal soft tissue abnormality. IMPRESSION: No acute intracranial finding. Labs 11/18/23 06:40 11/18/23 06:40 Labs: Laboratory Results - last 24 hr 11/17/23 11/17/23 11/17/23 19:15 21:40 22:00 WBC 17.67 H RBC 3.73 L Hgb 14.2 Hct 41.4 MCV 111 H MCH 38.1 H MCHC 34.3 RDW 13.5 Plt Count 233 MPV 12.2 H Immature Gran % 0.0 Neutrophils % 82.0 Lymphocytes % 10.0 Monocytes % 7.0 Eosinophils % 1.0 Basophils % 0.0 Nucleated RBC % 0.0 Absolute Neutrophils 14.49 H Absolute Lymphocytes 1.77 Absolute Monocytes 1.24 H Absolute Eosinophils 0.18 Absolute Basophils 0.00 RBC Morphology See Below Macrocytosis 2+ VBG Lactate 3.7 H* 2.7 H* Sodium 135 L Potassium 3.4 L Chloride 98 Carbon Dioxide 23.1 Anion Gap 13.9 H BUN 24 H Creatinine 1.1 Est GFR (CKD-EPI 2020) 71.32 Glucose 91 Calcium 8.4 L Magnesium 1.7 L Total Bilirubin 5.7 H AST 194 H ALT 93 H Alkaline Phosphatase 205 H Ammonia 45 H Troponin I < 50 Total Protein 6.2 L Albumin 2.5 L Urine Color Dark Yellow Urine Clarity Clear Urine pH 5.5 Ur Specific Daphne 1.010 Urine Protein Negative Urine Ketones 15 H Urine Blood Negative Urine Nitrite Negative Urine Bilirubin Moderate H Urine Urobilinogen 4.0 H Ur Leukocyte Esterase Negative Urine Glucose Negative Ethyl Alcohol 61.5 H Last Vital Signs Temp 36.0 C L 11/17/23 19:06 Pulse 76 11/17/23 21:31 Resp 24 11/17/23 21:31 BP 84/62 L 11/17/23 21:31 Pulse Ox 93 11/17/23 21:31 PAWSS Have you Been Recently Intoxicated or Drunk Within the Last 30 days?: Yes Have you Ever Experienced Previous Episodes of Alcohol Withdrawal?: No Have you ever Experienced Withdrawal Seizures?: No Have you ever Experienced Delirium Tremens(DT)s?: No Have you ever undergone Alcohol Rehabilitation Treatment (i.e, inpt ot outpatient treatment programs)?: No Have you ever Experienced Blackouts?: Yes Have you ever Combined Alcohol with other Downers within the last 90 days?: No Have you ever Combined Alcohol with any other Substance of Abuse during the last 90 days?: No Positive Blood Alcohol level on Presentation? [PCS.BAL]: Yes Evidence of Increased Autonomic Activity (i.e. HR>120, tremor, sweating, agitation, nausea)?: No Result: 3 Time Spent Time spent with Patient: >75 minutes Time was spent: preparing to see the patient(eg.review tests), obtaining and/or reviewing separately otained hiistory, ordering medications,tests, procedures, referring, communicating with other health childcare aide, indepentently interpreting results, counseling the patient and care coordination
[2023-11-17 22:28] LABS: Troponin I < 50 ng/L (< or =60)
[2023-11-17] MEDS: Normal Saline 1,000 ML 125 ML IV (22:48)
[2023-11-17 22:50] LABS: INR 1.7 (0.9-1.1); Prothrombin Time 16.7 sec (9.1-11.1)
[2023-11-17] MEDS: Heparin 5,000 UNITS/ML VIAL 5000 UNITS SC (23:11)
[2023-11-17] MEDS: POTASSIUM CHLORIDE 20 MEQ/100 ML BAG 50 MEQ IVPB (23:12)
--- NOTE | 2023-11-17 23:26 | NUR.NOTE ---
REPORT CALLED TO MED [facility] AKASH NOW:
[2023-11-18] VITALS (11 sets, daily range): BP systolic 80–103; BP diastolic 52–74; PULSE 73–96; RESP 18–20; TEMP 36.4–37.3; O2SAT 87–93
[2023-11-18] MEDS: LORazepam 1 MG TAB PO/SL ×2 (01:41→11:15)
[2023-11-18] MEDS: PIPERACILLIN/TAZO 3.375 GM in Normal Saline 50 ML IVPB ×4 (01:41→20:38)
[2023-11-18] MEDS: Normal Saline 1,000 ML 125 ML IV (05:31)
[2023-11-18 07:36] LABS: HCT 34.7 % (40.0-50.0); HGB 12.2 g/dL (13.5-17.5); MCHC 35.2 % (32.0-36.0); MCV 108 fL (80-95); MPV 12.4 fL (8.0-11.0); Platelet Count 167 10^3/uL (130-400); RBC 3.21 10^6/uL (4.36-5.78); RDW 13.8 % (11.8-14.1); RDW-SD 55.2 fL
[2023-11-18 07:46] LABS: INR 1.7 (0.9-1.1); Prothrombin Time 16.3 sec (9.1-11.1)
[2023-11-18 07:55] LABS: PHOSPHORUS 3.3 mg/dL (2.6-4.7)
[2023-11-18 07:58] LABS: ALT 82 U/L (16-63); AST 161 U/L (15-37); Alkaline Phosphatase 167 U/L (46-116); BUN 19 mg/dL (7-18); Bilirubin, Total 4.5 mg/dL (0.2-1.0); CREATININE 0.9 mg/dL (0.70-1.30); Calcium 7.9 mg/dL (8.5-10.1); Chloride 103 mmol/L (98-107); Estimated GFR 90.74 (mL/min/1.73m2); Glucose 81 mg/dL (74-106); Magnesium 1.7 mg/dL (1.8-2.4); Potassium 3.8 mmol/L (3.5-5.1); Sodium 138 mmol/L (136-145); Total Protein 5.1 g/dL (6.4-8.2)
[2023-11-18 08:10] LABS: BE (Venous) -1 mmol/L (-2-3); HCO3 (Venous) 24 mmol/L (23-28); O2 Sat (Venous) 52 %; TCO2 (Venous) 22 mmol/L (24-29); pCO2 (Venous) 37 mmHg (41-51); pH (Venous) 7.42 (7.31-7.41); pO2 (Venous) 30 mmHg
[2023-11-18] MEDS: ALBUMIN HUMAN 25 GM/100 ML BTL IV ×2 (08:11→16:42)
[2023-11-18 08:12] LABS: Lactate 1.1 mmol/L (0.6-1.4)
[2023-11-18] MEDS: Multivitamin TAB 1 TAB PO (08:19)
[2023-11-18] MEDS: Cholecalciferol (Vitamin D3) 1,000 UNIT TAB 1000 UNITS PO ×3 (08:19→20:38)
[2023-11-18] MEDS: Thiamine 100 MG TAB PO (08:19)
[2023-11-18 08:20] LABS: Ammonia 47 umol/L (11-32)
[2023-11-18] MEDS: Folic Acid 1 MG TAB PO (08:20)
[2023-11-18] MEDS: Magnesium Chloride 64 MG TABCR 128 MG PO (08:20)
[2023-11-18] MEDS: Gabapentin 300 MG CAP PO ×3 (08:20→20:39)
[2023-11-18] MEDS: Midodrine 2.5 MG TAB 5 MG PO ×3 (08:20→20:39)
[2023-11-18] MEDS: Normal Saline Flush 10 ML SYR IVP ×3 (08:21→20:39)
[2023-11-18] MEDS: Lactulose 20 GM/30 ML CUP PO ×3 (08:21→20:38)
[2023-11-18] MEDS: Heparin 5,000 UNITS/ML VIAL 5000 UNITS SC ×2 (08:21→16:50)
--- NOTE | 2023-11-18 08:31 | INITIAL_ITS ---
Date of service: 11/18/23 Time of Service: 08:31 Care Management Initial Assmt Initial Assessment REASON FOR HOSPITALIZATION:: hepatic encephalopathy PREVIOUS FUNCTIONAL STATUS/SOCIAL/FAMILY SUPPORTS:: Denise lives in an apartment in a single family home [place] with his cat Shaheed. 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 Denise is independent with ADLs and self care and uses a cane occasionally, depending on the weather. He does not receive any community services. CURRENT FUNCTIONAL STATUS:: Denise was lying in bed when CM met with him. He was pleasant and cooperative and interacted well with CM. Denise talked about his cat Shaheed. He informed CM that Shaheed showed up on his doorstep in [place] one about 10 or 11 years ago and has been with him since. Denise was admitted with hepatic encephalopathy however he was mentally clear when CM was conversing with him. He does have chronic liver disease with ascites. Dr. Lo arrived to perform a paracentesis as CM was leaving Denise's room. Denise did request information about housekeeping services and CM offered to send a referral to [facility] [place] [facility] and Denise agreed. ADVANCE DIRECTIVES:: none on file but states he has completed them. Has patient been provided with info about the portal/API?: Yes Did the patient sign up for the portal?: Yes CODE STATUS:: Full Code INSURANCE COVERAGE / FINANCIAL ISSUES:: [employer] CURRENT HOME/COMMUNITY SERVICES/EQUIPMENT:: uses a cane occasionally PRIMARY CARE PHYSICIAN:: Nicolette Harris POTENTIAL DISCHARGE NEEDS:: follow up with PCP and plan of care ANTICIPATED BARRIERS TO DISCHARGE:: review of discharge instructions, activity, limitations, follow up plan, discuss Ask Me Three. TRANSPORTATION:: via private vehicle vs RCT PLAN:: Anticipate denise will be discharged home when medically stable. He will follow up with his community providers and plan of care and transport with a friend or family member. CM will follow and support discharge planning needs. 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) Pulmonary infiltrates (Acute) Biliary sludge (Acute) Ascites (Acute) Alcoholic cirrhosis (Acute) Lactic acidosis (Acute) Leukocytosis (leucocytosis) (Acute) Hyponatremia (Acute) Encephalopathy, hepatic (Acute) Jaundice (Acute) Carpal tunnel syndrome of right wrist (Acute) Right radial nerve palsy (Acute) Alcohol abuse (Chronic) Cellulitis of hand, right (Acute) Infected hand (Acute) Cat scratch of hand (Acute) Memory change (Acute) Tendinitis of long head of biceps brachii of left shoulder (Acute) Rotator cuff tear (Acute) Bilateral shoulder bursitis (Acute) Impingement syndrome of both shoulders (Acute) Orthostatic hypertension (Acute) Autonomic dysfunction (Acute) Folic acid deficiency (Acute) B12 deficiency (Acute) Hypomagnesemia (Acute) Hypokalemia (Acute) Dysphagia (Chronic) Orthostatic hypotension (Acute) Discharge planning issues (Acute) DVT prophylaxis (Acute) COPD (chronic obstructive pulmonary disease) (Chronic) Transaminitis (Acute) Dyspnea on exertion (Acute) TBI (traumatic brain injury) (Chronic) Remote, multiple Migraine headache without aura (Chronic) Alcohol abuse (Acute) sober Vitamin D deficiency (Chronic) Scoliosis (Chronic) Hyperlipidemia (Chronic) Chronic kidney disease, stage 3 (Chronic) Anxiety and depression (Chronic) Chronic pain syndrome (Chronic) 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) Essential tremor (Chronic 04/10/16) 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) Umbilical hernia without obstruction or gangrene (Chronic) Medical History Seizure disorder Alcoholic peripheral neuropathy Surgical History Inguinal hernia Colonoscopy - MAC (05/19/16) Family History Mother TIA (transient ischemic attack) Father Parkinson disease Stroke Social History Smoking/Tobacco Use Status: Former Tobacco Use Smoking risk assessment performed?: Yes Alcohol Intake: current Alcohol Intake frequency: holidays/special occasions on ly Alcohol type: wine Drug use: Never Substance use type: does not use Household members: none Housing: apartment Pets and animals: Yes Pets and animals: cat(s) Current gender identity: male Do you feel safe at home: Yes Do you feel safe in your relationship?: Yes Additional Social history: Lives alone in second story apartment in [place], has a cat Currently working part-time at [employer] in [place] through [employer]. History of smoking, quit June 2018. No vaping. No other drug use including marijuana. SDOH(Care Management) Screening Will the Patient Participate in the Screening?: Yes Do you worry about having a steady place to live?: no In the past 12 months, have you had to go without electric, gas, oil or water in your home?: no Have you or anyone in your house had to go without enough food to eat?: no Has lack of transportation kept you from medical appointments or from doing things needed for daily living?: no Has anyone in your support network made you feel unsafe for any reason?: no
[2023-11-18 08:32] LABS: Procalcitonin 0.5 ng/mL
[2023-11-18] MEDS: Lactated Ringers 500 ML IV (08:52)
--- NOTE | 2023-11-18 09:53 | PGE_ITS ---
Date of Service Date of service: 11/18/23 Time of Service: 08:00 Assessment and Plan Assessment and plan (1) Encephalopathy, hepatic: Status: Acute Assessment and plan: encephalopathy appears to be improving; continue w/ lactulose and add rifaximin, ammonia remains elevated but his sensorium seems to be clearing. monitor for acute alcohol withdrawal w/ CIWA scoring (2) Leukocytosis (leucocytosis): Status: Acute Assessment and plan: suspect pneumonia, currently on Zosyn, supplemental oxygen, will add IS and acapella, check sputum culture, gram stain, check urine strep and legionell antigen and sputum for mycoplasma. This may just be atelectasis from his decre ase respiratory excursions from his ascites and his pleural effusions which I believe to be from his ascites. He does not seem to have abdominal pain this morning although that was reported by the security advisor as one of his complaints. He has a leukocytosis that has improved overnight, blood cultures are pending. Continue Zosyn as this will provide not only good coverage for pneumonia but also for biliary source or GI source of infection. Qualifiers: Leukocytosis type: other Qualified Code(s): D72.828 - Other elevated white blood cell count (3) Pulmonary infiltrates: Status: Acute Assessment and plan: as above; provide good pulmonary toiletry and proceed w/ antibiotics and treatments as above. (4) Hyponatremia: Status: Acute Assessment and plan: gentle fluid hydration w/ LR, monitor electrolytes (5) Transaminitis: Status: Acute Assessment and plan: secondary to alcoholism, although hepatitis panel has been sent; calculated alcoholic hepatitis discriminant score (Maddrey score) was 28.4 (scores over 32 correlates w/ increased 30 day mortality rates over 50%), therefore, I will hold off methylprednisolone for now but monitor his protime and transaminases and bilirubin over next 24 to 48 hr. hopefully this will decline w/ cessation of alcohol (6) COPD (chronic obstructive pulmonary disease): Status: Chronic Assessment and plan: he does not sound to be wheezing this morning. I do not think he is in an acute exacerbation. I would give him DuoNeb on prn basis, review of his home med list does not appear that he is taking any maintenance bronchodilators. Qualifiers: COPD type: unspecified COPD Qualified Code(s): J44.9 - Chronic obstructive pulmonary disease, unspecified (7) Alcohol abuse: Status: Chronic Assessment and plan: he last had a drink of wine yesterday. will monitor him for acute withdrawal w/ CIWA scoring. (8) Lactic acidosis: Status: Acute Assessment and plan: resolving after iv fluids, probably primarily d/t dehydration although sepsis remains possibilty given his leukocytosis and borderline elevation of his procalcitonin. (9) Alcoholic cirrhosis: Status: Acute Qualifiers: Ascites presence: with ascites Qualified Code(s): K70.31 - Alcoholic cirrhosis of liver with ascites (10) Ascites: Status: Acute Assessment and plan: I will ask surgery to evaluate his ascites to consider paracentesis for diagnostic purposes to rule out SBP, however, clinically his abdominal exam seems benign this morning; I suspect this ascites is chronic from his cirrhosis. Qualifiers: Ascites type: due to alcoholic cirrhosis Qualified Code(s): K70.31 - Alcoholic cirrhosis of liver with ascites (11) Biliary sludge: Status: Acute Assessment and plan: no evidence of acute cholecystitis either on exam nor as evidenced by his CT scan. There is some questionable hyodense lesions on the liver which should be followed up w/ US of the liver. Subjective Subjective Interval history since last seen: Patient denies any dizziness, or dyspnea or abdominal pains this morning. Exam Narrative Exam Narrative: Roderick appears alert and oriented (at least to place/name and circumstances), he is jaundiced and has scleral icterus Neck: no overt JVD Lungs: clear anteriorly Heart: RRR Abdomen: distended, firm but nontender, +fluid wave Extremities: no pitting pretibial edema and no cyanosis Skin: jaundiced. Objective Last Vital Signs Temp 37.1 C 11/18/23 08:22 Pulse 73 11/18/23 08:22 Resp 18 11/18/23 08:22 BP 96/72 L 11/18/23 08:22 Pulse Ox 87 L 11/18/23 08:22 Laboratory Results - last 24 hr 11/17/23 11/17/23 11/17/23 19:15 21:40 22:00 WBC 17.67 H RBC 3.73 L Hgb 14.2 Hct 41.4 MCV 111 H MCH 38.1 H MCHC 34.3 RDW 13.5 Plt Count 233 MPV 12.2 H Immature Gran % 0.0 Neutrophils % 82.0 Lymphocytes % 10.0 Monocytes % 7.0 Eosinophils % 1.0 Basophils % 0.0 Nucleated RBC % 0.0 Absolute Neutrophils 14.49 H Absolute Lymphocytes 1.77 Absolute Monocytes 1.24 H Absolute Eosinophils 0.18 Absolute Basophils 0.00 RBC Morphology See Below Macrocytosis 2+ PT INR APTT VBG pH VBG pCO2 VBG pO2 VBG HCO3 VBG Total CO2 VBG O2 Saturation VBG Base Excess VBG Lactate 3.7 H* 2.7 H* Sodium 135 L Potassium 3.4 L Chloride 98 Carbon Dioxide 23.1 Anion Gap 13.9 H BUN 24 H Creatinine 1.1 Est GFR (CKD-EPI 2020) 71.32 Glucose 91 Calcium 8.4 L Phosphorus Magnesium 1.7 L Total Bilirubin 5.7 H AST 194 H ALT 93 H Alkaline Phosphatase 205 H Ammonia 45 H Troponin I < 50 < 50 Total Protein 6.2 L Albumin 2.5 L Procalcitonin Urine Color Dark Yellow Urine Clarity Clear Urine pH 5.5 Ur Specific [place] 1.010 Urine Protein Negative Urine Ketones 15 H Urine Blood Negative Urine Nitrite Negative Urine Bilirubin Moderate H Urine Urobilinogen 4.0 H Ur Leukocyte Esterase Negative Urine Glucose Negative Ethyl Alcohol 61.5 H 11/17/23 11/18/23 11/18/23 22:25 06:40 08:04 WBC 10.30 RBC 3.21 L Hgb 12.2 L D Hct 34.7 L MCV 108 H MCH 38.0 H MCHC 35.2 RDW 13.8 Plt Count 167 MPV 12.4 H Immature Gran % Neutrophils % Lymphocytes % Monocytes % Eosinophils % Basophils % Nucleated RBC % Absolute Neutrophils Absolute Lymphocytes Absolute Monocytes Absolute Eosinophils Absolute Basophils RBC Morphology Macrocytosis PT 16.7 H 16.3 H INR 1.7 H 1.7 H APTT 33.0 H VBG pH 7.42 H VBG pCO2 37 L VBG pO2 30 VBG HCO3 24 VBG Total CO2 22 L VBG O2 Saturation 52 VBG Base Excess -1 VBG Lactate 1.1 Sodium 138 Potassium 3.8 Chloride 103 Carbon Dioxide 24.0 Anion Gap 11.0 BUN 19 H Creatinine 0.9 Est GFR (CKD-EPI 2020) 90.74 Glucose 81 Calcium 7.9 L Phosphorus 3.3 Magnesium 1.7 L Total Bilirubin 4.5 H AST 161 H ALT 82 H Alkaline Phosphatase 167 H Ammonia 47 H Troponin I Total Protein 5.1 L Albumin 2.0 L Procalcitonin 0.5 Urine Color Urine Clarity Urine pH Ur Specific [place] Urine Protein Urine Ketones Urine Blood Urine Nitrite Urine Bilirubin Urine Urobilinogen Ur Leukocyte Esterase Urine Glucose Ethyl Alcohol PAWSS Have you Been Recently Intoxicated or Drunk Within the Last 30 days?: Yes Have you Ever Experienced Previous Episodes of Alcohol Withdrawal?: No Have you ever Experienced Withdrawal Seizures?: No Have you ever Experienced Delirium Tremens(DT)s?: No Have you ever undergone Alcohol Rehabilitation Treatment (i.e, inpt ot outpatient treatment programs)?: Yes Have you ever Experienced Blackouts?: No Have you ever Combined Alcohol with other Downers within the last 90 days?: No Have you ever Combined Alcohol with any other Substance of Abuse during the last 90 days?: No Positive Blood Alcohol level on Presentation? [PCS.BAL]: Yes Evidence of Increased Autonomic Activity (i.e. HR>120, tremor, sweating, agitation, nausea)?: Yes Result: 4 Time Spent with Patient Time Spent with Patient: >50 minutes Time was spent: preparing to see the patient(eg.review tests), ordering medications,tests, procedures, referring, communicating with other health health care technician, indepentently interpreting results, counseling the patient and care coordination
--- NOTE | 2023-11-18 10:15 | IN_ITS ---
PT Notes Visit Reasons: Hepatic Encephalopathy, Alcoholic hepatitis.... Inpatient Physical Therapy Evaluation Date: November 18, 2023 Referring Doctor: Dr. Laureano Ferguson. PT Orders: PT CONSULT: Fall safety assessment Precautions: Standard, fall Patient Profile/Admitting Diagnosis: 73-year-old male presents to the ER via EMS 11/17/23 with chief complaint of fall, disorientation earlier today around 10:30 AM. Neighbors called 911 after patient fell. Patient reports that he remembers going to the grocery store and coming inside the front door and feeling that something was not right. He reports that he woke up on the floor. He is a chronic alcoholic. He denies any pain at this time. Does have dry mucous membranes. No obvious significant signs of trauma noted. PMHX: PFSH All Active Problems (Updated 11/17/23 @ 22:28 by Priyank Wood) Leukocytosis (leucocytosis) (Acute) Hyponatremia (Acute) Encephalopathy, hepatic (Acute) Jaundice (Acute) Carpal tunnel syndrome of right wrist (Acute) Right radial nerve palsy (Acute) Alcohol abuse (Chronic) Cellulitis of hand, right (Acute) Infected hand (Acute) Cat scratch of hand (Acute) Memory change (Acute) Tendinitis of long head of biceps brachii of left shoulder (Acute) Rotator cuff tear (Acute) Bilateral shoulder bursitis (Acute) Impingement syndrome of both shoulders (Acute) Orthostatic hypertension (Acute) Autonomic dysfunction (Acute) Folic acid deficiency (Acute) B12 deficiency (Acute) Hypomagnesemia (Acute) Hypokalemia (Acute) Dysphagia (Chronic) Orthostatic hypotension (Acute) Discharge planning issues (Acute) DVT prophylaxis (Acute) COPD (chronic obstructive pulmonary disease) (Chronic) Transaminitis (Acute) Dyspnea on exertion (Acute) TBI (traumatic brain injury) (Chronic) Remote, multipleMigraine headache without aura (Chronic) Alcohol abuse (Acute) soberVitamin D deficiency (Chronic) Scoliosis (Chronic) Hyperlipidemia (Chronic) Chronic kidney disease, stage 3 (Chronic) Anxiety and depression (Chronic) Chronic pain syndrome (Chronic) 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 Independent with all aspects of ADLs prior to admission. Admits that he uses a single-point cane on occasion only ambulating outside in bad weather. Equipment Owned/DME: Wooden cane Subjective: Roderick has no complaints to offer. States that he does feel little. Slept okay last night. Feels weak. Objective: General Observation: IV in right forearm, 1 L supplemental oxygen, telemetry Mental Status: Alert and oriented as to person, place, time, and purpose. Able to pay attention, focus, and respond appropriately. Pain: 0/10 ROM: Right Upper Extremity: Shoulder Flexion WFL. Shoulder abduction WFL. Elbow flexion WFL. Wrist flexion WFL. Left Upper Extremity: Shoulder Flexion WFL. Shoulder abduction WFL. Elbow flexion WFL. Wrist flexion WFL. Opening and closing of hand WFL. Right Lower Extremity: Hip flexion WFL. Hip abduction WFL. Knee flexion WFL. Ankle dorsiflexion WFL. Ankle plantarflexion WFL. Left Lower Extremity: Hip flexion WFL. Hip abduction WFL. Knee flexion WFL. Ankle dorsiflexion WFL. Ankle plantarflexion WFL. Strength: Right Upper Extremity: Shoulder flexors 4/5. Shoulder abductors 4/5. Elbow flexors 5/5. Elbow extensors 5/5. Fair concrete pipe maker Left Upper Extremity: Shoulder flexors 5/5. Shoulder abductors 4+/5. Elbow flexors 5/5. Elbow extensors 5/5. Test Center Administrator strong. Right Lower Extremity: Hip flexors 4-5. Hip abductors 4/5 in sitting. Knee flexors 4-/5. Knee extensors 4-/5. Ankle dorsiflexors 4/5. Ankle plantarflexors 4/5. Left Lower Extremity: Hip flexors 4-/5. Hip abductors 4/5 in sitting. Knee flexors 4/5. Knee extensors 4-/5. Ankle dorsiflexors 4/5. Ankle plantarflexors 4/5. Sensation: Intact to light touch bilateral lower extremities. Bed Mobility/Transfers: Rolling independent Supine to sit independent head of bed 30 degrees Sit to supine min assist for lower extremities into bed Sit to stand min assist x 1 Stand to sit contact-guard Gait: Patient tolerated level surface ambulation of up to 100 feet using front wheel walker device with full weight bearing and contact-guard. Negative path deviation. No LOB. Mild shortness of breath activity. Alem typically slower than prior to admission with decreased stride length. O2 saturation following ambulation 94% on room air. He was positioned back in bed with supplemental oxygen 1 L. Bed alarm turned on upon completion of ambulation. Balance: Static Sitting: Normal Dynamic Sitting: Normal Static Standing: Fair Dynamic Standing: Fair Special Tests: Mobility Limitations Standardized Measure [facility] AM-PAC 6 clicks Basic Mobility Inpatient Short Form: Raw Score: 19 CMS Score: 41 % deficit Informed Consent/Education: Patient was instructed in purpose of PT consult and plan of care. Assessment: Roderick is a 73-year-old male, with a history of COPD and TBI who pr esented to the ED on 11/17/2023 after sustaining a fall. Roderick is diagnosed with hepatic encephalopathy, and EtOH abuse. Roderick is at near baseline with mobility ADL performance is willing to work with physical therapy to increase stability of gait and undergo progressive strengthening while on admission. Patient presents with clinical signs and symptoms consistent with current/admitting diagnoses that have resulted to mobility limitations, gait instability, and generalized weakness as demonstrated by the following impairment level findings: 1. Decreased strength to bilateral lower extremities 2. Impaired standing balance 3. Impaired activity tolerance Impairments are contributing to the following functional limitations: 1. Inability to safely ambulate without assistive device and physical assistance 2. Increase completion time for mobility ADL performance Patient is [place] a [id number] moderate complexity based on the following: History: Pt presented to physical therapy with impairment level findings and functional limitations as listed above Examination: Demonstrable impairment in strength, balance, and range of motion with underlying impairments and functional limitations as documented above Presentation: Evolving Decision Makin moderate complexity Goals: Goals X1 week 1. Independent gait on level surface with use of least restrictive device for at least 300 feet without report of pain nor dyspnea 2. Independent with home exercise program 3. Good static and dynamic standing balance/tolerance 4. Able to negotiate stairs with railing independently Plan of Care/Treatment Plan: 1-2x/day, 7 days/week x 1 week. Plan of care has been reviewed with the [facility]IVERY providing the service under Physical Therapy direction. Initiate Physical Therapy intervention for strengthening, bed mobility, transfers, gait, stairs, balance training, use of assistive device. DISCHARGE RECOMMENDATIONS: [] Home with no services [] X Home with services HHPT [] Home with outpatient PT [] [] SNF for continued rehabilitation [] [] [facility] [] [] SNF versus LTC based on ability to participate and progress [] TREATMENT CODE/TIME: 25 minutes [id number] initial evaluation [id number] Thank you for this referral. Please sign an return this page within 30 days if you agree with the above POC. Thank you! Physician Signature Date [facility] Milton Woodruff PT, DPT Disclaimer: This note was created using [employer] voice recognition software. It was reviewed for major content. However, there may be multiple small discrepancies and errors due to the voice recognition aspects of the software.
[2023-11-18] MEDS: Lactated Ringers 500 ML 100 ML IV (11:10)
[2023-11-18] MEDS: Rifaximin 550 MG TAB PO ×2 (11:10→20:39)
--- NOTE | 2023-11-18 12:36 | W.SURGCON ---
Date of service: 11/18/23 Time of Service: 12:36 Assessment and Plan Assessment and plan (1) Alcoholic cirrhosis of liver with ascites: Status: Chronic Assessment and plan: By the history, this seems most consistent with ascites secondary to cirrhosis. I discussed the risks and benefits of diagnostic paracentesis with the patient, and he was able to provide informed consent. I started by performing a limited ultrasound of the abdomen to identify appropriate site for paracentesis. Next, I selected the left lower quadrant as the ideal site for paracentesis. I then prepped and draped the abdomen. Next, using ultrasound guidance, I anesthetized the skin with 1% lidocaine with epinephrine. I used the ultrasound to guide the needle down to the peritoneal level which was also anesthetized. I then made a small incision in the skin with a 11 blade scalpel. Next, I advanced the 5 Gabonese paracentesis needle and catheter through the incision and into the peritoneal cavity under the direct vision of the ultrasound. I aspirated clear straw-colored ascites. Next, I gently advance the catheter and remove the needle. I affixed drainage tubing, and began draining the ascites with the assistance of Vacutainer's. After the flow decreased, I removed the catheter and used a Band-Aid to dress the wound. In total I drained 3400 mL of fluid. I brought the specimens to the lab for analysis. History of Present Illness History of Present Illness Chief Complaint: ascites Narrative: Roderick is 73 years old. He comes to the emergency department yesterday after 2 episodes of a fall at home. He recalls going grocery shopping, and coming home, but having difficulty getting up the steps. It sounds like he had a brief episode of dizziness, or maybe syncope, but then was able to call his neighbor for assistance. His neighbor helped him up the stairs into his apartment, but he experienced another episode where he had dizziness and unsteadiness. The neighbor called 911 and brought him to the emergency department. He was admitted with a leukocytosis, and concern for spontaneous bacterial peritonitis or other form of sepsis. Was started on broad-spectrum antibiotics. I been consulted for paracentesis. With regards to his liver disease. He tells me he was diagnosed by his primary care doctor many years ago is having some type of liver disorder. As he understood it, it was secondary to alcohol consumption. Over the course of the past few years, he has noticed that his abdomen has been increasing in girth. Currently his pain-free. Review of Systems Constitutional Constitutional: Reports fatigue, Reports lethargy and Reports weakness Eyes Eyes: Reports system reviewed and no additional complaints, except as documented ENT Ears, Nose, Mouth, and Throat: Reports system reviewed and no additional complaints, except as documented and Reports dizziness Cardiovascular Cardiovascular: Denies chest pain, Reports syncope and Denies dyspnea Respiratory Respiratory: Denies chest congestion, Denies cough and Denies dyspnea Gastrointestinal Gastrointestinal: Denies abdominal pain, Reports change in bowel habits, Reports loose stools, Denies nausea and Denies vomiting Genitourinary Genitourinary: Reports system reviewed and no additional complaints, except as documented and Denies difficulty urinating Musculoskeletal Musculoskeletal: Reports abnormal gait and Reports muscle weakness Integumentary/Breasts Skin/Breast: Reports system reviewed and no additional complaints, except as documented Neurologic Neurologic: Reports abnormal gait, Reports dizziness, Reports syncope, Reports lack of coordination and Reports weakness Psychiatric Psychiatric: Reports system reviewed and no additional complaints, except as documented Endocrine Endocrine: Reports fatigue Hematologic/Lymphatic Hematologic/Lymphatic: Denies easy bleeding and Denies easy bruising Allergic/Immunologic Allergic/Immunologic: Reports system reviewed and no additional complaints, except as documented 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) Pulmonary infiltrates (Acute) Biliary sludge (Acute) Ascites (Acute) Alcoholic cirrhosis (Acute) Lactic acidosis (Acute) Leukocytosis (leucocytosis) (Acute) Hyponatremia (Acute) Encephalopathy, hepatic (Acute) Jaundice (Acute) Carpal tunnel syndrome of right wrist (Acute) Right radial nerve palsy (Acute) Alcohol abuse (Chronic) Cellulitis of hand, right (Acute) Infected hand (Acute) Cat scratch of hand (Acute) Memory change (Acute) Tendinitis of long head of biceps brachii of left shoulder (Acute) Rotator cuff tear (Acute) Bilateral shoulder bursitis (Acute) Impingement syndrome of both shoulders (Acute) Orthostatic hypertension (Acute) Autonomic dysfunction (Acute) Folic acid deficiency (Acute) B12 deficiency (Acute) Hypomagnesemia (Acute) Hypokalemia (Acute) Dysphagia (Chronic) Orthostatic hypotension (Acute) Discharge planning issues (Acute) DVT prophylaxis (Acute) COPD (chronic obstructive pulmonary disease) (Chronic) Transaminitis (Acute) Dyspnea on exertion (Acute) TBI (traumatic brain injury) (Chronic) Remote, multiple Migraine headache without aura (Chronic) Alcohol abuse (Acute) sober Vitamin D deficiency (Chronic) Scoliosis (Chronic) Hyperlipidemia (Chronic) Chronic kidney disease, stage 3 (Chronic) Anxiety and depression (Chronic) Chronic pain syndrome (Chronic) 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) Essential tremor (Chronic 04/10/16) 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) Umbilical hernia without obstruction or gangrene (Chronic) Medical History Seizure disorder Alcoholic peripheral neuropathy Surgical History Inguinal hernia Colonoscopy - MAC (05/19/16) Family History Mother TIA (transient ischemic attack) Father Parkinson disease Stroke Social History Smoking/Tobacco Use Status: Former Tobacco Use Smoking risk assessment performed?: Yes Alcohol Intake: current Alcohol Intake frequency: holidays/special occasions only Alcohol type: wine Drug use: Never Substance use type: does not use Household members: none Housing: apartment Pets and animals: Yes Pets and animals: cat(s) Current gender identity: male Do you feel safe at home: Yes Do you feel safe in your relationship?: Yes Additional Social history: Lives alone in second [place] apartment in [place], has a cat Currently working part-time at [employer], [place] in [place] through [employer]. History of smoking, quit June 2018. No vaping. No other drug use including marijuana. Exam Const General: cooperative, comfortable and no acute distress Nutritional Appearance: malnourished Orientation: alert, awake and oriented x3 HENMT Head: normal to inspection Eyes Sclera: scleral abnormality bilaterally (icterus) Neck Neck: normal visual inspection, full ROM and no lymphadenopathy Chest Chest: normal inspection of the chest Resp Effort & Inspection: decreased respiratory effort and no tracheal deviation Auscultation: clear to auscultation bilaterally GI Inspection: distended and visible herniation Palpation: firm and ascites Percussion: dullness to percussion and fluid wave Other: Reducible right inguinal hernia Skin General skin exam: jaundice Results Last Vital Signs Temp 97.5 F L 03/31/24 12:05 Pulse 81 11/18/23 12:05 Resp 18 11/18/23 12:05 BP 103/74 11/18/23 12:05 Pulse Ox 93 11/18/23 12:05 Labs 11/18/23 06:40 11/18/23 06:40 Labs: Laboratory Results - last 24 hr 11/17/23 11/17/23 11/17/23 19:15 21:40 22:00 WBC 17.67 H RBC 3.73 L Hgb 14.2 Hct 41.4 MCV 111 H MCH 38.1 H MCHC 34.3 RDW 13.5 Plt Count 233 MPV 12.2 H Immature Gran % 0.0 Neutrophils % 82.0 Lymphocytes % 10.0 Monocytes % 7.0 Eosinophils % 1.0 Basophils % 0.0 Nucleated RBC % 0.0 Absolute Neutrophils 14.49 H Absolute Lymphocytes 1.77 Absolute Monocytes 1.24 H Absolute Eosinophils 0.18 Absolute Basophils 0.00 RBC Morphology See Below Macrocytosis 2+ PT INR APTT VBG pH VBG pCO2 VBG pO2 VBG HCO3 VBG Total CO2 VBG O2 Saturation VBG Base Excess VBG Lactate 3.7 H* 2.7 H* Sodium 135 L Potassium 3.4 L Chloride 98 Carbon Dioxide 23.1 Anion Gap 13.9 H BUN 24 H Creatinine 1.1 Est GFR (CKD-EPI 2020) 71.32 Glucose 91 Calcium 8.4 L Phosphorus Magnesium 1.7 L Total Bilirubin 5.7 H AST 194 H ALT 93 H Alkaline Phosphatase 205 H Ammonia 45 H Troponin I < 50 < 50 Total Protein 6.2 L Albumin 2.5 L Procalcitonin Urine Color Dark Yellow Urine Clarity Clear Urine pH 5.5 Ur Specific [place] 1.010 Urine Protein Negative Urine Ketones 15 H Urine Blood Negative Urine Nitrite Negative Urine Bilirubin Moderate H Urine Urobilinogen 4.0 H Ur Leukocyte Esterase Negative Urine Glucose Negative Ethyl Alcohol 61.5 H 11/17/23 11/18/23 11/18/23 22:25 06:40 08:04 WBC 10.30 RBC 3.21 L Hgb 12.2 L D Hct 34.7 L MCV 108 H MCH 38.0 H MCHC 35.2 RDW 13.8 Plt Count 167 MPV 12.4 H Immature Gran % Neutrophils % Lymphocytes % Monocytes % Eosinophils % Basophils % Nucleated RBC % Absolute Neutrophils Absolute Lymphocytes Absolute Monocytes Absolute Eosinophils Absolute Basophils RBC Morphology Macrocytosis PT 16.7 H 16.3 H INR 1.7 H 1.7 H APTT 33.0 H VBG pH 7.42 H VBG pCO2 37 L VBG pO2 30 VBG HCO3 24 VBG Total CO2 22 L VBG O2 Saturation 52 VBG Base Excess -1 VBG Lactate 1.1 Sodium 138 Potassium 3.8 Chloride 103 Carbon Dioxide 24.0 Anion Gap 11.0 BUN 19 H Creatinine 0.9 Est GFR (CKD-EPI 2020) 90.74 Glucose 81 Calcium 7.9 L Phosphorus 3.3 Magnesium 1.7 L Total Bilirubin 4.5 H AST 161 H ALT 82 H Alkaline Phosphatase 167 H Ammonia 47 H Troponin I Total Protein 5.1 L Albumin 2.0 L Procalcitonin 0.5 Urine Color Urine Clarity Urine pH Ur Specific [place] Urine Protein Urine Ketones Urine Blood Urine Nitrite Urine Bilirubin Urine Urobilinogen Ur Leukocyte Esterase Urine Glucose Ethyl Alcohol Imaging Abdomen CT scan report/results: report reviewed and image reviewed CT scan - chest: report reviewed and image reviewed CT scan - pelvis: report reviewed and image reviewed
[2023-11-18 14:34] LABS: C Diff PCR Negative (Negative)
[2023-11-18 14:47] LABS: Clarity Clear; Mononuclear Cells 82 %; Nucleated Cells 46 uL (0); Polynuclear Cells 18 %; Source Peritoneal
[2023-11-18 16:19] LABS: Anion Gap 10.7 mmol/L (3-11); BUN 19 mg/dL (7-18); CO2 23.3 mmol/L (21.0-32.0); CREATININE 0.9 mg/dL (0.70-1.30); Chloride 103 mmol/L (98-107); Estimated GFR 90.74 (mL/min/1.73m2); Glucose 115 mg/dL (74-106); Potassium 3.3 mmol/L (3.5-5.1); Sodium 137 mmol/L (136-145)
[2023-11-18] MEDS: Omeprazole 20 MG CAPCR PO (20:38)
[2023-11-19] VITALS (32 sets, daily range): BP systolic 71–103; BP diastolic 40–77; PULSE 80–115; RESP 12–20; TEMP 36.1–37.8; O2SAT 90–100
--- NOTE | 2023-11-19 01:04 | W.EVENT ---
Date of service: 11/19/23 Time of Service: 01:04 Event Note: Patient with cirrhosis had episode of painless rectal bleeding. Otherwise feels fine, denies abdominal pain. Reports colonoscopy 2 years ago but most recent I see was from 2016 -- two hyperplastic polyps and colonic diverticulosis. On exam BP 113/69, pulse 101; abdomen distended/ascites; rectal no mass, blood on glove. A/P: Painless hematochezia -- usual broad differential diagnosis. Hemodynamics satisfactory at present and benign abdominal exam (save for ascites). Note INR 1.7, patient on prophylactic dose heparin. Will monitor clinically, await hematocrit, D/C heparin, consider colonoscopy. Time Spent with Patient Time spent in critical care(minutes): 30 Time Spent Included: Coordination of care, Chart review, Documenting critically ill care, Time at immediate bedside and Discussing critically ill care with other medical staff
[2023-11-19] MEDS: ALBUMIN HUMAN 25 GM/100 ML BTL IV (01:11)
--- NOTE | 2023-11-19 01:28 | NUR.NOTE ---
Patient bed alarm went off a short while ago, noted he was trying to get out of bed. This contract writer noted blood on his bed pad uncertain of origin. Patient reported that he wanted to us the commode to have a bowel movement. Patient was assisted to the commode. Patient had madeline bloody stool into the commode. CC informed and made aware of same.
[2023-11-19] MEDS: PIPERACILLIN/TAZO 3.375 GM in Normal Saline 50 ML IVPB ×4 (02:09→20:24)
[2023-11-19 04:22] LABS: Abs Immature Grans 0.05 10^3/uL (0.0-0.06); Absolute Basophil Count 0.06 10^3/uL (0.0-0.2); Absolute Lymphocyte Count 1.29 10^3/uL (1.2-3.4); Basophils % 0.4; Eosinophils % 0.8; HCT 23.1 % (40.0-50.0); HGB 8.1 g/dL (13.5-17.5); Immature Grans % 0.4; Lymphocytes % 9.1; MCH 38.9 pg (27.0-33.0); MCHC 35.1 % (32.0-36.0); MCV 111 fL (80-95); MPV 12.2 fL (8.0-11.0); Monocytes % 8.4; Neutrophils % 80.9; Platelet Count 156 10^3/uL (130-400); RBC 2.08 10^6/uL (4.36-5.78); RDW 13.7 % (11.8-14.1); WBC 14.22 10^3/uL (4.4-10.8)
[2023-11-19 04:30] LABS: INR 2.1 (0.9-1.1); Prothrombin Time 20.1 sec (9.1-11.1)
[2023-11-19 04:34] LABS: Absolute Eosinophil Count 0.11 10^3/uL (0.0-0.7); Absolute Monocyte Count 1.19 10^3/uL (0.1-0.8)
[2023-11-19 04:42] LABS: ALT 50 U/L (16-63); AST 90 U/L (15-37); Albumin 2.5 g/dL (3.4-5.0); Alkaline Phosphatase 98 U/L (46-116); Anion Gap 12.8 mmol/L (3-11); BUN 18 mg/dL (7-18); Bilirubin, Total 3.6 mg/dL (0.2-1.0); CO2 21.2 mmol/L (21.0-32.0); CREATININE 0.9 mg/dL (0.70-1.30); Calcium 7.4 mg/dL (8.5-10.1); Chloride 108 mmol/L (98-107); Estimated GFR 90.74 (mL/min/1.73m2); Glucose 115 mg/dL (74-106); Potassium 3.4 mmol/L (3.5-5.1); Sodium 142 mmol/L (136-145); Total Protein 4.2 g/dL (6.4-8.2)
[2023-11-19 05:09] LABS: Diff Comment RBC Morph Reviewed; Macrocytosis 2+
[2023-11-19] MEDS: Normal Saline Flush 10 ML SYR IVP ×2 (07:46→20:25)
[2023-11-19] MEDS: Multivitamin TAB 1 TAB PO (07:54)
[2023-11-19] MEDS: Magnesium Chloride 64 MG TABCR 128 MG PO (07:54)
[2023-11-19] MEDS: Cholecalciferol (Vitamin D3) 1,000 UNIT TAB 1000 UNITS PO ×3 (07:54→20:24)
[2023-11-19] MEDS: Thiamine 100 MG TAB PO (07:54)
[2023-11-19] MEDS: Gabapentin 300 MG CAP PO ×3 (07:54→20:25)
[2023-11-19] MEDS: Folic Acid 1 MG TAB PO (07:54)
[2023-11-19] MEDS: Rifaximin 550 MG TAB PO ×2 (07:54→20:25)
[2023-11-19] MEDS: Midodrine 2.5 MG TAB 5 MG PO ×3 (07:54→20:24)
[2023-11-19] MEDS: Omega-3 Fatty Acids 1000 MG CAP PO (08:04)
--- NOTE | 2023-11-19 10:32 | PT.INTREAT ---
PT Notes Visit Reasons: Hepatic Encephalopathy,Alcoholic Hepatitis,Alcohol Date: 11/19/23 PRECAUTIONS: Standard, fall SUBJECTIVE: Pt in bed when approached for therapy this morning, pt receiving blood transfusion at the time being, pt agreed to participating with session. OBJECTIVE: blood transfusion? Left antecubital ? PAIN: none reported VITALS: Monitored by nursing ? Therapeutic Activities [id number]: Direct one-on-one instruction in dynamic activities to improve functional performance. ?? BED MOBILITY/TRANSFERS? Rolling L/R: supervision Supine-sit: ?CGA ? Sit-supine: ? SBA ? Sit-stand: ?SBA? Stand-sit: ??SBA ? Bed-Chair:? ?CGA ? Chair-bed: CGA Provided skilled cues and instruction on performance and technique throughout. ? Therapeutic Exercises [id number]: Direct one-on-one instruction in therapeutic exercises to develop strength, endurance, range of motion and flexibility. Exercises: Sit to stand from the EOB 7x1set Supine cervical AROM all planes [id number] each? Provided skilled instruction in proper exercise performance Provided skilled manual cues to facilitate proper muscle recruitment and/or form: ASSESSMENT:?Pt reports fatigue after sit to stand activity, pt refused further engagement reporting e would like to go back in bed, pt agreed to doing cervical exercises but nothing else after that. reports he would like to do it later in the afternoon after he has rested. PLAN: Continue with balance training, global strengthening and general conditioning for improved safety, mobility and activity tolerance until pt is ready for DC. TREATMENT CODE/TIME: [id number] 15mins (10:20-10:35am)
[2023-11-19 10:48] LABS: Hepatitis A Antibody IgM Negative (Negative); Hepatitis B Core Antibody Negative (Negative); Hepatitis B surface Ag Negative (Negative); Hepatitis C Ab w Rflx HCV PCR Negative (Negative)
--- NOTE | 2023-11-19 11:52 | W.PM.PROGNOT ---
Date of Service Date of service: 11/19/23 Time of Service: 11:52 Assessment and Plan Assessment and plan (1) Encephalopathy, hepatic: Status: Acute Assessment and plan: -encephalopathy appears to be improving; continue w/ lactulose and add rifaximin, ammonia remains elevated but his sensorium seems to be clearing. monitor for acute alcohol withdrawal w/ CIWA scoring (2) Lower GI bleed: Status: Acute Assessment and plan: - Overnight patient had significant episode of hematochezia, drop in hemoglobin from 8.2-8.1 -Overnight he had 2 units of packed red blood cells and FFP ordered -Patient currently remains asymptomatic Full code we will continue to monitor posttransfusion hemoglobin and patient's blood pressure -Will give additional units of PRBCs as needed -Patient's blood pressure decreased despite transfusion and will be transferred to ICU for vasopressor support (3) Blood loss anemia: Status: Acute Assessment and plan: - As noted above (4) Leukocytosis (leucocytosis): Status: Acute Assessment and plan: -suspect pneumonia, currently on Zosyn, supplemental oxygen, will add IS and acapella, check sputum culture, gram stain, check urine strep and legionell antigen and sputum for mycoplasma. -This may just be atelectasis from his decrease respiratory excursions from his ascites and his pleural effusions which I believe to be from his ascites. -He does not seem to have abdominal pain this morning although that was reported by the jet blade polisher as one of his complaints. -He has a leukocytosis that has improved overnight, blood cultures are pending. -Continue Zosyn as this will provide not only good coverage for pneumonia but also for biliary source or GI source of infection. Qualifiers: Leukocytosis type: other Qualified Code(s): D72.828 - Other elevated white blood cell count (5) Pulmonary infiltrates: Status: Acute Assessment and plan: -as above; provide good pulmonary toiletry and proceed w/ antibiotics and treatments as above. (6) Hyponatremia: Status: Acute Assessment and plan: -gentle fluid hydration w/ LR, monitor electrolytes (7) Transaminitis: Status: Acute Assessment and plan: -secondary to alcoholism, although hepatitis panel has been sent; calculated alcoholic hepatitis discriminant score (Maddrey score) was 28.4 (scores over 32 correlates w/ increased 30 day mortality rates over 50%), therefore, I will hold off methylprednisolone for now but monitor his protime and transaminases and bilirubin over next 24 to 48 hr. hopefully this will decline w/ cessation of alcohol (8) COPD (chronic obstructive pulmonary disease): Status: Chronic Assessment and plan: -without acute exacerbation -BRICE fuller Qualifiers: COPD type: unspecified COPD Qualified Code(s): J44.9 - Chronic obstructive pulmonary disease, unspecified (9) Alcohol abuse: Status: Chronic Assessment and plan: -he last had a drink of wine the day prior to arrival. -will monitor him for acute withdrawal w/ CIWA scoring. (10) Lactic acidosis: Status: Acute Assessment and plan: resolving after iv fluids, probably primarily d/t dehydration although sepsis remains possibilty given his leukocytosis and borderline elevation of his procalcitonin. (11) Alcoholic cirrhosis: Status: Acute Qualifiers: Ascites presence: with ascites Qualified Code(s): K70.31 - Alcoholic cirrhosis of liver with ascites (12) Ascites: Status: Acute Assessment and plan: -s/p paracentesis -f/u fluids results Qualifiers: Ascites type: due to alcoholic cirrhosis Qualified Code(s): K70.31 - Alcoholic cirrhosis of liver with ascites (13) Biliary sludge: Status: Acute Assessment and plan: no evidence of acute cholecystitis either on exam nor as evidenced by his CT scan. There is some questionable hyodense lesions on the liver which should be followed up w/ US of the liver. Subjective Subjective Interval history since last seen: Patient states that he feels tired today and understands he is likely experiencing lower GI bleed given his significant amount of bloody stool. However, he is reassured by the fact that he is not become significantly lightheaded or dizzy when ambulating to the commode. Exam Narrative Exam Narrative: Chronically ill-appearing older gentleman laying in bed in no acute distress, ANO x 4, mild jaundice and scleral icterus noted, heart regular rhythm, lungs clear to auscultation bilaterally, abdomen soft, nontender, nondistended Objective Last Vital Signs Temp 98.1 F 11/19/23 11:36 Pulse 89 11/19/23 11:36 Resp 16 11/19/23 11:36 BP 84/56 L 11/19/23 11:36 Pulse Ox 96 11/19/23 11:36 Laboratory Results - last 24 hr 11/17/23 11/18/23 11/18/23 19:15 13:28 13:37 WBC RBC Hgb Hct MCV MCH MCHC RDW Plt Count MPV Immature Gran % Neutrophils % Lymphocytes % Monocytes % Eosinophils % Basophils % Nucleated RBC % Absolute Neutrophils Absolute Lymphocytes Absolute Monocytes Absolute Eosinophils Absolute Basophils RBC Morphology Macrocytosis PT INR Sodium Potassium Chloride Carbon Dioxide Anion Gap BUN Creatinine Est GFR (CKD-EPI 2020) Glucose Calcium Total Bilirubin AST ALT Alkaline Phosphatase Total Protein Albumin Fluid Source Peritoneal Fluid Color Yellow Fluid Clarity Clear Fluid WBC 46 Fld Polynuclear WBCs % 18 Fluid Mononuclear Cell 82 Stl C.difficile Tox PCR Negative Hepatitis A IgM Ab Negative Hep Bs Antigen Negative Hep B Core Total Ab Negative Hepatitis C Antibody Negative Patient ABO/Rh Antibody Screen Crossmatch 11/18/23 11/19/23 11/19/23 16:03 04:09 05:10 WBC 14.22 H RBC 2.08 L Hgb 8.1 L D Hct 23.1 L MCV 111 H MCH 38.9 H MCHC 35.1 RDW 13.7 Plt Count 156 MPV 12.2 H Immature Gran % 0.4 Neutrophils % 80.9 Lymphocytes % 9.1 Monocytes % 8.4 Eosinophils % 0.8 Basophils % 0.4 Nucleated RBC % 0.0 Absolute Neutrophils 11.50 H Absolute Lymphocytes 1.29 Absolute Monocytes 1.19 H Absolute Eosinophils 0.11 Absolute Basophils 0.06 RBC Morphology See Below Macrocytosis 2+ PT 20.1 H INR 2.1 H Sodium 137 142 Potassium 3.3 L 3.4 L Chloride 103 108 H Carbon Dioxide 23.3 21.2 Anion Gap 10.7 12.8 H BUN 19 H 18 Creatinine 0.9 0.9 Est GFR (CKD-EPI 2020) 90.74 90.74 Glucose 115 H 115 H Calcium 8.0 L 7.4 L Total Bilirubin 3.6 H AST 90 H ALT 50 Alkaline Phosphatase 98 Total Protein 4.2 L Albumin 2.5 L Fluid Source Fluid Color Fluid Clarity Fluid WBC Fld Polynuclear WBCs % Fluid Mononuclear Cell Stl C.difficile Tox PCR Hepatitis A IgM Ab Hep Bs Antigen Hep B Core Total Ab Hepatitis C Antibody Patient ABO/Rh A Positive Antibody Screen NEGATIVE Crossmatch See Detail PAWSS Have you Been Recently Intoxicated or Drunk Within the Last 30 days?: Yes Have you Ever Experienced Previous Episodes of Alcohol Withdrawal?: No Have you ever Experienced Withdrawal Seizures?: No Have you ever Experienced Delirium Tremens(DT)s?: No Have you ever undergone Alcohol Rehabilitation Treatment (i.e, inpt ot outpatient treatment programs)?: Yes Have you ever Experienced Blackouts?: No Have you ever Combined Alcohol with other Downers within the last 90 days?: No Have you ever Combined Alcohol with any other Substance of Abuse during the last 90 days?: No Positive Blood Alcohol level on Presentation? [PCS.BAL]: Yes Evidence of Increased Autonomic Activity (i.e. HR>120, tremor, sweating, agitation, nausea)?: Yes Result: 4 Time Spent with Patient Time Spent with Patient: >50 minutes Time was spent: preparing to see the patient(eg.review tests), obtaining and/or reviewing separately otained hiistory, ordering medications,tests, procedures, referring, communicating with other health customer care voice consultant, indepentently interpreting results, counseling the patient and care coordination
--- NOTE | 2023-11-19 14:21 | W.NUTCONSULT ---
Date of service: 11/19/23 Time of Service: 14:21 Nutritional Consult ASSESSMENT: 73yo male pt with hx of etoh abuse with liver cirrhosis - ascites present and 3.4L fluid drained yesterday via paracentesis - has not had wt taken since drainage. Being treated for anemia related to lower GI bleed. Billiary sludge noted with no cholecystitis. Pt with 7.7kg loss over the last 10 months, which is a 10% wt loss. Mag and Potassium being repleted and thiamine and folate orders in place. Pt reports 140 pounds is usual body weight. 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 Seafood allergy noted. At home he report inconsistent meal patterns and diet recall, although probably not 100% accurate, reflects inadequate intake of a variety of nutrients. Pt receives SNAP benefits and reports low food budget. Pt has been NPO since breakfast 11/18 and expresses hunger and desire to eat. encephalopathy improved and would recommend higher protein diet to support protein lost in ascites fluid, along with low to moderate fat intake and low fiber to increase slowly as lower GI bleed resolves. Did not complete a full nutrition-focused physical exam at this time but pt is noted to have obvious scleral icterus, moderate muscle wasting/scooping in the temporal region. NUTRITIONAL DIAGNOSIS: Increased protein needs as related to chronic liver disease with ascites present, evidenced by 3.4L of fluid drained via paracentesis. Inadequate intake of several nutrients, including magnesium, folate, protein, fiber, vitamin A, related to low food budget and lack of meal prep and planning, as evidenced by diet recall of usual intake and history of etoh abuse. INTERVENTION: Patient will get Boost ONS on trays when PO intake resumes. Will educate pt on higher protein diet and starting off low fiber and increasing slowly along with low to moderate fat intake Recommned advancing diet BESSY as pt is high risk for malnutrition. MONITORING AND EVALUATION: 15 minutes Time Spent in Nutritional Counseling and Treatment: 0
--- NOTE | 2023-11-19 15:15 | PT.INNT ---
PT Notes Visit Reasons: Hepatic Encephalopathy,Alcoholic Hepatitis,Alcohol refused PT this pm indicating he hasn't had anything to eat and is feeling weak. He is happy to participate in PT once he is fed properly. Will check in with him tomorrow am.
--- NOTE | 2023-11-19 15:26 | PGE_ITS ---
Date of Service Date of service: 11/19/23 Time of Service: 15:26 Assessment and Plan Assessment and plan (1) Alcoholic cirrhosis of liver with ascites: Status: Chronic Assessment and plan: Generally Roderick is tolerated the paracentesis just fine lab work so far seems to support the diagnosis of cirrhosis as an etiology for the ascites. There is no evidence of any SBP at this point. With regards to the lower GI bleed, this is almost certainly related to portal venous congestion, as well as his coagulopathy from the liver disease. I agree with repletion of vitamin K dependent factors, and transfusion of blood cells as well as plasma to help reverse his coagulopathy. So long as he remains hemodynamically stable, I would try to wait this out until the coagulopathy is r eversed. Subjective Subjective Interval history since last seen: Roderick felt a little better 3 yesterday afternoon after the paracentesis. He had no pain at the site. There is been no drainage, and the Band-Aid has been fine. Unfortunately, he did develop multiple episodes of hematochezia over the course of the night. He is asymptomatic. He has been transfused packed red blood cell products. Exam GI Other: Abdomen is soft and only mildly distended, certainly better than prior to the paracentesis. He is not at all tender.. Objective Last Vital Signs Temp 97.5 F L 11/19/23 15:08 Pulse 88 11/19/23 15:08 Resp 14 11/19/23 15:08 BP 90/58 L 11/19/23 15:08 Pulse Ox 95 11/19/23 15:08 Laboratory Results - last 24 hr 11/17/23 11/18/23 11/19/23 19:15 16:03 04:09 WBC 14.22 H RBC 2.08 L Hgb 8.1 L D Hct 23.1 L MCV 111 H MCH 38.9 H MCHC 35.1 RDW 13.7 Plt Count 156 MPV 12.2 H Immature Gran % 0.4 Neutrophils % 80.9 Lymphocytes % 9.1 Monocytes % 8.4 Eosinophils % 0.8 Basophils % 0.4 Nucleated RBC % 0.0 Absolute Neutrophils 11.50 H Absolute Lymphocytes 1.29 Absolute Monocytes 1.19 H Absolute Eosinophils 0.11 Absolute Basophils 0.06 RBC Morphology See Below Macrocytosis 2+ PT 20.1 H INR 2.1 H Sodium 137 142 Potassium 3.3 L 3.4 L Chloride 103 108 H Carbon Dioxide 23.3 21.2 Anion Gap 10.7 12.8 H BUN 19 H 18 Creatinine 0.9 0.9 Est GFR (CKD-EPI 2020) 90.74 90.74 Glucose 115 H 115 H Calcium 8.0 L 7.4 L Total Bilirubin 3.6 H AST 90 H ALT 50 Alkaline Phosphatase 98 Total Protein 4.2 L Albumin 2.5 L Hepatitis A IgM Ab Negative Hep Bs Antigen Negative Hep B Core Total Ab Negative Hepatitis C Antibody Negative Patient ABO/Rh Antibody Screen Crossmatch 11/19/23 05:10 WBC RBC Hgb Hct MCV MCH MCHC RDW Plt Count MPV Immature Gran % Neutrophils % Lymphocytes % Monocytes % Eosinophils % Basophils % Nucleated RBC % Absolute Neutrophils Absolute Lymphocytes Absolute Monocytes Absolute Eosinophils Absolute Basophils RBC Morphology Macrocytosis PT INR Sodium Potassium Chloride Carbon Dioxide Anion Gap BUN Creatinine Est GFR (CKD-EPI 2020) Glucose Calcium Total Bilirubin AST ALT Alkaline Phosphatase Total Protein Albumin Hepatitis A IgM Ab Hep Bs Antigen Hep B Core Total Ab Hepatitis C Antibody Patient ABO/Rh A Positive Antibody Screen NEGATIVE Crossmatch See Detail PAWSS Have you Been Recently Intoxicated or Drunk Within the Last 30 days?: Yes Have you Ever Experienced Previous Episodes of Alcohol Withdrawal?: No Have you ever Experienced Withdrawal Seizures?: No Have you ever Experienced Delirium Tremens(DT)s?: No Have you ever undergone Alcohol Rehabilitation Treatment (i.e, inpt ot outpatient treatment programs)?: Yes Have you ever Experienced Blackouts?: No Have you ever Combined Alcohol with other Downers within the last 90 days?: No Have you ever Combined Alcohol with any other Substance of Abuse during the last 90 days?: No Positive Blood Alcohol level on Presentation? [PCS.BAL]: Yes Evidence of Increased Autonomic Activity (i.e. HR>120, tremor, sweating, ag itation, nausea)?: Yes Result: 4 Time Spent with Patient Time Spent with Patient: 25-34 minutes Time was spent: preparing to see the patient(eg.review tests), referring, communicating with other health career technical education instructor, indepentently interpreting results and counseling the patient
--- NOTE | 2023-11-19 16:10 | PT.INTREAT ---
PT Notes Visit Reasons: Hepatic Encephalopathy,Alcoholic Hepatitis,Alcohol Physical Therapy Inpatient Treatment Note Date: 11/19/23 PRECAUTIONS: Fall. Activity as tolerated. SUBJECTIVE: Fatigued. Agreeable to bed level exercises only. Per Nurse renetta, patient's H & H have decreased considerably and wondered if bed level activities would be best for patient today. OBJECTIVE: IV access through L UE ? PAIN: none reported VITALS: Monitored by nursing ? Bed Mobility/Transfers: Deferred for this session Therapeutic Exercises: Direct one-on-one instruction in therapeutic exercises to develop strength, endurance, range of motion and flexibility. Bridging x 10 Chest expansion ex with DBE x 3 AKTC x 10 Chest expansion ex with DBE x 3 Hip abduction/adduction x 10 Chest expansion ex with DBE x 3 Ankle DF/PF x 10? Chest expansion ex with DBE x 3 ASSESSMENT:? Deferred out of bed activities with patient just having received blood transfusion due to low H and H. Patient tolerated bed level exercises without undue difficulty. PLAN: Will continue to reassess activity tolerance with functional mobility progression as tolerated. Continue with balance training, global strengthening and general conditioning for improved safety, mobility and activity tolerance until pt is ready for DC. TREATMENT CODE/TIME: [id number] x 23 minutes for 1 unit (16:10-16:33)
[2023-11-19 16:48] LABS: Albumin, Body FLuid <1.0 g/dL (See Note)
[2023-11-19 16:59] LABS: Glucose, Fluid 99 mg/dL (See Note)
--- NOTE | 2023-11-19 17:01 | CMPROGNOTE_ITS ---
Date of service: 11/19/23 Time of Service: 17:01 Care Management Progress Note Progress Note Text Progress Note Text: S/O: Denise was sitting up in bed when CM met with him, receiving a blood transfusion. He stated that he is hungry, and that he wasn't fed for breakfast or lunch. His RN arrived with medications, and CM asked for the RN to clarify about his NPO status. His RN stated that he is NPO because he is bleeding, and the provider is being cautious by not having him eat at this time, but he will be able to eat as soon as he is medically stable enough to do so. He expressed understanding of this plan. CM will continue to follow. A: Denise is a 73 year old male admitted to [facility] on 11/17/23 for hepatic encephalopathy, alcoholic hepatitis. P: Anticipate denise will be discharged home when medically stable. He will follow up with his community providers and plan of care and transport with a friend or family member. CM will follow and support discharge planning needs. SDOH(Care Management) Screening Will the Patient Participate in the Screening?: Yes Do you worry about having a steady place to live?: no In the past 12 months, have you had to go without electric, gas, oil or water in your home?: no Have you or anyone in your house had to go without enough food to eat?: no Has lack of transportation kept you from medical appointments or from doing things needed for daily living?: no Has anyone in your support network made you feel unsafe for any reason?: no
[2023-11-19 17:43] LABS: Legionella Ag Detection Urine Negative (Negative)
[2023-11-19] MEDS: Normal Saline 500 ML 30 ML IV (20:10)
[2023-11-19] MEDS: Omeprazole 20 MG CAPCR PO (20:24)
[2023-11-19 23:01] LABS: Abs Immature Grans 0.06 10^3/uL (0.0-0.06); Absolute Basophil Count 0.05 10^3/uL (0.0-0.2); Absolute Lymphocyte Count 2.24 10^3/uL (1.2-3.4); Absolute Monocyte Count 1.28 10^3/uL (0.1-0.8); Basophils % 0.4; Eosinophils % 2.1; HGB 7.1 g/dL (13.5-17.5); Immature Grans % 0.5; Lymphocytes % 17.1; MCH 34.8 pg (27.0-33.0); MCHC 35.3 % (32.0-36.0); MCV 99 fL (80-95); MPV 12.6 fL (8.0-11.0); Monocytes % 9.8; Neutrophils % 70.1; Platelet Count 137 10^3/uL (130-400); RBC 2.04 10^6/uL (4.36-5.78); RDW-SD 77.5 fL; WBC 13.11 10^3/uL (4.4-10.8)
[2023-11-19 23:04] LABS: Absolute Eosinophil Count 0.28 10^3/uL (0.0-0.7); Absolute Neutrophil Count 9.19 10^3/uL (1.2-6.7)
[2023-11-19 23:08] LABS: HCT 20.1 % (40.0-50.0)
[2023-11-19 23:11] LABS: Diff Comment RBC Morph Reviewed
[2023-11-19 23:13] LABS: Anisocytosis 1+
[2023-11-19 23:17] LABS: Campylobacter PCR Negative (Negative); Salmonella PCR Negative (Negative); Shiga Toxin PCR Negative (Negative); Shigella/Enteroinvasive Ecoli Negative (Negative)
[2023-11-20] VITALS (20 sets, daily range): BP systolic 90–126; BP diastolic 60–82; PULSE 88–115; RESP 12–19; TEMP 36.1–37.1; O2SAT 89–96
[2023-11-20] MEDS: PHYTONADIONE 10 MG in Normal Saline 50 ML 200 MG IVPB (02:09)
[2023-11-20] MEDS: PIPERACILLIN/TAZO 3.375 GM in Normal Saline 50 ML IVPB ×4 (02:48→19:44)
[2023-11-20] MEDS: Magnesium Chloride 64 MG TABCR 128 MG PO (08:18)
[2023-11-20] MEDS: Cholecalciferol (Vitamin D3) 1,000 UNIT TAB 1000 UNITS PO (08:18)
[2023-11-20] MEDS: Thiamine 100 MG TAB PO (08:19)
[2023-11-20] MEDS: Rifaximin 550 MG TAB PO ×2 (08:19→19:44)
[2023-11-20] MEDS: Gabapentin 300 MG CAP PO ×3 (08:19→19:44)
[2023-11-20] MEDS: Multivitamin TAB 1 TAB PO (08:19)
[2023-11-20] MEDS: Midodrine 2.5 MG TAB 5 MG PO ×3 (08:19→19:44)
[2023-11-20] MEDS: Normal Saline Flush 10 ML SYR IVP ×3 (08:20→19:44)
[2023-11-20] MEDS: Folic Acid 1 MG TAB PO (08:20)
--- NOTE | 2023-11-20 10:41 | CMPROGNOTE_ITS ---
Date of service: 11/20/23 Time of Service: 10:41 Care Management Progress Note Progress Note Text Progress Note Text: S/O: Denise was sitting up in bed when CM met with him. Per report, he required additional units of blood today. He stated that he is feeling hopeless, as he is unsure how long he will have to remain at [facility]. He stated that he was looking forward to volunteering at the [facility] in [facility] over the weekend, as many people are expected to be in town ahead of the eclipse viewing on Sunday. CM asked about his day to day life, and he stated that he enjoys reading and has thousands of books at home. He also enjoys volunteering in the [employer], and doesn't want to leave his colleagues short. CM provided support, and discussed with Denise that he is being closely monitored, and that each day his condition will be evaluated. Per report, once his bleeding is under control, he will be able to have his diet increased, as he is currently NPO, which will be a good sign that things are going in the right direction. CM offered to look for a book for Denise in the [facility] volunteer library, which he was appreciative of. Denise thanked CM for the conversation, and agreed to take it one day at a time, looking forward to returning home and volunteering again soon. CM will continue to follow. A: Denise is a 73 year old male admitted to [facility] on 11/17/23 for hepatic encephalopathy, alcoholic hepatitis. P: Anticipate denise will be discharged home when medically stable. He will follow up with his community providers and plan of care and transport with a friend or family member. CM will follow and support discharge planning needs. SDOH(Care Management) Screening Will the Patient Participate in the Screening?: Yes Do you worry about having a steady place to live?: no In the past 12 months, have you had to go without electric, gas, oil or water in your home?: no Have you or anyone in your house had to go without enough food to eat?: no Has lack of transportation kept you from medical appointments or from doing things needed for daily living?: no Has anyone in your support network made you feel unsafe for any reason?: no
--- NOTE | 2023-11-20 10:48 | W.PM.PROGNOT ---
Date of Service Date of service: 11/20/23 Time of Service: 10:48 Assessment and Plan Assessment and plan (1) Encephalopathy, hepatic: Status: Acute Assessment and plan: -encephalopathyhas resolved; continue w/ lactulose and add rifaximin, ammonia remains elevated but his sensorium seems to be clearing. monitor for acute alcohol withdrawal w/ CIWA scoring (2) Lower GI bleed: Status: Acute Assessment and plan: - Overnight patient 11/17 had significant episode of hematochezia, drop in hemoglobin from 8.2-8.1 -Overnight 11/17 he had 2 units of packed red blood cells and FFP ordered; Hb evening 11/18 7.1, two additional nits of PRBCs ordered and running -Patient currently remains asymptomatic Full code we will continue to monitor posttransfusion hemoglobin and patient's blood pressure -Will give additional units of PRBCs as needed -Patient's blood pressure decreased despite transfusion and will be transferred to ICU for vasopressor support (3) Blood loss anemia: Status: Acute Assessment and plan: - As noted above (4) Leukocytosis (leucocytosis): Status: Acute Assessment and plan: -suspect pneumonia, currently on Zosyn, supplemental oxygen, will add IS and acapella, check sputum culture, gram stain, check urine strep and legionell antigen and sputum for mycoplasma. -This may just be atelectasis from his decrease respiratory excursions from his ascites and his pleural effusions which I believe to be from his ascites. -He does not seem to have abdominal pain this morning although that was reported by the director of manufacturing operations as one of his complaints. -He has a leukocytosis that has improved overnight, blood cultures are pending. -Continue Zosyn as this will provide not only good coverage for pneumonia but also for biliary source or GI source of infection. Qualifiers: Leukocytosis type: other Qualified Code(s): D72.828 - Other elevated white blood cell count (5) Pulmonary infiltrates: Status: Acute Assessment and plan: -as above; provide good pulmonary toiletry and proceed w/ antibiotics and treatments as above. (6) Hyponatremia: Status: Acute Assessment and plan: -gentle fluid hydration w/ LR, monitor electrolytes (7) Transaminitis: Status: Acute Assessment and plan: -secondary to alcoholism, although hepatitis panel has been sent; calculated alcoholic hepatitis discriminant score (Maddrey score) was 28.4 (scores over 32 correlates w/ increased 30 day mortality rates over 50%), therefore, I will hold off methylprednisolone for now but monitor his protime and transaminases and bilirubin over next 24 to 48 hr. hopefully this will decline w/ cessation of alcohol (8) COPD (chronic obstructive pulmonary disease): Status: Chronic Assessment and plan: -without acute exacerbation -PRN duonebs Qualifiers: COPD type: unspecified COPD Qualified Code(s): J44.9 - Chronic obstructive pulmonary disease, unspecified (9) Alcohol abuse: Status: Chronic Assessment and plan: -he last had a drink of wine the day prior to arrival. -will monitor him for acute withdrawal w/ CIWA scoring. (10) Lactic acidosis: Status: Acute Assessment and plan: resolving after iv fluids, probably primarily d/t dehydration although sepsis remains possibilty given his leukocytosis and borderline elevation of his procalcitonin. (11) Alcoholic cirrhosis: Status: Acute Qualifiers: Ascites presence: with ascites Qualified Code(s): K70.31 - Alcoholic cirrhosis of liver with ascites (12) Ascites: Status: Acute Assessment and plan: -s/p paracentesis -f/u fluids results Qualifiers: Ascites type: due to alcoholic cirrhosis Qualified Code(s): K70.31 - Alcoholic cirrhosis of liver with ascites (13) Biliary sludge: Status: Acute Assessment and plan: no evidence of acute cholecystitis either on exam nor as evidenced by his CT scan. There is some questionable hyodense lesions on the liver which should be followed up w/ US of the liver. Subjective Subjective Interval history since last seen: Patient states that he is feeling well and understands that we are continuing to monitor his blood loss and hemoglobin levels. Exam Narrative Exam Narrative: Chronically ill-appearing older gentleman laying in bed in no acute distress, ANO x 4, mild jaundice and scleral icterus noted, heart regular rhythm, lungs clear to auscultation bilaterally, abdomen soft, nontender, nondistended Objective Last Vital Signs Temp 98.1 F 11/20/23 09:17 Pulse 96 H 11/20/23 09:17 Resp 16 11/20/23 09:17 BP 102/60 11/20/23 09:17 Pulse Ox 90 L 11/20/23 09:17 Laboratory Results - last 24 hr 11/17/23 11/17/23 11/18/23 19:15 22:50 13:28 WBC RBC Hgb Hct MCV MCH MCHC RDW Plt Count MPV Immature Gran % Neutrophils % Lymphocytes % Monocytes % Eosinophils % Basophils % Nucleated RBC % Absolute Neutrophils Absolute Lymphocytes Absolute Monocytes Absolute Eosinophils Absolute Basophils RBC Morphology Anisocytosis Fluid Glucose 99 Fluid Albumin <1.0 Stool Campylobacter PCR Stool Salmonella PCR Stool Shigella PCR Hepatitis A IgM Ab Negative Hep Bs Antigen Negative Hep B Core Total Ab Negative Hepatitis C Antibody Negative Urine Legionella Ag Negative Shiga Toxin (PCR) Patient ABO/Rh Antibody Screen Crossmatch 11/18/23 11/19/23 11/19/23 13:37 05:10 22:46 WBC 13.11 H RBC 2.04 L Hgb 7.1 L Hct 20.1 L* MCV 99 H D MCH 34.8 H MCHC 35.3 RDW 22.0 H Plt Count 137 MPV 12.6 H Immature Gran % 0.5 Neutrophils % 70.1 Lymphocytes % 17.1 Monocytes % 9.8 Eosinophils % 2.1 Basophils % 0.4 Nucleated RBC % 0.0 Absolute Neutrophils 9.19 H Absolute Lymphocytes 2.24 Absolute Monocytes 1.28 H Absolute Eosinophils 0.28 Absolute Basophils 0.05 RBC Morphology See Below Anisocytosis 1+ Fluid Glucose Fluid Albumin Stool Campylobacter PCR Negative Stool Salmonella PCR Negative Stool Shigella PCR Negative Hepatitis A IgM Ab Hep Bs Antigen Hep B Core Total Ab Hepatitis C Antibody Urine Legionella Ag Shiga Toxin (PCR) Negative Patient ABO/Rh A Positive Antibody Screen NEGATIVE Crossmatch See Detail PAWSS Have you Been Recently Intoxicated or Drunk Within the Last 30 days?: Yes Have you Ever Experienced Previous Episodes of Alcohol Withdrawal?: No Have you ever Experienced Withdrawal Seizures?: No Have you ever Experienced Delirium Tremens(DT)s?: No Have you ever undergone Alcohol Rehabilitation Treatment (i.e, inpt ot outpatient treatment programs)?: Yes Have you ever Experienced Blackouts?: No Have you ever Combined Alcohol with other Downers within the last 90 days?: No Have you ever Combined Alcohol with any other Substance of Abuse during the last 90 days?: No Positive Blood Alcohol level on Presentation? [PCS.BAL]: Yes Evidence of Increased Autonomic Activity (i.e. HR>120, tremor, sweating, agitation, nausea)?: Yes Result: 4 Time Spent with Patient Time Spent with Patient: >50 minutes Time was spent: preparing to see the patient(eg.review tests), obtaining and/or reviewing separately otained hiistory, ordering medications,tests, procedures, referring, communicating with other health ambulatory care nurse, indepentently interpreting results, counseling the patient and care coordination
--- NOTE | 2023-11-20 13:15 | PT.INTREAT ---
PT Notes Visit Reasons: Hepatic Encephalopathy,Alcoholic Hepatitis,Alcohol Inpatient Physical Therapy Treatment Note [facility] Date: 11/20/23 PRECAUTIONS:Standard Fall SUBJECTIVE: Pt reports that he does not want to try standing. He states that he is still tired and weak. OBJECTIVE: ? Therapeutic Activities ([id number][]): Direct one-on-one instruction in dynamic activities to improve functional performance. ? BED MOBILITY/TRANSFERS? Supine-sit: CGA? Sit-supine: Min Assist x1 ? Therapeutic Exercises (38586v[1]): Direct one-on-one instruction in therapeutic exercises to develop strength, endurance, range of motion and flexibility. ? Exercises ? Sitting at the edge of bed: Rowing x 10 Horz shoulder abd x 10 Shoulder flexion x 10 LAQ x 10 Marching x 10 Hip abd x 10 ASSESSMENT:? Pt fatigued fairly quickly today and did not wish to get OOB. PLAN: Cont as per PT POC. TREATMENT CODE/TIME: TP 12:55-1:15 (20)
[2023-11-20 13:27] LABS: HCT 27.9 % (40.0-50.0); HGB 9.5 g/dL (13.5-17.5); MCHC 34.1 % (32.0-36.0); MCV 94 fL (80-95); Platelet Count 137 10^3/uL (130-400); RBC 2.97 10^6/uL (4.36-5.78); RDW 21.1 % (11.8-14.1); RDW-SD 69.6 fL; WBC 12.67 10^3/uL (4.4-10.8)
[2023-11-20 13:36] LABS: INR 1.5 (0.9-1.1); Prothrombin Time 14.4 sec (9.1-11.1)
[2023-11-20 13:45] LABS: ALT 53 U/L (16-63); AST 131 U/L (15-37); Albumin 2.3 g/dL (3.4-5.0); Alkaline Phosphatase 91 U/L (46-116); Anion Gap 10.8 mmol/L (3-11); BUN 22 mg/dL (7-18); Bilirubin, Total 8.1 mg/dL (0.2-1.0); CO2 23.2 mmol/L (21.0-32.0); CREATININE 0.9 mg/dL (0.70-1.30); Calcium 7.8 mg/dL (8.5-10.1); Chloride 109 mmol/L (98-107); Estimated GFR 90.74 (mL/min/1.73m2); Glucose 119 mg/dL (74-106); Potassium 3.5 mmol/L (3.5-5.1); Sodium 143 mmol/L (136-145); Total Protein 4.4 g/dL (6.4-8.2)
--- NOTE | 2023-11-20 14:47 | NUR.NOTE ---
Patient did not want to take his vitamin D, and said his provider had discontinued it because his multivitamin also contained vitamin D. Let pharmacy know issue. Checked labs, most recent Vit D level was normal. Nursing Note:
--- NOTE | 2023-11-20 15:25 | PGE_ITS ---
Date of Service Date of service: 11/20/23 Time of Service: 15:25 Assessment and Plan Assessment and plan (1) Anxiety and depression: Status: Chronic (2) Alcohol abuse: Status: Acute (3) B12 deficiency: Status: Acute (4) Folic acid deficiency: Status: Acute (5) Dysphagia: Status: Chronic (6) Transaminitis: Status: Acute (7) Jaundice: Status: Acute (8) Encephalopathy, hepatic: Status: Acute (9) Alcoholic cirrhosis: Status: Acute Qualifiers: Ascites presence: with ascites Qualified Code(s): K70.31 - Alcoholic cirrhosis of liver with ascites (10) Biliary sludge: Status: Acute (11) Alcoholic cirrhosis of liver with ascites: Status: Chronic (12) Lower GI bleed: Status: Acute Assessment and plan: Patient seen and examined. Agree with above. Patient continues to have low-grade GI bleeding. However his vital signs are stable. He received 2 or 3 units of blood yesterday and his hemoglobin is still 7.1. He has not having any abdominal pain whatsoever. He is not vomiting blood. He denies any history of stomach problems. He did have a colonoscopy in 2016 that did show diverticula. INR is down to 1.5. His CT scan when he was in the ED did show portal hypertension and varices. He has not had an EGD. Depending on his hemoglobin and if he will tolerate a prep, will plan EGD and colonoscopy on Sunday. Continue medical management Consent was obtained Informed consent is obtained for the procedural (explained in simple layman's terms that the pt. and/or family could understand) explaining risks vs benefits and alternatives to the procedure and consequences if we do not do the procedure and need/rational for the procedure. Risks include but are not limited to: bleeding, infection, perforation of esophagus, stomach, colon, small intestines, bronchus or trachea, or PTX. This would necessitate emergency surgery to repair the damage w/ possible ostomy; and other associated complications w/ the required surgery. Also complications of anesthesia including aspiration, WI/CVA/. I did review the patient's care and plan with Dr. Lopez. Continue medical management This document was created with voice activated software and may contain errors. 30 mins spent with the patient today. (13) Ascites: Status: Acute Qualifiers: Ascites type: due to alcoholic cirrhosis Qualified Code(s): K70.31 - Alcoholic cirrhosis of liver with ascites (14) Chronic kidney disease, stage 3: Status: Chronic (15) Gross hematuria: Status: Resolved (16) Lactic acidosis: Status: Acute (17) Blood loss anemia: Status: Acute (18) TBI (traumatic brain injury): Status: Chronic (19) Migraine headache without aura: Status: Chronic (20) Autonomic dysfunction: Status: Acute (21) COPD (chronic obstructive pulmonary disease): Status: Chronic Qualifiers: COPD type: unspecified COPD Qualified Code(s): J44.9 - Chronic obstructive pulmonary disease, unspecified (22) Pulmonary infiltrates: Status: Acute (23) Seizure disorder: (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: Objective Last Vital Signs Temp 36.7 C 11/20/23 11:15 Pulse 98 H 11/20/23 11:15 Resp 14 11/20/23 11:15 BP 92/60 L 11/20/23 13:48 Pulse Ox 96 11/20/23 11:15 Laboratory Results - last 24 hr 11/17/23 11/18/23 11/18/23 22:50 13:28 13:37 WBC RBC Hgb Hct MCV MCH MCHC RDW Plt Count MPV Immature Gran % Neutrophils % Lymphocytes % Monocytes % Eosinophils % Basophils % Nucleated RBC % Absolute Neutrophils Absolute Lymphocytes Absolute Monocytes Absolute Eosinophils Absolute Basophils RBC Morphology Anisocytosis PT INR Sodium Potassium Chloride Carbon Dioxide Anion Gap BUN Creatinine Est GFR (CKD-EPI 2020) Glucose Calcium Total Bilirubin AST ALT Alkaline Phosphatase Total Protein Albumin Fluid Glucose 99 Fluid Albumin <1.0 Stool Campylobacter PCR Negative Stool Salmonella PCR Negative Stool Shigella PCR Negative Urine Legionella Ag Negative Shiga Toxin (PCR) Negative Patient ABO/Rh Antibody Screen Crossmatch 11/19/23 11/19/23 11/20/23 05:10 22:46 13:18 WBC 13.11 H 12.67 H RBC 2.04 L 2.97 L Hgb 7.1 L 9.5 L D Hct 20.1 L* 27.9 L MCV 99 H D 94 D MCH 34.8 H 32.0 MCHC 35.3 34.1 RDW 22.0 H 21.1 H Plt Count 137 137 MPV 12.6 H 12.0 H Immature Gran % 0.5 Neutrophils % 70.1 Lymphocytes % 17.1 Monocytes % 9.8 Eosinophils % 2.1 Basophils % 0.4 Nucleated RBC % 0.0 Absolute Neutrophils 9.19 H Absolute Lymphocytes 2.24 Absolute Monocytes 1.28 H Absolute Eosinophils 0.28 Absolute Basophils 0.05 RBC Morphology See Below Anisocytosis 1+ PT 14.4 H INR 1.5 H Sodium 143 Potassium 3.5 Chloride 109 H Carbon Dioxide 23.2 Anion Gap 10.8 BUN 22 H Creatinine 0.9 Est GFR (CKD-EPI 2020) 90.74 Glucose 119 H Calcium 7.8 L Total Bilirubin 8.1 H AST 131 H ALT 53 Alkaline Phosphatase 91 Total Protein 4.4 L Albumin 2.3 L Fluid Glucose Fluid Albumin Stool Campylobacter PCR Stool Salmonella PCR Stool Shigella PCR Urine Legionella Ag Shiga Toxin (PCR) Patient ABO/Rh A Positive Antibody Screen NEGATIVE Crossmatch See Detail PAWSS Have you Been Recently Intoxicated or Drunk Within the Last 30 days?: Yes Have you Ever Experienced Previous Episodes of Alcohol Withdrawal?: No Have you ever Experienced Withdrawal Seizures?: No Have you ever Experienced Delirium Tremens(DT)s?: No Have you ever undergone Alcohol Rehabilitation Treatment (i.e, inpt ot outpatient treatment programs)?: Yes Have you ever Experienced Blackouts?: No Have you ever Combined Alcohol with other Downers within the last 90 days?: No Have you ever Combined Alcohol with any other Substance of Abuse during the last 90 days?: No Positive Blood Alcohol level on Presentation? [PCS.BAL]: Yes Evidence of Increased Autonomic Activity (i.e. HR>120, tremor, sweating, agitat ion, nausea)?: Yes Result: 4 Time Spent with Patient Time Spent with Patient: 25-34 minutes Time was spent: preparing to see the patient(eg.review tests), obtaining and/or reviewing separately otained hiistory, ordering medications,tests, procedures, referring, communicating with other health emergency care attendant, indepentently interpreting results, counseling the patient and care coordination
[2023-11-20 16:52] LABS: Lactate Dehydrogenase (LD), BF 48 U/L
[2023-11-20] MEDS: Omeprazole 20 MG CAPCR PO (19:44)
[2023-11-20 23:49] LABS: Streptococcus Pneumoniae Ag, U Negative (Negative)
[2023-11-21] MEDS: PIPERACILLIN/TAZO 3.375 GM in Normal Saline 50 ML IVPB ×4 (02:10→21:42)
[2023-11-21] MEDS: Normal Saline 500 ML 30 ML IV (02:11)
[2023-11-21 03:35] VITALS: BP 100/60; PULSE 110; RESP 15; TEMP 36.6; O2SAT 94
[2023-11-21 07:08] LABS: HCT 24.8 % (40.0-50.0); HGB 8.6 g/dL (13.5-17.5); MCH 32.8 pg (27.0-33.0); MCHC 34.7 % (32.0-36.0); MCV 95 fL (80-95); Platelet Count 149 10^3/uL (130-400); RBC 2.62 10^6/uL (4.36-5.78); RDW-SD 70.4 fL; WBC 12.26 10^3/uL (4.4-10.8)
[2023-11-21 07:16] LABS: INR 1.4 (0.9-1.1)
[2023-11-21 07:18] LABS: RDW 21.3 % (11.8-14.1)
[2023-11-21 07:22] VITALS: BP 95/63; PULSE 117; RESP 17; TEMP 36.1; O2SAT 93
[2023-11-21 07:26] LABS: ALT 55 U/L (16-63); AST 120 U/L (15-37); Albumin 2.1 g/dL (3.4-5.0); Alkaline Phosphatase 93 U/L (46-116); Anion Gap 9.6 mmol/L (3-11); BUN 23 mg/dL (7-18); Bilirubin, Total 4.8 mg/dL (0.2-1.0); CO2 24.4 mmol/L (21.0-32.0); CREATININE 1.1 mg/dL (0.70-1.30); Calcium 7.7 mg/dL (8.5-10.1); Chloride 108 mmol/L (98-107); Estimated GFR 71.32 (mL/min/1.73m2); Glucose 133 mg/dL (74-106); Potassium 3.3 mmol/L (3.5-5.1); Sodium 142 mmol/L (136-145); Total Protein 4.3 g/dL (6.4-8.2)
[2023-11-21] MEDS: Pantoprazole 40 MG VIAL IVP ×2 (08:00→21:42)
[2023-11-21] MEDS: Rifaximin 550 MG TAB PO ×2 (08:01→21:41)
[2023-11-21] MEDS: Gabapentin 300 MG CAP PO ×3 (08:01→21:41)
[2023-11-21] MEDS: Midodrine 2.5 MG TAB 5 MG PO ×3 (08:02→21:41)
[2023-11-21] MEDS: Magnesium Chloride 64 MG TABCR 128 MG PO (08:02)
[2023-11-21] MEDS: Thiamine 100 MG TAB PO (08:03)
[2023-11-21] MEDS: Folic Acid 1 MG TAB PO (08:03)
[2023-11-21] MEDS: Multivitamin TAB 1 TAB PO (08:03)
[2023-11-21] MEDS: Normal Saline Flush 10 ML SYR IVP ×3 (08:05→21:42)
--- NOTE | 2023-11-21 09:02 | PGE_ITS ---
Date of Service Date of service: 11/21/23 Time of Service: 09:02 Assessment and Plan Assessment and plan (1) Encephalopathy, hepatic: Status: Acute Assessment and plan: -encephalopathyhas resolved; continue w/ lactulose and add rifaximin, ammonia remains elevated but his sensorium seems to be clearing. monitor for acute alcohol withdrawal w/ CIWA scoring (2) Lower GI bleed: Status: Acute Assessment and plan: - Overnight patient 11/17 had significant episode of hematochezia, drop in hemoglobin from 8.2-8.1 -Overnight 11/17 he had 2 units of packed red blood cells and FFP ordered; Hb evening 11/18 7.1, two additional nits of PRBCs ordered and running -Patient currently remains asymptomatic -Hb back up to 8.6 on AM 11/20 -plan for EGD and colonoscopy later this week -Will give additional units of PRBCs as needed -Patient's blood pressure decreased despite transfusion and will be transferred to ICU for vasopressor support (3) Blood loss anemia: Status: Acute Assessment and plan: - As noted above (4) Leukocytosis (leucocytosis): Status: Acute Assessment and plan: -suspect pneumonia, currently on Zosyn, supplemental oxygen, will add IS and acapella, check sputum culture, gram stain, check urine strep and legionell antigen and sputum for mycoplasma. -This may just be atelectasis from his decrease respiratory excursions from his ascites and his pleural effusions which I believe to be from his ascites. -He does not seem to have abdominal pain this morning although that was reported by the supervisor mold cleaning and storage as one of his complaints. -He has a leukocytosis that has improved overnight, blood cultures are pending. -Continue Zosyn as this will provide not only good coverage for pneumonia but also for biliary source or GI source of infection. Qualifiers: Leukocytosis type: other Qualified Code(s): D72.828 - Other elevated white blood cell count (5) Pulmonary infiltrates: Status: Acute Assessment and plan: -as above; provide good pulmonary toiletry and proceed w/ antibiotics and treatments as above. (6) Hyponatremia: Status: Acute Assessment and plan: -gentle fluid hydration w/ LR, monitor electrolytes (7) Transaminitis: Status: Acute Assessment and plan: -secondary to alcoholism, although hepatitis panel has been sent; calculated alcoholic hepatitis discriminant score (Maddrey score) was 28.4 (scores over 32 correlates w/ increased 30 day mortality rates over 50%), therefore, I will hold off methylprednisolone for now but monitor his protime and transaminases and bilirubin over next 24 to 48 hr. hopefully this will decline w/ cessation of alcohol (8) COPD (chronic obstructive pulmonary disease): Status: Chronic Assessment and plan: -without acute exacerbation -PRN duyvonne Qualifiers: COPD type: unspecified COPD Qualified Code(s): J44.9 - Chronic obstructive pulmonary disease, unspecified (9) Alcohol abuse: Status: Chronic Assessment and plan: -he last had a drink of wine the day prior to arrival. -will monitor him for acute withdrawal w/ CIWA scoring. (10) Lactic acidosis: Status: Acute Assessment and plan: -resolving after iv fluids, probably primarily d/t dehydration although sepsis remains possibilty given his leukocytosis and borderline elevation of his procalcitonin. (11) Alcoholic cirrhosis: Status: Acute Qualifiers: Ascites presence: with ascites Qualified Code(s): K70.31 - Alcoholic cirrhosis of liver with ascites (12) Ascites: Status: Acute Assessment and plan: -s/p paracentesis -f/u fluids results Qualifiers: Ascites type: due to alcoholic cirrhosis Qualified Code(s): K70.31 - Alcoholic cirrhosis of liver with ascites (13) Biliary sludge: Status: Acute Assessment and plan: -no evidence of acute cholecystitis either on exam nor as evidenced by his CT scan. There is some questionable hyodense lesions on the liver which should be followed up w/ US of the liver. Subjective Subjective Interval history since last seen: Patient states that he feels much better and is encouraged by the fact that he is having less bloody bowel movements and that his hemoglobin has remained stable. He was also understanding and on board with the plan to have colonoscopy and upper endoscopy later this week. Exam Narrative Exam Narrative: Chronically ill-appearing older gentleman laying in bed in no acute distress, ANO x 4, mild jaundice and scleral icterus noted, heart regular rhythm, lungs clear to auscultation bilaterally, abdomen soft, nontender, nondistended Objective Last Vital Signs Temp 97.0 F L 11/21/23 07:22 Pulse 117 H 11/21/23 07:22 Resp 17 11/21/23 07:22 BP 95/63 L 11/21/23 07:22 Pulse Ox 93 11/21/23 07:22 Laboratory Results - last 24 hr 11/17/23 11/18/23 11/19/23 22:50 13:28 05:10 WBC RBC Hgb Hct MCV MCH MCHC RDW Plt Count MPV PT INR Sodium Potassium Chloride Carbon Dioxide Anion Gap BUN Creatinine Est GFR (CKD-EPI 2020) Glucose Calcium Total Bilirubin AST ALT Alkaline Phosphatase Total Protein Albumin Fluid Type abdominal Peritoneal Fluid LDH 48 Ur Strep pneumoniae Ag Negative Path Cons Comment Crossmatch See Detail 11/20/23 11/20/23 11/21/23 13:18 Unknown 06:53 WBC 12.67 H 12.26 H RBC 2.97 L 2.62 L Hgb 9.5 L D Cancelled 8.6 L Hct 27.9 L Cancelled 24.8 L MCV 94 D 95 MCH 32.0 32.8 MCHC 34.1 34.7 RDW 21.1 H 21.3 H Plt Count 137 149 MPV 12.0 H 12.0 H PT 14.4 H 14.0 H INR 1.5 H 1.4 H Sodium 143 142 Potassium 3.5 3.3 L Chloride 109 H 108 H Carbon Dioxide 23.2 24.4 Anion Gap 10.8 9.6 BUN 22 H 23 H Creatinine 0.9 1.1 Est GFR (CKD-EPI 2020) 90.74 71.32 Glucose 119 H 133 H Calcium 7.8 L 7.7 L Total Bilirubin 8.1 H 4.8 H AST 131 H 120 H ALT 53 55 Alkaline Phosphatase 91 93 Total Protein 4.4 L 4.3 L Albumin 2.3 L 2.1 L Fluid Type Fluid LDH Ur Strep pneumoniae Ag Path Cons Comment Crossmatch PAWSS Have you Been Recently Intoxicated or Drunk Within the Last 30 days?: Yes Have you Ever Experienced Previous Episodes of Alcohol Withdrawal?: No Have you ever Experienced Withdrawal Seizures?: No Have you ever Experienced Delirium Tremens(DT)s?: No Have you ever undergone Alcohol Rehabilitation Treatment (i.e, inpt ot outpatient treatment programs)?: Yes Have you ever Experienced Blackouts?: No Have you ever Combined Alcohol with other Downers within the last 90 days?: No Have you ever Combined Alcohol with any other Substance of Abuse during the last 90 days?: No Positive Blood Alcohol level on Presentation? [PCS.BAL]: Yes Evidence of Increased Autonomic Activity (i.e. HR>120, tremor, sweating, agitation, nausea)?: Yes Result: 4 Time Spent with Patient Time Spent with Patient: >50 minutes Time was spent: preparing to see the patient(eg.review tests), obtaining and/or reviewing separately otained hiistory, ordering medications,tests, procedures, referring, communicating with other health progressive care unit registered nurse, indepentently interpreting results, counseling the patient and care coordination
[2023-11-21] MEDS: Omega-3 Fatty Acids 1000 MG CAP PO (09:10)
--- NOTE | 2023-11-21 09:54 | PT.INTREAT ---
PT Notes Visit Reasons: Hepatic Encephalopathy,Alcoholic Hepatitis,Alcohol Inpatient Physical Therapy Treatment Note [facility] Date: 11/21/23 SUBJECTIVE: Pt reports that he feels weak this am but he got washed up and he has been doing more this am. Pt reports more dizziness as well. OBJECTIVE: Therapeutic Activities ([id number][]): Direct one-on-one instruction in dynamic activities to improve functional performance. ? BED MOBILITY/TRANSFERS? Supine-sit: Min assist x1? Sit-supine: Min assist x1? Therapeutic Exercises (64933n[1]): Direct one-on-one instruction in therapeutic exercises to develop strength, endurance, range of motion and flexibility. ? Exercises ? Shoulder flexion x 10 Shoulder horizontal abd x 10 Rowing x 10 LAQ x 10 Seated marching x 10 Pt was dizzy for most of his seated session today and was too fatigued to complete anymore than what was tolerated above. ASSESSMENT:? Pt was more fatigued today and dizzy but had already been washed up and busy this am. PLAN: Cont as per PT POC. TREATMENT CODE/TIME: 9:35-9:55 (20) TP
[2023-11-21 10:18] LABS: Protein,Total, BF 0.8 g/dL
[2023-11-21 11:01] VITALS: BP 103/70; PULSE 114; RESP 17; TEMP 35.7; O2SAT 94
--- NOTE | 2023-11-21 11:20 | PHA.REVIEW2 ---
Pharmacy Admission Review Admission Clinical Review Admission Pharmacy Review: Lower GI bleed (Acute) Blood loss anemia (Acute) Pulmonary infiltrates (Acute) Biliary sludge (Acute) Ascites (Acute) Alcoholic cirrhosis (Acute) Lactic acidosis (Acute) Leukocytosis (leucocytosis) (Acute) Hyponatremia (Acute) Encephalopathy, hepatic (Acute) Jaundice (Acute) Autonomic dysfunction (Acute) Folic acid deficiency (Acute) B12 deficiency (Acute) Hypokalemia (Acute) Transaminitis (Acute) Alcohol abuse (Acute) clams Allergy (Unknown, Verified 12/19/22 10:09) mussels Allergy (Unknown, Verified 12/19/22 10:09) acetaminophen [From Vicodin] Adverse Reaction (Intermediate, Verified 12/19/22 10:09) SEVERE CONSTIPATION hydrocodone bitartrate [From Vicodin] Adverse Reaction (Intermediate, Verified 12/19/22 10:09) SEVERE CONSTIPATION SEAFOOD Allergy (Unknown, Uncoded 12/19/22 10:09) Resuscitation Status DNI Height 6 ft Weight 65.9 kg Pharmacy Admission Review Renal Dosing Renal Dosing: BUN 23 mg/dL (7-18) H 11/21/23 06:53 Creatinine 1.1 mg/dL (0.70-1.30) 11/21/23 06:53 Medications needing adjustments: Reviewed (CrCl 56 mL/min, BUN increased from 22 to 23) List of meds needing interventions: Current medications are okay Anticoagulation Anticoagulation: Hgb 8.6 g/dL (13.5-17.5) L 11/21/23 06:53 Hct 24.8 % (40.0-50.0) L 11/21/23 06:53 Plt Count 149 10^3/uL (130-400) 11/21/23 06:53 INR 1.4 (0.9-1.1) H 11/21/23 06:53 Creatinine 1.1 mg/dL (0.70-1.30) 11/21/23 06:53 DVT Prophylaxis: Reviewed (None at this time due to rectal bleeding, colonoscopy scheduled for Sunday, has required some transfusions) Relevant Labs Relevant Labs: Sodium 142 mmol/L (136-145) 11/21/23 06:53 Potassium 3.3 mmol/L (3.5-5.1) L 11/21/23 06:53 Chloride 108 mmol/L (98-107) H 11/21/23 06:53 Phosphorus 3.3 mg/dL (2.6-4.7) 11/18/23 06:40 Magnesium 1.7 mg/dL (1.8-2.4) L 11/18/23 06:40 Electrolytes, C-Reactive P, ESR: Reviewed (K 3.3, INR decreased from 1.5 to 1.4, Hgb decreased from 9.5 to 8.6, AST/ALT 120/55, glucose 133 at 0653) Cardiac Review Cardiac Review: Troponin I < 50 ng/L (< or =60) 11/17/23 22:00 BP, HR, EF%: Reviewed (HR 114, BP WNL) QTc Review QTc: Reviewed (483 from 11/17/23) IV to PO Switch IV Medications: Reviewed (Pantoprazole and Zosyn) Home Meds Home Med List reviewed: Reviewed Relevent Home Meds Not ordered & why?: Omeprazole (has order for pantoprazole) and propranolol (on hold due to low BPs) Current Meds Current Medication Order Review: Reviewed Comments: Orders put in for bowel prep, scheduled for 11/21 at 1300 Pharmacy Antibiotic Review Pharmacy Antibiotic Activity: C/S review and Reviewed, no change Comments: Continues on Zosyn 3.375mg q6h, day 4. Paracentesis culture showing no growth at 72 hours. WBC slightly decreased from 12.67 to 12.26
--- NOTE | 2023-11-21 13:00 | CMPROGNOTE_ITS ---
Date of service: 11/21/23 Time of Service: 13:00 Care Management Progress Note Progress Note Text Progress Note Text: S/O: Per MD, bleeding has slowed-Denise will remain at [facility] for upper and lower endoscopy. CM will continue to follow. A: Denise is a 73 year old male admitted to [facility] on 11/17/23 for hepatic encephalopathy, alcoholic hepatitis. P: Anticipate denise will be discharged home when medically stable. He will follow up with his community providers and plan of care and transport with a friend or family member. CM will follow and support discharge planning needs. SDOH(Care Management) Screening Will the Patient Participate in the Screening?: Yes Do you worry about having a steady place to live?: no In the past 12 months, have you had to go without electric, gas, oil or water in your home?: no Have you or anyone in your house had to go without enough food to eat?: no Has lack of transportation kept you from medical appointments or from doing things needed for daily living?: no Has anyone in your support network made you feel unsafe for any reason?: no
[2023-11-21 13:02] LABS: HGB 8.9 g/dL (13.5-17.5)
--- NOTE | 2023-11-21 14:03 | PT.INTREAT ---
PT Notes Visit Reasons: Hepatic Encephalopathy,Alcoholic Hepatitis,Alcohol Date: 11/21/23 PRECAUTIONS: Standard, fall SUBJECTIVE: Pt in bed when approached for therapy this afternoon, pt reports he feels very weak and slightly dizzy, reports he would like to try and get out of bed despite symptoms. OBJECTIVE: IV line left antecubital ? PAIN: none reported VITALS: Monitored by nursing ? Therapeutic Activities [id number]: Direct one-on-one instruction in dynamic activities to improve functional performance. ?? BED MOBILITY/TRANSFERS? Rolling L/R: supervision Supine-sit: ?CGA ? Sit-supine: ? SBA ? Sit-stand: ?CGA ? Stand-sit: ??CGA? Provided skilled cues and instruction on performance and technique throughout. ? Therapeutic Exercises [id number]: Direct one-on-one instruction in therapeutic exercises to develop strength, endurance, range of motion and flexibility. Exercises: Unsupported seated weight shifting front/back, side to side lean [id number] each Seated shoulder flexion [id number] Seated shoulder abduction [id number] seated shoulder rows [id number] Seated horizontal abduction/adduction [id number] Static standing 30secs weight shifting ant/post, left/right ? ? ? Provided skilled instruction in proper exercise performance Provided skilled manual cues to facilitate proper muscle recruitment and/or form: ASSESSMENT:?pt reports fatigue post standing activity requested to return to bed after, pt setup for bed positioning moving upward in bed and to the middle of the bed min A, Sequencial compression device to prevent blood clots. PLAN: Continue with balance training, global strengthening and general conditioning for improved safety, mobility and activity tolerance until pt is ready for DC. TREATMENT CODE/TIME: [id number] [id number] 25mins (1:35-2:00pm)
[2023-11-21 18:06] VITALS: BP 104/76; PULSE 119; RESP 16; TEMP 36.5; O2SAT 96
--- NOTE | 2023-11-21 19:11 | W.PM.PROGNOT ---
Date of Service Date of service: 11/21/23 Time of Service: 19:12 Assessment and Plan Assessment and plan (1) Alcohol abuse: Status: Acute (2) Anxiety and depression: Status: Chronic (3) B12 deficiency: Status: Acute (4) Folic acid deficiency: Status: Acute (5) Dysphagia: Status: Chronic (6) Transaminitis: Status: Acute (7) Jaundice: Status: Acute (8) Alcoholic cirrhosis: Status: Acute Qualifiers: Ascites presence: with ascites Qualified Code(s): K70.31 - Alcoholic cirrhosis of liver with ascites (9) Biliary sludge: Status: Acute (10) Alcoholic cirrhosis of liver with ascites: Status: Chronic (11) Lower GI bleed: Status: Acute Assessment and plan: - Patient does have a history of diverticular disease, noted on colonoscopy in 2016. -Patient has portal hypertension and varices noted on CT scan. He has never had an EGD before. Planning EGD and colonoscopy on Sunday. Patient will have increased blood loss once we start bowel prepping. Continue PPI and treatment for alcoholic cirrhosis. We can also do paracentesis at that time if warranted. Will follow - (12) Umbilical hernia without obstruction or gangrene: Status: Chronic (13) Chronic kidney disease, stage 3: Status: Chronic (14) Blood loss anemia: Status: Acute (15) Alcoholic peripheral neuropathy: Status: Chronic (16) TBI (traumatic brain injury): Status: Chronic (17) Memory change: Status: Acute (18) Chronic pain syndrome: Status: Chronic (19) Essential tremor: Status: Chronic (20) Autonomic dysfunction: Status: Acute (21) COPD (chronic obstructive pulmonary disease): Status: Chronic Qualifiers: COPD type: unspecified COPD Qualified Code(s): J44.9 - Chronic obstructive pulmonary disease, unspecified (22) Pulmonary infiltrates: Status: Acute (23) Seizure disorder: Objective Last Vital Signs Temp 36.5 C 11/21/23 18:06 Pulse 119 H 11/21/23 18:06 Resp 16 11/21/23 18:06 BP 104/76 11/21/23 18:06 Pulse Ox 96 11/21/23 18:06 Laboratory Results - last 24 hr 11/17/23 11/18/23 11/18/23 22:50 13:28 13:28 WBC RBC Hgb Hct MCV MCH MCHC RDW Plt Count MPV PT INR Sodium Potassium Chloride Carbon Dioxide Anion Gap BUN Creatinine Est GFR (CKD-EPI 2020) Glucose Calcium Total Bilirubin AST ALT Alkaline Phosphatase Total Protein Albumin Fluid Type abdominal Peritoneal abdominal Peritoneal Fluid Total Protein 0.8 Fluid LDH 48 Ur Strep pneumoniae Ag Negative 11/20/23 11/21/23 11/21/23 Unknown 06:53 12:55 WBC 12.26 H RBC 2.62 L Hgb Cancelled 8.6 L 8.9 L Hct Cancelled 24.8 L 26.0 L MCV 95 MCH 32.8 MCHC 34.7 RDW 21.3 H Plt Count 149 MPV 12.0 H PT 14.0 H INR 1.4 H Sodium 142 Potassium 3.3 L Chloride 108 H Carbon Dioxide 24.4 Anion Gap 9.6 BUN 23 H Creatinine 1.1 Est GFR (CKD-EPI 2020) 71.32 Glucose 133 H Calcium 7.7 L Total Bilirubin 4.8 H AST 120 H ALT 55 Alkaline Phosphatase 93 Total Protein 4.3 L Albumin 2.1 L Fluid Type Fluid Total Protein Fluid LDH Ur Strep pneumoniae Ag PAWSS Have you Been Recently Intoxicated or Drunk Within the Last 30 days?: Yes Have you Ever Experienced Previous Episodes of Alcohol Withdrawal?: No Have you ever Experienced Withdrawal Seizures?: No Have you ever Experienced Delirium Tremens(DT)s?: No Have you ever undergone Alcohol Rehabilitation Treatment (i.e, inpt ot outpatient treatment programs)?: Yes Have you ever Experienced Blackouts?: No Have you ever Combined Alcohol with other Downers within the last 90 days?: No Have you ever Combined Alcohol with any other Substance of Abuse during the last 90 days?: No Positive Blood Alcohol level on Presentation? [PCS.BAL]: Yes Evidence of Increased Autonomic Activity (i.e. HR>120, tremor, sweating, agitation, nausea)?: Yes Result: 4 Time Spent with Patient Time Spent with Patient: <25 minutes Time was spent: obtaining and/or reviewing separately otained hiistory, indepentently interpreting results and care coordination
[2023-11-21 19:58] VITALS: BP 94/65; PULSE 108; RESP 17; TEMP 36.7; O2SAT 93
[2023-11-21] MEDS: Potassium Chloride 20 MEQ TABCR PO (23:57)
[2023-11-21 23:59] VITALS: BP 90/57; PULSE 104; RESP 18; TEMP 36.7; O2SAT 93
[2023-11-22] VITALS (16 sets, daily range): BP systolic 82–120; BP diastolic 58–70; PULSE 82–128; RESP 12–22; TEMP 36–37.7; O2SAT 92–98
[2023-11-22] MEDS: PIPERACILLIN/TAZO 3.375 GM in Normal Saline 50 ML IVPB ×4 (02:57→21:56)
[2023-11-22 06:54] LABS: HGB 7.1 g/dL (13.5-17.5); MCH 33.3 pg (27.0-33.0); MCHC 33.8 % (32.0-36.0); MCV 99 fL (80-95); MPV 11.8 fL (8.0-11.0); Platelet Count 173 10^3/uL (130-400); RBC 2.13 10^6/uL (4.36-5.78); RDW-SD 70.2 fL; WBC 17.26 10^3/uL (4.4-10.8)
[2023-11-22 07:07] LABS: INR 1.5 (0.9-1.1); Prothrombin Time 14.4 sec (9.1-11.1)
[2023-11-22 07:17] LABS: RDW 21.2 % (11.8-14.1)
[2023-11-22 07:22] LABS: ALT 62 U/L (16-63); AST 114 U/L (15-37); Albumin 1.9 g/dL (3.4-5.0); Alkaline Phosphatase 95 U/L (46-116); Anion Gap 11.9 mmol/L (3-11); BUN 26 mg/dL (7-18); Bilirubin, Total 3.3 mg/dL (0.2-1.0); CO2 21.1 mmol/L (21.0-32.0); CREATININE 1.7 mg/dL (0.70-1.30); Calcium 7.8 mg/dL (8.5-10.1); Chloride 106 mmol/L (98-107); Glucose 156 mg/dL (74-106); Potassium 3.4 mmol/L (3.5-5.1); Sodium 139 mmol/L (136-145); Total Protein 4.2 g/dL (6.4-8.2)
[2023-11-22] MEDS: Normal Saline Flush 10 ML SYR IVP ×2 (08:00→13:44)
[2023-11-22] MEDS: Pantoprazole 40 MG VIAL IVP ×2 (08:00→20:33)
[2023-11-22] MEDS: Magnesium Chloride 64 MG TABCR 128 MG PO (08:01)
[2023-11-22] MEDS: Thiamine 100 MG TAB PO (08:02)
[2023-11-22] MEDS: Midodrine 2.5 MG TAB 5 MG PO ×3 (08:02→20:33)
[2023-11-22] MEDS: Rifaximin 550 MG TAB PO ×2 (08:03→20:34)
[2023-11-22] MEDS: Multivitamin TAB 1 TAB PO (08:03)
[2023-11-22] MEDS: Gabapentin 300 MG CAP PO ×3 (08:03→20:33)
[2023-11-22] MEDS: Folic Acid 1 MG TAB PO (08:04)
[2023-11-22] MEDS: Metoprolol 12.5 MG TAB PO ×2 (09:11→20:33)
--- NOTE | 2023-11-22 09:21 | PGE_ITS ---
Date of Service Date of service: 11/22/23 Time of Service: 09:21 Assessment and Plan Assessment and plan (1) Encephalopathy, hepatic: Status: Acute Assessment and plan: -encephalopathyhas resolved; continue w/ lactulose and add rifaximin, ammonia remains elevated but his sensorium seems to be clearing. monitor for acute alcohol withdrawal w/ CIWA scoring (2) Lower GI bleed: Status: Acute Assessment and plan: - Overnight patient 11/17 had significant episode of hematochezia, drop in hemoglobin from 8.2-8.1 -Overnight 11/17 he had 2 units of packed red blood cells and FFP ordered; Hb evening 11/18 7.1, two additional nits of PRBCs ordered and running -Patient remains asymptomatic -Hb back up to 8.6 on AM 11/20 -Overnight 11/20 and early AM 11/21 patient had multiple episodes of bloody bowel movements, with Hb dropping from 8.9 to 7.1 and mild drop in BP down to high 90's systolic; 2 additional units of PRBCs have been ordered -plan for EGD and colonoscopy later this week -Will give additional units of PRBCs as needed -Patient's blood pressure decreased despite transfusion and will be transferred to ICU for vasopressor support (3) Blood loss anemia: Status: Acute Assessment and plan: - As noted above (4) Leukocytosis (leucocytosis): Status: Acute Assessment and plan: -suspect pneumonia, currently on Zosyn, supplemental oxygen, will add IS and acapella, check sputum culture, gram stain, check urine strep and legionell antigen and sputum for mycoplasma. -This may just be atelectasis from his decrease respiratory excursions from his ascites and his pleural effusions which I believe to be from his ascites. -He does not seem to have abdominal pain this morning although that was reported by the drafter patent as one of his complaints. -He has a leukocytosis that has improved overnight, blood cultures are pending. -Continue Zosyn as this will provide not only good coverage for pneumonia but also for biliary source or GI source of infection. Qualifiers: Leukocytosis type: other Qualified Code(s): D72.828 - Other elevated white blood cell count (5) Pulmonary infiltrates: Status: Acute Assessment and plan: -as above; provide good pulmonary toiletry and proceed w/ antibiotics and treatments as above. (6) Hyponatremia: Status: Acute Assessment and plan: -gentle fluid hydration w/ LR, monitor electrolytes (7) Transaminitis: Status: Acute Assessment and plan: -secondary to alcoholism, although hepatitis panel has been sent; calculated alcoholic hepatitis discriminant score (Maddrey score) was 28.4 (scores over 32 correlates w/ increased 30 day mortality rates over 50%), therefore, I will hold off methylprednisolone for now but monitor his protime and transaminases and bilirubin over next 24 to 48 hr. hopefully this will decline w/ cessation of alcohol (8) COPD (chronic obstructive pulmonary disease): Status: Chronic Assessment and plan: -without acute exacerbation -PRN duonebs Qualifiers: COPD type: unspecified COPD Qualified Code(s): J44.9 - Chronic obstructive pulmonary disease, unspecified (9) Alcohol abuse: Status: Chronic Assessment and plan: -he last had a drink of wine the day prior to arrival. -will monitor him for acute withdrawal w/ CIWA scoring. (10) Lactic acidosis: Status: Acute Assessment and plan: -resolving after iv fluids, probably primarily d/t dehydration although sepsis remains possibilty given his leukocytosis and borderline elevation of his procalcitonin. (11) Alcoholic cirrhosis: Status: Acute Qualifiers: Ascites presence: with ascites Qualified Code(s): K70.31 - Alcoholic cirrhosis of liver with ascites (12) Ascites: Status: Acute Assessment and plan: -s/p paracentesis -f/u fluids results Qualifiers: Ascites type: due to alcoholic cirrhosis Qualified Code(s): K70.31 - Alcoholic cirrhosis of liver with ascites (13) Biliary sludge: Status: Acute Assessment and plan: -no evidence of acute cholecystitis either on exam nor as evidenced by his CT scan. There is some questionable hyodense lesions on the liver which should be followed up w/ US of the liver. (14) Paroxysmal A-fib: Status: Acute Assessment and plan: -new, as seen on telemetry overnight -HR goes up to 110's -started 12.mg PO BID lopressor, will continue to monitor HR and BPs -anticoagulation contraindicated at this time due to active GI bleed as noted above Subjective Subjective Interval history since last seen: Patient states that he continues to feel okay but that he had multiple bloody bowel movements overnight. He understands we will continue to transfuse and monitor his vital signs. Exam Narrative Exam Narrative: Chronically ill-appearing older gentleman laying in bed in no acute distress, ANO x 4, mild jaundice and scleral icterus noted, heart regular rhythm, lungs clear to auscultation bilaterally, abdomen soft, nontender, nondistended Objective Last Vital Signs Temp 96.8 F L 11/22/23 07:51 Pulse 94 H 11/22/23 07:51 Resp 16 11/22/23 07:51 BP 96/60 L 11/22/23 09:11 Pulse Ox 94 11/22/23 07:51 Laboratory Results - last 24 hr 11/18/23 11/21/23 11/22/23 13:28 12:55 06:35 WBC 17.26 H RBC 2.13 L Hgb 8.9 L 7.1 L Hct 26.0 L 21.0 L MCV 99 H D MCH 33.3 H MCHC 33.8 RDW 21.2 H Plt Count 173 MPV 11.8 H PT 14.4 H INR 1.5 H Sodium 139 Potassium 3.4 L Chloride 106 Carbon Dioxide 21.1 Anion Gap 11.9 H BUN 26 H Creatinine 1.7 H Est GFR (CKD-EPI 2020) 42.30 Glucose 156 H Calcium 7.8 L Total Bilirubin 3.3 H AST 114 H ALT 62 Alkaline Phosphatase 95 Total Protein 4.2 L Albumin 1.9 L Fluid Type abdominal Peritoneal Fluid Total Protein 0.8 Patient ABO/Rh Antibody Screen Crossmatch 11/22/23 07:38 WBC RBC Hgb Hct MCV MCH MCHC RDW Plt Count MPV PT INR Sodium Potassium Chloride Carbon Dioxide Anion Gap BUN Creatinine Est GFR (CKD-EPI 2020) Glucose Calcium Total Bilirubin AST ALT Alkaline Phosphatase Total Protein Albumin Fluid Type Fluid Total Protein Patient ABO/Rh A Positive Antibody Screen NEGATIVE Crossmatch See Detail PAWSS Have you Been Recently Intoxicated or Drunk Within the Last 30 days?: Yes Have you Ever Experienced Previous Episodes of Alcohol Withdrawal?: No Have you ever Experienced Withdrawal Seizures?: No Have you ever Experienced Delirium Tremens(DT)s?: No Have you ever undergone Alcohol Rehabilitation Treatment (i.e, inpt ot outpatient treatment programs)?: Yes Have you ever Experienced Blackouts?: No Have you ever Combined Alcohol with other Downers within the last 90 days?: No Have you ever Combined Alcohol with any other Substance of Abuse during the last 90 days?: No Positive Blood Alcohol level on Presentation? [PCS.BAL]: Yes Evidence of Increased Autonomic Activity (i.e. HR>120, tremor, sweating, agitation, nausea)?: Yes Result: 4 Time Spent with Patient Time Spent with Patient: >50 minutes Time was spent: preparing to see the patient(eg.review tests), obtaining and/or reviewing separately otained hiistory, ordering medications,tests, procedures, referring, communicating with other health outdoor emergency care technician, indepentently interpreting results, counseling the patient and care coordination
[2023-11-22] MEDS: Bisacodyl 5 MG TABEC 10 MG PO ×2 (11:37→17:15)
--- NOTE | 2023-11-22 11:47 | W.NUTRFU ---
Date of service: 11/22/23 Time of Service: 11:30 Nutrition Note NOTE: pt sleepoing upon follow up. wt increase noted of over 5kg since yesterday (bedscale vs standing scale yesterday) and expect this is no accurate. pt resumed po intake at dinner on 11/19 but not recorded percent intake found. pt resumes npo status at breakfast tomorrow morning for possible EGD and colonoscopy due to continued bleeding. Pt receiving boost ONS for additional kcals and protein on all 3 meal trays. Time Spent in Nutritional Counseling and Treatment: 0
[2023-11-22] MEDS: Polyethylene Glycol 3350 238 GM BTL PO (14:47)
[2023-11-22 15:56] LABS: Calprotectin 50.5 mcg/g
--- NOTE | 2023-11-22 16:12 | PDOC.CMPRO ---
Date of service: 11/22/23 Time of Service: 16:12 Care Management Progress Note Progress Note Text Progress Note Text: S/O: Denise was sitting up in bed when CM met with him. He stated that he is doing ok, and is anticipating that he will go to the OR tomorrow for and EGD and colonoscopy to identify the source of his bleeding. He will be NPO after midnight tonight. He stated that he has been able to have food today, which he was happy about, and he will be relieved to have the procedure over tomorrow. His nurse was in the room, providing some medication, and he was receiving a blood transfusion. He stated that he will work with PT later today, which will likely be bed exercises until after his procedures, and once he is stable enough to get out of bed. CM will continue to follow. A: Denise is a 73 year old male admitted to [facility] on 11/17/23 for hepatic encephalopathy, alcoholic hepatitis. P: Anticipate denise will be discharged home when medically stable. He will follow up with his community providers and plan of care and transport with a friend or family member. CM will follow and support discharge planning needs. SDOH(Care Management) Screening Will the Patient Participate in the Screening?: Yes Do you worry about having a steady place to live?: no In the past 12 months, have you had to go without electric, gas, oil or water in your home?: no Have you or anyone in your house had to go without enough food to eat?: no Has lack of transportation kept you from medical appointments or from doing things needed for daily living?: no Has anyone in your support network made you feel unsafe for any reason?: no
--- NOTE | 2023-11-22 16:16 | PT.INTREAT ---
PT Notes Visit Reasons: Hepatic Encephalopathy,Alcoholic Hepatitis,Alcohol Date: 11/22/23 PRECAUTIONS: Standard, fall SUBJECTIVE: Pt in bed when approached for therapy this afternoon, pt receiving blood transfusion at the time being and is NPO making pt very weak, pt agreed to participating with therapy and requested to use the toilet since pt was on bowel prep. OBJECTIVE: blood transfusion? Left antecubital ? PAIN: none reported VITALS: Monitored by nursing ? Therapeutic Activities [id number]: Direct one-on-one instruction in dynamic activities to improve functional performance. ?? BED MOBILITY/TRANSFERS? Rolling L/R: supervision Supine-sit: ?CGA ? Sit-supine: ? SBA ? Sit-stand: ?SBA? Stand-sit: ??SBA ? Bed-Chair:? ?CGA ? Chair-bed: CGA Provided skilled cues and instruction on performance and technique throughout. ? Therapeutic Activities [id number] mins: instruction in dynamic activities with one on one patient contact by the provider to improve functional performance?as follows: Pt sit to stand followed by backward stepping to reach the commode FWW, CGA, sit to stand from bed side commode CGA, Static standing while receivog perineal care 30secs, forward steps 5x to reach EOB CGA, sit to stand from EOB 4x SBA, bed transfer going from EOB to supine CGA, SCD setup post session for BLE. ASSESSMENT:?Pt reports fatigue after sit to stand activity, pt refused further engagement reporting e would like to go back in bed, pt agreed to doing cervical exercises but nothing else after that. reports he would like to do it later in the afternoon after he has rested. PLAN: Continue with balance training, global strengthening and general conditioning for improved safety, mobility and activity tolerance until pt is ready for DC. TREATMENT CODE/TIME: [id number] 20mins (3:05-3:25pm)
--- NOTE | 2023-11-22 16:46 | PCNE_ITS ---
Date of service: 11/22/23 Time of Service: 16:46 History of Present Illness Narrative: Roderick was seen in his hospital room. He is currently hospitalized for hepatic encephalopathy, GI bleeding, requiring blood transfusions, a-fib, ascites r/t liver failure in the setting of alcoholic cirrhosis. Palliative care was consulted to establish care and discuss goals of care. Reviewed current medical issues. He states he is OK with getting blood transfusions. He thinks he would be agreeable to surgery if it was offered but feels he needs more information. He is scheduled for endoscopy tomorrow. He wants to have the procedure done. He feels he will gain more information. He feels he needs the information from tomorrow's procedure before he can discuss goals. Reviewed CODE status, he is a DNI. He states he would consider DNR depending on the results of his test tomorrow, he said, that may need to change. He thinks he made his sister, Maria Fernandez, his HCA. She lives in [place] but they are close. He has completed AD. Will check with [facility]. He lives in [place] with his cat, Shaheed. He is not moving again, he does not like packing and moving. Support: Anjana, downstairs neighbor helps as needed. She helped him when he fell at home. He also has a friend James. 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 He asked to end the meeting because he was feeling tired and needs to call and check on Shaheed. He agrees to Palliative f/u. He could be seen again next week or after discharge depending on what is found tomorrow. Assessment and Plan Assessment and plan (1) Encephalopathy, hepatic: Status: Acute Assessment and plan: -encephalopathyhas resolved (2) Lower GI bleed: Status: Ruled-out Assessment and plan: He has received several units of PRBC during this admission. -plan is for EGD and colonoscopy tomorrow He agrees with continuing to get blood transfusions at this time. (3) Blood loss anemia: Status: Acute (4) Leukocytosis (leucocytosis): Status: Acute Assessment and plan: suspected PNA Qualifiers: Leukocytosis type: other Qualified Code(s): D72.828 - Other elevated white blood cell count (5) Pulmonary infiltrates: Status: Acute (6) Hyponatremia: Status: Acute Assessment and plan: He is being hydrated gently with IVF. (7) Transaminitis: Status: Acute Assessment and plan: -secondary to alcoholism, although hepatitis panel has been sent; calculated alcoholic hepatitis discriminant score (Maddrey score) was 28.4 (scores over 32 correlates w/ increased 30 day mortality rates over 50%) (8) COPD (chronic obstructive pulmonary disease): Status: Chronic Assessment and plan: -without acute exacerbation Qualifiers: COPD type: unspecified COPD Qualified Code(s): J44.9 - Chronic obstructive pulmonary disease, unspecified (9) Alcohol abuse: Status: Chronic Assessment and plan: -he last had a drink of wine the day prior to arrival. he is being monitored for acute withdrawal (10) Lactic acidosis: Status: Acute Assessment and plan: Improving. (11) Alcoholic cirrhosis: Status: Acute Qualifiers: Ascites presence: with ascites Qualified Code(s): K70.31 - Alcoholic cirrhosis of liver with ascites (12) Ascites: Status: Acute Assessment and plan: -s/p paracentesis Qualifiers: Ascites type: due to alcoholic cirrhosis Qualified Code(s): K70.31 - Alcoholic cirrhosis of liver with ascites (13) Biliary sludge: Status: Acute Assessment and plan: -no evidence of acute cholecystitis either on exam nor as evidenced by his CT scan. There are some questionable hyodense lesions on the liver which should be followed up w/ US of the liver. (14) Paroxysmal A-fib: Status: Acute Assessment and plan: -new, as seen on telemetry overnight -HR up to 110's -started on lopressor, anticoagulation contraindicated at this time due to active GI bleed as noted above (15) Advanced care planning/counseling discussion: Status: Acute Assessment and plan: He was seen today by Palliative care to establish care and discuss goals of care. He is looking forward to endoscopy tomorrow for more information. He has previously established that he is a DNI. Reviewed today. He states he may become DNR after tests tomorrow, depending on outcome. He thinks he has HCA paperwork that names his sister, Maria Fernandez (lives in [place]). Will have CM check with his PCP office. He would benefit from being followed by Palliative care in the setting of multiple comorbidities. He asked to end the meeting so he could call his neighbor to check on his cat. Will follow up next week if he is still inpatient or at home. He agrees to f/u with palliative care. (16) Palliative care patient: Status: Acute Review of Systems Narrative: He is feeling better today than when he came in. [facility] All Active Problems (Updated 11/27/23 @ 13:28 by Kira Wade MD) Advanced care planning/counseling discussion (Acute) Palliative care patient (Acute) Urethral false passage (Acute) Oliguria (Acute) Acute tubular necrosis (Acute) Acute kidney injury (nontraumatic) (Acute) Upper GI bleeding (Acute) Ascites (Acute) Paroxysmal A-fib (Acute) Blood loss anemia (Acute) Alcoholic cirrhosis of liver with ascites (Chronic) Pulmonary infiltrates (Acute) Biliary sludge (Acute) Ascites (Acute) Alcoholic cirrhosis (Acute) Lactic acidosis (Acute) Leukocytosis (leucocytosis) (Acute) Hyponatremia (Acute) Encephalopathy, hepatic (Acute) Jaundice (Acute) Carpal tunnel syndrome of right wrist (Acute) Right radial nerve palsy (Acute) Alcohol abuse (Chronic) Cellulitis of hand, right (Acute) Infected hand (Acute) Cat scratch of hand (Acute) Memory change (Acute) Tendinitis of long head of biceps brachii of left shoulder (Acute) Rotator cuff tear (Acute) Bilateral shoulder bursitis (Acute) Impingement syndrome of both shoulders (Acute) Orthostatic hypertension (Acute) Autonomic dysfunction (Acute) Folic acid deficiency (Acute) B12 deficiency (Acute) Hypomagnesemia (Acute) Hypokalemia (Acute) Dysphagia (Chronic) Orthostatic hypotension (Acute) Discharge planning issues (Acute) DVT prophylaxis (Acute) COPD (chronic obstructive pulmonary disease) (Chronic) Transaminitis (Acute) Dyspnea on exertion (Acute) TBI (traumatic brain injury) (Chronic) Remote, multiple Migraine headache without aura (Chronic) Alcohol abuse (Acute) sober Vitamin D deficiency (Chronic) Scoliosis (Chronic) Hyperlipidemia (Chronic) Chronic kidney disease, stage 3 (Chronic) Anxiety and depression (Chronic) Chronic pain syndrome (Chronic) 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) Gross hematuria (Acute 03/20/17) Essential tremor (Chronic 04/10/16) 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) Umbilical hernia without obstruction or gangrene (Chronic) Medical History (Updated 11/27/23 @ 13:28 by Kira Wade MD) Seizure disorder Alcoholic peripheral neuropathy Surgical History Inguinal hernia Colonoscopy - MAC (05/19/16) Family History Mother TIA (transient ischemic attack) Father Parkinson disease Stroke Social History Smoking/Tobacco Use Status: Former Tobacco Use Smoking risk assessment performed?: Yes Alcohol Intake: current Alcohol Intake frequency: holidays/special occasions only Alcohol type: wine Drug use: Never Substance use type: does not use Household members: none Housing: apartment Pets and animals: Yes Pets and animals: cat(s) Current gender identity: male Do you feel safe at home: Yes Do you feel safe in your relationship?: Yes Additional Social history: Lives alone in second story apartment in [place], has a cat Currently working part-time at [employer], operated by [employer] in [place] through [employer]. History of smoking, quit June 2018. No vaping. No other drug use including marijuana. Exam Narrative Exam Narrative: General: pleasant, older man, laying in the hospital bed with HOB elevated. He is awake and alert, appears chronically ill, appears fatigued. HEENT: scleral icterus noted, EOMI, mm dry. Neck: supple Respiratory: respirations appear even and unlabored at rest. GI: abd appears distended. Results Last Vital Signs Temp 36.6 C 11/22/23 15:57 Pulse 88 11/22/23 15:57 Resp 18 11/22/23 15:57 BP 102/68 11/22/23 15:57 Pulse Ox 94 11/22/23 15:57 Labs 11/27/23 17:25 11/27/23 17:25 Labs: Laboratory Results - last 24 hr 11/18/23 11/22/23 11/22/23 04:00 06:35 07:38 WBC 17.26 H RBC 2.13 L Hgb 7.1 L Hct 21.0 L MCV 99 H D MCH 33.3 H MCHC 33.8 RDW 21.2 H Plt Count 173 MPV 11.8 H PT 14.4 H INR 1.5 H Sodium 139 Potassium 3.4 L Chloride 106 Carbon Dioxide 21.1 Anion Gap 11.9 H BUN 26 H Creatinine 1.7 H Est GFR (CKD-EPI 2020) 42.30 Glucose 156 H Calcium 7.8 L Total Bilirubin 3.3 H AST 114 H ALT 62 Alkaline Phosphatase 95 Total Protein 4.2 L Albumin 1.9 L Stool Calprotectin 50.5 H Patient ABO/Rh A Positive Antibody Screen NEGATIVE Crossmatch See Detail
[2023-11-22 18:12] LABS: HCT 28.8 % (40.0-50.0); HGB 10.1 g/dL (13.5-17.5)
[2023-11-22] MEDS: Lactulose 20 GM/30 ML CUP PO (20:33)
[2023-11-22] MEDS: Melatonin 3 MG TAB PO (21:56)
[2023-11-23] VITALS (16 sets, daily range): BP systolic 68–112; BP diastolic 41–70; PULSE 77–102; RESP 12–22; TEMP 36.2–36.7; O2SAT 92–96; BMI 20.5
[2023-11-23] MEDS: PIPERACILLIN/TAZO 3.375 GM in Normal Saline 50 ML IVPB ×4 (02:30→19:53)
[2023-11-23 07:27] LABS: HCT 27.2 % (40.0-50.0); HGB 9.5 g/dL (13.5-17.5); MCH 31.7 pg (27.0-33.0); MCHC 34.9 % (32.0-36.0); MCV 91 fL (80-95); MPV 12.2 fL (8.0-11.0); Platelet Count 170 10^3/uL (130-400); RDW-SD 67.6 fL; WBC 18.55 10^3/uL (4.4-10.8)
[2023-11-23 07:29] LABS: RDW 23.3 % (11.8-14.1)
[2023-11-23 07:38] LABS: INR 1.5 (0.9-1.1); Prothrombin Time 14.8 sec (9.1-11.1)
[2023-11-23] MEDS: Pantoprazole 40 MG VIAL IVP ×2 (07:41→19:51)
[2023-11-23] MEDS: Normal Saline Flush 10 ML SYR IVP ×3 (07:42→15:46)
[2023-11-23] MEDS: Magnesium Chloride 64 MG TABCR 128 MG PO (07:42)
[2023-11-23] MEDS: Gabapentin 300 MG CAP PO ×3 (07:42→19:51)
[2023-11-23] MEDS: Midodrine 2.5 MG TAB 5 MG PO ×3 (07:43→19:50)
[2023-11-23] MEDS: Metoprolol 12.5 MG TAB PO (07:43)
[2023-11-23] MEDS: Folic Acid 1 MG TAB PO (07:43)
[2023-11-23] MEDS: Thiamine 100 MG TAB PO (07:43)
[2023-11-23] MEDS: Rifaximin 550 MG TAB PO ×2 (07:43→19:50)
[2023-11-23] MEDS: Multivitamin TAB 1 TAB PO (07:43)
[2023-11-23 07:46] LABS: ALT 69 U/L (16-63); AST 118 U/L (15-37); Alkaline Phosphatase 128 U/L (46-116); Anion Gap 14.9 mmol/L (3-11); BUN 25 mg/dL (7-18); Bilirubin, Total 4.4 mg/dL (0.2-1.0); CO2 20.1 mmol/L (21.0-32.0); CREATININE 2.1 mg/dL (0.70-1.30); Calcium 8.2 mg/dL (8.5-10.1); Chloride 105 mmol/L (98-107); Estimated GFR 32.83 (mL/min/1.73m2); Glucose 127 mg/dL (74-106); Sodium 140 mmol/L (136-145); Total Protein 4.5 g/dL (6.4-8.2)
[2023-11-23] MEDS: Lactated Ringers 1,000 ML 80 ML IV (09:10)
[2023-11-23] MEDS: POTASSIUM CHLORIDE 10 MEQ/100 ML BAG 100 MEQ IVPB ×2 (10:33→11:47)
--- NOTE | 2023-11-23 11:37 | PDOC.CMPRO ---
Date of service: 11/23/23 Time of Service: 11:37 Care Management Progress Note Progress Note Text Progress Note Text: S/O: Denise was lying in bed when CM met with him. He stated that he had recently returned from the OR/recovery, and feels tired and a bit disoriented at that time. He shared that per report, he has two ulcers which are the likely cause of the bleeding, and that there are other things that he was not as clear about, but is looking forward to meeting with the MD later to discuss the findings of the procedures more thoroughly. CM discussed discharge planning considerations, and Denise stated that he does not feel that he will require HH services at discharge. He did express interest in some support with cleaning his home, and the moderate needs program was discussed. CM will send a referral to [facility] for moderate needs, as well as options counseling to consider any other unmet needs that may arise. He is happy to meet with [facility] once he is settled in at home. CM will continue to follow. A: Denise is a 73 year old male admitted to [facility] on 11/17/23 for hepatic encephalopathy, alcoholic hepatitis. P: Anticipate denise will be discharged home when medically stable. He will follow up with his community providers and plan of care and transport with a friend or family member. CM will follow and support discharge planning needs. SDOH(Care Management) Screening Will the Patient Participate in the Screening?: Yes Do you worry about having a steady place to live?: no In the past 12 months, have you had to go without electric, gas, oil or water in your home?: no Have you or anyone in your house had to go without enough food to eat?: no Has lack of transportation kept you from medical appointments or from doing things needed for daily living?: no Has anyone in your support network made you feel unsafe for any reason?: no
--- NOTE | 2023-11-23 11:47 | ANES.PREOP_ITS ---
General Info Date of Service Date Performed: 11/23/23 Height: 6 ft Weight: 68.5 kg Body Mass Index (BMI): 20.5 Surgical Procedure: Operation Date: 11/23/23 11:20 Proposed Procedure Side Surgeon p Colonoscopy/Gastroscopy Shaila Petty, Meds Allergies and Home Medications Allergies Allergy/AdvReac Type Severity Reaction Status Date / Time clams Allergy Unknown Verified 12/19/22 10:09 mussels Allergy Unknown Verified 12/19/22 10:09 acetaminophen [From Vicodin] AdvReac Intermediate SEVERE Verified 12/19/22 10:09 CONSTIPATION hydrocodone bitartrate AdvReac Intermediate SEVERE Verified 12/19/22 10:09 [From Vicodin] CONSTIPATION SEAFOOD Allergy Unknown Uncoded 12/19/22 10:09 Home Medication Medication Instructions Recorded levalbuterol tartrate 45 2 inh inhalation Q6H PRN PRN 10/08/19 mcg/actuation aerosol inhaler shortness of breath or wheezing (Xopenex HFA) #15 grams multivitamin (Multiple Vitamins 1 tab PO DAILY #30 tabs 10/08/19 tablet) melatonin 3 mg capsule 3 mg PO HS PRN 11/04/20 magnesium chloride 64 mg 128 mg PO DAILY 04/18/21 (magnesium chloride) tablet,delayed release (Mag 64) omeprazole 20 mg capsule,delayed 20 mg PO QPM 04/18/21 release omega-3 fatty acids 500 mg capsule 1,000 mg PO .COMPLEX 05/05/21 (Fish Oil) propranolol 60 mg capsule,24 60 mg PO DAILY #90 tab-caps 12/19/22 hr,extended release folic acid 1 mg tablet 1 mg PO DAILY 11/21/23 gabapentin 300 mg capsule 300 mg PO TID 11/21/23 Current Visit Medications: Current Medications Generic Name Dose Route Start Last Admin Trade Name Freq PRN Reason Stop Dose Admin Device 1 each 11/17/23 23:00 Inhaler, Assist Device MC DIRECTED MONAE Diphenhydramine HCl 0 mg 11/22/23 08:00 Diphenhydramine 25 Mg Cap PO TODAY MONAE Fish Oil 1,000 mg 11/19/23 09:00 11/23/23 08:05 [place]y-3 Fatty Acids 1000 Mg Cap PO Not Given [id number] MONAE Folic Acid 1 mg 11/18/23 08:30 11/23/23 07:43 Folic Acid 1 Mg Tab PO 11/24/23 08:31 1 mg QAM MONAE Administration Gabapentin 300 mg 11/18/23 08:30 11/23/23 07:42 Gabapentin 300 Mg Cap PO 300 mg TID MONAE Administration Piperacillin Sod/Tazobactam 50 mls @ 100 mls/hr 11/18/23 02:00 11/23/23 07:59 Sod 3.375 gm/ Sodium Chloride IVPB 100 mls/hr Q6H MONAE Administration Sodium Chloride 500 mls @ 0 mls/hr 11/18/23 08:30 11/22/23 01:23 Saline 500ml Bag IV Infused DIRECTED PRN Infusion As Directed Ringer's Solution 1,000 mls @ 80 mls/hr 11/23/23 00:05 11/23/23 09:10 IV 80 mls/hr INFUSION MONAE Administration IV Miscellaneous Supplies 1 each 11/18/23 08:30 Iv Access IV DIRECTED MONAE Lactulose 20 gm 11/18/23 08:30 11/22/23 20:33 Lactulose 20 Gm/30 Ml Cup PO 20 gm TID MONAE Administration Levalbuterol 2 puff 11/17/23 22:48 Levalbuterol Hfa 15 Gm Inh IH Q6H PRN PRN shortness of breath or wheezing Lorazepam 0 mg 11/17/23 22:49 11/18/23 11:15 Lorazepam 1 Mg Tab PO/SL 1 mg DIRECTED PRN Administration Magnesium Chloride 128 mg 11/18/23 08:30 11/23/23 07:42 Magnesium Chloride 64 Mg Tabcr PO 128 mg DAILY MONAE Administration Magnesium Hydroxide 30 ml 11/17/23 22:42 Milk Of Magnesia 30 Ml Cup PO DAILY PRN PRN Melatonin 3 mg 11/21/23 08:36 11/22/23 21:56 Melatonin 3 Mg Tab PO 3 mg HS PRN PRN Administration Metoprolol Tartrate 12.5 mg 11/22/23 09:00 11/23/23 07:43 Metoprolol 12.5 Mg Tab PO 12.5 mg BID MONAE Administration Midodrine 5 mg 11/18/23 08:30 11/23/23 07:43 Midodrine 2.5 Mg Tab PO 5 mg TID MONAE Administration Multivitamins 1 tab 11/18/23 08:30 11/23/23 07:43 Multivitamin Tab PO 1 tab DAILY MONAE Administration Pantoprazole Sodium 40 mg 11/21/23 08:30 11/23/23 07:41 Pantoprazole 40 Mg Vial IVP 40 mg BID MONAE Administration Polyethylene Glycol 17 gm 11/17/23 22:42 Polyethylene Glycol 3350 17 Gm Packet PO DAILY PRN PRN Constipation Polyethylene Glycol 238 gm 11/22/23 13:00 11/22/23 14:47 Polyethylene Glycol 3350 238 Gm Btl PO 238 gm TODAY@1300 MONAE Administration Rifaximin 550 mg 11/18/23 10:00 11/23/23 07:43 Rifaximin 550 Mg Tab PO 550 mg BID MONAE Administration Sodium Chloride 0 ml 11/18/23 08:30 11/23/23 07:59 Normal Saline Flush 10 Ml Syr IVP 10 ml PRN PRN Administration Thiamine HCl 100 mg 11/18/23 08:30 11/23/23 07:43 Thiamine 100 Mg Tab PO 11/24/23 08:31 100 mg QAM MONAE Administration PFSH Active Problems Active Problems: Problem Status Onset Code Paroxysmal A-fib I48.0 Lower GI bleed K92.2 Blood loss anemia D50.0 Alcoholic cirrhosis of liver with ascites K70.31 Pulmonary infiltrates R91.8 Biliary sludge K83.8 Ascites R18.8 Alcoholic cirrhosis K70.30 Lactic acidosis E87.20 Leukocytosis (leucocytosis) D72.829 Hyponatremia E87.1 Encephalopathy, hepatic K76.82 Jaundice R17 Carpal tunnel syndrome of right wrist G56.01 Right radial nerve palsy 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 Alcohol abuse F10.10 Cellulitis of hand, right L03.113 Infected hand L08.9 Cat scratch of hand S60.519A, W55.03XA Memory change R41.3 Tendinitis of long head of biceps brachii of left shoulder M75.22 Rotator cuff tear M75.100 Bilateral shoulder bursitis M75.51, M75.52 Impingement syndrome of both shoulders M75.41, M75.42 Orthostatic hypertension I10 Autonomic dysfunction G90.9 Folic acid deficiency E53.8 B12 deficiency E53.8 Hypomagnesemia E83.42 Hypokalemia E87.6 Dysphagia R13.10 Orthostatic hypotension I95.1 Tachycardia with greater than 160 beats per minute R00.0 Discharge planning issues Z02.9 DVT prophylaxis Z29.9 COPD (chronic obstructive pulmonary disease) J44.9 Transaminitis R74.0 Dyspnea on exertion R06.09 TBI (traumatic brain injury) S06.9X9A Migraine headache without aura G43.009 Alcohol abuse F10.10 Vitamin D deficiency E55.9 Scoliosis Hyperlipidemia Chronic kidney disease, stage 3 Anxiety and depression Chronic pain syndrome 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, S06.9X9S Left ureteral stone 03/27/17 N20.1 Gross hematuria 03/20/17 R31.0 Essential tremor 04/10/16 G25.0 Calculus of left kidney 03/20/17 N20.0 Alcoholic peripheral neuropathy 04/10/16 G62.1 Umbilical hernia without obstruction or gangrene K42.9 Medical History Medical History (Updated 11/22/23 @ 09:23 by Everton Lopez MD) Seizure disorder Alcoholic peripheral neuropathy Surgical History Surgical History [place]guinal [place] [facility] [place] Tobacco Smoking/Tobacco Use Status: Former Tobacco Use Alcohol Alcohol Intake: current Alcohol intake frequency: holidays/special occasions only Alcohol type: wine Substance Use Substance use: Never Substance use type: does not use Vital Signs and Lab Results Vital Signs Most Recent Vital Signs in EMR: Most Recent Vital Signs Temp Pulse Resp BP Pulse Ox 36.2 C L 82 20 83/62 L 95 11/23/23 09:01 11/23/23 09:01 11/23/23 09:01 11/23/23 09:01 11/23/23 09:01 Lab Results 11/23/23 07:07 11/23/23 07:07 Blood Type / Crossmatch: 2 Patient ABO/Rh A Positive 11/22/23 Antibody Screen NEGATIVE 11/22/23 Crossmatch See Detail 11/22/23 Complete Blood Count: 2 White Blood Count 18.55 10^3/uL (4.4-10.8) H 11/23/23 07:07 Red Blood Count 3.00 10^6/uL (4.36-5.78) L 11/23/23 07:07 Hemoglobin 9.5 g/dL (13.5-17.5) L 11/23/23 07:07 Hematocrit 27.2 % (40.0-50.0) L 11/23/23 07:07 Platelet Count 170 10^3/uL (130-400) 11/23/23 07:07 Venous Blood Lactate 1.1 mmol/L (0.6-1.4) 11/18/23 08:04 Complete Metabolic Panel: 2 Sodium 140 mmol/L (136-145) 11/23/23 07:07 Potassium 2.6 mmol/L (3.5-5.1) L* 11/23/23 07:07 Chloride 105 mmol/L (98-107) 11/23/23 07:07 Carbon Dioxide 20.1 mmol/L (21.0-32.0) L 11/23/23 07:07 BUN 25 mg/dL (7-18) H 11/23/23 07:07 Creatinine 2.1 mg/dL (0.70-1.30) H 11/23/23 07:07 Est GFR (CKD-EPI 2020) 32.83 (mL/min/1.73m2) 11/23/23 07:07 Magnesium 1.7 mg/dL (1.8-2.4) L 11/18/23 06:40 Calcium 8.2 mg/dL (8.5-10.1) L 11/23/23 07:07 Albumin 2.0 g/dL (3.4-5.0) L 11/23/23 07:07 Glucose 127 mg/dL (74-106) H 11/23/23 07:07 Liver Function Panel: 2 Alanine Aminotransferase (ALT/SGPT) 69 U/L (16-63) H 11/23/23 0 7:07 Aspartate Amino Transf (AST/SGOT) 118 U/L (15-37) H 11/23/23 07 :07 Coagulation Panel: 2 INR International Normalized Ratio 1.5 (0.9-1.1) H 11/23/23 07 :07 Prothrombin Time 14.8 sec (9.1-11.1) H 11/23/23 07:07 Activated Partial Thromboplast Time 33.0 sec (23.6-32.8) H 11/17/23 22:25 Cardiac Panel: 2 Troponin I < 50 ng/L (< or =60) 11/17/23 Arterial Blood Gas: 2 No Data to Display Venous Blood Gas: 2 Venous Blood pH 7.42 (7.31-7.41) H 11/18/23 08:04 Venous Blood Partial Pressure O2 30 mmHg 11/18/23 08:04 Venous Blood Partial Pressure CO2 37 mmHg (41-51) L 11/18/23 08 :04 Venous Blood Oxygen Saturation 52 % 11/18/23 08:04 Venous Blood HCO3 24 mmol/L (23-28) 11/18/23 08:04 Venous Blood Base Excess -1 mmol/L (-2-3) 11/18/23 08:04 Venous Blood Total Carbon Dioxide 22 mmol/L (24-29) L 11/18/23 08:04 Pancreas Panel: 2 No Data to Display Thyroid Panel: 2 No Data to Display Infectious Disease: 2 Hepatitis B Surface Antigen Negative (Negative) 11/17/23 19:15 Hepatitis C Antibody Negative (Negative) 11/17/23 19:15 Blood Cultures: 2 No Data to Display Toxicology Panel: 2 Ethyl Alcohol Level 61.5 mg/dL (<10) H 11/17/23 19:15 Imaging and Studies Imaging and Studies Study information below may be from another EMR and interpreted by another provider. Please see original notes in EMR for more complete details. EKG Summary: Conclusion Sinus rhythm 75 RBBB 11/17/23 Echocardiogram Summary: Conclusion Normal left ventricular wall thickness and chamber size Estimated ejection fraction 60 to 65%. Wall motion is normal No chamber enlargement No clinically significant structural valvular disease 10/06/19 Pulmonary Function Summary: IMPRESSION: Mild obstructive airways disease with no significant bronchodilator response. This is combined with underlying mild restrictive lung disease. These two together result in severe diffusion defect. Clinical correlation and further workup for both entities is recommended. 09/25/19 Anesthesia Assessment and Plan Anesthesia History Personal History: No History of Anesthesia Complications Family History: No Family History of Anesthesia Complications Exercise Tolerance Exercise Tolerance: Metabolic Equivalents<4 Pertinent Negatives Pertinent Negatives: No Symptoms of GERD, No Major Cardiovascular Symptoms or Complaints and No Major Pulmonary Symptoms or Complaints Cardiac & Pulmonary Exam Cardiac Exam: Normal S1/S2 Heart Sounds Pulmonary Exam: Rales Present (fine rales left base, otherwise clear, diminished throughout) Cardiac and Pulmonary Comment:: Denies cough or respiratory distress, RA sat 92% Implantable Cardiac Device Does patient have a Pacemaker or an ICD?: No Airway Exam Known Difficult Airway: No Mallampati Class: 1 Mouth Opening: Normal (> 3cm) Thyromental Distance: Greater than 3 cm Facial Hair: Full Wilks Neck Range of Motion: Full ROM Neck Circumference: Normal Teeth Condition: Generalized Poor Dentition (patient states none loose) ASA Classification ASA Score: ASA 3 Emergency Case?: No NPO Status NPO Status: NPO Clears >2 hours, Solids >8 hours Anesthesia Plan Resuscitation Status: DNR Modified During Perioperative Period Resuscitation Modifications: Pt. Requests for Clinical Judgement to be Used Anesthesia Technique: General Anesthesia Airway Planned: Natural Airway Monitors Used: Standard Monitors Preoperative Comments:: Discussed increased risk of anesthesia complications due to liver disease, a-fib, COPD, Anemia, and decreased potassium of 2.6. Two doses of KCl IV will be completed prior to starting procedure. Last seizure more than 8 years ago.
[2023-11-23] MEDS: Lactated Ringers 1,000 ML 30 ML IV (13:15)
--- NOTE | 2023-11-23 13:26 | ESO_PTH ---
PATIENT: Roderick Fernandez LOC: [id number]#:[id number] AGE/SX: 73/M ROOM: 218 RE11/17/[address]: Laureano Ferguson : 1950 BED: A DIS: 11/28/2023 SPEC #: [id number] RECD: 11/23/23 18:46 STATUS: JOANNE REQ #: [id number] TON: 11/23/23 13:[address]: Priyank Wood DEPT: Surgical Specimen RECD BY: Annika Cloud ENTERED: 11/23/23 18:46 SP TYPE: Eso OTHR DR: Cris Quijano,Joan Salguero, Bird Harris,Nicolette Lo MD InPatient Julio Cesar Arguello Tissues: 1 - ESOPHAGUS BIOPSY Procedures: GROSS AND MICRO LEVEL 4 Comments: [id number]
--- NOTE | 2023-11-23 13:47 | CHAPLAIN ---
Roderick was sitting up in bed speaking with one of student nurses. After I introduced myself, Roderick told me that he is [employer]. 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 The student nurse said they has been talking about [place] before I visited. I explained my role and offered support. Roderick is going to the OR later today to be scoped to find the source of internal bleeding.
[2023-11-23] MEDS: ePHEDrine 25 MG/5 ML Syringe IVP ×4 (14:01→14:46)
--- NOTE | 2023-11-23 14:04 | ENDO_ITS ---
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 Monitors were applied and a time out was done. The patients name, date of , procedure type, allergies to medications and metal in their body was reviewed. A bite block was placed and the patient was sedated. Once sedated and comfortable the gastroscope was advanced through the oropharynx which was grossly normal into the esophagus. The proximal and mid- esophagus were normal. There are no varices in the distal esophagus there was moderate esophagitis and esophageal erosions at the GE junction. 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 This was biopsied. There is no hiatal hernia. the scope was advanced into the stomach and through the pylorus into the 3rd portion of the duodenum. The duodenum was noted to be he has a large anterior and posterior duodenal ulcer. They have a thick proteinaceous membrane on them. There is no signs of active or old bleeding. His mucosa is very friable and bleeds readily just with touch. Biopsies were only done at the GE junction because of the risk of bleeding. The scope was retracted back into the stomach. The scope was retroflexed. The cardia and fundus were noted to be normal. The scope was retracted back into the esophagus and biopsies were done of the GE junction to rule out Griffith's. The Z line was irregular. The scope was removed and proceeded to the colonoscopy
[2023-11-23 14:05] LABS: Potassium 2.6 mmol/L (3.5-5.1)
--- NOTE | 2023-11-23 14:08 | W.COLOREPORT ---
Date of service: 11/23/23 Time of Service: 14:08 Colonoscopy Report Date of procedure: 11/23/23 Pre-op diagnosis general: GI bleed/persistent anemia Post-op diagnosis procedure note: same (Severe diverticulitis) Surgeon: Shaila Petty Anesthesia Type: General:No Airway Estimated blood loss (mL): 0 Pathology: none sent Complications: None Disposition: PACU Prep: Miralax/Dulcolax Retraction Time: 7 Procedure Description: After informed consent was obtained the patient was taken to the procedure room and placed in a left decubitous position. Monitors were applied and a time out was done. The patients name, date of , procedure, allergies to medications and metal in their body was reviewed. The patient was then sedated. Once sedated and comfortable a rectal exam was done. External exam was normal. Internal exam revealed a normal sphincter tone and no palpable masses. The prostate-no palpable masses. The scope was then introduced and retrofelexed. No internal hemorrhoids were identified. The scope was then advanced to the cecum without difficulty. The TI and appendiceal orifice were identified. The scope was then slowly retracted over 7 minutes back into the rectum. There are no polyps or AVMs visualized today. He has severe diverticula that do extend all the way to the transverse colon. They are large in size and numerous. There is no signs of active or old bleeding within the colon. The scope was removed and the patient was woken up and taken back to Same day surgery in stable condition. The patient tolerated the procedure well and there were no immediate complications. Follow up: The patient does not require any further screening colonoscopies. [place] Bowel Prep [place] Bowel Prep Right Colon: 3 Left Colon: 1 Transverse Colon: 2 Total Score: 6
--- NOTE | 2023-11-23 14:16 | PT.INNT ---
PT Notes Visit Reasons: Hepatic Encephalopathy,Alcoholic Hepatitis,Alcohol Attempted to see patient this morning but needed to be with nurse anesthesiologist for assessment of readiness for colonoscopy and EGD this afternoon. Patient on hold for PT this afternoon due to these testing procedures. Continue with services tomorrow morning.
--- NOTE | 2023-11-23 14:32 | W.ANESPOSTOP ---
Postoperative Evaluation Date, Time and Location Date Performed: 11/23/23 Time Performed: 14:32 Patient Location: PACU Vital Signs Most Recent Imported Vital Signs: Most Recent Vital Signs Temp Pulse Resp BP Pulse Ox 36.7 C 96 H 19 89/58 94 11/23/23 14:18 11/23/23 14:18 11/23/23 14:18 11/23/23 14:18 11/23/23 14:18 Pain Score Most Recent Pain Score: Most Recent Pain Score Pain Level [Volar Head] 8 11/23/23 09:01 Pain Level 8 11/23/23 09:01 Assessment Mental Status: Awake (Alert & Oriented to Patient Baseline) Airway and Respiratory Function: Patent airway with normal (patient baseline) respiratory exam Cardiovascular Function: Hemodynamically Stable Hydration Status: Adequately Hydrated Nausea & Vomiting: No Nausea or Vomiting Pain: Pt. Denies Any Pain Peripheral Nerve Block: Patient did not receive a nerve block
[2023-11-23] MEDS: Sucralfate 1 GM TAB PO ×2 (15:45→23:57)
[2023-11-23] MEDS: Lactulose 20 GM/30 ML CUP PO (15:56)
--- NOTE | 2023-11-23 16:00 | NUR.NOTE ---
Pt back from PACU at 1519 on stretcher, maintaining SBPs in the 80's per PACU nurse. Prt agreed to take lactulose in grape juice. Nursing Note:
--- NOTE | 2023-11-24 | DI.CT_ITS ---
Exam(s) CT ABDOMEN PELVIS WO EXAM: CT ABDOMEN PELVIS WO CLINICAL HISTORY: abdominal distension. TECHNIQUE: Imaging Protocol: Axial computed tomography images with coronal and sagittal reformatted images were created and reviewed CONTRAST MATERIAL: Intravenous: none Oral: None COMPARISON: CT CT CHEST/ABD/PEL W from 11/17/2023 FINDINGS: VISUALIZED LUNG BASES: Moderate size bilateral pleural effusions increased from previous and associat ed with some volume loss in lower lobe basal segments as well as mild infiltrate. There is a well-defined hyperdense structure in the lower esophagus which was not previously present. I suspect that this is a pill lodged at this level. ABDOMEN: In the abdomen there is significant amount of ascites again evident in this cirrhotic patient. Amoun t of ascites approximately equal to previous study of 11/17/2023. LIVER: Cirrhotic appearing liver again noted. No obvious discrete focal hepatic lesions evident. GALLBLADDER/BILIARY: Gallbladder sludge evident. No radiopaque calculi CBD is not dilated. PANCREAS: No evidence of pancreatic mass nor dilatation of the pancreatic duct. SPLEEN: Spleen is not enlarged. No obvious intrasplenic lesions. ADRENALS: There are no significant adrenal masses. KIDNEYS:Right kidney unremarkable. There is a nonobstructive solitary 3 millimeter calculus in the u pper pole of the left kidney, unchanged in size and position.. No hydronephrosis nor hydroureter. N o solid renal masses.. ABDOMINAL AORTA: Aorta is calcified but not enlarged. Common iliac arteries also calcified but not e nlarged. LYMPH NODES: There is no retroperitoneal nor paraaortic adenopathy. ABDOMINAL WALL: No evidence of significant anterior abdominal wall nor inguinal hernia. GI: There is no evidence of bowel obstruction, free air, nor abscess. PELVIS: LYMPH NODES: There is no intrapelvic nor inguinal adenopathy. GI: No evidence of appendicitis.No evidence of sigmoid diverticulitis. URINARY BLADDER: Small size. Ureters are not dilated. REPRODUCTIVE: Prostate and seminal vesicles not enlarged. OSSEOUS: No significant osseous lesions. No fractures. IMPRESSION: 1. Compared to the CT scan 11/17/2023 there is again noted a large amount of ascites in the abdomen a nd pelvis and moderate size bilateral pleural effusions. Also some subcutaneous anasarca bilaterally , not previously present.. 2. Cirrhotic appearing liver without obvious masses. No splenomegaly. 3. Solitary nonobstructive 3 millimeter calculus in left kidney again noted. No other significant re nal findings. No hydronephrosis. RADIATION DOSE DELIVERED: Total DLP DATA REPOSITORY: All CT scans at this facility are submitted to the National Radiology Data Registry (NRDR) Dose Index Registry (DIR) with the [employer] (ACR). RADIATION OPTIMIZATION: All CT scans at this facility use at least one of these dose optimization te chniques: automated exposure control; mA and/or kV adjustment per patient size (includes targeted exa ms where dose is matched to clinical indication); or iterative reconstruction.
[2023-11-24] MEDS: PIPERACILLIN/TAZO 3.375 GM in Normal Saline 50 ML IVPB ×4 (02:49→21:00)
[2023-11-24 02:54] VITALS: BP 88/55; PULSE 95; RESP 18; O2SAT 92
[2023-11-24 07:58] VITALS: BP 107/74; PULSE 124; RESP 22; TEMP 36.2; O2SAT 91
[2023-11-24] MEDS: Lactulose 20 GM/30 ML CUP PO ×3 (08:17→20:56)
[2023-11-24] MEDS: Metoprolol 12.5 MG TAB PO (08:18)
[2023-11-24] MEDS: Rifaximin 550 MG TAB PO ×2 (08:18→20:57)
[2023-11-24] MEDS: Pantoprazole 40 MG VIAL IVP ×2 (08:18→20:57)
[2023-11-24] MEDS: Magnesium Chloride 64 MG TABCR 128 MG PO (08:18)
[2023-11-24] MEDS: Normal Saline Flush 10 ML SYR IVP (08:18)
[2023-11-24] MEDS: Multivitamin TAB 1 TAB PO (08:18)
[2023-11-24] MEDS: Gabapentin 300 MG CAP PO ×3 (08:19→20:56)
[2023-11-24] MEDS: Sucralfate 1 GM TAB PO ×3 (08:19→20:57)
[2023-11-24] MEDS: Folic Acid 1 MG TAB PO (08:19)
[2023-11-24] MEDS: Thiamine 100 MG TAB PO (08:19)
[2023-11-24] MEDS: Midodrine 2.5 MG TAB 5 MG PO ×3 (08:19→20:57)
--- NOTE | 2023-11-24 10:07 | DI.VRAD_ITS ---
PROCEDURE INFORMATION: Exam: CT Abdomen And Pelvis Without Contrast Exam date and time: 11/24/2023 8:55 AM Age: 73 years old Clinical indication: Other: Abdominal distention TECHNIQUE: Imaging protocol: Computed tomography of the abdomen and pelvis without contrast. Radiation optimization: All CT scans at this facility use at least one of these dose optimization techniques: automated exposure control; mA and/or kV adjustment per patient size (includes targeted exams where dose is matched to clinical indication); or iterative reconstruction. COMPARISON: CT CHEST/ABD/PEL W 11/17/2023 8:14 PM FINDINGS: Lungs: Consolidation in the lower lobes may represent atelectasis or pneumonia. Pleural spaces: Moderate bilateral pleural effusions.. Coronary arteries: Coronary artery calcifications may indicate coronary artery disease. Liver: Lobulated liver consistent with cirrhosis. Gallbladder and bile ducts: Normal. No calcified stones. No ductal dilation. Pancreas: Pancreatic atrophy Spleen: Normal. No splenomegaly. Adrenal glands: Normal. No mass. Kidneys and ureters: Nonobstructing left renal calculus Stomach and bowel: Suboptimal study due to the lack of oral and intravenous contrast. Most of the oral contrast is confined to the stomach. Bowel wall thickening in the right colon may represent colitis . Appendix: No evidence of appendicitis. Intraperitoneal space: Large amount of ascites throughout the abdomen and pelvis.. Vasculature: Unremarkable. No abdominal aortic aneurysm. Lymph nodes: Unremarkable. No enlarged lymph nodes. Urinary bladder: Unremarkable as visualized. Reproductive: Unremarkable as visualized. Bones/joints: Unremarkable. No acute fracture. Soft tissues: Edema in the subcutaneous fat. Findings consistent with anasarca. IMPRESSION: 1. Large amount of ascites throughout the abdomen and pelvis.. 2. Moderate bilateral pleural effusions.. 3. Edema in the subcutaneous fat. 4. Findings consistent with anasarca. 5. Lobulated liver consistent with cirrhosis. 6. Consolidation in the lower lobes may represent atelectasis or pneumonia. 7. Bowel wall thickening in the right colon may represent colitis . Dictated and Authenticated by: Georgi Perry MD. Ordering:RITA Toscano MD
--- NOTE | 2023-11-24 10:25 | PT.INTREAT ---
PT Notes Visit Reasons: Hepatic Encephalopathy,Alcoholic Hepatitis,Alcohol Inpatient Physical Therapy Treatment Note [facility] Date: 11/24/23 PRECAUTIONS:Standard SUBJECTIVE: Pt reports his stomach is sore from all of the fluid. Pt does not feel comfortable standing and getting OOB he feels he is too unsteady. OBJECTIVE: Therapeutic Activities ([id number][]): Direct one-on-one instruction in dynamic activities to improve functional performance. ? BED MOBILITY/TRANSFERS? Rolling L/R: [] Supine-sit: CGA? Sit-supine: Min assist with LE's ? Therapeutic Exercises ([id number][2]): Direct one-on-one instruction in therapeutic exercises to develop strength, endurance, range of motion and flexibility. ? Exercises ? Rowing x 10 Horz shoulder abd x 10 Shoulder flexion x 10 Shoulder cw/ccw x 10 Rowing x 10 LAQ x 10 Marching x 10 Hip abd x 10 HR/TR xx 20 seated ? ASSESSMENT:? Pt required resting breaks during his session due to SOB and fatigue. We did review pursed lip breathing. PLAN: Cont as per PT POC. TREATMENT CODE/TIME: 10:00-10:23 (23) TEx2
--- NOTE | 2023-11-24 10:51 | NUR.NOTE ---
Per Dr. Najera/workers compensation claims examiner surgeon, he will tell Hospitalist to start lasix and spironolactone. Nursing Note:
--- NOTE | 2023-11-24 11:15 | W.PM.PROGNOT ---
Date of Service Date of service: 11/24/23 Time of Service: 11:15 Assessment and Plan Assessment and plan (1) Alcoholic cirrhosis of liver with ascites: Status: Chronic Assessment and plan: 73 yo M w/ alcoholic cirrhosis, ascites s/p paracentesis 3.5 L removed there is anticipated rapid reaccumulation of abdominal ascites secondary to liver failure patient appears to be stable at this time if there is change in status, then patient should be transferred to ICU I have seen and evaluated the patient, there is no acute indication for paracentesis, as the patient is in no acute distress. paracentesis does not provide lasting benefit unless management of ascites is performed. There is no evidence of bleeding. Review of labs demonstrate stable hemoglobin. review of EGD/colonoscopy reports on 11/23/2023 - no stigmata of bleeding, non-bleeding duodenal ulcers identified on egd Recommendations: fluid restriction 2000 cc/day gentle/gradual initiation of lasix/spironolactone therapy consider albumin administration shift oncotic pressure gradient to intravascular space electrolyte replacements as indicated recommend continue management of PPI and sucralfate suspension for mechanical-cytoprotection continue to monitor for evidence of recurrent GI bleed there is no indication for acute paracentesis if there is change in clinical status and deterioration of condition, I would recommend transfer to ICU I will continue to follow patient through the weekend Dr. Petty to return on Sunday11/26/2023 and may provide additional input RE: risks/benefit of recurrent paracentesis Subjective Subjective Interval history since last seen: no acute distress he is awake, alert, appropriate discussion no nausea, no vomiting no shortness of breath, no chest pain no evidence of ongoing bleeding from duodenal ulcers Exam Narrative Exam Narrative: gen: nad resp: unlabored breath abd: intra-abdominal ascites, non-tender upon palpation Objective Last Vital Signs Temp 97.2 F L 11/24/23 07:58 Pulse 124 H 11/24/23 07:58 Resp 22 11/24/23 07:58 BP 107/74 11/24/23 07:58 Pulse Ox 91 L 11/24/23 07:58 Laboratory Results - last 24 hr 11/23/23 07:07 Potassium 2.6 L* PAWSS Have you Been Recently Intoxicated or Drunk Within the Last 30 days?: Yes Have you Ever Experienced Previous Episodes of Alcohol Withdrawal?: No Have you ever Experienced Withdrawal Seizures?: No Have you ever Experienced Delirium Tremens(DT)s?: No Have you ever undergone Alcohol Rehabilitation Treatment (i.e, inpt ot outpatient treatment programs)?: Yes Have you ever Experienced Blackouts?: No Have you ever Combined Alcohol with other Downers within the last 90 days?: No Have you ever Combined Alcohol with any other Substance of Abuse during the last 90 days?: No Positive Blood Alcohol level on Presentation? [PCS.BAL]: Yes Evidence of Increased Autonomic Activity (i.e. HR>120, tremor, sweating, agitation, nausea)?: Yes Result: 4 Time Spent with Patient Time Spent with Patient: 25-34 minutes Time was spent: preparing to see the patient(eg.review tests), obtaining and/or reviewing separately otained hiistory, referring, communicating with other health customer care consultant, indepentently interpreting results and counseling the patient
--- NOTE | 2023-11-24 12:15 | PGE_ITS ---
Date of Service Date of service: 11/24/23 Time of Service: 12:15 Assessment and Plan Assessment and plan (1) Encephalopathy, hepatic: Status: Acute Assessment and plan: -encephalopathyhas resolved; continue w/ lactulose and add rifaximin, ammonia remains elevated but his sensorium seems to be clearing. monitor for acute alcohol withdrawal w/ CIWA scoring (2) Lower GI bleed: Status: Acute Assessment and plan: - Overnight patient 11/17 had significant episode of hematochezia, drop in hemoglobin from 8.2-8.1 -Overnight 11/17 he had 2 units of packed red blood cells and FFP ordered; Hb evening 11/18 7.1, two additional nits of PRBCs ordered and running -Patient remains asymptomatic -Hb back up to 8.6 on AM 11/20 -Overnight 11/20 and early AM 11/21 patient had multiple episodes of bloody bowel movements, with Hb dropping from 8.9 to 7.1 and mild drop in BP down to high 90's systolic; 2 additional units of PRBCs have been ordered -Hb has been stable since that time -s/p EGD and colonoscopy late 11/22; no active bleeding, 2x large deep peptic ulcers and diffuse diverticular disease seen -Will give additional units of PRBCs as needed -if patient's blood pressure decreased despite transfusion and will be transferred to ICU for vasopressor support (3) Ascites: Status: Acute Assessment and plan: - Patient had significant worsening of abdominal distention with imaging showing significant ascites -Discussed with ED physician Dr. Pride who graciously offered his services and will be performing paracentesis today -will start patient on lasix and spironolactone once blood pressures improve (4) Blood loss anemia: Status: Acute Assessment and plan: - As noted above (5) Leukocytosis (leucocytosis): Status: Acute Assessment and plan: -suspect pneumonia, currently on Zosyn, supplemental oxygen, will add IS and acapella, check sputum culture, gram stain, check urine strep and legionell antigen and sputum for mycoplasma. -This may just be atelectasis from his decrease respiratory excursions from his ascites and his pleural effusions which I believe to be from his ascites. -He does not seem to have abdominal pain this morning although that was reported by the barn manager as one of his complaints. -He has a leukocytosis that has improved overnight, blood cultures negative, will discontinue zosyn no 20 from Qualifiers: Leukocytosis type: other Qualified Code(s): D72.828 - Other elevated white blood cell count (6) Pulmonary infiltrates: Status: Acute Assessment and plan: -as above; provide good pulmonary toiletry and proceed w/ antibiotics and treatments as above. (7) Hyponatremia: Status: Acute Assessment and plan: -gentle fluid hydration w/ LR, monitor electrolytes (8) Transaminitis: Status: Acute Assessment and plan: -secondary to alcoholism, although hepatitis panel has been sent; calculated alcoholic hepatitis discriminant score (Maddrey score) was 28.4 (scores over 32 correlates w/ increased 30 day mortality rates over 50%), therefore, I will hold off methylprednisolone for now but monitor his protime and transaminases and bilirubin over next 24 to 48 hr. hopefully this will decline w/ cessation of alcohol (9) COPD (chronic obstructive pulmonary disease): Status: Chronic Assessment and plan: -without acute exacerbation -PRN jonny Qualifiers: COPD type: unspecified COPD Qualified Code(s): J44.9 - Chronic obstructive pulmonary disease, unspecified (10) Alcohol abuse: Status: Chronic Assessment and plan: -he last had a drink of wine the day prior to arrival. -will monitor him for acute withdrawal w/ CIWA scoring. (11) Lactic acidosis: Status: Acute Assessment and plan: -resolving after iv fluids, probably primarily d/t dehydration although sepsis remains possibilty given his leukocytosis and borderline elevation of his procalcitonin. (12) Alcoholic cirrhosis: Status: Acute Qualifiers: Ascites presence: with ascites Qualified Code(s): K70.31 - Alcoholic cirrhosis of liver with ascites (13) Ascites: Status: Acute Assessment and plan: -s/p paracentesis -f/u fluids results Qualifiers: Ascites type: due to alcoholic cirrhosis Qualified Code(s): K70.31 - Alcoholic cirrhosis of liver with ascites (14) Biliary sludge: Status: Acute Assessment and plan: -no evidence of acute cholecystitis either on exam nor as evidenced by his CT scan. There is some questionable hyodense lesions on the liver which should be followed up w/ US of the liver. (15) Paroxysmal A-fib: Status: Acute Assessment and plan: -new, as seen on telemetry overnight -HR goes up to 110's -started 12.mg PO BID lopressor, will continue to monitor HR and BPs -anticoagulation contraindicated at this time due to active GI bleed as noted above Subjective Subjective Interval history since last seen: Patient states that he is happy that his GI bleed appears to be stabilized, but he is complaining of significant abdominal distention and believes that he would benefit from paracentesis. Otherwise he has no other complaints or concerns at this time. Exam Narrative Exam Narrative: Chronically ill-appearing older gentleman laying in bed in no acute distress, ANO x 4, mild jaundice and scleral icterus noted, heart regular rhythm, lungs clear to auscultation bilaterally, abdomen significantly distended as compared to previous day with positive fluid wave present, though no tenderness Objective Last Vital Signs Temp 97.2 F L 11/24/23 07:58 Pulse 124 H 11/24/23 07:58 Resp 22 11/24/23 07:58 BP 107/74 11/24/23 07:58 Pulse Ox 91 L 11/24/23 07:58 Laboratory Results - last 24 hr 11/23/23 07:07 Potassium 2.6 L* PAWSS Have you Been Recently Intoxicated or Drunk Within the Last 30 days?: Yes Have you Ever Experienced Previous Episodes of Alcohol Withdrawal?: No Have you ever Experienced Withdrawal Seizures?: No Have you ever Experienced Delirium Tremens(DT)s?: No Have you ever undergone Alcohol Rehabilitation Treatment (i.e, inpt ot outpatient treatment programs)?: Yes Have you ever Experienced Blackouts?: No Have you ever Combined Alcohol with other Downers within the last 90 days?: No Have you ever Combined Alcohol with any other Substance of Abuse during the last 90 days?: No Positive Blood Alcohol level on Presentation? [PCS.BAL]: Yes Evidence of Increased Autonomic Activity (i.e. HR>120, tremor, sweating, agitation, nausea)?: Yes Result: 4 Time Spent with Patient Time Spent with Patient: >50 minutes Time was spent: preparing to see the patient(eg.review tests), obtaining and/or reviewing separately otained hiistory, ordering medications,tests, procedures, referring, communicating with other health critical care clinical nurse specialist, indepentently interpreting results, counseling the patient and care coordination
--- NOTE | 2023-11-24 12:58 | W.ED.PROC ---
Date of service: 11/24/23 Time of Service: 12:30 Procedures Paracentesis Time Out Performed: Yes Indication: Ascites Procedure: therapeutic paracentesis Location: RLQ Local Anesthetic: Lidocaine 1% Amount of anesthesia used (mL): 6 Bedside Ultrasound Used: yes, Ascites confirmed and location marked Preparation: 11 blade used to make estephania in skin Amount of Fluid Obtained: 3,200 (ml) Fluid: clear Size of Needle Used: 5 (franch) Post Procedure Exam: awake, alert, normal BP, normal HR and normal SpO2 Patient Tolerated Procedure: well Complications: none Additional Comments: I was asked by the hospitalist Dr. Lopez and performing a diagnostic paracentesis after was declined by the on-call general surgeon per Dr. Lopez. Patient is stable alert and oriented x 4 and has capacity to make his own decisions currently. After discussing risk and benefits he consents to having the procedure. Bedside ultrasound shows significant amount of ascites in the abdomen. Procedure was done without complications and he tolerated well. I was asked to do a therapeutic and not diagnostic paracentesis so no specimens were sent to the lab. Medical Decision Making Quality:SDOH Health Related Social Needs: No Data to Display
[2023-11-24 15:27] VITALS: BP 102/68; PULSE 100; RESP 22; TEMP 36.1; O2SAT 100
--- NOTE | 2023-11-24 15:52 | NUR.NOTE ---
Discussed with pt that sitting up in chair would be better for his breathing, he continually declines to do so. Nursing Note:
[2023-11-24] MEDS: Lactated Ringers 1,000 ML 30 ML IV (16:15)
--- NOTE | 2023-11-24 16:31 | NUR.NOTE ---
Pt agreed to having a sponge bath and sit in the chair after a lot of discussion about his future health and what he can do to help himself. Nursing Note:
[2023-11-24 19:46] VITALS: BP 90/62; PULSE 98; RESP 16; TEMP 36.3; O2SAT 96
[2023-11-24 21:49] VITALS: O2SAT 92
[2023-11-25] VITALS (9 sets, daily range): BP systolic 90–104; BP diastolic 53–78; PULSE 76–106; RESP 16–19; TEMP 35.6–36.2; O2SAT 93–97
[2023-11-25] MEDS: PIPERACILLIN/TAZO 3.375 GM in Normal Saline 50 ML IVPB ×2 (01:54→08:00)
[2023-11-25] MEDS: Sucralfate 1 GM TAB PO ×4 (02:26→21:45)
[2023-11-25 06:51] LABS: HCT 26.9 % (40.0-50.0); HGB 9.1 g/dL (13.5-17.5); MCH 32.2 pg (27.0-33.0); MCHC 33.8 % (32.0-36.0); MCV 95 fL (80-95); MPV 12.3 fL (8.0-11.0); Platelet Count 132 10^3/uL (130-400); RBC 2.83 10^6/uL (4.36-5.78); RDW-SD 68.6 fL
[2023-11-25 07:18] LABS: RDW 25.2 % (11.8-14.1)
[2023-11-25] MEDS: Pantoprazole 40 MG VIAL IVP ×2 (08:00→21:46)
[2023-11-25] MEDS: Lactulose 20 GM/30 ML CUP PO ×3 (08:00→21:45)
[2023-11-25] MEDS: Magnesium Chloride 64 MG TABCR 128 MG PO (08:01)
[2023-11-25] MEDS: Midodrine 2.5 MG TAB 5 MG PO ×3 (08:01→21:45)
[2023-11-25] MEDS: Gabapentin 300 MG CAP PO ×3 (08:02→21:45)
[2023-11-25] MEDS: Multivitamin TAB 1 TAB PO (08:02)
[2023-11-25] MEDS: Rifaximin 550 MG TAB PO ×2 (08:02→21:45)
[2023-11-25] MEDS: Normal Saline Flush 10 ML SYR IVP ×2 (08:03→22:02)
[2023-11-25] MEDS: Metoprolol 12.5 MG TAB PO ×2 (08:03→21:45)
--- NOTE | 2023-11-25 08:51 | W.PM.PROGNOT ---
Date of Service Date of service: 11/25/23 Time of Service: 08:51 Assessment and Plan Assessment and plan (1) Encephalopathy, hepatic: Status: Acute Assessment and plan: -encephalopathyhas resolved; continue w/ lactulose and add rifaximin, ammonia remains elevated but his sensorium seems to be clearing. monitor for acute alcohol withdrawal w/ CIWA scoring (2) Lower GI bleed: Status: Acute Assessment and plan: - Overnight patient 11/17 had significant episode of hematochezia, drop in hemoglobin from 8.2-8.1 -Overnight 11/17 he had 2 units of packed red blood cells and FFP ordered; Hb evening 11/18 7.1, two additional nits of PRBCs ordered and running -Patient remains asymptomatic -Hb back up to 8.6 on AM 11/20 -Overnight 11/20 and early AM 11/21 patient had multiple episodes of bloody bowel movements, with Hb dropping from 8.9 to 7.1 and mild drop in BP down to high 90's systolic; 2 additional units of PRBCs have been ordered -Hb has been stable since that time -s/p EGD and colonoscopy late 11/22; no active bleeding, 2x large deep peptic ulcers and diffuse diverticular disease seen -Will give additional units of PRBCs as needed -if patient's blood pressure decreased despite transfusion and will be transferred to ICU for vasopressor support (3) Ascites: Status: Acute Assessment and plan: - Patient had significant worsening of abdominal distention with imaging showing significant ascites -Status post paracentesis on 11/24/2023 with about 4 L fluid removed -will start patient on lasix and spironolactone once blood pressures improve (4) Blood loss anemia: Status: Acute Assessment and plan: - As noted above (5) Leukocytosis (leucocytosis): Status: Acute Assessment and plan: -suspect pneumonia, currently on Zosyn, supplemental oxygen, will add IS and acapella, check sputum culture, gram stain, check urine strep and legionell antigen and sputum for mycoplasma. -This may just be atelectasis from his decrease respiratory excursions from his ascites and his pleural effusions which I believe to be from his ascites. -He does not seem to have abdominal pain this morning although that was reported by the cloth shrinking supervisor as one of his complaints. -He has a leukocytosis that has improved overnight, blood cultures negative, will discontinue zosyn no 20 from Qualifiers: Leukocytosis type: other Qualified Code(s): D72.828 - Other elevated white blood cell count (6) Pulmonary infiltrates: Status: Acute Assessment and plan: -as above; provide good pulmonary toiletry and proceed w/ antibiotics and treatments as above. (7) Hyponatremia: Status: Acute Assessment and plan: -gentle fluid hydration w/ LR, monitor electrolytes (8) Transaminitis: Status: Acute Assessment and plan: -secondary to alcoholism, although hepatitis panel has been sent; calculated alcoholic hepatitis discriminant score (Maddrey score) was 28.4 (scores over 32 correlates w/ increased 30 day mortality rates over 50%), therefore, I will hold off methylprednisolone for now but monitor his protime and transaminases and bilirubin over next 24 to 48 hr. hopefully this will decline w/ cessation of alcohol (9) COPD (chronic obstructive pulmonary disease): Status: Chronic Assessment and plan: -without acute exacerbation -PRN jonny Qualifiers: COPD type: unspecified COPD Qualified Code(s): J44.9 - Chronic obstructive pulmonary disease, unspecified (10) Alcohol abuse: Status: Chronic Assessment and plan: -he last had a drink of wine the day prior to arrival. -will monitor him for acute withdrawal w/ CIWA scoring. (11) Lactic acidosis: Status: Acute Assessment and plan: -resolving after iv fluids, probably primarily d/t dehydration although sepsis remains possibilty given his leukocytosis and borderline elevation of his procalcitonin. (12) Alcoholic cirrhosis: Status: Acute Qualifiers: Ascites presence: with ascites Qualified Code(s): K70.31 - Alcoholic cirrhosis of liver with ascites (13) Biliary sludge: Status: Acute Assessment and plan: -no evidence of acute cholecystitis either on exam nor as evidenced by his CT scan. There is some questionable hyodense lesions on the liver which should be followed up w/ US of the liver. (14) Paroxysmal A-fib: Status: Acute Assessment and plan: -new, as seen on telemetry overnight -HR goes up to 110's -started 12.mg PO BID lopressor, will continue to monitor HR and BPs -anticoagulation contraindicated at this time due to active GI bleed as noted above Assessment and plan: -s/p paracentesis -f/u fluids results Subjective Subjective Interval history since last seen: Patient states that he overall feels better today however, he has been very tremulous, which she noticed when he was trying to eat his breakfast and drink fluids. Otherwise he does feel better since having paracentesis yesterday and has no other complaints or concerns at this time. Exam Narrative Exam Narrative: Chronically ill-appearing older gentleman laying in bed in no acute distress, ANO x 4, mild jaundice and scleral icterus noted, heart regular rhythm, lungs clear to auscultation bilaterally, significant improvement in abdominal distention as compared to previous day, no abdominal tenderness, patient has constant tremor both at rest and with movement Objective Last Vital Signs Temp 96.2 F L 11/25/23 08:11 Pulse 99 H 11/25/23 08:11 Resp 17 11/25/23 08:11 BP 98/66 L 11/25/23 08:11 Pulse Ox 97 11/25/23 08:11 Laboratory Results - last 24 hr 11/25/23 06:20 WBC 14.50 H RBC 2.83 L Hgb 9.1 L Hct 26.9 L MCV 95 D MCH 32.2 MCHC 33.8 RDW 25.2 H Plt Count 132 MPV 12.3 H PAWSS Have you Been Recently Intoxicated or Drunk Within the Last 30 days?: Yes Have you Ever Experienced Previous Episodes of Alcohol Withdrawal?: No Have you ever Experienced Withdrawal Seizures?: No Have you ever Experienced Delirium Tremens(DT)s?: No Have you ever undergone Alcohol Rehabilitation Treatment (i.e, inpt ot outpatient treatment programs)?: Yes Have you ever Experienced Blackouts?: No Have you ever Combined Alcohol with other Downers within the last 90 days?: No Have you ever Combined Alcohol with any other Substance of Abuse during the last 90 days?: No Positive Blood Alcohol level on Presentation? [PCS.BAL]: Yes Evidence of Increased Autonomic Activity (i.e. HR>120, tremor, sweating, agitation, nausea)?: Yes Result: 4 Time Spent with Patient Time Spent with Patient: >50 minutes Time was spent: preparing to see the patient(eg.review tests), obtaining and/or reviewing separately otained hiistory, ordering medications,tests, procedures, referring, communicating with other health post acute care nurse practitioner, indepentently interpreting results, counseling the patient and care coordination
[2023-11-25 09:01] LABS: Lab Add On Test DONE
--- NOTE | 2023-11-25 09:42 | PT.INTREAT ---
PT Notes Visit Reasons: Hepatic Encephalopathy,Alcoholic Hepatitis,Alcohol Inpatient Physical Therapy Treatment Note [facility] Date: 11/25/23 PRECAUTIONS:Standard OBJECTIVE: Therapeutic Activities (21833j[1]): Direct one-on-one instruction in dynamic activities to improve functional performance. ? BED MOBILITY/TRANSFERS? Supine-sit: Min assist with LE's? Sit-supine: CGA ? Sit-stand: CGA? Stand-sit: CGA ? GAIT? Assistive Device: FWW ? Weight bearing: full Assist: CGA ? Distance:? Standing to fatigue x 2 with seated rest ? Therapeutic Exercises ([id number][]): Direct one-on-one instruction in therapeutic exercises to develop strength, endurance, range of motion and flexibility. ? Exercises ? Horz shoulder abd x 10 Shoulder flexion x 10 Shoulder cw/ccw x 10 Rowing x 10 LAQ x 15 Marching x 15 Hip abd x 15 HR/TR xx 20 seated ASSESSMENT:? Pt was able to tolerate more today and agreed to standing today. Pt c/o some dizziness during his session. PLAN: Cont as per PT POC. TREATMENT CODE/TIME: 9:25-9:40 (15) TA
[2023-11-25 10:15] LABS: Ammonia 36 umol/L (11-32)
--- NOTE | 2023-11-25 13:18 | PGE_ITS ---
Date of Service Date of service: 11/25/23 Time of Service: 13:18 Assessment and Plan Assessment and plan (1) Alcoholic cirrhosis of liver with ascites: Status: Chronic Assessment and plan: 73 yo M w/ alcoholic cirrhosis, ascites s/p paracentesis 3.5 L removed there is anticipated rapid reaccumulation of abdominal ascites secondary to liver failure, alcoholic cirrhosis No acute distress patient appears to be stable at this time Blood pressures remain stable, relative hypotension since admission There is no evidence of recurrent or ongoing bleeding Excellent urine output over last 24 hours fluid status net -1700 cc Recommendations: fluid restriction 2000 cc/day Agree with plan for gentle diuresis consider albumin administration shift oncotic pressure gradient toward the intravascular space electrolyte replacements as indicated recommend continue management of PPI and sucralfate suspension for mechanical- cytoprotection continue to monitor for evidence of recurrent GI bleed if there is change in clinical status and deterioration of condition, I would recommend transfer to ICU I will continue to follow patient through the weekend Dr. Petty to return on Sunday11/26/2023 and may provide additional input RE: risks/benefit and evaluate for need of recurrent paracentesis Exam Narrative Exam Narrative: General: No acute distress, sitting upright, in the bed, talking on his cell phone Cardiac: Heart rate ranging from 90s to low 100s, blood pressure remains stable Respiratory: On right labored respiratory effort, able to speak clear sentences Abdomen: Distended abdomen, recurrent ascites associated with alcoholic cirrhosis, nontender to palpation, no evidence of peritonitis Objective Last Vital Signs Temp 96.1 F L 11/25/23 11:38 Pulse 76 11/25/23 11:38 Resp 19 11/25/23 11:38 BP 90/61 L 11/25/23 11:38 Pulse Ox 94 11/25/23 11:38 Laboratory Results - last 24 hr 11/25/23 11/25/23 11/25/23 06:20 09:50 Unknown WBC 14.50 H RBC 2.83 L Hgb 9.1 L Hct 26.9 L MCV 95 D MCH 32.2 MCHC 33.8 RDW 25.2 H Plt Count 132 MPV 12.3 H Ammonia 36 H Add-On Test Request DONE PAWSS Have you Been Recently Intoxicated or Drunk Within the Last 30 days?: Yes Have you Ever Experienced Previous Episodes of Alcohol Withdrawal?: No Have you ever Experienced Withdrawal Seizures?: No Have you ever Experienced Delirium Tremens(DT)s?: No Have you ever undergone Alcohol Rehabilitation Treatment (i.e, inpt ot outpatient treatment programs)?: Yes Have you ever Experienced Blackouts?: No Have you ever Combined Alcohol with other Downers within the last 90 days?: No Have you ever Combined Alcohol with any other Substance of Abuse during the last 90 days?: No Positive Blood Alcohol level on Presentation? [PCS.BAL]: Yes Evidence of Increased Autonomic Activity (i.e. HR>120, tremor, sweating, agitation, nausea)?: Yes Result: 4 Time Spent with Patient Time Spent with Patient: 25-34 minutes Time was spent: preparing to see the patient(eg.review tests), obtaining and/or reviewing separately otained hiistory, indepentently interpreting results and counseling the patient
[2023-11-25] MEDS: Melatonin 3 MG TAB PO (21:45)
[2023-11-26] VITALS (8 sets, daily range): BP systolic 95–101; BP diastolic 58–77; PULSE 90–100; RESP 16–20; TEMP 35.6–36.9; O2SAT 92–94
[2023-11-26] MEDS: Sucralfate 1 GM TAB PO ×4 (05:35→23:11)
[2023-11-26 07:12] LABS: HCT 28.6 % (40.0-50.0); HGB 9.6 g/dL (13.5-17.5); MCH 32.4 pg (27.0-33.0); MCHC 33.6 % (32.0-36.0); MCV 97 fL (80-95); MPV 12.6 fL (8.0-11.0); Platelet Count 171 10^3/uL (130-400); RBC 2.96 10^6/uL (4.36-5.78); RDW 25.9 % (11.8-14.1); RDW-SD 89.2 fL
[2023-11-26 07:19] LABS: INR 1.4 (0.9-1.1); Prothrombin Time 13.4 sec (9.1-11.1)
[2023-11-26 07:30] LABS: ALT 65 U/L (16-63); AST 112 U/L (15-37); Albumin 1.8 g/dL (3.4-5.0); Alkaline Phosphatase 161 U/L (46-116); BUN 37 mg/dL (7-18); Bilirubin, Total 2.7 mg/dL (0.2-1.0); CREATININE 3.3 mg/dL (0.70-1.30); Calcium 8.6 mg/dL (8.5-10.1); Chloride 102 mmol/L (98-107); Estimated GFR 19.09 (mL/min/1.73m2); Glucose 147 mg/dL (74-106); Sodium 135 mmol/L (136-145); Total Protein 4.8 g/dL (6.4-8.2)
[2023-11-26 07:32] LABS: Potassium 2.9 mmol/L (3.5-5.1)
[2023-11-26] MEDS: Lactulose 20 GM/30 ML CUP PO ×3 (08:32→22:55)
[2023-11-26] MEDS: Pantoprazole 40 MG VIAL IVP ×2 (08:32→23:13)
[2023-11-26] MEDS: Normal Saline Flush 10 ML SYR IVP (08:32)
[2023-11-26] MEDS: Magnesium Chloride 64 MG TABCR 128 MG PO (08:32)
[2023-11-26] MEDS: Gabapentin 300 MG CAP PO ×3 (08:33→23:02)
[2023-11-26] MEDS: Midodrine 2.5 MG TAB 5 MG PO ×2 (08:33→09:08)
[2023-11-26] MEDS: Multivitamin TAB 1 TAB PO (08:33)
[2023-11-26] MEDS: Rifaximin 550 MG TAB PO ×2 (08:33→23:04)
[2023-11-26] MEDS: ALBUMIN HUMAN 25 GM/100 ML BTL IV ×2 (09:19→15:27)
--- NOTE | 2023-11-26 09:27 | W.PM.PROGNOT ---
Date of Service Date of service: 11/26/23 Time of Service: 09:28 Assessment and Plan Assessment and plan (1) Alcoholic cirrhosis of liver with ascites: Status: Chronic Assessment and plan: 73 yo M w/ alcoholic cirrhosis, ascites s/p paracentesis 3.5 L removed there is anticipated rapid reaccumulation of abdominal ascites secondary to liver failure, alcoholic cirrhosis TREVON: gradual increase in Bun and Cr, c/w impaired renal function concern for impairment over the last 72 hrs Hypotensive episode may have precipitated ATN, which could present after a couple of days No acute distress patient appears to be stable stable with relative hypotension He does not need to be transferred to the intensive care unit at this time There is no evidence of recurrent or ongoing bleeding Recommendations: fluid restriction 2000 cc/day Agree with plan for gentle diuresis Agree with renal ultrasound I did discuss possible paracentesis with the patient today We discussed risks/benefits The patient declined paracentesis today, he would like to think about it He would reconsider tomorrow consider albumin administration shift oncotic pressure gradient toward the intravascular space electrolyte replacements as indicated recommend continue management of PPI and sucralfate suspension for mechanical-cytoprotection continue to monitor for evidence of recurrent GI bleed if there is change in clinical status and deterioration of condition, I would recommend transfer to ICU Subjective Subjective Interval history since last seen: Patient is in no acute distress today Denies any nausea or vomiting He does endorse some increasing abdominal discomfort since early this morning Today we discussed risk and benefit of paracentesis, removal of excess fluid within the abdominal compartment He tells me that he does not wish to have paracentesis today, he would like to think about the risks and the benefits. He might be open to consideration of repeat paracentesis tomorrow. Exam Narrative Exam Narrative: General: No acute distress, sitting upright, in the bed, talking on his cell phone Cardiac: Heart rate ranging from 90s to low 100s, blood pressure remains stable Respiratory: On right labored respiratory effort, able to speak clear sentences Abdomen: Persistent distention of the abdomen, recurrent ascites associated with alcoholic cirrhosis, he localizes discomfort in the abdominal region, there is no increase in pain with palpation Objective Last Vital Signs Temp 96.5 F L 11/26/23 08:24 Pulse 95 H 11/26/23 08:24 Resp 18 11/26/23 08:24 BP 99/65 L 11/26/23 09:24 Pulse Ox 92 11/26/23 08:24 Laboratory Results - last 24 hr 11/25/23 11/26/23 09:50 06:35 WBC 16.50 H RBC 2.96 L Hgb 9.6 L Hct 28.6 L MCV 97 H MCH 32.4 MCHC 33.6 RDW 25.9 H Plt Count 171 MPV 12.6 H PT 13.4 H INR 1.4 H Sodium 135 L Potassium 2.9 L* Chloride 102 Carbon Dioxide 19.0 L Anion Gap 14.0 H BUN 37 H Creatinine 3.3 H D Est GFR (CKD-EPI 2020) 19.09 Glucose 147 H Calcium 8.6 Total Bilirubin 2.7 H AST 112 H ALT 65 H Alkaline Phosphatase 161 H Ammonia 36 H Total Protein 4.8 L Albumin 1.8 L PAWSS Have you Been Recently Intoxicated or Drunk Within the Last 30 days?: Yes Have you Ever Experienced Previous Episodes of Alcohol Withdrawal?: No Have you ever Experienced Withdrawal Seizures?: No Have you ever Experienced Delirium Tremens(DT)s?: No Have you ever undergone Alcohol Rehabilitation Treatment (i.e, inpt ot outpatient treatment programs)?: Yes Have you ever Experienced Blackouts?: No Have you ever Combined Alcohol with other Downers within the last 90 days?: No Have you ever Combined Alcohol with any other Substance of Abuse during the last 90 days?: No Positive Blood Alcohol level on Presentation? [PCS.BAL]: Yes Evidence of Increased Autonomic Activity (i.e. HR>120, tremor, sweating, agitation, nausea)?: Yes Result: 4 Time Spent with Patient Time Spent with Patient: 25-34 minutes Time was spent: preparing to see the patient(eg.review tests), obtaining and/or reviewing separately otained hiistory, referring, communicating with other health foster care case manager, indepentently interpreting results and counseling the patient
[2023-11-26] MEDS: Potassium Chloride Liquid 20 MEQ PKT PO ×4 (09:49→22:56)
--- NOTE | 2023-11-26 11:01 | PT.INNT ---
PT Notes Visit Reasons: Hepatic Encephalopathy,Alcoholic Hepatitis,Alcohol Hold per Nurse Sissy. Patient has been in pain, grunting while in bed, awaiting new order/prescription for medication. BP still low. Will reassess tomorrow morning for PT.
[2023-11-26 13:09] LABS: Creatinine,Urine 166.05 mg/dL
[2023-11-26 13:12] LABS: Sodium, Urine < 5 mmol/L
[2023-11-26 13:19] LABS: Bilirubin Negative (Negative); Blood Negative (Negative); Clarity Clear (Clear); Glucose Negative (Negative); Ketones Trace mg/dL (Negative); Leukocyte Esterase Negative (Negative); Nitrite Negative (Negative); Urobilinogen 0.2 mg/dL (Up to 0.2); pH 5.5 (5-8)
[2023-11-26 13:30] LABS: RBC Negative HPF (0-2); WBC 0-2 HPF (0-5)
[2023-11-26 13:31] LABS: Bacteria Moderate HPF (Negative); Crystals Negative HPF (Negative); Epithelial Cells Few HPF (Negative); Mucus Heavy (Negative); Other Cells Moderate Renal (Negative)
[2023-11-26 13:33] LABS: C & S Indicated? Yes; Casts 0-2 Hyaline LPF (Negative)
[2023-11-26] MEDS: Midodrine 2.5 MG TAB 10 MG PO ×2 (13:57→23:02)
--- NOTE | 2023-11-26 14:46 | PDOC.CMPRO ---
Date of service: 11/26/23 Time of Service: 14:47 Care Management Progress Note Progress Note Text Progress Note Text: S/O: Denise was lying in bed when CM met with him. He stated that he is feeling that he is not well, as he is being told this by his providers and nurses, but he doesn't feel that he has a good understanding of all that is happening to him, medically. He stated that he understands that he had a GI bleed last week, which has resolved, and over the weekend he had a paracentesis to remove ascites fluid from his abdomen, which he reports that he has never had happen to him in the past. CM discussed palliative care, whom he met with last week, briefly, and he stated that he would like to talk with them again to discuss his current condition, and to talk about his health care goals. CM requested that palliative revisit. CM will continue to follow. A: Denise is a 73 year old male admitted to [facility] on 11/17/23 for hepatic encephalopathy, alcoholic hepatitis. P: Anticipate denise will be discharged home when medically stable. He will follow up with his community providers and plan of care and transport with a friend or family member. CM will follow and support discharge planning needs. SDOH(Care Management) Screening Will the Patient Participate in the Screening?: Yes Do you worry about having a steady place to live?: no In the past 12 months, have you had to go without electric, gas, oil or water in your home?: no Have you or anyone in your house had to go without enough food to eat?: no Has lack of transportation kept you from medical appointments or from doing things needed for daily living?: no Has anyone in your support network made you feel unsafe for any reason?: no
--- NOTE | 2023-11-26 17:25 | NUR.NOTE ---
Gave pt 15 mg morphine tab at 12:30per Hospitalist new order, with good effect. Pt is much more comfortable, a little slower to respond and sleepy./ Nursing Note:
--- NOTE | 2023-11-26 17:29 | PGE_ITS ---
Date of Service Date of service: 11/26/23 Time of Service: 17:30 Assessment and Plan Assessment and plan (1) Alcoholic cirrhosis of liver with ascites: Status: Chronic Assessment and plan: patient has endstage liver disease and is now requiring paracentesis at least weekly if not more often. I will ask surgery to consider placement of pigtail catheter that can be used for drainage at home as needed for reaccumulation of his ascites. Palliative care has been called by CM to re-evaluate him. He likely will not be able to be dc home to live on his own. I think he will need SNF placement. He is now showing worsening renal function w/ rising BUN and creatinine (39 and 3.6; baseline on admission was 19 and 0.9); He is currently off any diuretics; I am reluctant to give him iv fluids as he seems to be overall anasarca; I did increase his midodrine and added albumin infusions. I think that his TREVON is mostly d/t ATN (see his UA which has hyaline casts and moderate renal cells). Nevertheless he could also have hepatorenal syndrome, therefore the midodrine and albumin. Will continue the albumin infusions for 48 hr. He may have to go on iv diuretics to remove excess volume. (2) Encephalopathy, hepatic: Status: Acute Assessment and plan: encephalopathy is improving, I think he is at his basline cognition; continue Rifaximin and lactulose (3) Upper GI bleeding: Status: Acute Assessment and plan: no recent bleeding; continue carafate and protonix (4) Acute kidney injury (nontraumatic): Status: Acute Assessment and plan: as above (5) Acute tubular necrosis: Status: Acute Assessment and plan: as above (6) Chronic kidney disease, stage 3: Status: Chronic Assessment and plan: worsening renal function in setting of recent hypotension from GI bleeding. Qualifiers: Chronic kidney disease stage 3 subtype: unspecified whether 3a or 3b Qualified Code(s): N18.30 - Chronic kidney disease, stage 3 unspecified (7) Blood loss anemia: Status: Acute Assessment and plan: stable. (8) Pulmonary infiltrates: Status: Acute Assessment and plan: likely was atelectasis, nevertheless he was empirically treated for pneumonia w/ 8d of Zosyn (stopped yesterday). Subjective Subjective Interval history since last seen: Roderick has been having increasing abdomnial girth and complaining of some abdominal pains. Relief w morphine. I did ask the surgeon to evaluate for repeat paracentesis, apparently Roderick was not ready for this today and needed to think about it. Exam Narrative Exam Narrative: Redeheaded elderly male sitting up in bed, alert and he seems oriented to person/place and circumstances, no acute distress Lungs: bibasilar rales, no rhonchi or wheezing Heart: RRR Abdomen: distended, tense ascites, mildly diffusely tender but w/out rebound tenderness or guarding Extremities; legs and feet w/ 2+ edema Objective Last Vital Signs Temp 35.6 C L 11/26/23 16:23 Pulse 99 H 11/26/23 16:23 Resp 17 11/26/23 16:23 BP 95/70 L 11/26/23 16:23 Pulse Ox 94 11/26/23 16:23 Laboratory Results - last 24 hr 11/26/23 11/26/23 06:35 12:40 WBC 16.50 H RBC 2.96 L Hgb 9.6 L Hct 28.6 L MCV 97 H MCH 32.4 MCHC 33.6 RDW 25.9 H Plt Count 171 MPV 12.6 H PT 13.4 H INR 1.4 H Sodium 135 L Potassium 2.9 L* Chloride 102 Carbon Dioxide 19.0 L Anion Gap 14.0 H BUN 37 H Creatinine 3.3 H D Est GFR (CKD-EPI 2020) 19.09 Glucose 147 H Calcium 8.6 Total Bilirubin 2.7 H AST 112 H ALT 65 H Alkaline Phosphatase 161 H Total Protein 4.8 L Albumin 1.8 L Urine Color Yellow Urine Clarity Clear Urine pH 5.5 Ur Specific [place] 1.020 Urine Protein 30 H Urine Ketones Trace H Urine Blood Negative Urine Nitrite Negative Urine Bilirubin Negative Urine Urobilinogen 0.2 Ur Leukocyte Esterase Negative Urine RBC Negative Urine WBC 0-2 Ur Epithelial Cells Few Urine Crystals Negative Urine Bacteria Moderate Urine Casts 0-2 Hyaline Urine Mucus Heavy Urine Other Moderate Renal Ur Culture Indicated? Yes Ur Random Creatinine 166.05 Ur Random Sodium < 5 Urine Glucose Negative PAWSS Have you Been Recently Intoxicated or Drunk Within the Last 30 days?: Yes Have you Ever Experienced Previous Episodes of Alcohol Withdrawal?: No Have you ever Experienced Withdrawal Seizures?: No Have you ever Experienced Delirium Tremens(DT)s?: No Have you ever undergone Alcohol Rehabilitation Treatment (i.e, inpt ot outpatient treatment programs)?: Yes Have you ever Experienced Blackouts?: No Have you ever Combined Alcohol with other Downers within the last 90 days?: No Have you ever Combined Alcohol with any other Substance of Abuse during the last 90 days?: No Positive Blood Alcohol level on Presentation? [PCS.BAL]: Yes Evidence of Increased Autonomic Activity (i.e. HR>120, tremor, sweating, agitation, nausea)?: Yes Result: 4 Time Spent with Patient Time Spent with Patient: 35-49 minutes Time was spent: preparing to see the patient(eg.review tests), ordering medications,tests, procedures, referring, communicating with other health certified social workers in health care (general surgery), indepentently interpreting results, counseling the patient and care coordination
--- NOTE | 2023-11-26 17:30 | DI.RAD_ITS ---
Exam(s) XR PORTABLE CHEST AP EXAM: XR PORTABLE CHEST AP CLINICAL HISTORY: follow up pleural effusions/infilrates TECHNIQUE: 2D digital imaging was performed. COMPARISON: CT CT CHEST/ABD/PEL W from 11/17/[address] ABDOMEN PELVIS WO from 11/24/2023 FINDINGS: Exam somewhat limited by poor pulmonary inflation. Leads overlie the chest There has been interval improvement in bilateral pleural effusions. Left medial basilar atelectasis remains present. IMPRESSION: Improvement in bilateral pleural effusions. DATA REPOSITORY: RADIATION DOSE DELIVERED:
[2023-11-26 19:36] LABS: Anion Gap 15.8 mmol/L (3-11); BUN 39 mg/dL (7-18); CO2 18.2 mmol/L (21.0-32.0); Calcium 8.7 mg/dL (8.5-10.1); Chloride 102 mmol/L (98-107); Estimated GFR 17.19 (mL/min/1.73m2); Glucose 145 mg/dL (74-106); Sodium 136 mmol/L (136-145)
[2023-11-26 19:39] LABS: CREATININE 3.6 mg/dL (0.70-1.30); Potassium 2.9 mmol/L (3.5-5.1)
[2023-11-26 20:26] LABS: Magnesium 2.2 mg/dL (1.8-2.4)
[2023-11-26] MEDS: POTASSIUM CHLORIDE 20 MEQ/100 ML BAG 30 MEQ IVINF (21:24)
[2023-11-26] MEDS: Metoprolol 12.5 MG TAB PO (23:02)
[2023-11-27] VITALS (55 sets, daily range): BP systolic 71–141; BP diastolic 51–86; PULSE 98–130; RESP 6–35; TEMP 35.8–36.5; O2SAT 79–98
[2023-11-27] MEDS: ALBUMIN HUMAN 25 GM/100 ML BTL IV ×4 (00:21→19:31)
[2023-11-27 00:41] LABS: HGB 9.6 g/dL (13.5-17.5); MCH 32.3 pg (27.0-33.0); MCHC 33.1 % (32.0-36.0); MCV 98 fL (80-95); Platelet Count 167 10^3/uL (130-400); RBC 2.97 10^6/uL (4.36-5.78); RDW-SD 90.8 fL; WBC 17.05 10^3/uL (4.4-10.8)
--- NOTE | 2023-11-27 03:54 | W.PM.PROGNOT ---
Date of Service Date of service: 11/27/23 Time of Service: 03:54 Assessment and Plan Assessment and plan (1) Gross hematuria: Start date: 11/27/23 Status: Acute Assessment and plan: This is a 73-year-old gentleman with admission for hepatic encephalopathy now with procedures status post insertion of Dickerson catheter for oliguria or decreased urine output. Dickerson catheter was removed and Dr. Dietz has been consulted for evaluation because of elevation of his PT/INR, vitamin K 10 mg IV was given (2) Oliguria: Start date: 11/27/23 Status: Acute Assessment and plan: Patient bladder cannot be scanned because of his ascites and Dickerson catheter was not effective. Eventual placement of triple-lumen to help watch urine output with questionable urine output and patient with ascites and recurrent paracenteses. 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 (4) Blood loss anemia: Start date: 11/19/23 Status: Acute Assessment and plan: Patient hemoglobin is stable despite gross hematuria status post acute blood loss anemia from his GI tract on treatment for peptic ulcer disease. He did require 4 units of packed red blood cells for his GI bleeding and hemoglobin is just below 10 and not dropping acute gross hematuria status post traumatic Dickerson catheter placement. Monitor and transfuse if needed. Vitamin K was given because of hypoprothrombinemia with alcoholic cirrhosis. Subjective Subjective Interval history since last seen: This is a 73-year-old gentleman who was admitted with hepatic encephalopathy and had significant alcoholic cirrhosis with liver failure and ascites. He had decreased urine output and a Dickerson catheter was attempted to be placed at the beginning of evening shift which was traumatic with gross blood since the Dickerson catheter has been. He has had more than 500 cc what appears to be gross blood draining which does not flush with the single-lumen catheter. I did remove the Dickerson catheter and call Dr. Dietz, urology will see the patient for direct visualization using flexible cystoscopy within the next 2 hours. Patient is comfortable and is not having fever and is not having pain when not being instrumented. He did have a recent GI bleed which was upper GI bleed with significant ulcers on treatment for that problem. He also had anemia requiring 4 units of packed red blood cells and repeat CBC was done with a significant hematuria. He is a DNI. Exam Narrative Exam Narrative: General: Patient appears chronically ill and in moderate distress from his abdominal distention. He is alert and oriented at least to person place. Abdomen: Protuberant but no focalized tenderness and no suprapubic tenderness. Positive fluid wave. Genitalia: Normal penis with Dickerson catheter in place draining gross blood in the Dickerson bag flushing with saline all results and gross blood. Is uncomfortable when flushing with 20 cc. Objective Last Vital Signs Temp 36.2 C L 11/27/23 03:00 Pulse 110 H 11/27/23 03:00 Resp 20 11/27/23 03:00 BP 92/57 L 11/27/23 03:00 Pulse Ox 92 11/27/23 03:00 Laboratory Results - last 24 hr 11/26/23 11/26/23 11/26/23 06:35 12:40 19:17 WBC 16.50 H RBC 2.96 L Hgb 9.6 L Hct 28.6 L MCV 97 H MCH 32.4 MCHC 33.6 RDW 25.9 H Plt Count 171 MPV 12.6 H PT 13.4 H INR 1.4 H Sodium 135 L 136 Potassium 2.9 L* 2.9 L* Chloride 102 102 Carbon Dioxide 19.0 L 18.2 L Anion Gap 14.0 H 15.8 H BUN 37 H 39 H Creatinine 3.3 H D 3.6 H* Est GFR (CKD-EPI 2020) 19.09 17.19 Glucose 147 H 145 H Calcium 8.6 8.7 Magnesium 2.2 Total Bilirubin 2.7 H AST 112 H ALT 65 H Alkaline Phosphatase 161 H Total Protein 4.8 L Albumin 1.8 L Urine Color Yellow Urine Clarity Clear Urine pH 5.5 Ur Specific [place] 1.020 Urine Protein 30 H Urine Ketones Trace H Urine Blood Negative Urine Nitrite Negative Urine Bilirubin Negative Urine Urobilinogen 0.2 Ur Leukocyte Esterase Negative Urine RBC Negative Urine WBC 0-2 Ur Epithelial Cells Few Urine Crystals Negative Urine Bacteria Moderate Urine Casts 0-2 Hyaline Urine Mucus Heavy Urine Other Moderate Renal Ur Culture Indicated? Yes Ur Random Creatinine 166.05 Ur Random Sodium < 5 Urine Glucose Negative 11/27/23 00:33 WBC 17.05 H RBC 2.97 L Hgb 9.6 L Hct 29.0 L MCV 98 H MCH 32.3 MCHC 33.1 RDW 26.0 H Plt Count 167 MPV 12.0 H PT INR Sodium Potassium Chloride Carbon Dioxide Anion Gap BUN Creatinine Est GFR (CKD-EPI 2020) Glucose Calcium Magnesium Total Bilirubin AST ALT Alkaline Phosphatase Total Protein Albumin Urine Color Urine Clarity Urine pH Ur Specific [place] Urine Protein Urine Ketones Urine Blood Urine Nitrite Urine Bilirubin Urine Urobilinogen Ur Leukocyte Esterase Urine RBC Urine WBC Ur Epithelial Cells Urine Crystals Urine Bacteria Urine Casts Urine Mucus Urine Other Ur Culture Indicated? Ur Random Creatinine Ur Random Sodium Urine Glucose PAWSS Have you Been Recently Intoxicated or Drunk Within the Last 30 days?: Yes Have you Ever Experienced Previous Episodes of Alcohol Withdrawal?: No Have you ever Experienced Withdrawal Seizures?: No Have you ever Experienced Delirium Tremens(DT)s?: No Have you ever undergone Alcohol Rehabilitation Treatment (i.e, inpt ot outpatient treatment programs)?: Yes Have you ever Experienced Blackouts?: No Have you ever Combined Alcohol with other Downers within the last 90 days?: No Have you ever Combined Alcohol with any other Substance of Abuse during the last 90 days?: No Positive Blood Alcohol level on Presentation? [PCS.BAL]: Yes Evidence of Increased Autonomic Activity (i.e. HR>120, tremor, sweating, agitation, nausea)?: Yes Result: 4 Time Spent with Patient Time Spent with Patient: 35-49 minutes Time was spent: preparing to see the patient(eg.review tests), obtaining and/or reviewing separately otained hiistory, ordering medications,tests, procedures, referring, communicating with other health childcare teacher, indepentently interpreting results and care coordination
[2023-11-27] MEDS: PHYTONADIONE 10 MG in Normal Saline 50 ML 200 MG IVPB (04:13)
--- NOTE | 2023-11-27 06:40 | W.UROLOGYCON ---
Date of service: 11/27/23 Time of Service: 07:25 Assessment and Plan Assessment and plan (1) Urethral false passage: Status: Acute Assessment and plan: The bleeding that was seen initially is all due to his urethral false passage. The urine in his bladder is actually clear. He should not require continuous bladder irrigation. We generally recommend leaving the indwelling urethral catheter for a minimum of 7-10 days before removal. It would not be unexpected to see bleeding around the catheter as the urethra heals. History of Present Illness History of Present Illness Chief Complaint: Dickerson catheter placement Narrative: This is a 73-year-old gentleman who is currently hospitalized with ascites and hepatic encephalopathy. He had very little urine output, so a Dickerson catheter was attempted by the staff. The only return from the catheter was bloody drainage. The catheter could not be irrigated. I have been asked to see him to obtain catheter drainage. I do have some urology records from 2017 where I performed ureteroscopy on this gentleman. I did not make mention in my operative report of any issues passing a cystoscope into the bladder. 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) Pulmonary infiltrates (Acute) Biliary sludge (Acute) Ascites (Acute) Alcoholic cirrhosis (Acute) Lactic acidosis (Acute) Leukocytosis (leucocytosis) (Acute) Hyponatremia (Acute) Encephalopathy, hepatic (Acute) Jaundice (Acute) Carpal tunnel syndrome of right wrist (Acute) Right radial nerve palsy (Acute) Alcohol abuse (Chronic) Cellulitis of hand, right (Acute) Infected hand (Acute) Cat scratch of hand (Acute) Memory change (Acute) Tendinitis of long head of biceps brachii of left shoulder (Acute) Rotator cuff tear (Acute) Bilateral shoulder bursitis (Acute) Impingement syndrome of both shoulders (Acute) Orthostatic hypertension (Acute) Autonomic dysfunction (Acute) Folic acid deficiency (Acute) B12 deficiency (Acute) Hypomagnesemia (Acute) Hypokalemia (Acute) Dysphagia (Chronic) Orthostatic hypotension (Acute) Discharge planning issues (Acute) DVT prophylaxis (Acute) COPD (chronic obstructive pulmonary disease) (Chronic) Transaminitis (Acute) Dyspnea on exertion (Acute) TBI (traumatic brain injury) (Chronic) Remote, multiple Migraine headache without aura (Chronic) Alcohol abuse (Acute) sober Vitamin D deficiency (Chronic) Scoliosis (Chronic) Hyperlipidemia (Chronic) Chronic kidney disease, stage 3 (Chronic) Anxiety and depression (Chronic) Chronic pain syndrome (Chronic) 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) Gross hematuria (Acute 03/20/17) Essential tremor (Chronic 04/10/16) 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) Umbilical hernia without obstruction or gangrene (Chronic) Medical History (Updated 11/27/23 @ 07:22 by Zen Dietz MD) Seizure disorder Alcoholic peripheral neuropathy Surgical History Inguinal hernia Colonoscopy - MAC (05/19/16) Family History Mother TIA (transient ischemic attack) Father Parkinson disease Stroke Social History Smoking/Tobacco Use Status: Former Tobacco Use Smoking risk assessment performed?: Yes Alcohol Intake: current Alcohol Intake frequency: holidays/special occasions only Alcohol type: wine Drug use: Never Substance use type: does not use Household members: none Housing: apartment Pets and animals: Yes Pets and animals: cat(s) Current gender identity: male Do you feel safe at home: Yes Do you feel safe in your relationship?: Yes Additional Social history: Lives alone in second story apartment in [place], has a cat Currently working part-time at [employer] in [place] through [employer]. History of smoking, quit June 2018. No vaping. No other drug use including marijuana. Exam Narrative Exam Narrative: His urinalysis from his recent as 11/26/2023 showed no blood I reviewed his CT scan from 11/24/2023. His bladder was not distended and there was no sign of hydronephrosis. Results Last Vital Signs Temp 36.2 C L 11/27/23 03:00 Pulse 110 H 11/27/23 03:00 Resp 20 11/27/23 03:00 BP 92/57 L 04/09/24 03:00 Pulse Ox 92 11/27/23 03:00 Labs 11/27/23 00:33 11/26/23 19:17 Labs: Laboratory Results - last 24 hr 11/26/23 11/26/23 11/26/23 06:35 12:40 19:17 WBC 16.50 H RBC 2.96 L Hgb 9.6 L Hct 28.6 L MCV 97 H MCH 32.4 MCHC 33.6 RDW 25.9 H Plt Count 171 MPV 12.6 H PT 13.4 H INR 1.4 H Sodium 135 L 136 Potassium 2.9 L* 2.9 L* Chloride 102 102 Carbon Dioxide 19.0 L 18.2 L Anion Gap 14.0 H 15.8 H BUN 37 H 39 H Creatinine 3.3 H D 3.6 H* Est GFR (CKD-EPI 2020) 19.09 17.19 Glucose 147 H 145 H Calcium 8.6 8.7 Magnesium 2.2 Total Bilirubin 2.7 H AST 112 H ALT 65 H Alkaline Phosphatase 161 H Total Protein 4.8 L Albumin 1.8 L Urine Color Yellow Urine Clarity Clear Urine pH 5.5 Ur Specific Shanks 1.020 Urine Protein 30 H Urine Ketones Trace H Urine Blood Negative Urine Nitrite Negative Urine Bilirubin Negative Urine Urobilinogen 0.2 Ur Leukocyte Esterase Negative Urine RBC Negative Urine WBC 0-2 Ur Epithelial Cells Few Urine Crystals Negative Urine Bacteria Moderate Urine Casts 0-2 Hyaline Urine Mucus Heavy Urine Other Moderate Renal Ur Culture Indicated? Yes Ur Random Creatinine 166.05 Ur Random Sodium < 5 Urine Glucose Negative 11/27/23 00:33 WBC 17.05 H RBC 2.97 L Hgb 9.6 L Hct 29.0 L MCV 98 H MCH 32.3 MCHC 33.1 RDW 26.0 H Plt Count 167 MPV 12.0 H PT INR Sodium Potassium Chloride Carbon Dioxide Anion Gap BUN Creatinine Est GFR (CKD-EPI 2020) Glucose Calcium Magnesium Total Bilirubin AST ALT Alkaline Phosphatase Total Protein Albumin Urine Color Urine Clarity Urine pH Ur Specific Shanks Urine Protein Urine Ketones Urine Blood Urine Nitrite Urine Bilirubin Urine Urobilinogen Ur Leukocyte Esterase Urine RBC Urine WBC Ur Epithelial Cells Urine Crystals Urine Bacteria Urine Casts Urine Mucus Urine Other Ur Culture Indicated? Ur Random Creatinine Ur Random Sodium Urine Glucose Cystoscopy Text: The patient was seen at the bedside. His genitalia was prepped with Betadine. 2% Xylocaine jelly was instilled into the urethra to act as a local anesthetic. The flexible cystoscope was then passed through the urethra into the bladder. Just distal to the external sphincter, there was a large false passage in the urethra. I was able to negotiate the scope through the true lumen of the urethra into the bladder. No blood was seen within the bladder itself. I then passed a guidewire through the lumen of the cystoscope and removed the cystoscope. I passed a 20 Georgian miami tip catheter over the guidewire. The catheter balloon was inflated with 10 cc of sterile water and the catheter was hooked to gravity drainage. A small amount of yellow urine was obtained. Insert Bladder Catheter Text: See documentation under cystoscopy
[2023-11-27 07:02] LABS: Abs Immature Grans 0.18 10^3/uL (0.0-0.06); Absolute Eosinophil Count 0.43 10^3/uL (0.0-0.7); Absolute Monocyte Count 1.76 10^3/uL (0.1-0.8); Absolute Neutrophil Count 15.84 10^3/uL (1.2-6.7); Basophils % 0.2; Eosinophils % 2.2; Immature Grans % 0.9; Lymphocytes % 6.7; MCH 33.2 pg (27.0-33.0); MCHC 33.5 % (32.0-36.0); MCV 99 fL (80-95); MPV 12.7 fL (8.0-11.0); Platelet Count 156 10^3/uL (130-400); RBC 1.96 10^6/uL (4.36-5.78); RDW 25.9 % (11.8-14.1); RDW-SD 91.7 fL; WBC 19.56 10^3/uL (4.4-10.8)
[2023-11-27 07:06] LABS: ALT 43 U/L (16-63); AST 78 U/L (15-37); Albumin 2.6 g/dL (3.4-5.0); Alkaline Phosphatase 98 U/L (46-116); Anion Gap 15.9 mmol/L (3-11); BUN 40 mg/dL (7-18); Bilirubin, Total 2.7 mg/dL (0.2-1.0); CO2 18.1 mmol/L (21.0-32.0); Calcium 8.4 mg/dL (8.5-10.1); Chloride 105 mmol/L (98-107); Estimated GFR 14.71 (mL/min/1.73m2); Glucose 158 mg/dL (74-106); Potassium 3.7 mmol/L (3.5-5.1); Sodium 139 mmol/L (136-145); Total Protein 4.6 g/dL (6.4-8.2)
[2023-11-27 07:10] LABS: CREATININE 4.1 mg/dL (0.70-1.30); Magnesium 1.9 mg/dL (1.8-2.4)
[2023-11-27 07:47] LABS: Absolute Basophil Count 0.04 10^3/uL (0.0-0.2); Absolute Lymphocyte Count 1.31 10^3/uL (1.2-3.4)
[2023-11-27 07:53] LABS: Anisocytosis 2+; Diff Comment Diff Reviewed; HCT 19.4 % (40.0-50.0); HGB 6.5 g/dL (13.5-17.5)
--- NOTE | 2023-11-27 08:15 | PGE_ITS ---
Date of Service Date of service: 11/27/23 Time of Service: 08:15 Assessment and Plan Assessment and plan (1) Blood loss anemia: Status: Acute Assessment and plan: His day nurse reports that he had a liter of hematuria overnight. His Hb dropped to 6.5 gm from 9.6 gm. Roderick is willing to accept blood transfusions. I have ordered 2 units for PRBC to be transfused. After having discussion w/ his sister regarding his advanced directive, I think that it would be appropriate for his code status to be changed to DNR/DNI rather than just DNI. I explained to Maria that we will do what we can to treat the immediate problems but if his urine output does not respond to transfusion and diuretics and he is not a good candidate for hemodialysis then he will likely in the next few days if he has total renal shutdown. Critical care time spent interviewing and examining the patient, reviewing studies, discussing case with patient's nurse and consulting physicians was 60 minutes (2) Acute kidney injury (nontraumatic): Status: Acute Assessment and plan: likely d/t ATN from his hypotensive episode last week w/ his GI bleeding and now w/ recurrent hypotension from his hematuria, his renal function is only likely to get worse. I did institute albumin infusions and increase of his midodrine yesterday in the event that he may have some component of hepatorenal syndrome. (3) Acute tubular necrosis: Status: Acute Assessment and plan: as above; urine casts are c/w ATN (4) Oliguria: Status: Acute Assessment and plan: now demonstrating oliguria however will resuscitate w/ PRBC and once BP has stabilized may then trial some diuretics to try to force a urine output but if goes into total renal shutdown then likely he will not survive. (5) Urethral false passage: Status: Acute Assessment and plan: cintron replaced this moring by Dr. Dietz (6) Alcoholic cirrhosis of liver with ascites: Status: Chronic Assessment and plan: patient has endstage liver disease and is now requiring paracentesis at least weekly if not more often. I will ask surgery to consider placement of pigtail catheter that can be used for drainage at home as needed for reaccumulation of his ascites. Palliative care has been called by CM to re-evaluate him. He likely will not be able to be dc home to live on his own. I think he will need SNF placement. He is now showing worsening renal function w/ rising BUN and creatinine (39 and 3.6; baseline on admission was 19 and 0.9); He is currently off any diuretics; I am reluctant to give him iv fluids as he seems to be overall anasarca; I did increase his midodrine and added albumin infusions. I think that his TREVON is mostly d/t ATN (see his UA which has hyaline casts and moderate renal cells). Nevertheless he could also have hepatorenal syndrome, therefore the midodrine and albumin. Will continue the albumin infusions for 48 hr. He may have to go on iv diuretics to remove excess volume. (7) Encephalopathy, hepatic: Status: Acute Assessment and plan: cognition seems a little more confused this morning; will monitor, he is already on lacutlose and rifaximin for his hyperammonemia. hopefully he will improve w/ transfusion (8) Upper GI bleeding: Status: Acute Assessment and plan: no recent bleeding (negative rectal exam this morning); continue carafate and protonix (9) Chronic kidney disease, stage 3: Status: Chronic Assessment and plan: worsening renal function in setting of recent hypotension from GI bleeding and now w/ hematuria Qualifiers: Chronic kidney disease stage 3 subtype: unspecified whether 3a or 3b Qualified Code(s): N18.30 - Chronic kidney disease, stage 3 unspecified (10) Pulmonary infiltrates: Status: Acute Assessment and plan: likely was atelectasis, nevertheless he was empirically treated for pneumonia w/ 8d of Zosyn (stopped Sunday). repeat CXR shows some residual effusion/atelectasis. Subjective Subjective Interval history since last seen: Roderick had cintron placed last night but unfortunately he developed hematuria and when this was removed and replaced this moring by Dr. Dietz, it was learned that the catheter was not in the bladder but in the urethra. He is now tachcardic and hypotensive and his Hb dropped to 6.5 gm from 9.6 gm, he is also hypoxemic and requiring oxy mask. Roderick is less coherent than he had been although he still recognized me as his doctor and knew that he is in [place] in a hospital. He asked that I call his sister, Maria. I did call Maria and updated her on his condition. I reviewed his hospital course w/ her and indicated that I am transferring him to the ICU for further blood transfusions. She indicated to me that Roderick would not want to undergo cardiopulmonary resuscitation in the event of cardiopulmonary arrest. She says that this would be consistent w/ his advance d directives. Exam Narrative Exam Narrative: Roderick is lethargic but responsive to his name, he has a distant look in his eyes but when I called his name he responds and when I asked him where he is at he indicated the hospital and when asked where he says [place]; however beyond that I could not get him to give me any answers into date or specific locations; he did ask that I speak w/ his sister Maria. HEENT: sunken eyes, jaundiced sclera Neck: no overt JVD Lungs: bibasilar rales, no rhonchi or wheezing Heart: tachycardic but regular (review of telemetry reveals sinus tachycardia at rates in the 110's to 120) Abdomen: distended, tense ascites but nontender to palpation Rectal: normal tone, no stool in vault but immediately after digital stimulation he has some liquid brown which was negative for occult blood Cintron catheter: minimal clear urine Extremities: 2+ pitting edema of feet and pretibia Skin w/ multiple bruises, stigmata of his liver disease Tremulous hands GCS 14 (([id number]) Objective Last Vital Signs Temp 36.0 C L 11/27/23 07:15 Pulse 121 H 11/27/23 07:15 Resp 22 11/27/23 07:15 BP 106/54 L 11/27/23 07:15 Pulse Ox 88 L 11/27/23 07:20 Laboratory Results - last 24 hr 11/26/23 11/26/23 11/27/23 12:40 19:17 00:33 WBC 17.05 H RBC 2.97 L Hgb 9.6 L Hct 29.0 L MCV 98 H MCH 32.3 MCHC 33.1 RDW 26.0 H Plt Count 167 MPV 12.0 H Immature Gran % Neutrophils % Lymphocytes % Monocytes % Eosinophils % Basophils % Nucleated RBC % Absolute Neutrophils Absolute Lymphocytes Absolute Monocytes Absolute Eosinophils Absolute Basophils RBC Morphology Anisocytosis Sodium 136 Potassium 2.9 L* Chloride 102 Carbon Dioxide 18.2 L Anion Gap 15.8 H BUN 39 H Creatinine 3.6 H* Est GFR (CKD-EPI 2020) 17.19 Glucose 145 H Calcium 8.7 Magnesium 2.2 Total Bilirubin AST ALT Alkaline Phosphatase Total Protein Albumin Urine Color Yellow Urine Clarity Clear Urine pH 5.5 Ur Specific Desdemona 1.020 Urine Protein 30 H Urine Ketones Trace H Urine Blood Negative Urine Nitrite Negative Urine Bilirubin Negative Urine Urobilinogen 0.2 Ur Leukocyte Esterase Negative Urine RBC Negative Urine WBC 0-2 Ur Epithelial Cells Few Urine Crystals Negative Urine Bacteria Moderate Urine Casts 0-2 Hyaline Urine Mucus Heavy Urine Other Moderate Renal Ur Culture Indicated? Yes Ur Random Creatinine 166.05 Ur Random Sodium < 5 Urine Glucose Negative 11/27/23 06:20 WBC 19.56 H RBC 1.96 L Hgb 6.5 L* D Hct 19.4 L* MCV 99 H MCH 33.2 H MCHC 33.5 RDW 25.9 H Plt Count 156 MPV 12.7 H Immature Gran % 0.9 Neutrophils % 81.0 Lymphocytes % 6.7 Monocytes % 9.0 Eosinophils % 2.2 Basophils % 0.2 Nucleated RBC % 0.0 Absolute Neutrophils 15.84 H Absolute Lymphocytes 1.31 Absolute Monocytes 1.76 H Absolute Eosinophils 0.43 Absolute Basophils 0.04 RBC Morphology See Below Anisocytosis 2+ Sodium 139 Potassium 3.7 Chloride 105 Carbon Dioxide 18.1 L Anion Gap 15.9 H BUN 40 H Creatinine 4.1 H* Est GFR (CKD-EPI 2020) 14.71 Glucose 158 H Calcium 8.4 L Magnesium 1.9 Total Bilirubin 2.7 H AST 78 H ALT 43 Alkaline Phosphatase 98 Total Protein 4.6 L Albumin 2.6 L Urine Color Urine Clarity Urine pH Ur Specific Desdemona Urine Protein Urine Ketones Urine Blood Urine Nitrite Urine Bilirubin Urine Urobilinogen Ur Leukocyte Esterase Urine RBC Urine WBC Ur Epithelial Cells Urine Crystals Urine Bacteria Urine Casts Urine Mucus Urine Other Ur Culture Indicated? Ur Random Creatinine Ur Random Sodium Urine Glucose PAWSS Have you Been Recently Intoxicated or Drunk Within the Last 30 days?: Yes Have you Ever Experienced Previous Episodes of Alcohol Withdrawal?: No Have you ever Experienced Withdrawal Seizures?: No Have you ever Experienced Delirium Tremens(DT)s?: No Have you ever undergone Alcohol Rehabilitation Treatment (i.e, inpt ot outpatient treatment programs)?: Yes Have you ever Experienced Blackouts?: No Have you ever Combined Alcohol with other Downers within the last 90 days?: No Have you ever Combined Alcohol with any other Substance of Abuse during the last 90 days?: No Positive Blood Alcohol level on Presentation? [PCS.BAL]: Yes Evidence of Increased Autonomic Activity (i.e. HR>120, tremor, sweating, agitation, nausea)?: Yes Result: 4 Time Spent with Patient Time Spent with Patient: >50 minutes Time was spent: preparing to see the patient(eg.review tests), ordering med ications,tests, procedures, referring, communicating with other health child care sitter, indepentently interpreting results, counseling the patient (and patient's sister Maria) and care coordination
--- NOTE | 2023-11-27 10:07 | CMPROGNOTE_ITS ---
Date of service: 11/27/23 Time of Service: 10:07 Care Management Progress Note Progress Note Text Progress Note Text: S/O: Denise was lying in bed when CM met with him. Per report, he was transferred to the ICU today due to bleeding into his cintron catheter. He did not engage well with CM, although he did state that he is not having a good day today. His nurse was preparing for him to receive a unit of blood. spoke to his sister today, after Denise asked MD to call her; she is now traveling from [place] to see him. Per MD, he has multiple medical concerns, and his condition is worsening. stated that if he does not respond to the blood transfusion, and his kidney function does not improve, his prognosis is poor. CM will continue to follow. A: Denise is a 73 year old male admitted to [facility] on 11/17/23 for hepatic encephalopathy, alcoholic hepatitis. P: Anticipate denise will be discharged home when medically stable. He will follow up with his community providers and plan of care and transport with a friend or family member. CM will follow and support discharge planning needs. SDOH(Care Management) Screening Will the Patient Participate in the Screening?: Yes Do you worry about having a steady place to live?: no In the past 12 months, have you had to go without electric, gas, oil or water in your home?: no Have you or anyone in your house had to go without enough food to eat?: no Has lack of transportation kept you from medical appointments or from doing things needed for daily living?: no Has anyone in your support network made you feel unsafe for any reason?: no
--- NOTE | 2023-11-27 11:27 | W.PM.PROGNOT ---
Date of Service Date of service: 11/27/23 Time of Service: 11:27 Assessment and Plan Assessment and plan (1) Alcoholic cirrhosis of liver with ascites: Status: Chronic Assessment and plan: 73 yo M w/ alcoholic cirrhosis, ascites There is anticipated rapid reaccumulation of abdominal ascites secondary to liver failure, alcoholic cirrhosis Multiple medical comorbidities and a grim prognosis there is no cure for alcoholic cirrhosis He would not be a candidate for hepatic transplantation due to recent continuous EtOH use I am told that his sister is traveling to [place] from [place] to see him and to review goals of care Multiple events leading to his current critical illness Recent upper GI hemorrhage from more than 1 duodenal ulcer Increased INR secondary to synthetic liver dysfunction and alcoholic cirrhosis Acute change in his medical condition: Transferred to the intensive care unit 1200 cc of lower urinary tract hemorrhage overnight after injury from incorrect placement of urinary catheter Receiving 2 units of blood today Hemorrhagic shock: 1200 cc of madeline blood loss from lower urinary tract injury Agree with transfusion of blood products Acute significant blood loss contributing to hypotension, tachycardia Evidence of worsening endorgan dysfunction, increasing creatinine level after documented lower urinary tract hemorrhage There is no evidence of recurrent or ongoing bleeding at this time Urine is clear yellow after placement of a urinary catheter by Urology specialist TREVON: gradual increase in Bun and Cr, c/w impaired renal function Hypotensive episode may have precipitated ATN, which could present after a couple of days Creatinine continues to rise, with deterioration of renal function volume replacement with blood products may improve perfusion and renal function Alcoholic cirrhosis with persistent use of alcohol: Patient continues to be dependent upon alcohol use, no longer drinks hard liquor but is dependent on wine Lower urinary tract hemorrhage: Resultant of hospital-acquired injury, creation of a false tract, and lower urinary tract hemorrhage No longer with evidence of bleeding Urine output is clear paracentesis is contraindicated today due to his critical condition, risk for electrolyte and fluid shifts Patient exhibits signs of hypolemia, and removal of large fluid volume will exacerbate this, and result if intravascular volume depletion I did discuss this with Dr. Ferguson we agree there is unlikely to be a benefit from paracentesis at this time Dr. Ferguson inquired about placement of a pig-tail catheter, however this can result in persistent leakage and fistula formation around a non-tunneled catheter Tunneled catheter has associate risks of requiring surgery for placement. It is unclear if tunneled catheter insertion would be of benefit for him. Upper GI bleed: no recent evidence of ongoing GI bleeding since EGD and colonoscopy completed 11/23/2023 continue management of PPI and sucralfate suspension for mechanical-cytoprotection continue to monitor for evidence of recurrent GI bleed I am a [facility] physician, I will be unavailable after 7 am on 11/28/2023. All follow-up care will be arranged through [facility], and associates. [facility] General Surgeon will resume care and recommendations RE: management of General Surgery concerns. Subjective Subjective Interval history since last seen: Disoriented to place and time, only alert to self He is unable to have a conversation today, this is a change in his ability to converse since yesterday at my last evaluation. Overnight a Dickerson catheter was incorrectly inserted, creating a false tract through the urethra, with inflation of the catheter balloon 1200 cc blood overnight resulting in hypotension, tachycardia, lower urinary tract hemorrhage secondary to injury from incorrect placement of a urinary catheter He is unable to provide air review of systems today due to his deterioration in medical condition Exam Narrative Exam Narrative: General: Arouses to voice, unable to determine location or timing, sleeping peacefully, easily aroused Psych: Disoriented, only oriented to self Cardiac: Tachycardia, heart rate 118 on cardiac monitoring, relative hypotension systolic blood pressure in 90s Respiratory: No increased work of breathing Abdomen: Persistent distention of the abdomen due to recurrent ascites associated with his alcoholic cirrhosis, there is no peritonitis Objective Last Vital Signs Temp 96.8 F L 11/27/23 11:03 Pulse 118 H 11/27/23 11:03 Resp 14 11/27/23 11:03 BP 95/57 L 11/27/23 11:03 Pulse Ox 92 11/27/23 11:03 Laboratory Results - last 24 hr 11/26/23 11/26/23 11/27/23 12:40 19:17 00:33 WBC 17.05 H RBC 2.97 L Hgb 9.6 L Hct 29.0 L MCV 98 H MCH 32.3 MCHC 33.1 RDW 26.0 H Plt Count 167 MPV 12.0 H Immature Gran % Neutrophils % Lymphocytes % Monocytes % Eosinophils % Basophils % Nucleated RBC % Absolute Neutrophils Absolute Lymphocytes Absolute Monocytes Absolute Eosinophils Absolute Basophils RBC Morphology Anisocytosis Sodium 136 Potassium 2.9 L* Chloride 102 Carbon Dioxide 18.2 L Anion Gap 15.8 H BUN 39 H Creatinine 3.6 H* Est GFR (CKD-EPI 2020) 17.19 Glucose 145 H Calcium 8.7 Magnesium 2.2 Total Bilirubin AST ALT Alkaline Phosphatase Total Protein Albumin Urine Color Yellow Urine Clarity Clear Urine pH 5.5 Ur Specific [place] 1.020 Urine Protein 30 H Urine Ketones Trace H Urine Blood Negative Urine Nitrite Negative Urine Bilirubin Negative Urine Urobilinogen 0.2 Ur Leukocyte Esterase Negative Urine RBC Negative Urine WBC 0-2 Ur Epithelial Cells Few Urine Crystals Negative Urine Bacteria Moderate Urine Casts 0-2 Hyaline Urine Mucus Heavy Urine Other Moderate Renal Ur Culture Indicated? Yes Ur Random Creatinine 166.05 Ur Random Sodium < 5 Urine Glucose Negative Patient ABO/Rh Antibody Screen Crossmatch 11/27/23 11/27/23 06:20 08:50 WBC 19.56 H RBC 1.96 L Hgb 6.5 L* D Hct 19.4 L* MCV 99 H MCH 33.2 H MCHC 33.5 RDW 25.9 H Plt Count 156 MPV 12.7 H Immature Gran % 0.9 Neutrophils % 81.0 Lymphocytes % 6.7 Monocytes % 9.0 Eosinophils % 2.2 Basophils % 0.2 Nucleated RBC % 0.0 Absolute Neutrophils 15.84 H Absolute Lymphocytes 1.31 Absolute Monocytes 1.76 H Absolute Eosinophils 0.43 Absolute Basophils 0.04 RBC Morphology See Below Anisocytosis 2+ Sodium 139 Potassium 3.7 Chloride 105 Carbon Dioxide 18.1 L Anion Gap 15.9 H BUN 40 H Creatinine 4.1 H* Est GFR (CKD-EPI 2020) 14.71 Glucose 158 H Calcium 8.4 L Magnesium 1.9 Total Bilirubin 2.7 H AST 78 H ALT 43 Alkaline Phosphatase 98 Total Protein 4.6 L Albumin 2.6 L Urine Color Urine Clarity Urine pH Ur Specific [place] Urine Protein Urine Ketones Urine Blood Urine Nitrite Urine Bilirubin Urine Urobilinogen Ur Leukocyte Esterase Urine RBC Urine WBC Ur Epithelial Cells Urine Crystals Urine Bacteria Urine Casts Urine Mucus Urine Other Ur Culture Indicated? Ur Random Creatinine Ur Random Sodium Urine Glucose Patient ABO/Rh A Positive Antibody Screen NEGATIVE Crossmatch See Detail PAWSS Have you Been Recently Intoxicated or Drunk Within the Last 30 days?: Yes Have you Ever Experienced Previous Episodes of Alcohol Withdrawal?: No Have you ever Experienced Withdrawal Seizures?: No Have you ever Experienced Delirium Tremens(DT)s?: No Have you ever undergone Alcohol Rehabilitation Treatment (i.e, inpt ot outpatient treatment programs)?: Yes Have you ever Experienced Blackouts?: No Have you ever Combined Alcohol with other Downers within the last 90 days?: No Have you ever Combined Alcohol with any other Substance of Abuse during the last 90 days?: No Positive Blood Alcohol level on Presentation? [PCS.BAL]: Yes Evidence of Increased Autonomic Activity (i.e. HR>120, tremor, sweating, agitation, nausea)?: Yes Result: 4 Time Spent with Patient Time Spent with Patient: >50 minutes Time was spent: preparing to see the patient(eg.review tests), obtaining and/or reviewing separately otained hiistory, ordering medications,tests, procedures, referring, communicating with other health rn managed care, indepentently interpreting results and care coordination
--- NOTE | 2023-11-27 13:00 | PCNE_ITS ---
History of Present Illness Narrative: Roderick Fernandez is a 73-year-old gentleman from [facility] who was admitted to [facility] November 17, 2023 after a fall with altered mental status. Evaluation revealed that he had chronic alcoholic cirrhosis with significant ascites, elevated ammonia level suggesting hepatic encephalopathy. He was admitted to [facility]. Other medical problems include COPD. Encephalopathy initially cleared with lactulose and rifaximin mean. He was treated for possible pneumonia. On hospital day #2 or 3 he developed hematochezia and had dramatic drop in his hemoglobin. From that point on he received intermittent transfusions and FFP. CT at the time of admission did show portal hypertension and esophageal varices. Colonoscopy on the same date showed no source of bleeding there. However, EGD on November 22 showed no varices, however moderate esophagitis, esophageal erosions at the GE junction and very friable and easily bleeding mucosa. Continues to have hematochezia and has received additional transfusions as well as. Paracentesis ruled out SBP. He received 1 additional therapeutic paracentesis. By November 25, hospitalist reported that hematochezia had ceased. However at this point his creatinine started rising and he developed gross hematuria; felt likely due to acute tubular necrosis from hypotensive episodes last week. He receives albumin infusions and midodrine for this. Creatinine currently up to 4.1 with BUN 40 (0.9/19 at time of admission) MELD Score 3.0 26 (85% 90 day survival?) Care Team: Primary Care physician: Nicolette Harris, [facility] Social HX: Lives in an apartment in [place] with his cat Shaheed. Marital Status: Occupation: Works part-time at [employer]. Children: Hobbies: Volunteering in the community, reading Additional Services: Impression of currents health status: What bothers you the most: What worries you the most: Goals: Current information preferences: Function: Ambulation: ADLs: iADLs: Hearing: Vision: Cognition: Falls: Driving: Palliative Performance Scale % Ambulation Activity and Evidence of Disease Self Care Intake Level of Consciousness 100 Full Normal activity, no evidence of disease Full Normal Full 90 Full Normal activity, some evidence of disease Full Normal Full 80 Full Normal activity with effort, some evidence of disease Full Normal or reduced Full 70 Reduced Unable to do normal work, some evidence of disease Full Normal or reduced Full 60 Reduced Unable to do hobby or some housework, significant disease Occasional assist necessary Normal or reduced Full or confusion 50 Mainly sit/lie Unable to do any work, extensive disease Considerable assistance required Normal or reduced Full or confusion 40 Mainly in bed Unable to do any work, extensive disease Mainly assistance Normal or reduced Full, drowsy, or confusion 30 Totally bed bound Unable to do any work, extensive disease Total care Reduced Full, drowsy, or confusion 20 Totally bed bound Unable to do any work, extensive disease Total care Minimal sips Full, drowsy, or confusion 10 Totally bed bound Unable to do any work, extensive disease Total care Mouth care only Drowsy or coma 0 - - - - Patient Score: Spiritual history: Palliative review of systems: Pain: Dyspnea: GI symptoms: Appetite: Depression: Anxiety: None Emotional Distress: Spiritual/Existential Distress: Advanced Care Planning: Advanced Directive: None on file Health Care Agent: COLST: None on file Limitations:DNR/DNI ordered 11/19/2023 Assessment and Plan Assessment and plan (1) Alcoholic cirrhosis of liver with ascites: Status: Chronic (2) Acute tubular necrosis: Status: Acute (3) Upper GI bleeding: Status: Acute (4) Palliative care patient: Status: Acute (5) Advanced care planning/counseling discussion: Status: Acute PFSH All Active Problems (Updated 11/27/23 @ 13:28 by Kira Wade MD) Advanced care planning/counseling discussion (Acute) Palliative care patient (Acute) Urethral false passage (Acute) Oliguria (Acute) Acute tubular necrosis (Acute) Acute kidney injury (nontraumatic) (Acute) Upper GI bleeding (Acute) Ascites (Acute) Paroxysmal A-fib (Acute) Blood loss anemia (Acute) Alcoholic cirrhosis of liver with ascites (Chronic) Pulmonary infiltrates (Acute) Biliary sludge (Acute) Ascites (Acute) Alcoholic cirrhosis (Acute) Lactic acidosis (Acute) Leukocytosis (leucocytosis) (Acute) Hyponatremia (Acute) Encephalopathy, hepatic (Acute) Jaundice (Acute) Carpal tunnel syndrome of right wrist (Acute) Right radial nerve palsy (Acute) Alcohol abuse (Chronic) Cellulitis of hand, right (Acute) Infected hand (Acute) Cat scratch of hand (Acute) Memory change (Acute) Tendinitis of long head of biceps brachii of left shoulder (Acute) Rotator cuff tear (Acute) Bilateral shoulder bursitis (Acute) Impingement syndrome of both shoulders (Acute) Orthostatic hypertension (Acute) Autonomic dysfunction (Acute) Folic acid deficiency (Acute) B12 deficiency (Acute) Hypomagnesemia (Acute) Hypokalemia (Acute) Dysphagia (Chronic) Orthostatic hypotension (Acute) Discharge planning issues (Acute) DVT prophylaxis (Acute) COPD (chronic obstructive pulmonary disease) (Chronic) Transaminitis (Acute) Dyspnea on exertion (Acute) TBI (traumatic brain injury) (Chronic) Remote, multiple Migraine headache without aura (Chronic) Alcohol abuse (Acute) sober Vitamin D deficiency (Chronic) Scoliosis (Chronic) Hyperlipidemia (Chronic) Chronic kidney disease, stage 3 (Chronic) Anxiety and depression (Chronic) Chronic pain syndrome (Chronic) 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) Gross hematuria (Acute 03/20/17) Essential tremor (Chronic 04/10/16) 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) Umbilical hernia without obstruction or gangrene (Chronic) Medical History (Updated 11/27/23 @ 13:28 by Kira Wade MD) Seizure disorder Alcoholic peripheral neuropathy Surgical History Inguinal hernia Colonoscopy - MAC (05/19/16) Family History Mother TIA (transient ischemic attack) Father Parkinson disease Stroke Social History Smoking/Tobacco Use Status: Former Tobacco Use Smoking risk assessment performed?: Yes Alcohol Intake: current Alcohol Intake frequency: holidays/special occasions only Alcohol type: wine Drug use: Never Substance use type: does not use Household members: none Housing: apartment Pets and animals: Yes Pets and animals: cat(s) Current gender identity: male Do you feel safe at home: Yes Do you feel safe in your relationship?: Yes Additional Social history: Lives alone in second story apartment in [place], has a cat Currently working part-time at [employer] in [place] through [employer]. History of smoking, quit June 2018. No vaping. No other drug use including marijuana. Results Last Vital Signs Temp 36.1 C L 11/27/23 11:33 Pulse 115 H 11/27/23 11:33 Resp 12 11/27/23 11:33 BP 106/77 11/27/23 11:33 Pulse Ox 90 L 11/27/23 11:33 Labs 11/27/23 06:20 11/27/23 06:20 Labs: Laboratory Results - last 24 hr 11/26/23 11/26/23 11/27/23 12:40 19:17 00:33 WBC 17.05 H RBC 2.97 L Hgb 9.6 L Hct 29.0 L MCV 98 H MCH 32.3 MCHC 33.1 RDW 26.0 H Plt Count 167 MPV 12.0 H Immature Gran % Neutrophils % Lymphocytes % Monocytes % Eosinophils % Basophils % Nucleated RBC % Absolute Neutrophils Absolute Lymphocytes Absolute Monocytes Absolute Eosinophils Absolute Basophils RBC Morphology Anisocytosis Sodium 136 Potassium 2.9 L* Chloride 102 Carbon Dioxide 18.2 L Anion Gap 15.8 H BUN 39 H Creatinine 3.6 H* Est GFR (CKD-EPI 2020) 17.19 Glucose 145 H Calcium 8.7 Magnesium 2.2 Total Bilirubin AST ALT Alkaline Phosphatase Total Protein Albumin Urine Color Yellow Urine Clarity Clear Urine pH 5.5 Ur Specific [place] 1.020 Urine Protein 30 H Urine Ketones Trace H Urine Blood Negative Urine Nitrite Negative Urine Bilirubin Negative Urine Urobilinogen 0.2 Ur Leukocyte Esterase Negative Urine RBC Negative Urine WBC 0-2 Ur Epithelial Cells Few Urine Crystals Negative Urine Bacteria Moderate Urine Casts 0-2 Hyaline Urine Mucus Heavy Urine Other Moderate Renal Ur Culture Indicated? Yes Ur Random Creatinine 166.05 Ur Random Sodium < 5 Urine Glucose Negative Patient ABO/Rh Antibody Screen Crossmatch 11/27/23 11/27/23 06:20 08:50 WBC 19.56 H RBC 1.96 L Hgb 6.5 L* D Hct 19.4 L* MCV 99 H MCH 33.2 H MCHC 33.5 RDW 25.9 H Plt Count 156 MPV 12.7 H Immature Gran % 0.9 Neutrophils % 81.0 Lymphocytes % 6.7 Monocytes % 9.0 Eosinophils % 2.2 Basophils % 0.2 Nucleated RBC % 0.0 Absolute Neutrophils 15.84 H Absolute Lymphocytes 1.31 Absolute Monocytes 1.76 H Absolute Eosinophils 0.43 Absolute Basophils 0.04 RBC Morphology See Below Anisocytosis 2+ Sodium 139 Potassium 3.7 Chloride 105 Carbon Dioxide 18.1 L Anion Gap 15.9 H BUN 40 H Creatinine 4.1 H* Est GFR (CKD-EPI 2020) 14.71 Glucose 158 H Calcium 8.4 L Magnesium 1.9 Total Bilirubin 2.7 H AST 78 H ALT 43 Alkaline Phosphatase 98 Total Protein 4.6 L Albumin 2.6 L Urine Color Urine Clarity Urine pH Ur Specific [place] Urine Protein Urine Ketones Urine Blood Urine Nitrite Urine Bilirubin Urine Urobilinogen Ur Leukocyte Esterase Urine RBC Urine WBC Ur Epithelial Cells Urine Crystals Urine Bacteria Urine Casts Urine Mucus Urine Other Ur Culture Indicated? Ur Random Creatinine Ur Random Sodium Urine Glucose Patient ABO/Rh A Positive Antibody Screen NEGATIVE Crossmatch See Detail
[2023-11-27] MEDS: Normal Saline Flush 10 ML SYR IVP ×2 (13:13→19:31)
[2023-11-27] MEDS: Furosemide 100 MG/10 ML VIAL 120 MG IVP (13:41)
--- NOTE | 2023-11-27 14:24 | PT.INNT ---
PT Notes Visit Reasons: Hepatic Encephalopathy,Alcoholic Hepatitis,Alcohol Hold on further PT intervention as patient has been transferred to ICU. Would be happy to consult again if medically appropriate with new PT orders.
--- NOTE | 2023-11-27 14:33 | CHAPLAIN ---
Roderick has been moved to the ICU since I last visited him. He's dealing with alcoholic cirrhosis, among other things. The hospitalist reported that his sister is on her way her from [place] to see Roderick and talk about his goals of care. In the ICU he was in bed, not talking, with limited responses and interactions. He was aware that people are with him, providing care. I brought a comfort shawl for him. 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
[2023-11-27 15:04] LABS: COMMENT (LAB VIEW ONLY) 108.48 mg/dL; PROTEIN 272.5 mg/dL; Prot/Crea Ur Ratio 2.51
[2023-11-27] MEDS: Naloxone 0.4 MG/ML VIAL 0.2 MG IVP (15:48)
--- NOTE | 2023-11-27 15:54 | W.NUTRFU ---
Date of service: 11/27/23 Time of Service: 15:59 Nutrition Note NOTE: Roderick has continued poor po intake. his weight appears stable with a slight increase over the last 2 days, however most likely due to fluid accumulation with 2+ pitting edema noted by nursing. Pt just changed to DNR/DNI status and nursing requesting to hold trays at this time from the kitchen. Per morning meeting discussions this morning, no aggressive nutrition intervention planned at this time. Will monitor closely for changes and requests for ONS/desired foods. Time Spent in Nutritional Counseling and Treatment: 0
[2023-11-27] MEDS: Atropine 1% Ophth Sol. 2 ML BTL SL (16:21)
[2023-11-27] MEDS: Scopolamine 1 MG/3 DAYS PATCH TD (16:22)
[2023-11-27] MEDS: dexmedeTOMidine IN 0.9 % NACL 400 MCG/100 ML BTL IV (16:34)
[2023-11-27] MEDS: LORazepam 2 MG/ML VIAL 0.5 MG IVP (16:45)
[2023-11-27 17:31] LABS: BE (Venous) -16 mmol/L (-2-3); HCO3 (Venous) 14 mmol/L (23-28); O2 Sat (Venous) 90 %; TCO2 (Venous) 14 mmol/L (24-29); pCO2 (Venous) 42 mmHg (41-51); pO2 (Venous) 64 mmHg
[2023-11-27 17:34] LABS: pH (Venous) 7.13 (7.31-7.41)
[2023-11-27 17:36] LABS: HCT 28.2 % (40.0-50.0); HGB 9.2 g/dL (13.5-17.5)
[2023-11-27 17:48] LABS: Anion Gap 17.1 mmol/L (3-11); BUN 41 mg/dL (7-18); CO2 15.9 mmol/L (21.0-32.0); Calcium 8.6 mg/dL (8.5-10.1); Chloride 103 mmol/L (98-107); Estimated GFR 13.51 (mL/min/1.73m2); Glucose 161 mg/dL (74-106); Potassium 3.9 mmol/L (3.5-5.1); Sodium 136 mmol/L (136-145)
[2023-11-27 17:50] LABS: Ammonia 59 umol/L (11-32)
[2023-11-27 17:53] LABS: CREATININE 4.4 mg/dL (0.70-1.30)
[2023-11-27] MEDS: Sodium Bicarbonate 50 MEQ/50 ML SYR IVP (19:29)
[2023-11-27] MEDS: Pantoprazole 40 MG VIAL IVP (19:31)
[2023-11-27 22:10] LABS: BE (Venous) -14 mmol/L (-2-3); HCO3 (Venous) 15 mmol/L (23-28); O2 Sat (Venous) 97 %; TCO2 (Venous) 16 mmol/L (24-29); pCO2 (Venous) 48 mmHg (41-51); pO2 (Venous) 92 mmHg
[2023-11-27 22:12] LABS: pH (Venous) 7.12 (7.31-7.41)
--- NOTE | 2023-11-27 23:40 | W.EVENT ---
Date of service: 11/27/23 Time of Service: 23:40 Event Note: Sister Maria, who is health care proxy, arrived from [place]. I reviewed the case with her at Roderick's bedside. We discussed his wishes and his poor prognosis. Recent labs reviewed with ongoing acidosis. Option for aggressive care including pressors and lactulose via enema at this point. We aggreed to change to [employer] status. He appears comfortable off of BiPAP at this point. Time Spent with Patient Time spent in critical care(minutes): 35 Time Spent Included: Coordination of care, Chart review, Time at immediate bedside, Discussing critically ill care with other medical staff and Discussing Hx and/or treatment with family
--- NOTE | 2023-11-28 02:02 | EXPE_ITS ---
Date of service: 11/28/23 Time of Service: 02:02 Discharge Plan Disposition Patient Disposition: Condition: Stable Discharge Details Reason For Visit: Hepatic Encephalopathy,Alcoholic Hepatitis,Alcohol Admit Date/Time: 11/17/23 22:37 Admit Provider: Laureano Ferguson Attending Provider: Laureano Ferguson Primary Care Provider: Nicolette Harris Hospital Course Hospital Course: Admitted to [facility] November 17, 2023 after a fall with altered mental status. Evaluation revealed that he had chronic alcoholic cirrhosis with significant ascites, elevated ammonia level suggesting hepatic encephalopathy. Encephalopathy initially cleared with lactulose and rifaximin. He was treated for possible pneumonia. On hospital day #2 or 3 he developed hematochezia and had dramatic drop in his hemoglobin. From that point on he received in termittent transfusions and FFP. CT at the time of admission did show portal hypertension and esophageal varices. Colonoscopy on the same date showed no source of bleeding. EGD on November 22 showed no varices, however moderate esophagitis, esophageal erosions at the GE junction and very friable and easily bleeding mucosa. Continues to have hematochezia and has received additional transfusions as well as. Paracentesis ruled out SBP. He received 1 additional therapeutic paracentesis. By November 25, hospitalist reported that hematochezia had ceased. However at this point his creatinine started rising and he developed gross hematuria after cintron placed in the urethra. Worsening renal function felt likely due to acute tubular necrosis from hypotensive episodes last week. He received albumin infusions and midodrine for this. Creatinine continued to increase, increasing acidosis noted and additional two units transfused on 11/27/23. 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 Home Meds and New Rx's Prescriptions: No Action melatonin 3 mg capsule 3 mg PO HS PRN propranolol 60 mg capsule,extended release 24 hr 60 mg PO DAILY Qty: 90 3RF Fish Oil 500 mg capsule 1,000 mg PO .COMPLEX Rx Instructions: 1,000 mg PO three times a week; multivitamin [Multiple Vitamins] Tablet 1 tab PO DAILY Qty: 30 0RF levalbuterol tartrate [Xopenex HFA] 45 mcg/actuation HFA aerosol inhaler 2 inh IH Q6H PRN PRN (Reason: shortness of breath or wheezing) Qty: 15 0RF Hold Instructions: Home Medication placed on hold at Doctor's office omeprazole 20 mg capsule,delayed release(DR/EC) 20 mg PO QPM Mag 64 64 mg tablet,delayed release (DR/EC) 128 mg PO DAILY gabapentin 300 mg capsule 300 mg PO TID folic acid 1 mg tablet 1 mg PO DAILY Patient Comments: TAKE 1 TABLET BY MOUTH EVERY DAY Discharge Data Cause of : End stage liver disease Discharge Date/Time-TO BE ENTERED AT DEPARTURE: 11/28/23 02:10 Discharge Sum: Prov Provider Primary care physician: Nicolette Harris Admitting clinician: Priyank Wood Attending physician on admission: Laureano Ferguson Consults: 11/19/23 11:46 Palliative Care Consult [CONS] Routine Consultation Status:: Follow-up needed Clarification:: Manage/follow per spec. Reason for consult:: End-stage EtOH cirrhosis and liver failure, currently w/ presumed lower GI bleed and is a full code Pronouncing clinician: Kaleb Medina Discharge Sum: Diag PCOD Cause of : End stage liver disease Contributing Factors (1) Alcoholic cirrhosis of liver with ascites: (2) Acute tubular necrosis: (3) Upper GI bleeding: Discharge Sum: Summary Date and Time Admission Date: 11/17/23 Date of : 11/28/23 Time of : 01:30 Summary Details: See above hospital course regarding progressive liver and renal failure and recurrent bleeding episodes. 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 Additional Data Confirmation of as documented by pronouncing clinician: no pulse, no respirations, no heart sounds and pupils fixed and dilated Family: at bedside Attending/PCP notified?: No Attending Physician: Kaleb Medina Was code activated?: No Autopsy requested?: No securities compliance examiner notified?: No Organ bank notified?: No Advance directives: Yes Hospice patient?: No
== END 2023-11-28 01:35 | disposition expired | DRG 441 ==
LOC: ER 23:29 → MS 23:41 → ICU 11-27 09:33 → MS 11-28 00:49
PROVIDERS: Family Medicine; Surgery; Admitting Provider Internal Medicine; Emergency Provider Registered Nurse Emergency; PCP Nurse Practitioner Family; Visit Provider Internal Medicine
PROC: 0DJD8ZZ Inspection of Lower Intestinal Tract, Via Natural or Artificial Opening Endoscopic (ICD-10-PCS; CPT 45378; principal; 2023-11-23 11:15)
DX: K76.82 Hepatic encephalopathy (principal); J18.9 Pneumonia, unspecified organism; N17.0 Acute kidney failure with tubular necrosis; T81.19XA Other postprocedural shock, initial encounter; K26.4 Chronic or unspecified duodenal ulcer with hemorrhage; E87.1 Hypo-osmolality and hyponatremia; E87.20 Acidosis, unspecified; D62 Acute posthemorrhagic anemia; D68.4 Acquired coagulation factor deficiency; J44.0 Chronic obstructive pulmonary disease with (acute) lower respiratory infection; K76.6 Portal hypertension; I85.10 Secondary esophageal varices without bleeding; Z51.5 Encounter for palliative care; R91.8 Other nonspecific abnormal finding of lung field; D72.828 Other elevated white blood cell count; F10.10 Alcohol abuse, uncomplicated; K70.31 Alcoholic cirrhosis of liver with ascites; K72.10 Chronic hepatic failure without coma; E87.6 Hypokalemia; F32.A Depression, unspecified; F41.9 Anxiety disorder, unspecified; E53.8 Deficiency of other specified B group vitamins; N18.30 Chronic kidney disease, stage 3 unspecified; R31.0 Gross hematuria; G43.009 Migraine without aura, not intractable, without status migrainosus; G40.909 Epilepsy, unspecified, not intractable, without status epilepticus; G62.1 Alcoholic polyneuropathy; K42.9 Umbilical hernia without obstruction or gangrene; R41.3 Other amnesia; G25.0 Essential tremor; G89.4 Chronic pain syndrome; I48.0 Paroxysmal atrial fibrillation; Z66 Do not resuscitate; W19.XXXA Unspecified fall, initial encounter; I95.1 Orthostatic hypotension; R74.01 Elevation of levels of liver transaminase levels; Z87.820 Personal history of traumatic brain injury; R13.10 Dysphagia, unspecified; Y65.8 Other specified misadventures during surgical and medical care; K70.11 Alcoholic hepatitis with ascites; N36.5 Urethral false passage; K22.70 Barrett's esophagus without dysplasia; K31.89 Other diseases of stomach and duodenum
CPT/HCPCS: 49083; 45378; 43239; 49082; 52000; 00123; 36415; 36430; 74177; 80048; 80053; 82042; 82805; 84145; 85027; 86704; 86709; 86803; 86850; 86900; 86901; 86920; 87340; 87449; 87493; 87505; 88305; 93005; 96361; 96365; 96367; 97110; 97162; 97530; 99222; 99231; 99232; 99233; 99285; 70450; 71045; 71260; 74176; 80320; 81003; 81015; 81373; 82140; 82565; 83605; 83615; 83735; 83993; 84100; 84156; 84157; 84300; 84484; 85014; 85018; 85025; 85610; 85730; 87070; 87086; 87205; 87899; 89051; 93010; 94660; 94668; 94760; 99223; 99291; J1205; J1644; J1940; J2001; J2060; J2310; J2371; J2470; J2543; J2704; J3430; J3475; J3480; J3490; P9016; P9047; P9059

== ENCOUNTER → 2023-11-27 08:44 | Outpatient (BNVA) | payer OTHER, SELFPAY | PROVIDERS: PCP Nurse Practitioner Family; Referring Provider Nurse Practitioner Family; Visit Provider Urology ==